=== PATIENT | male | born 1965 | race Caucasian/White ===

== ENCOUNTER 2019-06-08 00:20 | Day surgery (SDC) | payer OTHER, SELFPAY ==
[2019-06-02 14:16] VITALS: BMI 31.6
[2019-06-08 12:23] VITALS: BP 149/96; PULSE 72; RESP 14; TEMP 36.3; O2SAT 98; BMI 32.1
[2019-06-08] MEDS: LACTATED RINGERS 1,000 ML 150 ML IV CONT (12:26)
--- NOTE | 2019-06-08 13:09 | WPDANESEPPF ---
Anes - Initial Pre Proc Eval Procedure: Operation Date: 06/08/19 13:30 Proposed Procedures p Screening Colonoscopy - John Ruiz MD Date/Time: 06/08/19 13:09 Surgeon: John Ruiz MD Pre Op Diagnosis: Neoplasm Screening Patient Data Age: 53 Gender: M Height: 5 ft 10 in Weight: 101.4 kg Last Vital Signs Temp 97.4 F L 06/08/19 12:23 Pulse 72 06/08/19 12:23 Resp 14 06/08/19 12:23 BP 149/96 H 06/08/19 12:23 Pulse Ox 98 06/08/19 12:23 Allergies Allergy/AdvReac Type Severity Reaction Status Date / Time ticagrelor Allergy Unknown Blister Verified 06/08/19 12:27 hydrocodone AdvReac Unknown Nausea Verified 06/08/19 12:27 oxycodone AdvReac Unknown Nausea Verified 06/08/19 12:27 Home Medications Medication Instructions Recorded Confirmed Type aspirin [Aspir-81] 81 mg PO DAILY 06/02/19 06/02/19 History carvedilol 25 mg PO BID 06/02/19 06/08/19 History citalopram 20 mg PO PRN PRN 06/02/19 06/02/19 History lisinopril-hydrochlorothiazide 1 tablet PO BID 06/02/19 06/02/19 History multivitamin 1 cap PO DAILY 06/02/19 06/02/19 History omeprazole 20 mg PO DAILY 06/02/19 06/02/19 History Patient hx anesthesia problems: post op nausea/vomiting Family hx anesthesia problems: none PMFSH Past Medical History Medical History (Updated 06/08/19 @ 13:12 by Fitz Cannon MD) Anxiety CAD (coronary artery disease) Hyperlipidemia Hypertension Pacemaker Surgical History Surgical History (Updated 06/08/19 @ 13:12 by Fitz Cannon MD) Stented coronary artery Family History Family History (Updated 07/15/17 @ 12:21 by DOCTOR UNKNOWN) Mother Diabetes mellitus Father Hypertension Sibling Hypertension Social History Social History Alcohol intake: current Anes - Eval Final PreProcedure Day of Procedure 06/08/19 13:09 Patient weight: obese Heart: regular rate and rhythm Lungs: clear to auscultation Airway: Mallampati scale class II Neurological: alert and oriented Last oral intake: >/= 8 hours ASA classification: III Emergent: no Anesthetic plan: proceed Anesthesia type and monitoring: general GIVS and standard monitoring Informed Consent: The patient's anesthetic plan and its attendant risks and benefits were discussed with the patient/family/POA. Questions were solicited and answers provided to the satisfaction of the patient/family/POA.
--- NOTE | 2019-06-08 13:13 | PM.HPGS ---
History of Present Illness History of Present Illness Consent: Risks, benefits, and alternatives have been discussed and questions answered. Patient agrees to proceed with procedure. Chief complaint: Neoplasm Screening Narrative: Asad Jc is a 53 year old male here for screening colonoscopy, never had one Review of Systems Constitutional: Constitutional: Denies headache(s) and Denies weakness Eyes: Eyes: Denies blurry vision ENT: Reports Normal hearing present, Denies headache(s) and Denies neck pain Cardiovascular: Cardiovascular: Denies chest pain and Denies dyspnea Respiratory: Respiratory: Denies dyspnea Gastrointestinal: Gastrointestinal: Reports no additional gastrointestinal complaints Genitourinary: Genitourinary: Denies dysuria Musculoskeletal: Musculoskeletal: Denies neck pain Integumentary/Breasts: Skin/Breast: Denies dry skin Neurologic: Reports Normal hearing present, Denies headache(s) and Denies weakness Psychiatric: Psychiatric: Denies anxiety Endocrine: Endocrine: Denies change in body appearance Hematologic/Lymphatic: Hematologic/Lymphatic: Denies easy bleeding Allergic/Immunologic: Allergic/Immunologic: Denies urticaria PMFSH Past Medical History Medical History (Updated 06/08/19 @ 13:14 by John Ruiz MD) Anxiety CAD (coronary artery disease) Colon cancer screening Hyperlipidemia Hypertension Pacemaker Surgical History Surgical History (Updated 06/08/19 @ 13:12 by Fitz Cannon MD) Stented coronary artery Family History Family History (Updated 07/15/17 @ 12:21 by DOCTOR UNKNOWN) Mother Diabetes mellitus Father Hypertension Sibling Hypertension Social History Social History Alcohol intake: current Meds Home Medications and Allergies Home Medications Medication Instructions Recorded Confirmed Type aspirin [Aspir-81] 81 mg PO DAILY 06/02/19 06/02/19 History carvedilol 25 mg PO BID 06/02/19 06/08/19 History citalopram 20 mg PO PRN PRN 06/02/19 06/02/19 History lisinopril-hydrochlorothiazide 1 tablet PO BID 06/02/19 06/02/19 History multivitamin 1 cap PO DAILY 06/02/19 06/02/19 History omeprazole 20 mg PO DAILY 06/02/19 06/02/19 History Allergies Allergy/AdvReac Type Severity Reaction Status Date / Time ticagrelor Allergy Unknown Blister Verified 06/08/19 12:27 hydrocodone AdvReac Unknown Nausea Verified 06/08/19 12:27 oxycodone AdvReac Unknown Nausea Verified 06/08/19 12:27 Vital Signs Vital Signs - 24 hr 06/08/19 12:23 Temperature 97.4 F L Pulse Rate 72 Respiratory Rate 14 Blood Pressure 149/96 H Pulse Oximetry 98 Exam Const: General: comfortable and no acute distress HENMT: General nose exam: Normal nares present Eyes: General: appearance normal, both eyes and all related structures Neck: Neck: no JVD Resp: Auscultation: clear to auscultation bilaterally Cardio: Rate: regular rate Rhythm: regular rhythm GI: Inspection: non-distended GI Palp: Yes Soft to palpation Skin: General skin exam: normal color Neuro: General: gait normal Speech: normal speech Extrem: General: normal to inspection Psych: Mental Status: mental status grossly normal Assessment and Plan Assessment and plan (1) Colon cancer screening: Code(s): Z12.11 - Encounter for screening for malignant neoplasm of colon Status: Acute Assessment and Plan: will proceed with colonoscopy (2) Hypertension: Qualifiers: Hypertension type: essential hypertension Qualified Code(s): I10 - Essential (primary) hypertension Code(s): I10 - Essential (primary) hypertension Status: Acute
[2019-06-08 13:41] VITALS: BP 108/61; PULSE 71; RESP 19; O2SAT 99
[2019-06-08 13:51] VITALS: BP 126/84; PULSE 70; RESP 20; O2SAT 98
[2019-06-08 14:01] VITALS: BP 156/99; PULSE 66; RESP 22; O2SAT 99
== END 2019-06-08 14:09 | disposition home or self-care (01) ==
PROVIDERS: PCP Internal Medicine; Visit Provider Internal Medicine Gastroenterology
PROC: 0DJD8ZZ Inspection of Lower Intestinal Tract, Via Natural or Artificial Opening Endoscopic (ICD-10-PCS; CPT 45378; principal; 2019-06-08 13:30)
DX: Z12.11 Encounter for screening for malignant neoplasm of colon (principal); D12.5 Benign neoplasm of sigmoid colon; K64.8 Other hemorrhoids; I10 Essential (primary) hypertension; I25.10 Atherosclerotic heart disease of native coronary artery without angina pectoris; E78.5 Hyperlipidemia, unspecified; F41.9 Anxiety disorder, unspecified; Z95.0 Presence of cardiac pacemaker; Z79.82 Long term (current) use of aspirin; E66.9 Obesity, unspecified; Z68.32 Body mass index [BMI] 32.0-32.9, adult
CPT/HCPCS: 45385; 88305; J2704; J7120

== ENCOUNTER 2019-07-13 07:21 | Observation (INO) | payer OTHER, SELFPAY ==
[2019-07-13] VITALS (19 sets, daily range): BP systolic 98–145; BP diastolic 56–87; PULSE 64–75; RESP 12–22; TEMP 36.1–36.7; O2SAT 96–100; BMI 31.6
--- NOTE | ~2019-07-13 | XR_ITS ---
EXAMINATION: XR chest 2V DATE: 07/13/2019 08:03 INDICATION: Chest pain. TECHNIQUE: Frontal and lateral views of the chest were obtained. COMPARISON: Chest single view 03/02/2017, CT abdomen and pelvis 03/11/2010 FINDINGS: The chest demonstrates clear lungs without pneumonia, pleural effusion, or pneumothorax. Th e heart size is normal. There is a left chest pacer with leads in right atrium, right ventricle, and coronary sinus. IMPRESSION: 1. No acute cardiopulmonary disease. Reviewed, dictated and finalized at location A. FITS ADMINISTRATOR
--- NOTE | ~2019-07-13 | CT_ITS ---
EXAMINATION: CT brain wo con EXAM DATE: 07/13/2019 17:31 INDICATION: Dizziness and Confusion. TECHNIQUE: Spiral CT of the head was performed without contrast. Axial, coronal and sagittal images were reviewed. The dose-length product (DLP) for this examination was 605.33 mGy-cm. The exposure w as tailored according to patient size, and iterative reconstruction (ASIR) was used as additional dos e reduction technique. Comparison is made to prior examination from 07/12/17. FINDINGS: There is no acute intraparenchymal hemorrhage. No evidence of intraparenchymal brain mass lesion. No evidence of acute infarction. Please note that initial head CT has limited sensitivity f or small or acute infarctions. There is mild periventricular and subcortical hypodensity, nonspecific but probably related to small vessel ischemic disease. There is mild prominence of the sulci and v entricles related to cerebral atrophy. There is intracranial carotid arteriosclerosis. There are n o extra-axial collections. There is no mass effect or midline shift. The orbits are unremarkable. Soft tissue is unremarkable. The visualized sinuses and mastoid air cells are well aerated. IMPRESSION: 1. No acute intracranial findings. 2. Chronic age related findings. Reviewed, dictated and finalized at location A. ERVATION EDUCATOR
--- NOTE | 2019-07-13 07:41 | ECG_ITS ---
Measurements Intervals [place] Rate: 69 P: 43 DC: 157 QRS: 183 QRSD: 166 T: 69 QT: 428 QTc: 460 Interpretive Statements ATRIAL SENSE- ELECTRONIC VENTRICULAR PACEMAKER NO FURTHER INTERPRETATION IS POSSIBLE ATYPICAL ECG Electronically Signed On 07-13-2019 8:19:08 [employer]PECTOR [employer] by Ky Szymanski D.O.
[2019-07-13 07:59] LABS: Basophils Absolute Auto 0.1 K/mm3 (0.0-0.1); Basophils Percent Auto 0.9 % (0.2-1.2); Eosinophils Absolute Auto 0.3 K/mm3 (0-0.3); Eosinophils Percent Auto 3.9 % (0-4.4); Hematocrit 40.4 % (42.0-52.0); Hemoglobin 12.3 g/dL (14.0-18.0); Immature Granulocyte Absolute 0.03 K/mm3 (0.00-0.031); Immature Granulocyte Percent A 0.4 % (0-0.5); Lymphocytes Absolute Auto 1.65 K/mm3 (0.9-3.2); Lymphocytes Percent Auto 22.2 % (18.3-44.2); Mean Corpuscular HGB Conc 30.4 g/dl (32-36); Mean Corpuscular Hemoglobin 24.4 pg (26-34); Mean Corpuscular Volume 80.2 fl (80-100); Mean Platelet Volume 9.8 fl (7.4-10.4); Monocytes Absolute Auto 0.5 K/mm3 (0.1-0.6); Monocytes Percent Auto 6.9 % (2.6-8.5); Neutrophils Absolute Auto 4.9 K/mm3 (1.3-6.7); Neutrophils Percent Auto 65.7 % (45.5-73.1); Platelet Count Result 338 k/mm3 (150-375); Red Blood Count 5.04 M/mm3 (4.6-6.20); Red Cell Distribution Width 17.7 % (11.5-14.5); White Blood Count 7.4 K/mm3 (4.5-10.0)
[2019-07-13 08:09] LABS: Partial Thromboplastin Time 25.6 SECONDS (22.3-36.8); Prothrombin Time 12.8 Seconds (11.1-14.7)
[2019-07-13 08:19] LABS: Blood Urea Nitrogen 9 mg/dL (9-20); Calcium 9.7 mg/dL (8.4-10.2); Carbon Dioxide 30 mmol/L (22-30); Chloride 101 mmol/L (98-107); Estimated CRCL calculation 109 ml/min; Estimated Glomerular Filt Rate > 60; Glucose 180 mg/dL (75-110); Potassium 3.6 mmol/L (3.4-5.0); Sodium 137 mmol/L (137-145)
[2019-07-13 08:31] LABS: Troponin I < 0.012 ng/mL (0.000-0.034)
--- NOTE | 2019-07-13 08:51 | ED.CHESTPAIN ---
HPI - Chest Pain General Chief Complaint: Chest Pain Stated Complaint: chest pain and weakness Time Seen by Provider: 07/13/19 07:33 Source: patient Mode of arrival: ambulatory Limitations: no limitations History of Present Illness HPI narrative: Pt is a 53 y/o male who presents to the ED with c/o constant, 5/10, aching pain to his lt chest that he woke up with at 4AM this morning. Pt has a H/O a NV and states that his pain feels similar to his previous NV. He reports associated sweats, nausea, dizziness, fatigue, cough, and SCHULTZ. Pt notes that he has been fatigued for a couple of weeks and he started coughing yesterday. He denies SOB, fever, or vomiting. He notes that he has not had anything to eat today and he did not take anything for his CP. Pt has a pacemaker and stents, but he has not seen a marine specialist in 2 years d/t insurance issues. His PCP is Dr. Rose. He notes that he has a H/O HTN, but he denies a H/O HLD or DM. Pt has a H/O plaque psoriasis and is supposed to be starting methotrexate. He denies a FHx of heart disease. Pt states that he got his flu shot this year. MD complaint: chest pain Pertinent past history: coronary artery disease and prior NV Onset (ago): hour(s) (3.5) Timing of current episode: constant Prior episodes: Yes Onset: awoke with symptoms Pain location: left chest Severity: similar to previous episodes Pain scale (0-10): 5 Quality: aching Associated symptoms: nausea, diaphoresis, cough and other (dizziness, fatigue, SCHULTZ) Treatment prior to arrival: none Related Data Home Medications Medication Instructions Recorded Confirmed aspirin [Aspir-81] 81 mg PO DAILY 06/02/19 07/13/19 carvedilol 25 mg PO DAILY 06/02/19 07/13/19 lisinopril-hydrochlorothiazide 2 tablet PO DAILY 06/02/19 07/13/19 omeprazole 20 mg PO DAILY 06/02/19 07/13/19 betamethasone dipropionate 1 applic TOPICAL HS 07/13/19 07/13/19 triamcinolone acetonide 1 applic TOPICAL DAILY 07/13/19 07/13/19 Allergies Allergy/AdvReac Type Severity Reaction Status Date / Time ticagrelor Allergy Unknown Blister Verified 07/13/19 08:04 hydrocodone AdvReac Unknown Nausea Verified 07/13/19 08:04 oxycodone AdvReac Unknown Nausea Verified 07/13/19 08:04 Review of Systems Review of Systems: All systems reviewed & are unremarkable except as noted in HPI and below Constitutional: Constitutional: Reports fatigue, Denies fever(s) and Reports other (sweats) Cardiovascular: Cardiovascular: Reports chest pain Respiratory: Respiratory: Reports cough and Denies dyspnea Gastrointestinal: Gastrointestinal: Reports nausea and Denies vomiting Neurologic: Reports dizziness and Reports headache(s) [facility] Past Medical History Medical History (Updated 07/13/19 @ 15:27 by Traci Zhao MD) Anxiety CAD (coronary artery disease) Colon cancer screening Hyperlipidemia Hypertension Myocardial infarction Pacemaker Plaque psoriasis Surgical History Surgical History (Updated 07/13/19 @ 09:23 by Dylan Gardner) History of back surgery Hx of appendectomy Stented coronary artery Social History Social History (Updated 07/13/19 @ 09:22 by Dylan Gardner) Smoking packs per day: 0.5 Smoking cigarettes per day: 10.0 Years smoked: 40 Smoking pack-years: 20.00 Smoking status: Current every day smoker Tobacco type: cigarettes Alcohol intake: current Drinks per week: 24 Substance use: current Substance use type: does not use Gender identity (if verbalized by the patient): Male Spiritual care concerns: No Agree to blood products: Yes Exam Const: General: cooperative, no acute distress and alert Nutritional Appearance: well nourished Orientation/consciousness: patient oriented x3 Limitations: no limitations HENMT: Mouth: Yes lip normal and Yes moist mucous membranes Resp: Effort & Inspection: normal respiratory effort Auscultation: clear to auscultation bilaterally Cardio: Rate: regular rate Rhythm: regular rhythm GI:
[2019-07-13] MEDS: ASPIRIN 81 MG CHEWABLE TABLET 324 MG PO (09:30)
[2019-07-13] MEDS: NITROGLYCERIN SL 0.4 MG TABLET SUBLINGUAL (09:30)
[2019-07-13 09:32] LABS: Alanine Aminotransferase 92 U/L (4-50); Albumin Level 4.3 g/dL (3.5-5.1); Alkaline Phosphatase 103 U/L (38-126); Aspartate Amino Transferase 109 U/L (17-59); Bilirubin,Total 0.5 mg/dL (0.2-1.3)
[2019-07-13] MEDS: ALBUTEROL SULFATE NEB 2.5 MG/0.5 ML INH 5 MG INHALATION ×3 (09:37→19:55)
[2019-07-13] MEDS: IPRATROPIUM BR 0.02% INH SOLN 0.5 MG/2.5 ML VIAL INHALATION ×3 (09:38→19:55)
[2019-07-13 09:41] LABS: NT Pro B Type Natriuretic Pept 77 PG/ML (5-100)
[2019-07-13 10:46] LABS: Add Urine Microscopic? NO; Appearance Urine Clear (Clear); Bilirubin Urine Negative (Negative); Blood Urine Negative (Negative); Color Urine Yellow (Yellow); Glucose Urine UA Negative (Negative); Ketones Urine Negative (Negative); Leukocyte Esterase Ur Negative LEU/UL (Negative); Nitrate Urine Negative (Negative); Protein Urine Negative (Negative); Specific Grav Ur 1.015 (1.001-1.035); Urobilinogen Urine Negative mg/dL (<2.0)
[2019-07-13] MEDS: NITROGLYCERIN OINTMENT 1 INCH DOSE TRANSDERM (12:10)
[2019-07-13 12:38] LABS: Troponin I < 0.012 ng/mL (0.000-0.034)
--- NOTE | 2019-07-13 13:13 | PC.NURSE ---
This patient, Asad Jc, was admitted to IMU Room 206-. Patient/family oriented to hospital policies and general routines including ID bracelet, bed and alarms, visiting hours, pain management, procedures, bathroom and other care routines, personal items, smoking policy, room service/diet, and visiting hours. Valuables list has been completed. Information on how to activate the Rapid Response Team has been discussed. Patient/Family are encouraged to report perceived risks to care and to ask questions if they do not understand what they are told or what they should do.
[2019-07-13 14:33] LABS: Troponin I < 0.012 ng/mL (0.000-0.034)
[2019-07-13 17:46] LABS: Alveolar/Arterial O2 Gradient 25.6 mmHg; Base Excess ABG 2.7 mEq/l (+/-2.0); Carboxyhemoglobin 0.7 % THb (0-2.0); Fractional Inspired Oxygen 21 %; HCO3 ABG 26.5 mEq/l (22.0-26.0); Methemoglobin ABG 0.5 %THb (0-1.5); Oxygen Content ABG 17.2 %vol (16.0-22.0); Oxygen Saturation ABG 96.3 % (95.0-100.0); Oxyhemoglobin 94.3 % THb (90.0-100.0); PCO2 ABG 37.8 mmHg (35.0-45.0); PO2 ABG 78.9 mmHg (80.0-100.0); PO2 FiO2 Ratio Arterial Blood 3.76 %; Reduced Hemoglobin 4.5 %THb (0-5.0); Total Hemoglobin 12.9 g/dL (12.0-18.0); pH ABG 7.463 (7.350-7.450)
[2019-07-13 17:47] LABS: Device ROOM AIR; Modified Allen's Test Pass; Site Drawn RIGHT RADIAL
[2019-07-13 18:11] LABS: Ammonia < 9 umol/L (9-30)
[2019-07-13 19:26] LABS: Folic Acid > 20.0 ng/mL (2.76->20)
--- NOTE | 2019-07-13 21:48 | HP_ITS ---
Report was originally iSigned by Ana Maria Osorio on July 14, 2019 at [id number]. Cosigners were updated and the original iSigned signature was removed. DATE OF SERVICE: 07/13/2019 TIME OF EVALUATION: 1540. SUPERVISING PHYSICIAN: Dr. Jed Garcia. CHIEF COMPLAINT: Chest pain. HISTORY OF PRESENT ILLNESS: This is a 53-year-old male with coronary artery disease, history of symptomatic bradycardia, status post permanent pacemaker insertion, hypertension, hyperlipidemia, and ongoing tobacco use, who presented to the emergency department earlier today for evaluation of chest pain. He was in his usual state of health when he awoke this morning and while driving to the work, he developed sudden onset of left anterior chest pressure associated with dizziness. It lasted for about 30 minutes before resolving on its own. He has had a couple of similar episodes since admission, lasting only minutes at a time. He did not have any associated shortness of breath, nausea, sweats, or shortness of breath. He also mentions for the last 3 weeks that he has been exhausted, which is unusual for him and he has also had been feeling absent -minded. He has no history of sleep apnea, but does state that he snores. He denies orthopnea and PND. He has not fallen asleep at inopportune times. He has not had paresthesias or focal weakness. No pleuritic pain or shortness of breath. No history of cardiac dysrhythmia, but he will occasionally have palpitations. MEDICAL HISTORY: 1. Coronary artery disease. 2. STEMI on May 29, 2015, with PCI to OM 3. 3. Chronic left bundle branch block. 4. Symptomatic bradycardia, status post permanent pacemaker insertion in January 2016 at [facility]. 5. Hypertension. 6. Hyperlipidemia. 7. GERD. 8. Depression with anxiety. 9. Tobacco dependence. 10. Surgical history of appendectomy. 11. Current pacemaker insertion in January 2016 at [facility]. 12. Cardiac catheterization with stent to OM 3, May 29, 2015. HOME MEDICATION: EMR is down at the time of this dictation, please see medical records. ALLERGIES: AGAIN EMR IS DOWN AT THE TIME OF THIS DICTATION. PREVIOUS ALLERGIES LISTED BRILINTA, HYDROCODONE, AND OXYCODONE. SOCIAL HISTORY: The patient is and lives with his in [place]. He designates his as his surrogate decision maker and he wishes to be a full code. He smokes about a half pack of cigarettes per day. He reports consuming alcohol on social occasions and in moderation. No drug use. FAMILY HISTORY: Mother with diabetes and hypertension. Grandmother reportedly had an TN at young age. Daughter with peripartum cardiomyopathy. REVIEW OF SYSTEMS: Twelve systems are reviewed with pertinent positives and negatives as per HPI. No fever, chills, or sweats. No recent cold or flu symptoms. He denies nausea, vomiting, or diarrhea. No dysuria. No blurry vision, polyuria, polydipsia. He has no known history of diabetes, but did have a previous hemoglobin A1c several years ago of 6.6%. Except as documented, all other systems are reviewed and are negative. PHYSICAL EXAMINATION: VITAL SIGNS: Current vital signs, EMR is down at the time of this dictation. See medical records. GENERAL: A well-developed, well-nourished male, supine in bed, in no acute distress. HEENT: Normocephalic, atraumatic. PERRLA. EOMI. Sclerae anicteric. Oral mucosa moist. Oropharynx is poorly visualized. NECK: Supple. CHEST: No chest wall tenderness to palpation. CARDIOVASCULAR: Regular rate and rhythm with S1, S2. RESPIRATORY: Lungs are clear to auscultation. GASTROINTESTINAL: Abdomen is soft, nontender, nondistended with positive bowel sounds. SKIN: Warm and dry. Scattered psoriatic
[2019-07-14] VITALS (15 sets, daily range): BP systolic 113–147; BP diastolic 67–88; PULSE 60–114; RESP 16–18; TEMP 36–36.6; O2SAT 96–99
--- NOTE | 2019-07-14 02:46 | PCRCNOTE ---
pt receiving Apnealink
[2019-07-14 08:23] LABS: Alanine Aminotransferase 104 U/L (4-50); Albumin Level 4.1 g/dL (3.5-5.1); Alkaline Phosphatase 94 U/L (38-126); Aspartate Amino Transferase 112 U/L (17-59); Bilirubin,Total 0.5 mg/dL (0.2-1.3); Blood Urea Nitrogen 11 mg/dL (9-20); Calcium 9.3 mg/dL (8.4-10.2); Carbon Dioxide 32 mmol/L (22-30); Chloride 102 mmol/L (98-107); Estimated CRCL calculation 109 ml/min; Estimated Glomerular Filt Rate > 60; Glucose 151 mg/dL (75-110); Potassium 3.5 mmol/L (3.4-5.0); Sodium 139 mmol/L (137-145)
[2019-07-14 08:42] LABS: Hemoglobin A1C 7.3 % (<5.7)
[2019-07-14] MEDS: PANTOPRAZOLE SOD SESQUIHYDRATE 20 MG TAB PO (09:22)
[2019-07-14] MEDS: ASPIRIN 81 MG ENTERIC TABLET PO (09:22)
[2019-07-14] MEDS: TRIAMCINOLONE ACET 0.1% CREAM 15 GM TUBE 1 APPLIC TOPICAL (09:22)
[2019-07-14] MEDS: lisinopriL 20 MG TABLET 40 MG PO (09:22)
[2019-07-14] MEDS: hydroCHLOROthiazide 25 MG TABLET PO (09:22)
[2019-07-14] MEDS: carvediloL 25 MG TABLET PO (09:23)
--- NOTE | 2019-07-14 10:18 | P.PNIM_ITS ---
Progress Note: A&P Assessment and Plan (1) Chest pain: Qualifiers: Chest pain type: unspecified Qualified Code(s): R07.9 - Chest pain, unspecified Code(s): R07.9 - Chest pain, unspecified Status: Acute Assessment and Plan: * Negative troponins and EKG * Associated diaphoresis, mild hypoxia worrisome for PE (Well's Score = 3 or moderate risk) * D-dimer (2) Hypertension: Qualifiers: Hypertension type: essential hypertension Qualified Code(s): I10 - Essential (primary) hypertension Code(s): I10 - Essential (primary) hypertension Status: Acute (3) Fatigue: Qualifiers: Fatigue type: unspecified Qualified Code(s): R53.83 - Other fatigue Code(s): R53.83 - Other fatigue Status: Acute Assessment and Plan: * Anemia vs sleep disordered breathing vs liver disease vs diabetes * TSH and B12 WNL * Trial autotitrating CPAP for ABNL Apnea Link (4) CAD (coronary artery disease): Qualifiers: Coronary Disease-Associated Artery/Lesion type: [place] artery [place] vs. transplanted heart: [place] heart Associated angina: without angina Qualified Code(s): I25.10 - Atherosclerotic heart disease of [place] coronary artery without angina pectoris Code(s): I25.10 - Atherosclerotic heart disease of [place] coronary artery without angina pectoris Status: Acute Assessment and Plan: * Clinically stable (5) Abnormal liver enzymes: Code(s): R74.8 - Abnormal levels of other serum enzymes Status: Acute Assessment and Plan: * Alcohol vs hemochromatosis * Hepatitis ABC serologies negative in the past * Hep D or E unlikely * Iron panel * U/s RUQ (6) Anemia: Qualifiers: Anemia type: unspecified type Qualified Code(s): D64.9 - Anemia, unspecified Code(s): D64.9 - Anemia, unspecified Status: Acute Assessment and Plan: * May be ACD due to psoriasis (7) Type 2 diabetes mellitus with hyperglycemia: 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 Chest pain while driving to work yesterday. Associated with mild shortness of breath and severe sweats. Aching. Lasted about 30 minutes. No noted aggravating or alleviating factors. Sleeps about 8.5 hours per night. Snores. Awakens tired. Dozes easily during the day but fights at off. No change in GI or function. No fevers or chills. Mild upper respiratory congestion last couple of days. 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 Review of Systems Review of Systems: All systems reviewed & are unremarkable except as noted in HPI and below Exam Narrative: Exam Narrative: HEENT: EOMI, PERRL, pharyngeal mucosa pink and intact NECK: No JVD, adenopathy, or thyromegaly CHEST: Clear to auscultation. Normal effort. HEART: NL S1/S2, regular, no murmur ABDOMEN: BS+, soft, nontender, no mass, no bruits EXTREMITIES: No cyanosis, edema, or clubbing NEUROLOGIC: CN intact and symmetric to inspection. MUSCULOSKELETAL: Tone and strength symmetric. PSYCH: Alert. Oriented to person, place, and time. SKIN: Scattered psoriasis plaques Objective Data Vit
--- NOTE | 2019-07-14 10:18 | PM.IMPN ---
Progress Note: A&P Assessment and Plan (1) Chest pain: Qualifiers: Chest pain type: unspecified Qualified Code(s): R07.9 - Chest pain, unspecified Code(s): R07.9 - Chest pain, unspecified Status: Acute Assessment and Plan: Negative troponins and EKG Associated diaphoresis, mild hypoxia worrisome for PE (Well's Score = 3 or moderate risk) D-dimer (2) Hypertension: Qualifiers: Hypertension type: essential hypertension Qualified Code(s): I10 - Essential (primary) hypertension Code(s): I10 - Essential (primary) hypertension Status: Acute (3) Fatigue: Qualifiers: Fatigue type: unspecified Qualified Code(s): R53.83 - Other fatigue Code(s): R53.83 - Other fatigue Status: Acute Assessment and Plan: Anemia vs sleep disordered breathing vs liver disease vs diabetes TSH and B12 WNL Trial autotitrating CPAP for ABNL Apnea Link (4) CAD (coronary artery disease): Qualifiers: Coronary Disease-Associated Artery/Lesion type: [place] artery [place] vs. transplanted heart: [place] heart Associated angina: without angina Qualified Code(s): I25.10 - Atherosclerotic heart disease of [place] coronary artery without angina pectoris Code(s): I25.10 - Atherosclerotic heart disease of [place] coronary artery without angina pectoris Status: Acute Assessment and Plan: Clinically stable (5) Abnormal liver enzymes: Code(s): R74.8 - Abnormal levels of other serum enzymes Status: Acute Assessment and Plan: Alcohol vs hemochromatosis Hepatitis ABC serologies negative in the past Hep D or E unlikely Iron panel U/s RUQ (6) Anemia: Qualifiers: Anemia type: unspecified type Qualified Code(s): D64.9 - Anemia, unspecified Code(s): D64.9 - Anemia, unspecified Status: Acute Assessment and Plan: May be ACD due to psoriasis (7) Type 2 diabetes mellitus with hyperglycemia: 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 Chest pain while driving to work yesterday. Associated with mild shortness of breath and severe sweats. Aching. Lasted about 30 minutes. No noted aggravating or alleviating factors. Sleeps about 8.5 hours per night. Snores. Awakens tired. Dozes easily during the day but fights at off. No change in GI or function. No fevers or chills. Mild upper respiratory congestion last couple of days. 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 Review of Systems Review of Systems: All systems reviewed & are unremarkable except as noted in HPI and below Exam Narrative: Exam Narrative: HEENT: EOMI, PERRL, pharyngeal mucosa pink and intact NECK: No JVD, adenopathy, or thyromegaly CHEST: Clear to auscultation. Normal effort. HEART: NL S1/S2, regular, no murmur ABDOMEN: BS+, soft, nontender, no mass, no bruits EXTREMITIES: No cyanosis, edema, or clubbing NEUROLOGIC: CN intact and symmetric to inspection. MUSCULOSKELETAL: Tone and strength symmetric. PSYCH: Alert. Oriented to person, place, and time. SKIN: Scattered psoriasis plaques Objective Data Vital Signs Vital Signs: Vital Signs - 24 hr 07/13/19 12:13 07/13/19 12:40 07/13/19 13:05 Temperature Pulse Rate 68 66 69 Respiratory Rate 16 16 Blood Pressure 118/64 106/70 Pulse Oximetry 99 99 07/13/19 13:17 07/13/19 14:00 07/13/19 16:00 Temperature 97.5 F L Pulse Rate 69 70 72 Respiratory Rate 22 H Blood Pressure 131/79 Pulse Oximetry 97 07/13/19 16:22 07/13/19 16:30 07/13/19 18:00 Temperature Pulse Rate 71 75 72 R
[2019-07-14] MEDS: IPRATROPIUM BR 0.02% INH SOLN 0.5 MG/2.5 ML VIAL INHALATION ×2 (10:33→14:42)
[2019-07-14] MEDS: ALBUTEROL SULFATE NEB 2.5 MG/0.5 ML INH 5 MG INHALATION ×2 (10:33→14:41)
[2019-07-14 10:48] LABS: Immature Reticulocyte Fraction 23.2 % (3.0-15.9); Reticulocyte Hemoglobin Conten 25.9 pg (28.2-35.7); Reticulocyte Percent 1.37 % (0.7-4.3); Reticulocytes Absolute 0.06 B/L (32.2-175.7)
[2019-07-14 11:12] LABS: D Dimer 0.27 ug/mL (<0.48)
[2019-07-14 12:09] LABS: Iron 51 ug/dL (49-181)
[2019-07-14 12:19] LABS: Percent Iron Saturation 10 % (20-50)
--- NOTE | 2019-07-14 16:17 | P.DS_ITS ---
DS: Diagnosis Admitting Diagnosis Admitting Diagnosis: Chest pain, unspecified Discharge Diagnosis (1) Chest pain: Qualifiers: Chest pain type: unspecified Qualified Code(s): R07.9 - Chest pain, unspecified Code(s): R07.9 - Chest pain, unspecified Status: Acute Assessment and Plan: * Negative troponins and EKG * D-dimer negative (2) Hypertension: Qualifiers: Hypertension type: essential hypertension Qualified Code(s): I10 - Essential (primary) hypertension Code(s): I10 - Essential (primary) hypertension Status: Acute Assessment and Plan: * Continue home regimen (3) Fatigue: Qualifiers: Fatigue type: unspecified Qualified Code(s): R53.83 - Other fatigue Code(s): R53.83 - Other fatigue Status: Acute Assessment and Plan: * Anemia vs sleep disordered breathing vs liver disease vs diabetes * TSH and B12 WNL * Needs f/u evaluation for ABNL Apnea Link (4) CAD (coronary artery disease): Qualifiers: Associated angina: without angina Coronary Disease-Associated Artery/Lesion type: [place] artery [place] vs. transplanted heart: [place] heart Qualified Code(s): I25.10 - Atherosclerotic heart disease of [place] coronary artery without angina pectoris Code(s): I25.10 - Atherosclerotic heart disease of [place] coronary artery without angina pectoris Status: Acute Assessment and Plan: * Clinically stable (5) Abnormal liver enzymes: Code(s): R74.8 - Abnormal levels of other serum enzymes Status: Acute Assessment and Plan: * Alcohol vs autoimmune * Hepatitis ABC serologies negative in the past * Hep D or E unlikely * Iron panel c/w anemia of chronic disease * U/s RUQ as outpatient * Smooth muscle and LKM1 Ab as outpatient * F/u with Dr. 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 It lasted almost 30 minutes he thinks. No other associated symptoms. He came the emergency department where electrocardiogram was normal. Telemetry has been normal. He had 4 normal troponin I levels. D-dimer was undetectable. He also has chronic fatigue. He has chronically elevated liver enzymes. He was recently diagnosed with psoriasis. He had negative serologies for hepatitis AB and C in the past. During hospitalization he had an unremarkable echocardiogram and chest x-ray. His apnea link was extremely abnormal with apnea-hypopnea index of 57.6. He does admit to severe fatigue and finding of drowsiness all day. This problem has worsened recently. 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 It was noted that he had a normal coronary angiogram 2 years ago. Patient's stay was otherwise wished and complete the remainder evaluation as an outpatient. Status at Discharg
--- NOTE | 2019-07-14 16:17 | PM.DS ---
DS: Diagnosis Admitting Diagnosis Admitting Diagnosis: Chest pain, unspecified Discharge Diagnosis (1) Chest pain: Qualifiers: Chest pain type: unspecified Qualified Code(s): R07.9 - Chest pain, unspecified Code(s): R07.9 - Chest pain, unspecified Status: Acute Assessment and Plan: Negative troponins and EKG D-dimer negative (2) Hypertension: Qualifiers: Hypertension type: essential hypertension Qualified Code(s): I10 - Essential (primary) hypertension Code(s): I10 - Essential (primary) hypertension Status: Acute Assessment and Plan: Continue home regimen (3) Fatigue: Qualifiers: Fatigue type: unspecified Qualified Code(s): R53.83 - Other fatigue Code(s): R53.83 - Other fatigue Status: Acute Assessment and Plan: Anemia vs sleep disordered breathing vs liver disease vs diabetes TSH and B12 WNL Needs f/u evaluation for ABNL Apnea Link (4) CAD (coronary artery disease): Qualifiers: Associated angina: without angina Coronary Disease-Associated Artery/Lesion type: [place] artery [place] vs. transplanted heart: [place] heart Qualified Code(s): I25.10 - Atherosclerotic heart disease of [place] coronary artery without angina pectoris Code(s): I25.10 - Atherosclerotic heart disease of [place] coronary artery without angina pectoris Status: Acute Assessment and Plan: Clinically stable (5) Abnormal liver enzymes: Code(s): R74.8 - Abnormal levels of other serum enzymes Status: Acute Assessment and Plan: Alcohol vs autoimmune Hepatitis ABC serologies negative in the past Hep D or E unlikely Iron panel c/w anemia of chronic disease U/s RUQ as outpatient Smooth muscle and LKM1 Ab as outpatient F/u with Dr. 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 It lasted almost 30 minutes he thinks. No other associated symptoms. He came the emergency department where electrocardiogram was normal. Telemetry has been normal. He had 4 normal troponin I levels. D-dimer was undetectable. He also has chronic fatigue. He has chronically elevated liver enzymes. He was recently diagnosed with psoriasis. He had negative serologies for hepatitis AB and C in the past. During hospitalization he had an unremarkable echocardiogram and chest x-ray. His apnea link was extremely abnormal with apnea-hypopnea index of 57.6. He does admit to severe fatigue and finding of drowsiness all day. This problem has worsened recently. 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 It was noted that he had a normal coronary angiogram 2 years ago. Patient's stay was otherwise wished and complete the remainder evaluation as an outpatient. Status at Discharge Functional status at discharge: independent ambulation Overall status at discharge: patient is back to baseline Time Spent with Patient Time attestation: Total time spent providing and/or coordinating discharge services: 45 min Exam Narrative: Exam Narrative: HEENT: EOMI, PERRL, pharyngeal mucosa pink and intact NECK: No JVD, adenopathy, or thyromegaly CHEST: Clear to auscultation. Normal effort. HEART: NL
--- NOTE | 2019-07-14 16:49 | ECHO_ITS ---
Patient Info Name: Asad cJ Age: 53 years : 1965 Gender: Male Ht: 70 in Wt: 220 lbs BSA: 2.25 m2 HR: 61 bpm BP: 137 / 67 mmHg Technical Quality: Good Exam Date: 07/14/2019 8:34 AM Exam Location: [facility] Pulmonary Patient Status: Inpatient Admit Date: 07/13/2019 Staff Ordering Physician: Ana Maria Osorio PA-C Torpedo Specialist: Pablo Plummer, SKYE, RT Attending Provider: Jc Theodore MD Exam Type: CA echo dop color flow w con Study Info Complete two-dimensional, color flow and Doppler transthoracic echocardiogram is performed. Summary 1. Left ventricular chamber dimension is normal. 2. Definity contrast administered improved wall motion interpretation. 3. Left ventricular systolic function is normal, estimated at 55-60%. 4. The left ventricular diastolic function is grade I diastolic dysfunction. 5. E/e' 7 is not elevated. 6. Global longitudinal strain is abnormal at -12.5%. 7. There is moderate aortic valve sclerosis. Left Ventricle Definity contrast administered improved wall motion interpretation. E/e' 7 is not elevated. Global longitudinal strain is abnormal at -12.5%. Left ventricular chamber dimension is normal. Left ventricular systolic function is normal, estimated at 55-60%. The left ventricular diastolic function is grade I diastolic dysfunction. Right Ventricle Right ventricular chamber dimension is normal. Right ventricular systolic function is normal. Left Atria Left atrial chamber dimension is normal. Right Atria Right atrial chamber dimension is normal. Aortic Valve The aortic valve is trileaflet. There is moderate aortic valve sclerosis. There is no aortic valve stenosis. There is no aortic valve regurgitation. Pulmonic Valve There is no pulmonic regurgitation. Mitral Valve There is no mitral valve stenosis. There is no mitral valve regurgitation. Tricuspid Valve There is no tricuspid valve regurgitation. Pericardium/Pleural There is no pericardial effusion. Inferior Vena Cava Normal inferior vena cava with >50% collapse upon inspiration consistent with normal right atrial pressure, 5 mmHg. Aorta The aortic root size at the sinus of Valsalva is normal. Tricuspid Valve Name Value Normal Estimated PAP/RSVP RA Pressure 5 mmHg <=5 Report Signatures
== END 2019-07-14 17:33 | disposition home or self-care (01) ==
LOC: ANHED 11:42 → ANHIMU 12:21
PROVIDERS: Internal Medicine; Physician Assistant; Admitting Provider Internal Medicine; Emergency Provider Emergency Medicine; PCP Internal Medicine; Visit Provider Internal Medicine
DX: R07.9 Chest pain, unspecified (principal); I10 Essential (primary) hypertension; R53.83 Other fatigue; I25.10 Atherosclerotic heart disease of native coronary artery without angina pectoris; I25.2 Old myocardial infarction; R74.8 Abnormal levels of other serum enzymes; D64.9 Anemia, unspecified; E11.65 Type 2 diabetes mellitus with hyperglycemia; F17.210 Nicotine dependence, cigarettes, uncomplicated; L40.0 Psoriasis vulgaris; E78.5 Hyperlipidemia, unspecified; I44.7 Left bundle-branch block, unspecified; Z79.82 Long term (current) use of aspirin; Z79.899 Other long term (current) drug therapy; Z95.0 Presence of cardiac pacemaker; Z95.5 Presence of coronary angioplasty implant and graft
CPT/HCPCS: 36415; 36600; 70450; 71046; 80048; 80076; 81003; 82140; 82375; 82607; 82728; 82746; 82805; 83036; 83050; 83540; 83550; 83880; 84443; 84484; 85025; 85046; 85380; 85610; 85730; 87804; 93005; 94640; 94762; 99285; A9270; C8929; G0378; Q9957

== ENCOUNTER 2019-07-20 07:44 | Outpatient (CLI) | payer OTHER, SELFPAY ==
--- NOTE | ~2019-07-20 | US_ITS ---
EXAMINATION: US right upper quadrant EXAM DATE: 07/20/2019 08:15 INDICATION: Elevated liver function tests. TECHNIQUE: Multiple grayscale and Doppler images of the abdomen right upper quadrant were obtained (b y a technologist who performed the scan) and subsequently reviewed. There is no prior study for marge harley. FINDINGS: The pancreatic head and body are normal in appearance. The pancreatic tail is not visualized. The l iver has normal echogenicity and contour. There are no focal liver lesions identified. There is no evidence of intrahepatic biliary duct dilation. Portal venous flow was seen in the hepatopedal, nor mal direction and has normal Doppler waveform. No right-sided hydronephrosis. Common bile duct measures 4 mm, which is normal. The gallbladder wall is normal in thickness, with ex pected amount of distention. No sonographic evidence of pericholecystic fluid. There is no cholelit hiases. Technologist performing exam reports patient did not demonstrate sonographic Plummer's sign. Please note that this sign is less reliable in patients who have received pain medication. IMPRESSION: 1. Unremarkable abdominal ultrasound exam. Reviewed, dictated and finalized at location B.
== END 2019-07-20 07:45 | disposition home or self-care (01) ==
LOC: CHSIMG 07:46
PROVIDERS: PCP Internal Medicine; Visit Provider Internal Medicine
DX: R53.83 Other fatigue (principal); R79.89 Other specified abnormal findings of blood chemistry; D64.9 Anemia, unspecified
CPT/HCPCS: 76705

== ENCOUNTER 2020-01-19 08:20 | Outpatient (CLI) | payer OTHER, SELFPAY ==
[2020-01-19 08:50] LABS: Basophils Absolute Auto 0.06 K/mm3 (0.00-0.10); Basophils Percent Auto 0.8 % (0.0-1.0); Eosinophils Absolute Auto 0.51 K/mm3 (0.02-0.50); Eosinophils Percent Auto 6.6 % (1.0-6.0); Hematocrit 37.6 % (40.0-54.0); Hemoglobin 11.2 g/dL (14.0-18.0); Immature Granulocyte Absolute 0.02 K/mm3 (0.00-0.00); Immature Granulocyte Percent A 0.3 % (0.0-0.0); Lymphocytes Percent Auto 22.1 % (18.0-42.0); Mean Corpuscular HGB Conc 29.8 g/dL (32.0-36.0); Mean Corpuscular Hemoglobin 22.8 pg (27.0-31.0); Mean Corpuscular Volume 76.4 fL (78.0-102.0); Mean Platelet Volume 9.9 fl (8.7-11.0); Monocytes Absolute Auto 0.61 K/mm3 (0.10-0.90); Monocytes Percent Auto 7.9 % (2.0-11.0); Neutrophils Absolute Auto 4.8 K/mm3 (1.7-7.2); Neutrophils Percent Auto 62.3 % (50.0-70.0); Platelet Count Result 346 K/mm3 (150-420); Red Blood Count 4.92 M/mm3 (4.70-6.10); Red Cell Distribution Width 16.2 % (11.6-14.4); White Blood Count 7.7 K/mm3 (4.8-10.8)
[2020-01-19 09:42] LABS: Alanine Aminotransferase 137 U/L (16-63); Albumin Level 3.8 g/dL (3.4-5.0); Alkaline Phosphatase 112 U/L (46-116); Anion Gap 6 mmol/L (8-16); Aspartate Amino Transferase 134 U/L (15-37); Bilirubin,Total 0.4 mg/dL (0.00-1.00); Blood Urea Nitrogen 13 mg/dL (7-18); Calcium 9.4 mg/dL (8.5-10.1); Carbon Dioxide 30 mmol/L (21-32); Chloride 95 mmol/L (98-108); Estimated Glomerular Filt Rate > 60; Glucose 198 mg/dL (70-99); Osmolality Calculated 278 mOsm/kg (285-295); Potassium 5.1 mmol/L (3.5-5.1); Sodium 131 mmol/L (136-145); Total Protein 8.1 g/dL (6.4-8.2)
[2020-01-20 18:03] LABS: SARS-CoV-2 RNA PCR Negative
== END 2020-01-19 08:21 | disposition home or self-care (01) ==
LOC: CHSLAB 08:22
PROVIDERS: PCP Internal Medicine; Visit Provider Internal Medicine
DX: Z20.828 Contact with and (suspected) exposure to other viral communicable diseases (principal)
CPT/HCPCS: 36415; 80053; 85025; 87635; C9803; U0003

== ENCOUNTER 2021-03-17 11:49 | Outpatient (CLI) | payer OTHER, SELFPAY ==
--- NOTE | ~2021-03-17 | XR_ITS ---
EXAMINATION: XR lumbar spine 2-3V DATE: 03/17/2021 12:27 INDICATION: Low back pain TECHNIQUE: Anteroposterior and lateral views of the lumbar spine, and cone-down lateral view of the l umbosacral junction were obtained. COMPARISON: 01/01/2014 FINDINGS: There are changes of interval anterior and posterior fusion at L5-S1. Bone alignment is nor mal. There is no fracture. The vertebral body heights are maintained. Small degenerative osteophytes project from the anterior endplates of multiple vertebral bodies. Calcified atherosclerosis is noted. IMPRESSION: 1. Changes of interval anterior and posterior fusion at L5-S1 without acute findings. Reviewed, dictated and finalized at location B. AR DRIVER IMPRESSION: 1. Changes of interval anterior and posterior fusion at L5-S1 without acute fin dings.
[2021-03-17 12:03] LABS: Basophils Absolute Auto 0.07 K/mm3 (0.00-0.10); Basophils Percent Auto 0.7 % (0.0-1.0); Eosinophils Absolute Auto 0.34 K/mm3 (0.02-0.50); Eosinophils Percent Auto 3.6 % (1.0-6.0); Hematocrit 46.3 % (40.0-54.0); Hemoglobin 15.9 g/dL (14.0-18.0); Immature Granulocyte Absolute 0.05 K/mm3 (0.00-0.00); Immature Granulocyte Percent A 0.5 % (0.0-0.0); Lymphocytes Absolute Auto 1.64 K/mm3 (1.10-4.50); Lymphocytes Percent Auto 17.5 % (18.0-42.0); Mean Corpuscular HGB Conc 34.3 g/dL (32.0-36.0); Mean Corpuscular Hemoglobin 31.7 pg (27.0-31.0); Mean Corpuscular Volume 92.2 fL (78.0-102.0); Monocytes Absolute Auto 0.72 K/mm3 (0.10-0.90); Monocytes Percent Auto 7.7 % (2.0-11.0); Neutrophils Absolute Auto 6.6 K/mm3 (1.7-7.2); Platelet Count Result 281 K/mm3 (150-420); Red Blood Count 5.02 M/mm3 (4.70-6.10); Red Cell Distribution Width 13.2 % (11.6-14.4); White Blood Count 9.4 K/mm3 (4.8-10.8)
[2021-03-17 12:08] LABS: Add Urine Microscopic? NO; Appearance Urine Clear (Clear); Bilirubin Urine Negative (Negative); Blood Urine Negative (Negative); Color Urine Yellow (Yellow); Glucose Urine UA Negative (Negative); Ketones Urine Negative (Negative); Leukocyte Esterase Ur Negative (Negative); Nitrate Urine Negative (Negative); Protein Urine Negative (Negative); Specific Grav Ur 1.015 (1.010-1.020); Urobilinogen Urine 0.2 mg/dL (0.2-1.0)
[2021-03-17 13:08] LABS: Alanine Aminotransferase 133 U/L (16-63); Albumin Level 3.8 g/dL (3.4-5.0); Alkaline Phosphatase 123 U/L (46-116); Anion Gap 8 mmol/L (8-16); Aspartate Amino Transferase 96 U/L (15-37); Bilirubin,Total 0.6 mg/dL (0.00-1.00); Blood Urea Nitrogen 12 mg/dL (7-18); CRP 0.8 mg/dL (0.0-0.9); Carbon Dioxide 31 mmol/L (21-32); Chloride 91 mmol/L (98-108); Estimated Glomerular Filt Rate > 60; Glucose 191 mg/dL (70-99); Osmolality Calculated 274 mOsm/kg (285-295); Potassium 4.4 mmol/L (3.5-5.1); Prostate Specific Antigen 0.8 ng/mL (< OR = 4.0); Sodium 130 mmol/L (136-145)
== END 2021-03-17 11:50 | disposition home or self-care (01) ==
LOC: CHSLAB 11:53
PROVIDERS: PCP Internal Medicine; Visit Provider Internal Medicine
DX: M54.9 Dorsalgia, unspecified (principal); I10 Essential (primary) hypertension; Z12.5 Encounter for screening for malignant neoplasm of prostate; Z00.00 Encounter for general adult medical examination without abnormal findings
CPT/HCPCS: 36415; 72100; 80053; 81003; 84153; 85025; 86140; G0103

== ENCOUNTER 2021-03-21 13:30 | Outpatient (RCR) | payer OTHER, SELFPAY ==
--- NOTE | 2021-03-21 13:55 | PTOPEVAL ---
Thank you for referring Asad Jc to [facility].? The patient is scheduled to be seen for therapy? ____x/week for ___ weeks. Please review, sign, date and return this plan of care MECHELLE. I agree with and certify that the following plan of care is medically necessary. Referring Physician Date Admitting Provider: Attending Provider: Pierce Torres MD Referring Provider: *PT Outpatient Evaluation Start: 03/21/21 13:04 Freq: Status: Active Protocol: Document 03/21/21 13:03 [facility] (Rec: 03/21/21 13:54 [facility] [id number]) Therapy Assessment Status Assessment Status Assessment Status Evaluation Outpatient Past Medical History Neurological History Hx Neurological Disorders No Significant History Cardiovascular History Hx Cardiac Catheterization Yes: 05/2015 x1 heart stent Hx Coronary Stent Yes Hx Hypertension Yes Hx Myocardial Infarction Yes: 05/2015 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 Respiratory History Hx Respiratory Disorders No Significant History Gastrointestinal History Hx Appendectomy Yes Hx Gastroesophageal Reflux Disease Yes Genitourinary History Hx Genitourinary Disorders No Significant History Musculoskeletal History Hx Spinal Surgery Yes: L2 with hardware-rods & screws for discloation of vertebrae Hematological History Hx Hematological Disorders No Significant History Endocrine History Hx Systemic Lupus Erythematosus Yes: tested positive HEENT History Hx HEENT Disorders No Significant History Integumentary History Hx Psoriasis Yes Reproductive History Hx Reproductive Disorders No Significant History Psychosocial History Hx Anxiety Yes Hx Depression Yes Pain History History of Any Previous or Ongoing No Significant History Instance of Pain Anesthesia History Hx Post-Op Nausea/Vomiting Yes Evaluation Information Problem Diagnosis acute lumbago Onset 03/08/21 Subjective Information patient reports he was lifting Query Text:As Reported By Patient/ a guitar amp up to about Family shest height. he reports he carried it about 10-15 yeards and immediate felt pain in his lower back. he reports he still has pain in the lower back, but it is better. he reports he was unable to stand for several days due to pain. he ports the pain was long the entire low back to begin
== END 2021-03-31 23:59 | disposition home or self-care (01) ==
LOC: CHSPT 13:30
PROVIDERS: PCP Internal Medicine; Visit Provider Internal Medicine
DX: M54.9 Dorsalgia, unspecified (principal)
CPT/HCPCS: 97110; 97161

== ENCOUNTER 2022-02-23 14:33 | Outpatient (CLI) | payer OTHER, SELFPAY ==
--- NOTE | ~2022-02-23 | XR_ITS ---
EXAMINATION: XR chest 2V DATE: 02/23/2022 14:46 INDICATION: Cough and shortness of breath TECHNIQUE: PA and lateral views of the chest are obtained. COMPARISON: 07/13/2019 FINDINGS: There are minimal airspace opacities of the right lung base. No pleural effusion or pneumot horax. The cardiomediastinal silhouette is normal. There is moderate thoracic spondylosis. A triple l ead cardiac pacemaker of the left chest wall ends with leads in expected locations. IMPRESSION: 1. Minimal right basilar airspace opacity which could be infectious or inflammatory. Recommend follow up radiographs in 10-14 days after appropriate therapy to evaluate for improvement/resolution. Reviewed, dictated and finalized at location A. IMPRESSION: 1. Minimal right basilar airspace opacity which could be infectious or inflamma tory. Recommend followup radiographs in 10-14 days after appropriate therapy to evaluate for improvement/resolution.
== END 2022-02-23 14:34 | disposition home or self-care (01) ==
LOC: CHSIMG 14:36
PROVIDERS: PCP Internal Medicine; Visit Provider Internal Medicine
DX: R05.9 Cough, unspecified (principal)
CPT/HCPCS: 71046

== ENCOUNTER 2022-06-02 16:17 | Outpatient (CLI) | payer OTHER, SELFPAY ==
[2022-06-02 16:36] LABS: Basophils Percent Auto 1.1 % (0.0-1.0); Eosinophils Absolute Auto 0.42 K/mm3 (0.02-0.50); Eosinophils Percent Auto 4.6 % (1.0-6.0); Hematocrit 35.2 % (40.0-54.0); Hemoglobin 11.2 g/dL (14.0-18.0); Immature Granulocyte Absolute 0.04 K/mm3 (0.00-0.00); Immature Granulocyte Percent A 0.4 % (0.0-0.0); Lymphocytes Absolute Auto 2.65 K/mm3 (1.10-4.50); Lymphocytes Percent Auto 28.8 % (18.0-42.0); Mean Corpuscular HGB Conc 31.8 g/dL (32.0-36.0); Mean Corpuscular Hemoglobin 26.9 pg (27.0-31.0); Mean Corpuscular Volume 84.6 fL (78.0-102.0); Mean Platelet Volume 10.1 fl (8.7-11.0); Monocytes Absolute Auto 0.57 K/mm3 (0.10-0.90); Monocytes Percent Auto 6.2 % (2.0-11.0); Neutrophils Absolute Auto 5.4 K/mm3 (1.7-7.2); Neutrophils Percent Auto 58.9 % (50.0-70.0); Platelet Count Result 304 K/mm3 (150-420); Red Blood Count 4.16 M/mm3 (4.70-6.10); Red Cell Distribution Width 14.8 % (11.6-14.4); White Blood Count 9.2 K/mm3 (4.8-10.8)
[2022-06-02 16:37] LABS: Add Urine Microscopic? YES; Appearance Urine Clear (Clear); Bilirubin Urine Negative (Negative); Blood Urine Negative (Negative); Color Urine Yellow (Yellow); Glucose Urine UA Negative (Negative); Ketones Urine Trace (Negative); Leukocyte Esterase Ur Negative LEU/UL (Negative); Nitrate Urine Negative (Negative); Protein Urine Negative (Negative); Urobilinogen Urine 0.2 mg/dL (0.2-1.0)
[2022-06-02 16:52] LABS: Hemoglobin A1C 8.6 % (<5.7)
[2022-06-02 16:55] LABS: Bacteria Urine Trace /hpf; RBC Urine None seen /hpf (0-2); Squamous Epithelial Cell Urine Rare /hpf (Few); WBC Urine None seen /hpf (0-3)
[2022-06-02 17:39] LABS: Alanine Aminotransferase 90 U/L (16-63); Albumin Level 3.7 g/dL (3.4-5.0); Alkaline Phosphatase 104 U/L (46-116); Anion Gap 11 mmol/L (8-16); Aspartate Amino Transferase 81 U/L (15-37); Bilirubin,Total 0.6 mg/dL (0.00-1.00); Blood Urea Nitrogen 10 mg/dL (7-18); Calcium 8.6 mg/dL (8.5-10.1); Carbon Dioxide 33 mmol/L (21-32); Chloride 96 mmol/L (98-108); Cholesterol 291 mg/dL (0-200); Estimated Glomerular Filt Rate > 60; Free T4 Free Thyroxine 1.12 ng/dL (0.76-1.46); Glucose 143 mg/dL (70-99); HDL Direct 37 mg/dL (40-60); LDL Cholesterol Calculated 214 mg/dL (<130); Osmolality Calculated 291 mOsm/kg (285-295); Potassium 3.2 mmol/L (3.5-5.1); Prostate Specific Antigen 0.9 ng/mL (< OR = 4.0); Sodium 140 mmol/L (136-145); Thyroid Stimulating Hormone 1.66 uIU/mL (0.36-3.74); Total Protein 8.2 g/dL (6.4-8.2); Triglycerides 199 mg/dL (0-150)
== END 2022-06-02 16:18 | disposition home or self-care (01) ==
LOC: CHSLAB 16:19
PROVIDERS: PCP Internal Medicine; Visit Provider Internal Medicine
DX: E11.65 Type 2 diabetes mellitus with hyperglycemia (principal); I10 Essential (primary) hypertension; R53.83 Other fatigue; N39.0 Urinary tract infection, site not specified; Z12.5 Encounter for screening for malignant neoplasm of prostate
CPT/HCPCS: 36415; 80053; 80061; 81001; 83036; 84153; 84439; 84443; 85025; G0103

== ENCOUNTER 2022-09-11 01:55 | Day surgery (SDC) | payer OTHER, SELFPAY ==
[2022-07-30 16:45] VITALS: BMI 33.0
--- NOTE | 2022-07-31 09:09 | PC.NURSE ---
Interview done with patient 07/30/2022 ~1700. Pt. has a pacemaker and does not know when he last had it checked, does not think he has been using it and didn't think he needed to see cardiology to check it. In searching his EMR record all EKG's show paced rhythm. I explained to pt we do need his pacemaker checked prior to doing his procedure. He was instructed to contact Dr. Torres's office and see if they can refer him to have it checked. This morning I received a call from Dr. Corley office and apparently had called and was upset that he needs his pacemaker checked prior to EGD. I explained to office why he needs it done and she will see if she can refer him.
--- NOTE | 2022-08-04 09:55 | PC.NURSE ---
SPOKE WITH PT. 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 HE DID SAY HE USED TO SEND IN REMOTES FROM A BEDSIDE MONITOR, I did speak with the device clinic at [facility] and they expressed they did not have any remotes since 2018. Pt was told that we would need his device checked prior to procedure. I did speak with Dr. Torres's office concerning this and they will work on getting a referral for cardiology and a pacemaker check. I did talk to Josette Hayden Rn on Wednesday08/03/2022 regarding this patient and a remote was done on 07/23/2022, I spoke with RN in Dr. Torres's office and reiterated that patient really needs to be followed up with cardiology regarding pacemaker and that we may have to resched. EGD, I will review with anesthesia regarding this. I spoke with Dr. Cárdenas and he is okay with remote from 07/23/2022. I spoke with and pt had canceled his day off at work so we resched. his EGD to 09/11/2022, she will work with Dr. Varela office to get him him for cardiac device follow up. Dr. varela nurse Roxane crisostomo.
[2022-09-07 13:24] VITALS: BMI 33.0
[2022-09-11 06:30] VITALS: BP 146/84; PULSE 91; RESP 18; TEMP 36.1; O2SAT 100; BMI 32.5
[2022-09-11 06:36] LABS: Glucose Point of Care 197 mg/dl (65-105)
[2022-09-11] MEDS: LACTATED RINGERS 1,000 ML 150 ML IV CONT (06:47)
--- NOTE | 2022-09-11 07:17 | WPDANESEPPF ---
Anes - Initial Pre Proc Eval Procedure: Operation Date: 09/11/22 07:30 Proposed Procedures p Esophagogastroduodenoscopy - John Ruiz MD Date/Time: 09/11/22 07:17 Surgeon: John Ruiz MD Pre Op Diagnosis: LORNA Patient Data Age: 56 Gender: M Height: 1.78 m Weight: 102.9 kg Last Vital Signs Temp 97.0 F L 09/11/22 06:30 Pulse 91 09/11/22 06:30 Resp 18 09/11/22 06:30 BP 146/84 H 09/11/22 06:30 Pulse Ox 100 09/11/22 06:30 O2 Del Method Room Air 09/11/22 06:30 Allergies Allergy/AdvReac Type Severity Reaction Status Date / Time ticagrelor Allergy Intermediate Blister Verified 09/11/22 06:29 hydrocodone AdvReac Intermediate Nausea Verified 09/11/22 06:29 oxycodone AdvReac Intermediate Nausea Verified 09/11/22 06:29 Home Medications Medication Instructions Recorded Confirmed Type aspirin 81 mg tablet,delayed 81 mg PO DAILY 06/02/19 09/11/22 History release (Aspir-) lisinopril 20 2 tablet PO DAILY 06/02/19 09/11/22 History mg-hydrochlorothiazide 12.5 mg tablet omeprazole 20 mg tablet,delayed 20 mg PO DAILY 06/02/19 09/11/22 History release betamethasone dipropionate 0.05 % 1 applic topical HS PRN FLAREUP 07/13/19 09/11/22 History topical cream triamcinolone acetonide 0.1 % 1 applic topical DAILY PRN FLAREUP 07/13/19 09/11/22 History topical cream cyanocobalamin (vitamin B-12) 500 500 mcg PO DAILY 07/30/22 09/11/22 History mcg tablet (Vitamin B-12) docosahexaenoic acid (dha)-epa 1,400 cap PO DAILY 07/30/22 09/11/22 History capsule empagliflozin 10 mg tablet 10 mg PO DAILY 07/30/22 09/11/22 History (Jardiance) ferrous gluconate 324 mg (37.5 mg 324 mg PO DAILY 07/30/22 09/11/22 History iron) tablet oifxriqc-pxx-zyteb acid 500 1 tablet PO DAILY 07/30/22 09/11/22 History mcg-lycopene 300 mcg-lutein 250 mcg tablet potassium chloride 10 mEq 10 meq PO DAILY 07/30/22 09/11/22 History tablet,extended release risankizumab-rzaa 150 mg/mL 150 mg subcut [id number] 07/30/22 09/11/22 History subcutaneous pen injector (Skyrizi) Laboratory Tests 09/11/22 06:34 POC Capillary Glucose 197 H mg/dl (65-105) Patient hx anesthesia problems: none Family hx anesthesia problems: none Results Review: All pre-operative results and documents have been reviewed as part of the pre-operative evaluation. [facility] Past Medical History Medical History (Updated 01/25/20 @ 13:38 by John Ruiz MD) Anxiety CAD (coronary artery disease) Colon cancer screening Hyperlipidemia Hypertension Iron deficiency anemia Myocardial infarction Pacemaker Plaque psoriasis Tobacco abuse Type 2 diabetes mellitus with hyperglycemia Surgical History Surgical History History of back surgery Hx of appendectomy Stented coronary artery Family History Family History Mother Diabetes mellitus Father Hypertension Sibling Hypertension Social History Social History Smoking packs per day: 0.5 Smoking cigarettes per day: 10.0 Years smoked: 40 Smoking pack-years: 20.00 Smoking status: Current every day smoker Tobacco type: cigarettes Alcohol intake: current Drinks per week: 15 Alcohol use details: JANET Substance use: never Substance use type: does not use Living arrangements: with family Gender identity (if verbalized by the patient): Male Spiritual care concerns: No Agree to blood products: Yes Anes - Eval Final PreProcedure Day of Procedure 09/11/22 07:17 Patient weight: obese Heart: regular rate and rhythm Lungs: rhonchi Airway: Mallampati scale class III Neurological: alert and oriented Last oral intake: >/= 8 hours ASA classification: III Emergent: no Anesthetic plan: proceed Anesthesia type and
--- NOTE | 2022-09-11 07:25 | PM.HPGS ---
History of Present Illness History of Present Illness Consent: Risks, benefits, and alternatives have been discussed and questions answered. Patient agrees to proceed with procedure. Chief complaint: LONRA Narrative: Asad Jc is a 56 year old male with anemia, had colonoscopy about 3 years ago. Denies overt gib. He has psoriasis and using skyrizi Review of Systems Constitutional: Constitutional: Denies headache(s) and Denies weakness Eyes: Eyes: Denies blurry vision ENT: Reports Normal hearing present, Denies headache(s) and Denies neck pain Cardiovascular: Cardiovascular: Denies chest pain and Denies dyspnea Respiratory: Respiratory: Denies dyspnea Gastrointestinal: Gastrointestinal: Reports no additional gastrointestinal complaints Genitourinary: Genitourinary: Denies dysuria Musculoskeletal: Musculoskeletal: Denies neck pain Integumentary/Breasts: Comments: psoriasis Neurologic: Reports Normal hearing present, Denies headache(s) and Denies weakness Psychiatric: Psychiatric: Denies anxiety Endocrine: Endocrine: Denies change in body appearance Hematologic/Lymphatic: Hematologic/Lymphatic: Denies easy bleeding Allergic/Immunologic: Allergic/Immunologic: Denies urticaria PMFSH Past Medical History Medical History (Updated 01/25/20 @ 13:38 by John Ruiz MD) Anxiety CAD (coronary artery disease) Colon cancer screening Hyperlipidemia Hypertension Iron deficiency anemia Myocardial infarction Pacemaker Plaque psoriasis Tobacco abuse Type 2 diabetes mellitus with hyperglycemia Surgical History Surgical History History of back surgery Hx of appendectomy Stented coronary artery Family History Family History Mother Diabetes mellitus Father Hypertension Sibling Hypertension Social History Social History Smoking packs per day: 0.5 Smoking cigarettes per day: 10.0 Years smoked: 40 Smoking pack-years: 20.00 Smoking status: Current every day smoker Tobacco type: cigarettes Alcohol intake: current Drinks per week: 15 Alcohol use details: BEERS Substance use: never Substance use type: does not use Living arrangements: with family Gender identity (if verbalized by the patient): Male Spiritual care concerns: No Agree to blood products: Yes Meds Home Medications and Allergies Home Medications Medication Instructions Recorded Confirmed Type aspirin 81 mg tablet,delayed 81 mg PO DAILY 06/02/19 09/11/22 History release (Aspir-) lisinopril 20 2 tablet PO DAILY 06/02/19 09/11/22 History mg-hydrochlorothiazide 12.5 mg tablet omeprazole 20 mg tablet,delayed 20 mg PO DAILY 06/02/19 09/11/22 History release betamethasone dipropionate 0.05 % 1 applic topical HS PRN FLAREUP 07/13/19 09/11/22 History topical cream triamcinolone acetonide 0.1 % 1 applic topical DAILY PRN FLAREUP 07/13/19 09/11/22 History topical cream cyanocobalamin (vitamin B-12) 500 500 mcg PO DAILY 07/30/22 09/11/22 History mcg tablet (Vitamin B-12) docosahexaenoic acid (dha)-epa 1,400 cap PO DAILY 07/30/22 09/11/22 History capsule empagliflozin 10 mg tablet 10 mg PO DAILY 07/30/22 09/11/22 History (Jardiance) ferrous gluconate 324 mg (37.5 mg 324 mg PO DAILY 07/30/22 09/11/22 History iron) tablet jksfpjjv-ngg-ndlkm acid 500 1 tablet PO DAILY 07/30/22 09/11/22 History mcg-lycopene 300 mcg-lutein 250 mcg tablet potassium chloride 10 mEq 10 meq PO DAILY 07/30/22 09/11/22 History tablet,extended release risankizumab-rzaa 150 mg/mL 150 mg subcut [id number] 07/30/22 09/11/22 History subcutaneous pen injector (Skyrizi) Allergies Allergy/AdvReac Type Severity Reaction Status Date / Time ticagrelor Allergy Intermediate Blister Verified 09/11/22 06:29 hydr
[2022-09-11 07:36] VITALS: BP 119/76; PULSE 84; RESP 22; O2SAT 98
[2022-09-11 07:46] VITALS: BP 126/87; PULSE 79; RESP 20; O2SAT 99
[2022-09-11 07:56] VITALS: BP 127/90; PULSE 87; RESP 20; O2SAT 100
== END 2022-09-11 08:07 | disposition home or self-care (01) ==
PROVIDERS: PCP Internal Medicine; Visit Provider Internal Medicine Gastroenterology
PROC: 0DJ08ZZ Inspection of Upper Intestinal Tract, Via Natural or Artificial Opening Endoscopic (ICD-10-PCS; CPT 43235; principal; 2022-09-11 07:30)
DX: D50.9 Iron deficiency anemia, unspecified (principal); K29.50 Unspecified chronic gastritis without bleeding; I25.10 Atherosclerotic heart disease of native coronary artery without angina pectoris; E78.5 Hyperlipidemia, unspecified; E11.9 Type 2 diabetes mellitus without complications; I10 Essential (primary) hypertension; I25.2 Old myocardial infarction; Z95.0 Presence of cardiac pacemaker; L40.0 Psoriasis vulgaris; Z79.620 Long term (current) use of immunosuppressive biologic; Z95.5 Presence of coronary angioplasty implant and graft; F17.210 Nicotine dependence, cigarettes, uncomplicated; Z79.82 Long term (current) use of aspirin; Z79.84 Long term (current) use of oral hypoglycemic drugs
CPT/HCPCS: 43239; 82948; 88305; 88342; J2704; J7120

== ENCOUNTER 2024-01-25 08:35 | Outpatient (CLI) | payer OTHER, SELFPAY ==
--- NOTE | ~2024-01-25 | US_ITS ---
EXAMINATION: US right upper quadrant DATE: 01/25/2024 08:57 INDICATION: Alcoholic liver disease. TECHNIQUE: Multiple grayscale and Doppler ultrasound images of the abdomen were obtained. COMPARISON: None FINDINGS: The visualized portions of the head and body of the pancreas are normal. There is diffuse h epatic steatosis. No liver surface nodularity. The gallbladder is normal in size. No gallstones or ga llbladder wall thickening. There is no sonographic Plummer's sign. The common duct is normal and measu res 2 mm. IMPRESSION: 1. Diffuse hepatic steatosis. Reviewed, dictated and finalized at location A.
== END 2024-01-25 08:36 | disposition home or self-care (01) ==
LOC: CHSIMG 08:36
PROVIDERS: PCP Internal Medicine; Visit Provider Internal Medicine
DX: D64.9 Anemia, unspecified (principal); K70.9 Alcoholic liver disease, unspecified; K76.0 Fatty (change of) liver, not elsewhere classified
CPT/HCPCS: 76705

== ENCOUNTER 2024-02-09 19:13 | Inpatient (IN) | payer OTHER, SELFPAY ==
[2024-02-09] VITALS (13 sets, daily range): BP systolic 127–154; BP diastolic 83–103; PULSE 86–118; RESP 16–23; TEMP 36.8; O2SAT 97–100
--- NOTE | ~2024-02-09 | CT_ITS ---
EXAMINATION: CT abdomen pelvis w con DATE: 02/09/2024 21:46 INDICATION: Abdominal pain. Nausea. Vomiting. Leukocytosis. TECHNIQUE: Computed tomography (CT) of the abdomen and pelvis was performed with 100 mL Omnipaque 350 intravenous contrast. Automated exposure control and iterative reconstruction technique were employe d. The dose-length product was 870.23 mGy-cm. COMPARISON: CT abdomen pelvis 03/11/2010 FINDINGS: The visualized portions of the lung bases demonstrate mild atelectasis in the right. No ple ural effusion. The heart size is normal. No pericardial effusion. There are pacer wires in right vent ricle and coronary sinus. The liver demonstrates surface nodularity, consistent with cirrhosis. There is a periumbilical portacaval shunt. The gallbladder, spleen, pancreas, and adrenal glands are hao l. There are cysts in the kidneys measuring up to 11 mm on the left. There is an 11 mm stone in left kidney. There are scattered diverticula in the colon. There is wall thickening of the sigmoid colon. There is fat stranding around a sigmoid diverticulum. The appendix is not visualized. There are no pa thologically enlarged lymph nodes. There is no free intraperitoneal fluid. There is calcified atheros clerosis of the aorta and many of the other arteries. There are changes of an anterior and posterior fusion procedures at L5-S1. There is a hemangioma in T12 vertebral body. There is mild chronic anteri or wedging of multiple thoracic vertebral bodies. IMPRESSION: 1. Sigmoid diverticulitis. No perforation or abscess. 2. Cirrhosis of the liver with portal venous hypertension. Reviewed, dictated and finalized at location A.
--- NOTE | ~2024-02-09 | XR_ITS ---
EXAMINATION: XR chest 1V portable DATE: 02/09/2024 20:57 INDICATION: Leukocytosis. TECHNIQUE: A single frontal view of the chest was obtained. COMPARISON: Chest 2 views 02/23/2022 FINDINGS: There is no pneumonia, pleural effusion, or pneumothorax. The heart size is normal. There i s a left chest pacer with leads in right atrium, right ventricle, and coronary sinus. IMPRESSION: 1. No acute cardiopulmonary disease. Reviewed, dictated and finalized at location A.
[2024-02-09 19:41] LABS: Hematocrit 30.9 % (42.0-52.0); Hemoglobin 9.6 g/dL (14.0-18.0); Mean Corpuscular HGB Conc 31.1 g/dl (32-36); Mean Corpuscular Hemoglobin 23.9 pg (26-34); Mean Corpuscular Volume 77.1 fl (80-100); Mean Platelet Volume 10.2 fl (7.4-10.4); Platelet Count Result 586 k/mm3 (150-375); Red Blood Count 4.01 M/mm3 (4.6-6.20); Red Cell Distribution Width 20.8 % (11.5-14.5); White Blood Count 20.8 K/mm3 (4.5-10.0)
[2024-02-09 19:50] LABS: Ethanol < 10 mg/dL (<10)
[2024-02-09 19:56] LABS: Lymphocytes Absolute Manual 4.57 K/mm3 (1.1-4.5); Monocytes Absolute Manual 0.83 K/mm3 (0.1-0.90); Monocytes Percent Manual 4 % (3-9); Neutrophils Percent Manual 74 % (46-73); Platelet Estimate Increased (Adequate); Schistocytes None Seen; Total Cells Counted 100
[2024-02-09 19:57] LABS: Albumin Level 3.9 g/dL (3.5-5.1); Alkaline Phosphatase 92 U/L (38-126); Anion Gap 19 mmol/L (4-12); Anisocytosis 2+; Aspartate Amino Transferase 89 U/L (17-59); Blood Urea Nitrogen 17 mg/dL (9-20); Carbon Dioxide 15 mmol/L (22-30); Chloride 100 mmol/L (98-107); Estimated CRCL calculation 63 ml/min; Estimated Glomerular Filt Rate > 60; Glucose 257 mg/dL (65-110); Hypochromasia 1+; Lipase 239 U/L (23-300); Potassium 2.8 mmol/L (3.4-5.0); Sodium 134 mmol/L (137-145)
[2024-02-09 20:02] LABS: Alanine Aminotransferase 38 U/L (6-50)
--- NOTE | 2024-02-09 20:39 | ECG_ITS ---
Test Date: 2024-02-09 21:11:46 Measurements Intervals [place] Rate: 97 P: 61 SC: 124 QRS: 123 QRSD: 161 T: 117 QT: 407 QTc: 519 Interpretive Statements ELECTRONIC VENTRICULAR PACEMAKER No previous ECG available for comparison Electronically Signed On 02-10-2024 11:59:26 CDT by Bill Quinteros M.D.
[2024-02-09] MEDS: SODIUM CHLORIDE 0.9% IV 1,000 ML 999 ML IV CONT ×2 (20:45→22:13)
[2024-02-09] MEDS: KCL 20 MEQ/SW 100 ML 100 ML 50 MEQ IVPB (20:47)
[2024-02-09] MEDS: ONDANSETRON INJ 4 MG/2 ML VIAL IV PUSH ×2 (21:07→23:26)
[2024-02-09] MEDS: LORazepam INJ (*CRX) 2 MG/ML VIAL 1 MG IV PUSH (21:11)
[2024-02-09] MEDS: THIAMINE 500 MG/NS 100 ML 500 MG/100 ML BAG 200 MG IVPB (21:14)
[2024-02-09 21:15] LABS: Lactic Acid Reflex 7.6 mmol/L (0.7-2.0)
[2024-02-09 21:20] LABS: Phosphorus 3.3 mg/dL (2.5-4.5)
[2024-02-09 21:22] LABS: Magnesium < 0.2 mg/dL (1.6-2.3)
--- NOTE | 2024-02-09 22:09 | ED.GENADULT ---
HPI - General Adult General Chief complaint: Alcohol Stated complaint: alcohol withdrawls, N/V for 10 days Time Seen by Provider: 02/09/24 20:37 History of Present Illness HPI narrative: Patient 58-year-old gentleman who presents emergency department with chief complaint of dizziness diarrhea and vomiting for the last 4 weeks the patient reports that drinks quite a bit and reports that he stop drinking in the last 24 hours the patient states he feels tremulous feels overall achy and reports that feels extremely anxious. Related Data Home Medications Medication Instructions Recorded Confirmed aspirin 81 mg tablet,delayed 81 mg PO DAILY 06/02/19 09/11/22 release (Aspir-) lisinopril 20 2 tablet PO DAILY 06/02/19 09/11/22 mg-hydrochlorothiazide 12.5 mg tablet betamethasone dipropionate 0.05 % 1 applic topical HS PRN FLAREUP 07/13/19 09/11/22 topical cream triamcinolone acetonide 0.1 % 1 applic topical DAILY PRN FLAREUP 07/13/19 09/11/22 topical cream cyanocobalamin (vitamin B-12) 500 500 mcg PO DAILY 07/30/22 09/11/22 mcg tablet (Vitamin B-12) docosahexaenoic acid (dha)-epa 1,400 cap PO DAILY 07/30/22 09/11/22 capsule empagliflozin 10 mg tablet 10 mg PO DAILY 07/30/22 09/11/22 (Jardiance) ferrous gluconate 324 mg (37.5 mg 324 mg PO DAILY 07/30/22 09/11/22 iron) tablet lisvexry-scq-pstzu acid 500 1 tablet PO DAILY 07/30/22 09/11/22 mcg-lycopene 300 mcg-lutein 250 mcg tablet potassium chloride 10 mEq 10 meq PO DAILY 07/30/22 09/11/22 tablet,extended release risankizumab-rzaa 150 mg/mL 150 mg subcut [id number] 07/30/22 09/11/22 subcutaneous pen injector (Hajaizi) Allergies Allergy/AdvReac Type Severity Reaction Status Date / Time ticagrelor Allergy Intermediate Blister Verified 02/09/24 19:14 hydrocodone AdvReac Intermediate Nausea Verified 02/09/24 19:14 oxycodone AdvReac Intermediate Nausea Verified 02/09/24 19:14 Review of Systems Review of Systems: A 10 system review of systems was completed on the patient and is negative except for what is stated in the HPI. Nursing and ancillary documentation was reviewed. [facility] Past Medical History Medical History Anxiety CAD (coronary artery disease) Colon cancer screening Hyperlipidemia Hypertension Iron deficiency anemia Myocardial infarction Pacemaker Plaque psoriasis Tobacco abuse Type 2 diabetes mellitus with hyperglycemia Surgical History Surgical History History of back surgery Hx of appendectomy Stented coronary artery Family History Family History Mother Diabetes mellitus Father Hypertension Sibling Hypertension Social History Social History Smoking packs per day: 0.5 Smoking cigarettes per day: 10.0 Years smoked: 40 Smoking pack-years: 20.00 Smoking status: Current every day smoker Tobacco type: cigarettes Alcohol intake: current Drinks per week: 15 Alcohol use details: BEERS Substance use: never Substance use type: does not use Living arrangements: with family Gender identity (if verbalized by the patient): Male Spiritual care concerns: No Agree to blood products: Yes Exam Narrative: GENERAL: Ill-appearing, well-nourished, and in no acute distress. HEAD: Normocephalic, atraumatic. EYES: PERRLA and EOMI. ENT: Nares clear, no rhinorrhea or epistaxis. Mucous membranes moist. NECK: Supple. CHEST: Clear to auscultation. No respiratory distress. HEART: Regular rate and rhythm. No murmur heard. Normal peripheral pulses. ABDOMEN: Soft, diffusely tender to palpation, nondistended, normal active bowel sounds. EXTREMITIES: Normal range of motion. No edema. SKIN: Warm, dry, no rash. NEURO: No focal deficits. Alert and oriented x3. Tremulous PSYCH: Normal mood and affect. Course Vital Signs Vital signs: Vital Signs Temperature 36.8 C 02/09/24 19:23 Pulse Rate 118 H 02/09/24 19:23 Respiratory Rate 16 02/09/24 19:23 Blood Pressure 148/98 H 02/09/24 19:23 Pulse Oximetry 100 02/09/24 19:23 Oxygen Delivery Room Air 02/09/24 19:23 Temperature 36.8 C 02/09/24 19:23 Pulse Rate 116 H 02/09/24 22:15 Respiratory Rate 17 02/09/24 22:15 Blood Pressure 154/103 H 02/09/24 20:50 Pulse Oximetry 99 02/09/24 22:15 Oxygen Delivery Room Air 02/09/24 19:23 Medical Decision Making MDM Narrative Medical decision making narrative: Differential diagnosis includes alcohol withdrawal, dehydration, gastroenteritis, diverticulitis, pneumonia Laboratory studies were obtained on the patient showed a white count 20.8 electrolytes showed a potassium of 2.8 CO2 of 15 anion gap of 19 glucose was 257 Laboratory studies were obtained on the patient which showed a magnesium of less than 0.2 lactate was elevated at 7.6 ETOH was less than 10 Chest x-ray showed no focal infiltrate CT scan of the abdomen pelvis showed 1. Sigmoid diverticulitis. No perforation or abscess. 2. Cirrhosis of the liver with portal venous hypertension. The patient started on fluid resuscitation was given thiamine the patient also was given Ativan for signs withdrawal 3 g of magnesium sulfate were ordered as the patient's magnesium was undetectable Vital Signs Vital Signs: Vital Signs Temperature 36.8 C 02/09/24 19:23 Pulse Rate 118 H 02/09/24 19:23 Respiratory Rate 16 02/09/24 19:23 Blood Pressure 148/98 H 02/09/24 19:23 Pulse Oximetry 100 02/09/24 19:23 Oxygen Delivery Room Air 02/09/24 19:23 Temperature 36.8 C 02/09/24 19:23 Pulse Rate 116 H 02/09/24 22:15 Respiratory Rate 17 02/09/24 22:15 Blood Pressure 154/103 H 02/09/24 20:50 Pulse Oximetry 99 02/09/24 22:15 Oxygen Delivery Room Air 02/09/24 19:23 Lab Data 02/09/24 19:34 02/09/24 19:34 Labs: Lab Results 02/09/24 02/09/24 02/09/24 Range/Units 19:33 19:34 20:53 WBC 20.8 H (4.5-10.0) K/mm3 RBC 4.01 L (4.6-6.20) M/mm3 Hgb 9.6 L (14.0-18.0) g/dL Hct 30.9 L (42.0-52.0) % MCV 77.1 L (80-100) fl MCH 23.9 L (26-34) pg MCHC 31.1 L (32-36) g/dl RDW 20.8 H (11.5-14.5) % Plt Count 586 H D (150-375) k/mm3 MPV 10.2 (7.4-10.4) fl Immature Gran % (Auto) Not Reportable Neut % (Auto) Not Reportable Lymph % (Auto) Not Reportable [place] % (Auto) Not Reportable Eos % (Auto) Not Reportable Baso % (Auto) Not Reportable Lymph # (Auto) Not Reportable [place] # (Auto) Not Reportable Eos # (Auto) Not Reportable Baso # (Auto) Not Reportable Abs Immat Gran (auto) Not Reportable Absolute Neuts (auto) Not Reportable Absolute Nucleated RBC Not Reportable Total Counted 100 Neutrophils % (Manual) 74 H (46-73) % Lymphocytes % (Manual) 22.0 (18-44) % Monocytes % (Manual) 4 (3-9) % Nucleated RBC % Not Reportable Abs Lymphs (Manual) 4.57 H (1.1-4.5) K/mm3 Abs Monocytes (Manual) 0.83 (0.1-0.90) K/mm3 Platelet Estimate Increased (Adequate) Hypochromasia 1+ Anisocytosis 2+ Schistocytes None seen Sodium 134 L (137-145) mmol/L Potassium 2.8 L* (3.4-5.0) mmol/L Chloride 100 (98-107) mmol/L Carbon Dioxide 15 L (22-30) mmol/L Anion Gap 19 H (4-12) mmol/L BUN 17 (9-20) mg/dL Creatinine 1.20 (0.7-1.3) mg/dL Estim Creat Clear Calc 63 ml/min Estimated GFR > 60 (59 - ) Glucose 257 H (65-110) mg/dL POC Capillary Glucose (65-105) mg/dl Lactic Acid 7.6 H* (0.7-2.0) mmol/L Calcium 8.0 L (8.4-10.2) mg/dL Phosphorus 3.3 (2.5-4.5) mg/dL Magnesium < 0.2 L (1.6-2.3) mg/dL Total Bilirubin 1.0 (0.2-1.3) mg/dL AST 89 H (17-59) U/L ALT 38 (6-50) U/L Alkaline Phosphatase 92 (38-126) U/L Total Protein 8.0 (6.3-8.2) g/dL Albumin 3.9 (3.5-5.1) g/dL Lipase 239 (23-300) U/L Beta-Hydroxybutyrate/Acetoacetate 1.04 H (0.02-0.27) mmol/L Urine Color (Yellow) Urine Appearance (Clear) Urine pH (5.0-9.0) Ur Specific [place] (1.001-1.035) Urine Protein (Negative) mg/dL Urine Glucose (UA) (Negative) mg/dL Urine Ketones (Negative) mg/dL Ur Blood (Man) (Negative) Urine Nitrate (Negative) Urine Bilirubin (Negative) Urine Urobilinogen (<2.0) mg/dL Add Ur Microanalysis Leukocyte Esterase Rfl (Negative) LAURENCE/UL Urine RBC (0-2) /hpf Urine WBC (0-3) /hpf Ur Squamous Epith Cells (Few) /hpf Urine Bacteria /hpf Urine Casts Ethyl Alcohol < 10 (<10) mg/dL 02/09/24 02/09/24 02/09/24 Range/Units 22:10 22:11 23:42 WBC (4.5-10.0) K/mm3 RBC (4.6-6.20) M/mm3 Hgb (14.0-18.0) g/dL Hct (42.0-52.0) % MCV (80-100) fl MCH (26-34) pg MCHC (32-36) g/dl RDW (11.5-14.5) % Plt Count (150-375) k/mm3 MPV (7.4-10.4) fl Immature Gran % (Auto) Neut % (Auto) Lymph % (Auto) [place] % (Auto) Eos % (Auto) Baso % (Auto) Lymph # (Auto) [place] # (Auto) Eos # (Auto) Baso # (Auto) Abs Immat Gran (auto) Absolute Neuts (auto) Absolute Nucleated RBC Total Counted Neutrophils % (Manual) (46-73) % Lymphocytes % (Manual) (18-44) % Monocytes % (Manual) (3-9) % Nucleated RBC % Abs Lymphs (Manual) (1.1-4.5) K/mm3 Abs Monocytes (Manual) (0.1-0.90) K/mm3 Platelet Estimate (Adequate) Hypochromasia Anisocytosis Schistocytes Sodium (137-145) mmol/L Potassium (3.4-5.0) mmol/L Chloride (98-107) mmol/L Carbon Dioxide (22-30) mmol/L Anion Gap (4-12) mmol/L BUN (9-20) mg/dL Creatinine (0.7-1.3) mg/dL Estim Creat Clear Calc ml/min Estimated GFR (59 - ) Glucose (65-110) mg/dL POC Capillary Glucose 202 H (65-105) mg/dl Lactic Acid 2.2 H (0.7-2.0) mmol/L Calcium (8.4-10.2) mg/dL Phosphorus (2.5-4.5) mg/dL Magnesium (1.6-2.3) mg/dL Total Bilirubin (0.2-1.3) mg/dL AST (17-59) U/L ALT (6-50) U/L Alkaline Phosphatase (38-126) U/L Total Protein (6.3-8.2) g/dL Albumin (3.5-5.1) g/dL Lipase (23-300) U/L Beta-Hydroxybutyrate/Acetoacetate (0.02-0.27) mmol/L Urine Color Yellow (Yellow) Urine Appearance Clear (Clear) Urine pH 5.5 (5.0-9.0) Ur Specific [place] 1.020 (1.001-1.035) Urine Protein 1+ H (Negative) mg/dL Urine Glucose (UA) Negative (Negative) mg/dL Urine Ketones Trace H (Negative) mg/dL Ur Blood (Man) Negative (Negative) Urine Nitrate Negative (Negative) Urine Bilirubin Negative (Negative) Urine Urobilinogen 1.0 (<2.0) mg/dL Add Ur Microanalysis Reviewed Leukocyte Esterase Rfl Trace H (Negative) LAURENCE/UL Urine RBC 0-2 (0-2) /hpf Urine WBC 0-5 (0-3) /hpf Ur Squamous Epith Cells None seen (Few) /hpf Urine Bacteria None seen /hpf Urine Casts >20 Ethyl Alcohol (<10) mg/dL ABG Data ABG results: 02/09/24 22:37 Puncture Site Left radial ABG pH 7.473 H ABG pCO2 33.2 L ABG pO2 87.7 ABG PO2/FiO2 Ratio 4.18 ABG HCO3 23.8 ABG O2 Saturation 97.3 ABG O2 Content 12.0 L ABG Base Excess 0.4 A-a Gradient 22.3 Oxyhemoglobin 95.5 Total Hemoglobin 8.8 L O2 Delivery Device Not Reportable O2 Liters/Min Not Reportable FiO2 21 Critical Care Time Critical Care Time Critical Care Time: Yes Total Critical Care Time: 75 Discharge Plan Discharge Clinical Impression: Alcohol withdrawal, Hypomagnesemia, Diverticulitis Patient Disposition: Still a Patient Condition: Improved Prescriptions: No Action lisinopril-hydrochlorothiazide 20-12.5 mg Tablet 2 tablet PO DAILY aspirin [Aspir-81] 81 mg Tablet,Delayed Release (Dr/Ec) 81 mg PO DAILY potassium chloride 10 mEq tablet extended release 10 meq PO DAILY cyanocobalamin (vitamin B-12) [Vitamin B-12] 500 mcg Tablet 500 mcg PO DAILY Fish Oil (with DHA-EPA) Capsule 1,400 cap PO DAILY Complete Multi 50+ 500-300-250 mcg Tablet 1 tablet PO DAILY ferrous gluconate 324 mg (37.5 mg iron) tablet 324 mg PO DAILY Jardiance 10 mg tablet 10 mg PO DAILY Skyrizi 150 mg/mL pen injector 150 mg SUBCUT [id number] Patient Comments: NEXT INJECTION 08/11/2022 triamcinolone acetonide 0.1 % cream 1 applic TOPICAL DAILY PRN (Reason: FLAREUP) Rx Instructions: place on dry patches of skin betamethasone dipropionate 0.05 % cream 1 applic TOPICAL HS PRN (Reason: FLAREUP) omeprazole 40 mg capsule,delayed release(DR/EC) 40 mg PO .daily 30 Days Qty: 30 12RF Follow-up/Referrals: Pierce Torres MD [Primary Care Provider] - Time of Disposition: 00:31
[2024-02-09] MEDS: MAGNESIUM SULFATE 3GM/D5W100ML 3 GM/100 ML BAG IVPB (22:23)
[2024-02-09 22:27] LABS: Glucose Point of Care 202 mg/dl (65-105)
[2024-02-09] MEDS: DEXTROSE 5%/0.9% SOD CHL 1,000 ML 125 ML IV CONT (22:32)
[2024-02-09 22:35] LABS: Beta-Hydroxybutyrate/Acetoacetate 1.04 mmol/L (0.02-0.27)
[2024-02-09] MEDS: PIPERACILLN/TAZ 3.375GM/NS50ML 3.375 GM/50 ML BAG IVPB (22:35)
[2024-02-09 22:37] LABS: Add Urine Microscopic? YES; Appearance Urine Clear (Clear); Bacteria Urine None Seen /hpf; Bilirubin Urine Negative (Negative); Blood Urine Negative (Negative); Color Urine Yellow (Yellow); Glucose Urine UA Negative (Negative); Ketones Urine Trace mg/dL (Negative); Leukocyte Esterase Ur Trace LEU/UL (Negative); Need Manual Microscopic Reviewed; Nitrate Urine Negative (Negative); Non Pathogenic Casts >20; Protein Urine 1+ mg/dL (Negative); RBC Urine 0-2 /hpf (0-2); Squamous Epithelial Cell Urine None Seen /hpf (Few); WBC Urine 0-5 /hpf (0-3); pH Urine 5.5 (5.0-9.0)
[2024-02-09 23:06] LABS: Alveolar/Arterial O2 Gradient 22.3 mmHg; Base Excess ABG 0.4 mEq/l (+/-2.0); Fractional Inspired Oxygen 21 %; HCO3 ABG 23.8 mEq/l (22.0-26.0); Oxygen Saturation ABG 97.3 % (95.0-100.0); Oxyhemoglobin 95.5 % THb (90.0-100.0); PCO2 ABG 33.2 mmHg (35.0-45.0); PO2 ABG 87.7 mmHg (80.0-100.0); PO2 FiO2 Ratio Arterial Blood 4.18 %; Total Hemoglobin 8.8 g/dL (12.0-18.0); pH ABG 7.473 (7.350-7.450)
[2024-02-09 23:07] LABS: Modified Allen's Test Pass; Site Drawn LEFT RADIAL
[2024-02-09] MEDS: LORazepam INJ (*CRX) 2 MG/ML VIAL IV PUSH (23:46)
[2024-02-09 23:54] LABS: Lactic Acid Reflex 2.2 mmol/L (0.7-2.0)
[2024-02-09 23:55] LABS: Reflex Lactic Acid Yes or No Add Lactic
[2024-02-10] VITALS (48 sets, daily range): BP systolic 85–142; BP diastolic 63–99; PULSE 55–112; RESP 16–27; TEMP 36.4–37.2; O2SAT 96–100; BMI 26.1
--- NOTE | 2024-02-10 00:42 | PM.IMHP ---
H&P: HPI History of Present Illness Date/Time: 02/10/24 00:42 Chief Complaint: Abdomen pain, nausea vomiting, anxiety Narrative: Patient is a poor historian, history is taken from patient ER physician. Patient 58-year-old gentleman with history of alcohol abuse, brought to ED because of abdomen pain, nausea, general weakness, anxiety. Patient has history of abuse, usually drinking 10 shots of whiskey a day, last drink was 24 hour ago. Patient has been having poor appetite, intermittent nausea vomiting in past week. Patient lost about 40 lb in past 1 week because of poor appetite. Patient has worsening abdomen pain, locating in left lower abdomen. Patient also has anxiety, bilateral hand tremor, diaphoresis, headache. Patient was brought to ED for evaluation treatment. Upon arrival to ED, patient was found have tachycardia, tachypnea but no O2 desaturation on room air, labs showed leukocytosis of 20,800 with left shift, anemia, hemoglobin 9.6 lower than baseline, chemistry showed hypokalemia 2.8, high anion gap metabolic acidosis, bicarbonate 15, lactic acidosis 7.6, magnesium 0.2, uncontrolled diabetes glucose 257. CT scan showed sigmoid diverticulitis, liver cirrhosis and portal vein hypertension. Patient received antibiotics, fluid resuscitation. We admit patient will for evaluation treatment Review of Systems Review of Systems: ROS negative except above PMFSH Past Medical History Medical History Anxiety CAD (coronary artery disease) Colon cancer screening Hyperlipidemia Hypertension Iron deficiency anemia Myocardial infarction Pacemaker Plaque psoriasis Tobacco abuse Type 2 diabetes mellitus with hyperglycemia Surgical History Surgical History History of back surgery Hx of appendectomy Stented coronary artery Family History Family History Mother Diabetes mellitus Father Hypertension Sibling Hypertension Social History Social History Smoking packs per day: 0.5 Smoking cigarettes per day: 10.0 Years smoked: 40 Smoking pack-years: 20.00 Smoking status: Current every day smoker Tobacco type: cigarettes Alcohol intake: current Drinks per week: 15 Alcohol use details: BEERS Substance use: never Substance use type: does not use Living arrangements: with family Gender identity (if verbalized by the patient): Male Spiritual care concerns: No Agree to blood products: Yes Meds Home Medications and Allergies Home Medications Medication Instructions Recorded Confirmed Type aspirin 81 mg tablet,delayed 81 mg PO DAILY 06/02/19 09/11/22 History release (Aspir-) lisinopril 20 2 tablet PO DAILY 06/02/19 09/11/22 History mg-hydrochlorothiazide 12.5 mg tablet betamethasone dipropionate 0.05 % 1 applic topical HS PRN FLAREUP 07/13/19 09/11/22 History topical cream triamcinolone acetonide 0.1 % 1 applic topical DAILY PRN FLAREUP 07/13/19 09/11/22 History topical cream cyanocobalamin (vitamin B-12) 500 500 mcg PO DAILY 07/30/22 09/11/22 History mcg tablet (Vitamin B-12) docosahexaenoic acid (dha)-epa 1,400 cap PO DAILY 07/30/22 09/11/22 History capsule empagliflozin 10 mg tablet 10 mg PO DAILY 07/30/22 09/11/22 History (Jardiance) ferrous gluconate 324 mg (37.5 mg 324 mg PO DAILY 07/30/22 09/11/22 History iron) tablet ebchizfu-wcl-pudll acid 500 1 tablet PO DAILY 07/30/22 09/11/22 History mcg-lycopene 300 mcg-lutein 250 mcg tablet potassium chloride 10 mEq 10 meq PO DAILY 07/30/22 09/11/22 History tablet,extended release risankizumab-rzaa 150 mg/mL 150 mg subcut [id number] 07/30/22 09/11/22 History subcutaneous pen injector (Skyrizi) omeprazole 40 mg capsule,delayed 40 mg PO .daily 1 month #30 caps 09/17/23 Rx release Allergies Allergy/AdvReac Type Severity Reaction Status Date / Time ticagrelor Allergy Intermediate Blister Verified 02/09/24 19:14 hydrocodone AdvReac Intermediate Nausea Verified 02/09/24 19:14 oxycodone AdvReac Intermediate Nausea Verified 02/09/24 19:14 Vital Signs Vital Signs - 24 hr 02/09/24 19:23 02/09/24 20:42 02/09/24 20:45 Temperature 98.3 F Pulse Rate 118 H 115 H 113 H Respiratory Rate 16 19 20 Blood Pressure 148/98 H Pulse Oximetry 100 100 100 Oxygen Delivery Room Air 02/09/24 20:50 02/09/24 21:00 02/09/24 21:53 Temperature Pulse Rate 115 H 105 H 108 H Respiratory Rate 18 18 19 Blood Pressure 154/103 H Pulse Oximetry 100 99 99 Oxygen Delivery 02/09/24 22:15 Temperature Pulse Rate 116 H Respiratory Rate 17 Blood Pressure Pulse Oximetry 99 Oxygen Delivery Exam Narrative: GENERAL: Ill-appearing in no acute distress. Well-nourished. - EYES: EOMI. Anicteric. - HENT: Moist mucous membranes. - LUNGS: Clear to auscultation bilaterally, no wheezing, rhonchi, or rales. Tachypnea, - CARDIOVASCULAR: Regular rate and rhythm. No murmur. No JVD. Tachycardia, - ABDOMEN: Soft, left lower quadrant tender and non-distended. No palpable masses. - EXTREMITIES: No edema. Peripheral pulses 2+. Non-tender. Tremor bilateral hands - NEUROLOGIC: No focal neurological deficits. CN II-XII grossly intact. General weakness, - PSYCHIATRIC: Awake, Alert and oriented x 3. Anxious - SKIN: No rashes or lesions. Warm. - LYMPH: No cervical lymphadenopathy. H&P: Results Labs Labs: Short CBC 02/09/24 Range/Units 19:34 WBC 20.8 H (4.5-10.0) K/mm3 Hgb 9.6 L (14.0-18.0) g/dL Hct 30.9 L (42.0-52.0) % Plt Count 586 H D (150-375) k/mm3 BMP 02/09/24 19:34 Sodium 134 L Potassium 2.8 L* Chloride 100 Carbon Dioxide 15 L BUN 17 Creatinine 1.20 Glucose 257 H Calcium 8.0 L Liver Function 02/09/24 Range/Units 19:34 Total Bilirubin 1.0 (0.2-1.3) mg/dL AST 89 H (17-59) U/L ALT 38 (6-50) U/L Alkaline Phosphatase 92 (38-126) U/L Albumin 3.9 (3.5-5.1) g/dL Urine 02/09/24 Range/Units 22:10 Urine Color Yellow (Yellow) Urine Appearance Clear (Clear) Urine pH 5.5 (5.0-9.0) Ur Specific [place] 1.020 (1.001-1.035) Urine Protein 1+ H (Negative) mg/dL Urine Glucose (UA) Negative (Negative) mg/dL Assessment and Plan Assessment and plan (1) Alcohol withdrawal: Code(s): F10.939 - Alcohol use, unspecified with withdrawal, unspecified Status: Acute (2) Hypomagnesemia: Code(s): E83.42 - Hypomagnesemia Status: Acute (3) Diverticulitis: Code(s): K57.92 - Diverticulitis of intestine, part unspecified, without perforation or abscess without bleeding Status: Acute (4) Tobacco abuse: Code(s): Z72.0 - Tobacco use Status: Acute (5) Iron deficiency anemia: Code(s): D50.9 - Iron deficiency anemia, unspecified Status: Acute (6) Type 2 diabetes mellitus with hyperglycemia: Qualifiers: Diabetes mellitus terminal system operator insulin use: without group home use Qualified Code(s): E11.65 - Type 2 diabetes mellitus with hyperglycemia Code(s): E11.65 - Type 2 diabetes mellitus with hyperglycemia Status: Acute (7) Hypertension: Qualifiers: Hypertension type: essential hypertension Qualified Code(s): I10 - Essential (primary) hypertension Code(s): I10 - Essential (primary) hypertension Status: Acute (8) Hyperlipidemia: Code(s): E78.5 - Hyperlipidemia, unspecified Status: Acute Plan Alcohol withdrawal, Patient has history of alcohol abuse, last drink was 24 hours scope Upon arrival to ED, patient was found have anxiety, tachycardia tachypnea, diaphoresis, tremor bilateral hands Patient received Ativan 1 mg push once, patient is on Ativan 2 mg IV push p.r.n. per CIWA protocol Start thiamine 100 mg IV daily, folic acid 1 mg IV daily Patient received D5 normal saline IV 125 mL/hour Neuro check Sepsis, sigmoid diverticulitis Patient has leukocytosis of 20,000, tachycardia tachypnea, lactic acid 7.4 CT shows sigmoid diverticulitis Received Zosyn ED, continue Zosyn IV Keep patient p.o. Follow-up blood culture Monitor vital sign per sepsis protocol High anion gap metabolic acidosis, resulting from neck acidosis due to sepsis, alcohol intoxication and starvation PH 7.473 Urine ketone trace high unlikely due to diabetes Received fluid resuscitation Likely acidosis improving Hypokalemia, hypomagnesium Likely secondary to alcohol abuse Patient received magnesium sulfate and potassium chloride IV Follow-up BMP magnesium level a.m. Replete electrolytes accordingly Liver cirrhosis Likely secondary to alcohol abuse Follow-up CMP Anemia No obvious bleeding Follow-up CBC Uncontrolled type 2 diabetes Start insulin sliding scale q.6 hours during p.o.
[2024-02-10] MEDS: LORazepam INJ (*CRX) 2 MG/ML VIAL IV PUSH ×2 (02:16→03:47)
--- NOTE | 2024-02-10 03:35 | ADMGEN ---
This patient, Asad Jc, was admitted to Intensive Care Unit-3. Patient/family oriented to hospital policies and general routines including ID bracelet, bed and alarms, visiting hours, pain management, procedures, bathroom and other care routines, personal items, smoking policy, room service/diet, and visiting hours. Information on how to activate the Rapid Response Team has been discussed. Patient/Family are encouraged to report perceived risks to care and to ask questions if they do not understand what they are told or what they should do.
[2024-02-10] MEDS: FOLIC ACID 1 MG/0.2 ML INJ IV PUSH ×2 (03:47→08:13)
[2024-02-10] MEDS: PIPERACILLN/TAZ 3.375GM/NS50ML 3.375 GM/50 ML BAG IVPB ×4 (03:47→21:17)
[2024-02-10] MEDS: DEXMEDETOMIDINE IVPB (04:48)
[2024-02-10] MEDS: SODIUM CHLORIDE 0.9% IVPB (04:48)
[2024-02-10] MEDS: dexmedeTOMIDine 400 MCG/100 ML 400 MCG/100 ML BAG 31.84 MCG IV CONT (05:00)
[2024-02-10 05:27] LABS: INR 1.3; Prothrombin Time 16.7 Seconds (11.1-14.7)
[2024-02-10 05:28] LABS: Partial Thromboplastin Time 28.7 Seconds (22.3-36.8)
[2024-02-10 05:29] LABS: Alanine Aminotransferase 30 U/L (6-50); Albumin Level 3.4 g/dL (3.5-5.1); Alkaline Phosphatase 103 U/L (38-126); Anion Gap 12 mmol/L (4-12); Aspartate Amino Transferase 78 U/L (17-59); Bilirubin,Total 0.6 mg/dL (0.2-1.3); Blood Urea Nitrogen 17 mg/dL (9-20); Carbon Dioxide 22 mmol/L (22-30); Chloride 103 mmol/L (98-107); Estimated CRCL calculation 54 ml/min; Estimated Glomerular Filt Rate 52; Glucose 124 mg/dL (65-110); Magnesium 0.9 mg/dL (1.6-2.3); Potassium 2.8 mmol/L (3.4-5.0); Sodium 137 mmol/L (137-145)
[2024-02-10 05:29] LABS: Phosphorus 3.7 mg/dL (2.5-4.5)
[2024-02-10] MEDS: POTASSIUM CHLORIDE INJ 40 MEQ in SODIUM CHLORIDE 0.9% IV 500 ML 130 MEQ IVPB (06:18)
[2024-02-10] MEDS: dexmedeTOMIDine 400 MCG/100 ML 400 MCG/100 ML BAG 27.59 MCG IV CONT (06:41)
[2024-02-10] MEDS: DEXTROSE 5%/0.9% SOD CHL 1,000 ML 125 ML IV CONT (07:31)
[2024-02-10] MEDS: HEPARIN SODIUM 5,000 UNITS/ML VIAL 5000 UNITS SUB-Q (07:32)
[2024-02-10] MEDS: THIAMINE HCL 200 MG/2 ML VIAL IV PUSH (08:03)
[2024-02-10] MEDS: PANTOPRAZOLE SODIUM IV 40 MG VIAL IV PUSH ×2 (08:03→20:03)
[2024-02-10] MEDS: MAGNESIUM SULF 4 GM/WATER100ML 4 GM/100 ML BAG IVPB (08:03)
[2024-02-10] MEDS: LACTATED RINGERS 500 ML IV CONT (08:05)
--- NOTE | 2024-02-10 08:49 | P.CONIN_ITS ---
Assessment and Plan Assessment and plan (1) Alcohol withdrawal: Code(s): F10.939 - Alcohol use, unspecified with withdrawal, unspecified Status: Acute Assessment and Plan: Patient presented to the ED with nausea, vomiting, diarrhea, tremors, tachycardia, tachypnea. Has top drinking for the last 24 hours prior to admission. Drinks 10 shots of whiskey per day -patient did have tremors, tachycardia, diaphoretic, tachypneic, had an elevated CIWA score -patient was given Ativan, thiamine, folic acid -started on Precedex infusion, patient very somnolent at this time, have asked the bedside RN to start weaning the Precedex fusion -will order Librium -start patient on folic acid thiamine (2) Diverticulitis: Code(s): K57.92 - Diverticulitis of intestine, part unspecified, without perforation or abscess without bleeding Status: Acute Assessment and Plan: Patient presented with nausea, vomiting, diarrhea. Also left lower quadrant abdominal pain. 02/08: CT scan of the abdomen and pelvis showed sigmoid diverticulitis, no perforation no abscess. 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: without computer terminal operator use Qualifie d Code(s): E11.65 - Type 2 diabetes mellitus with hyperglycemia Code(s): E11.65 - Type 2 diabetes mellitus with hyperglycemia Status: Acute Assessment and Plan: Patient has a history of diabetes -continue Accu-Cheks and sliding scale insulin (4) Tobacco abuse: Code(s): Z72.0 - Tobacco use Status: Acute Assessment and Plan: Will consult patient once he is more awake on cessation of smoking (5) Iron deficiency anemia: Code(s): D50.9 - Iron deficiency anemia, unspecified Status: Acute Assessment and Plan: Patient with anemia, hemoglobin 9.6 which is lower than is usual hemoglobin which is 11-12 g/dL -will obtain iron panel, folate levels, vitamin B12 level -hold home aspirin -will stop DVT prophylaxis with heparin and place SCDs -will monitor H&H and if it continues to drop will have GI evaluate the patient -will increase Protonix IV q.12 hours (6) Electrolyte abnormality: Code(s): E87.8 - Other disorders of electrolyte and fluid balance, not elsewhere classified Status: Acute Assessment and Plan: Significantly low magnesium on admission <0.2 -patient was given 3 g of magnesium in the ER -repeat magnesium level 0.9 this morning -will start passively replacing magnesium and recheck BMP -potassium being replaced (7) Abnormal liver enzymes: Code(s): R74.8 - Abnormal levels of other serum enzymes Status: Acute Assessment and Plan: Elevated liver enzymes, likely related to alcoholic abuse -CT scan of the abdomen pelvis showed cirrhosis with portal venous hypertension -continue to trend liver enzyme (8) Hyperlipidemia: Code(s): E78.5 - Hyperlipidemia, unspecified Status: Acute Assessment and Plan: Will hold statin for now (9) Hypertension: Qualifiers: Hypertension type: essential hypertension Qualified Code(s): I10 - Essential (primary) hypertension Code(s): I10 - Essential (primary) hypertension Status: Acute Assessment and Plan: Patient takes lisinopril-hydrochlorothiazide 20-12.5 mg -2 tablets daily -currently blood pressure stable will hold home medications Plan DVT prophylaxis: SCDs, no chemoprophylaxis due to anemia Stress ulcer prophylaxis: Protonix IV q.12 hours Nutrition: NPO for now, will start diet once he is more awake Code Status: Full code Critical Care Time Spent: 51 minutes Due to a high probability of clinically significant, life threatening deterioration, the patient required my highest level of preparedness to intervene emergently and I personally spent this critical care time directly and personally managing the patient. This critical care time included obtaining a history; examining the patient; pulse oximetry; ordering and review of studies; arranging urgent treatment with development of a management plan; evaluation of patient's response to treatment; frequent reassessment; and discussions with other providers. It was exclusive of separately billable procedures and treating other patients and teaching time. Please see Assessment and Plan section and the rest of the note for further information on patient assessment and treatment This dictation may have been done utilizing a voice recognition system. Attempts have been made to correct errors. However, there may be uncorrected grammatical, spelling, and recognitions errors present. 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 Patient is a heavy drinker and drinks 10 shots of whiskey per day, last drink was 24 hours prior to admission patient also complained of poor appetite and has lost some weight. Complaining of worsening left lower abdominal pain. In the ER patient had bilateral tremors, diaphoretic, complaining of headaches. He was also found to be tachycardic, tachypneic. WBC count of 20.8, hemoglobin of 9.6, potassium 2.8, bicarb 15, lactic acid of 7.6, magnesium 0.[address] scan of the abdomen and pelvis showed sigmoid diverticulitis, liver cirrhosis and portal vein hypertension. Patient received 2 L IV fluids and started on Zosyn and transferred to the ICU for further management. Patient seen and examined the ICU, is on Precedex infusion and 1.3mcg/kg/hr. Patient is very somnolent but easily arouses to name, when asked denies any shortness of breath, chest pain, abdominal pain, nausea vomiting, follows simple commands. Hemodynamically stable, adequate urine output, good O2 sats on room air Review of Systems Review of Systems: All systems reviewed & are unremarkable except as noted in HPI and below PMFSH Past Medical History Medical History Anxiety CAD (coronary artery disease) Colon cancer screening Hyperlipidemia Hypertension Iron deficiency anemia Myocardial infarction Pacemaker Plaque psoriasis Tobacco abuse Type 2 diabetes mellitus with hyperglycemia Surgical History Surgical History History of back surgery Hx of appendectomy Stented coronary artery Family History Family History Mother Diabetes mellitus Father Hypertension Sibling Hypertension Social History Social History Smoking packs per day: 1 Smoking cigarettes per day: 20.0 Years smoked: 40 Smoking pack-years: 40.00 Smoking status: Current every day smoker Tobacco type: cigarettes Alcohol intake: current Drinks per week: 12 Alcohol use details: BEERS Substance use: current Substance use type: marijuana Do You Feel Safe in your Home?: Yes Lack of Transportation: No Lack of Food: Never True Current Housing: I Have Housing Concerned About Future Housing: No Difficulty Paying Gas/Electric Bills: No Difficulty Paying for Meds: No Currently Unemployed: No Education: Trade/Vocational Certificate Difficulty w/ Childcare or Family Care: No Living arrangements: with family Gender identity (if verbalized by the patient): Male Spiritual care concerns: No Agree to blood products: Yes Meds Home Medications and Allergies Home Medications Medication Instructions Recorded Confirmed Type aspirin 81 mg tablet,delayed 81 mg PO DAILY 06/02/19 02/10/24 History release (Aspir-) lisinopril 20 2 tablet PO DAILY 06/02/19 02/10/24 History mg-hydrochlorothiazide 12.5 mg tablet betamethasone dipropionate 0.05 % 1 applic topical HS PRN FLAREUP 07/13/19 02/10/24 History topical cream triamcinolone acetonide 0.1 % 1 applic topical DAILY PRN FLAREUP 07/13/19 History topical cream cyanocobalamin (vitamin B-12) 500 500 mcg PO DAILY 07/30/22 02/10/24 History mcg tablet (Vitamin B-12) ferrous gluconate 324 mg (37.5 mg 324 mg PO DAILY 07/30/22 02/10/24 History iron) tablet nayprcid-tuh-lvrqt acid 500 1 tablet PO DAILY 07/30/22 02/10/24 History mcg-lycopene 300 mcg-lutein 250 mcg tablet risankizumab-rzaa 150 mg/mL 150 mg subcut [id number] 07/30/22 02/10/24 History subcutaneous pen injector (Skyrizi) omeprazole 40 mg capsule,delayed 40 mg PO DAILY 02/10/24 02/10/24 History release Allergies Allergy/AdvReac Type Severity Reaction Status Date / Time ticagrelor Allergy Intermediate Blister Verified 02/09/24 19:14 hydrocodone AdvReac Intermediate Nausea Verified 02/09/24 19:14 oxycodone AdvReac Intermediate Nausea Verified 02/09/24 19:14 Vital Signs Vital Signs - 24 hr 02/09/24 19:23 02/09/24 20:42 02/09/24 20:45 Temperature 98.3 F Pulse Rate 118 H 115 H 113 H Pulse Rate [Monitor] Respiratory Rate 16 19 20 Blood Pressure 148/98 H Pulse Oximetry 100 100 100 Oxygen Delivery Room Air 02/09/24 20:50 02/09/24 21:00 02/09/24 21:53 Temperature Pulse Rate 115 H 105 H 108 H Pulse Rate [Monitor] Respiratory Rate 18 18 19 Blood Pressure 154/103 H Pulse Oximetry 100 99 99 Oxygen Delivery 02/09/24 22:15 02/09/24 22:32 02/09/24 22:45 Temperature Pulse Rate 116 H 102 H 97 Pulse Rate [Monitor] Respiratory Rate 17 23 H 17 Blood Pressure Pulse Oximetry 99 98 99 Oxygen Delivery 02/09/24 23:02 02/09/24 23:15 02/09/24 23:32 Temperature Pulse Rate 92 90 93 Pulse Rate [Monitor] Respiratory Rate 19 22 H 20 Blood Pressure 127/83 Pulse Oximetry 98 98 99 Oxygen Delivery 02/09/24 23:45 02/10/24 00:00 02/10/24 00:01 Temperature Pulse Rate 86 84 82 Pulse Rate [Monitor] Respiratory Rate 17 24 H 24 H Blood Pressure 123/89 Pulse Oximetry 97 98 98 Oxygen Delivery 02/10/24 00:15 02/10/24 00:30 02/10/24 00:31 Temperature Pulse Rate 84 103 H 91 Pulse Rate [Monitor] Respiratory Rate 22 H 18 20 Blood Pressure 113/95 H Pulse Oximetry 98 98 Oxygen Delivery 02/10/24 00:45 02/10/24 01:02 02/10/24 01:03 Temperature Pulse Rate 99 81 83 Pulse Rate [Monitor] Respiratory Rate 19 23 H 24 H Blood Pressure 109/66 Pulse Oximetry 98 96 97 Oxygen Delivery 02/10/24 01:15 02/10/24 01:33 02/10/24 01:45 Temperature Pulse Rate 87 87 97 Pulse Rate [Monitor] Respiratory Rate 20 22 H 23 H Blood Pressure 121/81 Pulse Oximetry 97 98 99 Oxygen Delivery 02/10/24 02:00 02/10/24 02:01 02/10/24 02:15 Temperature Pulse Rate 77 87 84 Pulse Rate [Monitor] Respiratory Rate 24 H 24 H 21 H Blood Pressure 120/82 Pulse Oximetry 96 Oxygen Delivery 02/10/24 02:32 02/10/24 03:19 02/10/24 03:34 Temperature Pulse Rate 86 86 Pulse Rate [Monitor] 83 Respiratory Rate 16 Blood Pressure 105/63 Pulse Oximetry 96 Oxygen Delivery 02/10/24 03:34 02/10/24 03:39 02/10/24 04:00 Temperature 98.1 F Pulse Rate 85 Pulse Rate [Monitor] 83 Respiratory Rate 20 Blood Pressure 126/96 H 142/99 H Pulse Oximetry 97 Oxygen Delivery Room Air 02/10/24 04:48 02/10/24 05:00 02/10/24 05:37 Temperature Pulse Rate 109 H 112 H 63 Pulse Rate [Monitor] Respiratory Rate 24 H 22 H Blood Pressure Pulse Oximetry Oxygen Delivery 02/10/24 06:00 02/10/24 06:19 02/10/24 06:41 Temperature 98.9 F Pulse Rate 62 62 61 Pulse Rate [Monitor] Respiratory Rate 24 H 22 H 24 H Blood Pressure 138/87 Pulse Oximetry 99 Oxygen Delivery 02/10/24 06:41 02/10/24 08:00 02/10/24 08:00 Temperature 98.3 F Pulse Rate 61 60 60 Pulse Rate [Monitor] Respiratory Rate 24 H 27 H 27 H Blood Pressure 138/92 H Pulse Oximetry 100 Oxygen Delivery Exam Narrative: General: Patient is somnolent, easily arouses to calling his name, in no acute distress HEENT:? Pupils are equal and reactive, sclera is clear, dry oral mucosa Neck:? Supple Respiratory:? Clear to auscultation bilaterally, no wheezing Cardiac:? S1-S2 is normal, regular rate Abdomen:? Soft, nondistended, tender to palpation in the right lower quadrant, normoactive bowel sounds Extremities:? No edema, palpable pedal pulses Neuro:? Patient is somnolent on Precedex infusion, arouses to name, does follow commands goes back to sleep, gives one-word answers questions Skin:? Warm and dry Psych:? Unable to assess at this time Results Labs 02/09/24 19:34 02/10/24 04:41 Labs: Short CBC 02/09/24 Range/Units 19:34 WBC 20.8 H (4.5-10.0) K/mm3 Hgb 9.6 L (14.0-18.0) g/dL Hct 30.9 L (42.0-52.0) % Plt Count 586 H D (150-375) k/mm3 BMP 02/09/24 02/10/24 19:34 04:41 Sodium 134 L 137 Potassium 2.8 L* 2.8 L* Chloride 100 103 Carbon Dioxide 15 L 22 BUN 17 17 Creatinine 1.20 1.40 H Glucose 257 H 124 H Calcium 8.0 L 7.0 L Liver Function 02/09/24 02/10/24 Range/Units 19:34 04:41 Total Bilirubin 1.0 0.6 (0.2-1.3) mg/dL AST 89 H 78 H (17-59) U/L ALT 38 30 (6-50) U/L Alkaline Phosphatase 92 103 (38-126) U/L Albumin 3.9 3.4 L (3.5-5.1) g/dL Urine 02/09/24 Range/Units 22:10 Urine Color Yellow (Yellow) Urine Appearance Clear (Clear) Urine pH 5.5 (5.0-9.0) Ur Specific [place] 1.020 (1.001-1.035) Urine Protein 1+ H (Negative) mg/dL Urine Glucose (UA) Negative (Negative) mg/dL Hospitalist MIPS Advance Care Plan I have confirmed that the patient's Advanced Care Plan is present, code status is documented, or surrogate decision maker is listed in patient medical record.: Yes Medication Reconciliation I have utilized all available resources to obtain, update and review the patients current medications (includes all prescriptions, OTC, herbals, jaya abis, and nutritional supplements).: Yes
[2024-02-10] MEDS: POTASSIUM CHLORIDE 20 MEQ PACKET (FOR LIQUID) 40 MEQ PO (09:34)
[2024-02-10] MEDS: chlordiazePOXIDE (*CRX) 25 MG CAPSULE 50 MG PO ×3 (09:35→23:28)
[2024-02-10] MEDS: dexmedeTOMIDine 400 MCG/100 ML 400 MCG/100 ML BAG 23.35 MCG IV CONT (09:44)
[2024-02-10 10:39] LABS: Iron 31 ug/dL (49-181)
[2024-02-10 10:48] LABS: Percent Iron Saturation 8 % (20-50)
[2024-02-10 11:42] LABS: Glucose Point of Care 176 mg/dl (65-105)
--- NOTE | 2024-02-10 12:11 | PC.NURSE ---
Updated spouse,Claribel, on patient condition, plan of care and current medications.
[2024-02-10 12:16] LABS: Folic Acid 11.1 ng/mL (2.76->20); Vitamin B12 > 1000.0 pg/mL (239-931)
[2024-02-10 14:36] LABS: Anion Gap 11 mmol/L (4-12); Blood Urea Nitrogen 16 mg/dL (9-20); Calcium 6.8 mg/dL (8.4-10.2); Carbon Dioxide 18 mmol/L (22-30); Chloride 107 mmol/L (98-107); Estimated CRCL calculation 51 ml/min; Estimated Glomerular Filt Rate 48; Glucose 176 mg/dL (65-110); Magnesium 2.1 mg/dL (1.6-2.3); Potassium 3.3 mmol/L (3.4-5.0); Sodium 136 mmol/L (137-145)
[2024-02-10] MEDS: dexmedeTOMIDine 400 MCG/100 ML 400 MCG/100 ML BAG 14.86 MCG IV CONT (15:12)
[2024-02-10 17:29] LABS: Glucose Point of Care 141 mg/dl (65-105)
[2024-02-10] MEDS: DEXTROSE 5%/0.9% SOD CHL 1,000 ML 75 ML IV CONT (20:03)
[2024-02-10] MEDS: dexmedeTOMIDine 400 MCG/100 ML 400 MCG/100 ML BAG 10.61 MCG IV CONT (23:16)
[2024-02-10 23:33] LABS: Glucose Point of Care 125 mg/dl (65-105)
[2024-02-11] VITALS (28 sets, daily range): BP systolic 87–158; BP diastolic 58–121; PULSE 60–80; RESP 16–34; TEMP 36.1–37.2; O2SAT 94–100
--- NOTE | 2024-02-11 | ECHO_ITS ---
Patient Info Name: Asad Jc Age: 58 years : 1965 Gender: Male Ht: 71 in Wt: 190 lbs BSA: 2.09 m2 HR: 60 bpm BP: 122 / 78 mmHg Heart Rhythm: Sinus Rhythm Technical Quality: Good Exam Date: 02/11/2024 11:19 AM Exam Location: Echo Lab Patient Status: Inpatient Admit Date: 02/10/2024 Staff Ordering Physician: Neelam Castañeda MD Medicare Biller: Buzz Russ RDCS Attending Provider: Janny Harris MD Referring Physician: Maddy BELL; Exam Type: CA echo doppler color flow Study Info Indications - CAD Complete two-dimensional, color flow and Doppler transthoracic echocardiogram is performed. Summary 1. Complete two-dimensional, color flow and Doppler transthoracic echocardiogram is performed. 2. The left ventricular size and systolic function is normal. LVEF is estimated to be 60-65%. 3. The right ventricle size and systolic function is normal. 4. Linear artifact in right ventricle suggestive of catheter(s), pacemaker lead(s), or ICD lead(s). Left Ventricle The left ventricular size and systolic function is normal. LVEF is estimated to be 60-65%. Right Ventricle The right ventricle size and systolic function is normal. Linear artifact in right ventricle suggestive of catheter(s), pacemaker lead(s), or ICD lead(s). Left Atria The left atrial size is normal. Right Atria The right atrial size is normal. Aortic Valve The aortic valve is trileaflet and sclerotic. There is no aortic regurgitation. Pulmonic Valve The pulmonic valve is poorly visualized. There is no evidence of pulmonic valve regurgitation. Mitral Valve The mitral valve leaflets are normal. There is no mitral regurgitation. Tricuspid Valve The tricuspid valve is normal. There is trace tricuspid valve regurgitation. Pericardium/Pleural Pericardium is normal in appearance with no evidence for significant pericardial effusion. Inferior Vena Cava Normal inferior vena cava with >50% collapse upon inspiration consistent with normal right atrial pressure, 3mmHg. Aorta The aortic root at the level of the sinus of Valsalva measures 3.2 cm in diameter. Left Ventricular Outflow Tract Name Value Normal LVOT 2D LVOT Diameter 1.9 cm LVOT Doppler LVOT Peak Gradient 5 mmHg LVOT Mean Gradient 3 mmHg LVOT VTI 23 cm LVOT VTI/AV VTI Ratio 0.5 LVOT Stroke Volume 67 ml LVOT CO 4.3 l/min LVOT CI 2.0 l/min/m2 Pulmonic Valve Name Value Normal PV Doppler PV Peak Gradient 3 mmHg Mitral Valve Name Value Normal MV Doppler MV Decel Cole 392 cm/s2 MV PHT 62 ms MV Area (PHT) 3.5 cm2 4.0-5.0 MV Diastolic Function MV E Peak Velocity 84 cm/s MV A Peak Velocity 56 cm/s MV E/A 1.5 MV Decel Time 215 ms MV Annular TDI MV E/e' (Septal) 10.8 <=8.0 MV E/e' (Lateral) 8.6 <=8.0 MV E/e' (Average) 9.7 Tricuspid Valve Name Value Normal TV Regurgitation Doppler TR Peak Velocity 196 cm/s TR Peak Gradient 15 mmHg Estimated PAP/RSVP RA Pressure 10 mmHg <=5 PA Systolic Pressure 25 mmHg <36 RV Systolic Pressure 25 mmHg <36 Aortic Valve Name Value Normal AV Doppler AV Peak Velocity 198 cm/s AV Peak Gradient 16 mmHg AV Mean Gradient 10 mmHg AV VTI 45 cm AV Area (Cont Eq VTI) 1.5 cm2 >=3.0 AV Area (Cont Eq Jakob) 1.6 cm2 AV Regurgitation 2D LVOT Area 2.9 cm2 Ventricles Name Value Normal LV Dimensions 2D/MM IVS Diastolic Thickness (2D) 0.9 cm 0.6-1.0 LVID Diastole (2D) 4.2 cm 4.2-5.8 LVIW Diastolic Thickness (2D) 1.0 cm 0.6-1.0 LVID Systole (2D) 2.9 cm 2.5-4.0 LVOT Diameter 1.9 cm LV Mass (2D Cubed) 128.42 g 88.00-224.00 LV Mass Index (2D Cubed) 61 g/m2 49-115 Relative Wall Thickness (2D) 0.47 LV Fractional Shortening/Ejection Fraction 2D/MM LV Fractional Shortening (2D) 31 % 25-43 LV EF (2D Teicholz) 59 % 52-72 LV Diastolic Volume (4C MOD) 127 ml LV EF (4C MOD) 68 % LV Diastolic Volume (2C MOD) 158 ml LV EF (2C MOD) 67 % LV Diastolic Volume (BP MOD) 142 ml 62-150 LV Diastolic Volume Index (BP MOD) 68 ml/m2 34-74 LV Systolic Volume (BP MOD) 48 ml 21-61 LV Systolic Volume Index (BP MOD) 23 ml/m2 11-31 LV EF (BP MOD) 66 % 52-72 LV Diastolic Length (4C) 9.0 cm LV Systolic Length (4C) 6.6 cm LV Stroke Volume (4C MOD) 86 ml Atria Name Value Normal LA Dimensions LA Volume (4C A-L) 28 ml LA Volume (BP A-L) 31 ml RA Dimensions RA Area (4C) 9.1 cm2 <=18.0 Report Signatures
[2024-02-11 04:44] LABS: Basophils Absolute Auto 0.1 K/mm3 (0.0-0.1); Eosinophils Absolute Auto 0.2 K/mm3 (0-0.3); Eosinophils Percent Auto 2.1 % (0-4.4); Hematocrit 24.7 % (42.0-52.0); Hemoglobin 7.4 g/dL (14.0-18.0); Immature Granulocyte Absolute 0.03 K/mm3 (0.00-0.031); Immature Granulocyte Percent A 0.4 % (0-0.5); Lymphocytes Absolute Auto 1.61 K/mm3 (0.9-3.2); Mean Corpuscular Hemoglobin 24.1 pg (26-34); Mean Corpuscular Volume 80.5 fl (80-100); Mean Platelet Volume 9.5 fl (7.4-10.4); Monocytes Absolute Auto 0.3 K/mm3 (0.1-0.6); Monocytes Percent Auto 3.7 % (2.6-8.5); Neutrophils Absolute Auto 4.9 K/mm3 (1.3-6.7); Neutrophils Percent Auto 69.8 % (45.5-73.1); Platelet Count Result 270 k/mm3 (150-375); Red Blood Count 3.07 M/mm3 (4.6-6.20); Red Cell Distribution Width 21.1 % (11.5-14.5)
[2024-02-11 04:57] LABS: Alanine Aminotransferase 39 U/L (6-50); Albumin Level 2.8 g/dL (3.5-5.1); Alkaline Phosphatase 98 U/L (38-126); Anion Gap 8 mmol/L (4-12); Aspartate Amino Transferase 113 U/L (17-59); Bilirubin,Total 0.5 mg/dL (0.2-1.3); Blood Urea Nitrogen 13 mg/dL (9-20); Calcium 6.7 mg/dL (8.4-10.2); Carbon Dioxide 21 mmol/L (22-30); Chloride 108 mmol/L (98-107); Estimated CRCL calculation 58 ml/min; Estimated Glomerular Filt Rate 57; Glucose 162 mg/dL (65-110); Magnesium 1.5 mg/dL (1.6-2.3); Phosphorus 3.2 mg/dL (2.5-4.5); Potassium 3.4 mmol/L (3.4-5.0); Sodium 137 mmol/L (137-145)
[2024-02-11] MEDS: chlordiazePOXIDE (*CRX) 25 MG CAPSULE 50 MG PO ×3 (05:34→17:57)
[2024-02-11] MEDS: PIPERACILLN/TAZ 3.375GM/NS50ML 3.375 GM/50 ML BAG IVPB ×4 (05:34→21:41)
[2024-02-11] MEDS: THIAMINE HCL 200 MG/2 ML VIAL IV PUSH (08:35)
[2024-02-11] MEDS: PANTOPRAZOLE SODIUM IV 40 MG VIAL IV PUSH ×2 (08:35→21:41)
[2024-02-11] MEDS: POTASSIUM CHLORIDE 20 MEQ ER TABLET 40 MEQ PO (08:36)
[2024-02-11] MEDS: CALCIUM GLUC 2,000 MG/NS 100ML 2,000 MG/100 ML BAG 100 MG IVPB (08:36)
[2024-02-11] MEDS: MAGNESIUM SULF 2 GM/WATER 50ML 2 GM/50 ML BAG IVPB (08:36)
[2024-02-11] MEDS: FOLIC ACID 1 MG/0.2 ML INJ IV PUSH (08:37)
--- NOTE | 2024-02-11 08:56 | WPDCNINT ---
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 Consult date: 02/11/24 Reason for consult: Reason for consult: Alcohol withdrawal, sepsis, sigmoid diverticulitis, electrolyte abnormalities HPI: Asad Jc is a 58 year old male COUNTS INCLUDE 234 BEDS AT THE [facility] Past Medical History Medical History Anxiety CAD (coronary artery disease) Colon cancer screening Hyperlipidemia Hypertension Iron deficiency anemia Myocardial infarction Pacemaker Plaque psoriasis Tobacco abuse Type 2 diabetes mellitus with hyperglycemia Surgical History Surgical History History of back surgery Hx of appendectomy Stented coronary artery Family History Family History Mother Diabetes mellitus Father Hypertension Sibling Hypertension Social History Social History Smoking packs per day: 1 Smoking cigarettes per day: 20.0 Years smoked: 40 Smoking pack-years: 40.00 Smoking status: Current every day smoker Tobacco type: cigarettes Alcohol intake: current Drinks per week: 12 Alcohol use details: BEERS Substance use: current Substance use type: marijuana Do You Feel Safe in your Home?: Yes Lack of Transportation: No Lack of Food: Never True Current Housing: I Have Housing Concerned About Future Housing: No Difficulty Paying Gas/Electric Bills: No Difficulty Paying for Meds: No Currently Unemployed: No Education: Trade/Vocational Certificate Difficulty w/ Childcare or Family Care: No Living arrangements: with family Gender identity (if verbalized by the patient): Male Spiritual care concerns: No Agree to blood products: Yes Meds Home Medications and Allergies Home Medications Medication Instructions Recorded Confirmed Type aspirin 81 mg tablet,delayed 81 mg PO DAILY 06/02/19 02/10/24 History release (Aspir-) lisinopril 20 2 tablet PO DAILY 06/02/19 02/10/24 History mg-hydrochlorothiazide 12.5 mg tablet betamethasone dipropionate 0.05 % 1 applic topical HS PRN FLAREUP 07/13/19 02/10/24 History topical cream triamcinolone acetonide 0.1 % 1 applic topical DAILY PRN FLAREUP 07/13/19 02/10/24 History topical cream cyanocobalamin (vitamin B-12) 500 500 mcg PO DAILY 07/30/22 02/10/24 History mcg tablet (Vitamin B-12) ferrous gluconate 324 mg (37.5 mg 324 mg PO DAILY 07/30/22 02/10/24 History iron) tablet wdfgvfkx-jth-fbfnu acid 500 1 tablet PO DAILY 07/30/22 02/10/24 History mcg-lycopene 300 mcg-lutein 250 mcg tablet risankizumab-rzaa 150 mg/mL 150 mg subcut [id number] 07/30/22 02/10/24 History subcutaneous pen injector (Skyrizi) omeprazole 40 mg capsule,delayed 40 mg PO DAILY 02/10/24 02/10/24 History release Allergies Allergy/AdvReac Type Severity Reaction Status Date / Time ticagrelor Allergy Intermediate Blister Verified 02/09/24 19:14 hydrocodone AdvReac Intermediate Nausea Verified 02/09/24 19:14 oxycodone AdvReac Intermediate Nausea Verified 02/09/24 19:14 Vital Signs Vital Signs - 24 hr 02/10/24 09:00 02/10/24 09:44 02/10/24 09:44 Temperature Pulse Rate 61 60 60 Pulse Rate [Monitor] Respiratory Rate 24 H 25 H 25 H Blood Pressure Pulse Oximetry Oxygen Delivery 02/10/24 10:00 02/10/24 10:00 02/10/24 10:00 Temperature Pulse Rate 60 60 60 Pulse Rate [Monitor] Respiratory Rate 22 H 22 H Blood Pressure 133/86 Pulse Oximetry 100 Oxygen Delivery 02/10/24 10:30 02/10/24 12:00 02/10/24 12:00 Temperature 97.6 F Pulse Rate 60 60 60 Pulse Rate [Monitor] Respiratory Rate 20 20 20 Blood Pressure 137/85 Pulse Oximetry 100 Oxygen Delivery 02/10/24 12:00 02/10/24 12:00 02/10/24 12:30 Temperature Pulse Rate 60 60 60 Pulse Rate [Monitor] Respiratory Rate 18 Blood Pressure Pulse Oximetry 100 Oxygen Delivery 02/10/24 13:00 02/10/24 14:00 02/10/24 14:00 Temperature Pulse Rate 60 60 60 Pulse Rate [Monitor] Respiratory Rate 23 H 19 Blood Pressure 135/88 Pulse Oximetry 100 Oxygen Delivery 02/10/24 13:30 02/10/24 14:00 02/10/24 15:02 Temperature Pulse Rate 60 60 60 Pulse Rate [Monitor] Respiratory Rate 22 H 19 20 Blood Pressure Pulse Oximetry Oxygen Delivery 02/10/24 15:12 02/10/24 16:00 02/10/24 18:00 Temperature Pulse Rate 60 60 60 Pulse Rate [Monitor] Respiratory Rate 20 Blood Pressure Pulse Oximetry Oxygen Delivery 02/10/24 16:00 02/10/24 17:22 02/10/24 18:36 Temperature Pulse Rate 60 60 60 Pulse Rate [Monitor] Respiratory Rate 20 20 20 Blood Pressure Pulse Oximetry Oxygen Delivery 02/10/24 16:00 02/10/24 18:00 02/10/24 16:00 Temperature 98.2 F Pulse Rate 60 60 Pulse Rate [Monitor] Respiratory Rate 20 18 Blood Pressure 137/94 H 139/89 Pulse Oximetry 100 100 Oxygen Delivery Room Air 02/10/24 19:34 02/10/24 19:36 02/10/24 20:00 Temperature Pulse Rate 60 60 Pulse Rate [Monitor] 55 L Respiratory Rate 20 Blood Pressure 126/93 H Pulse Oximetry 98 Oxygen Delivery Room Air 02/10/24 20:00 02/10/24 20:00 02/10/24 22:00 Temperature 98.1 F Pulse Rate 60 60 60 Pulse Rate [Monitor] Respiratory Rate 21 H 20 Blood Pressure 85/65 L Pulse Oximetry 100 Oxygen Delivery 02/10/24 22:00 02/10/24 22:00 02/10/24 23:16 Temperature 98.1 F Pulse Rate 60 60 60 Pulse Rate [Monitor] Respiratory Rate 18 18 22 H Blood Pressure 126/91 H Pulse Oximetry 99 Oxygen Delivery 02/10/24 23:16 02/10/24 23:23 02/10/24 23:23 Temperature Pulse Rate 61 63 Pulse Rate [Monitor] 63 Respiratory Rate 22 H Blood Pressure Pulse Oximetry Oxygen Delivery 02/10/24 23:26 02/11/24 00:00 02/11/24 00:00 Temperature Pulse Rate 63 60 60 Pulse Rate [Monitor] Respiratory Rate 22 H 18 22 H Blood Pressure 132/91 H Pulse Oximetry 98 98 Oxygen Delivery Room Air 02/11/24 02:00 02/11/24 02:00 02/11/24 04:00 Temperature 98.9 F Pulse Rate 60 60 60 Pulse Rate [Monitor] Respiratory Rate 21 H Blood Pressure 139/89 Pulse Oximetry 97 Oxygen Delivery 02/11/24 04:00 02/11/24 04:00 02/11/24 04:00 Temperature 98.2 F Pulse Rate 60 60 Pulse Rate [Monitor] 63 Respiratory Rate 21 H 22 H Blood Pressure 129/88 129/88 Pulse Oximetry 97 98 Oxygen Delivery Room Air 02/11/24 02:00 02/11/24 04:00 02/11/24 06:00 Temperature Pulse Rate 60 60 60 Pulse Rate [Monitor] Respiratory Rate 17 23 H Blood Pressure Pulse Oximetry Oxygen Delivery 02/11/24 06:00 02/11/24 07:00 02/11/24 08:00 Temperature 98.1 F 97.7 F Pulse Rate 60 60 60 Pulse Rate [Monitor] Respiratory Rate 26 H 30 H 25 H Blood Pressure 122/78 127/77 Pulse Oximetry 98 97 Oxygen Delivery Results Labs 02/11/24 04:30 02/11/24 04:30 Labs: Short CBC 02/11/24 Range/Units 04:30 WBC 7.0 (4.5-10.0) K/mm3 Hgb 7.4 L (14.0-18.0) g/dL Hct 24.7 L (42.0-52.0) % Plt Count 270 D (150-375) k/mm3 BMP 02/10/24 02/11/24 14:15 04:30 Sodium 136 L 137 Potassium 3.3 L 3.4 Chloride 107 108 H Carbon Dioxide 18 L 21 L BUN 16 13 Creatinine 1.50 H 1.30 Glucose 176 H 162 H Calcium 6.8 L 6.7 L Liver Function 02/11/24 Range/Units 04:30 Total Bilirubin 0.5 (0.2-1.3) mg/dL AST 113 H (17-59) U/L ALT 39 (6-50) U/L Alkaline Phosphatase 98 (38-126) U/L Albumin 2.8 L (3.5-5.1) g/dL
--- NOTE | 2024-02-11 09:09 | WPDINTPN ---
Progress Note: A&P Assessment and Plan (1) Alcohol withdrawal: Code(s): F10.939 - Alcohol use, unspecified with withdrawal, unspecified Status: Acute Assessment and Plan: Patient presented to the ED with nausea, vomiting, diarrhea, tremors, tachycardia, tachypnea. Has top drinking for the last 24 hours prior to admission. Drinks 10 shots of whiskey per day -on admission, patient did have tremors, tachycardia, diaphoretic, tachypneic, had an elevated CIWA score -patient was given Ativan, thiamine, folic acid -started on Precedex infusion, patient very somnolent at this time, have asked the bedside RN to start weaning the Precedex fusion -continue Librium, folic acid and thiamine -Precedex infusion discontinue this morning (2) Diverticulitis: Code(s): K57.92 - Diverticulitis of intestine, part unspecified, without perforation or abscess without bleeding Status: Acute Assessment and Plan: Patient presented with nausea, vomiting, diarrhea. Also left lower quadrant abdominal pain. 02/08: CT scan of the abdomen and pelvis showed sigmoid diverticulitis, no perforation no abscess. 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: without intermediate use Qualified Code(s): E11.65 - Type 2 diabetes mellitus with hyperglycemia Code(s): E11.65 - Type 2 diabetes mellitus with hyperglycemia Status: Acute Assessment and Plan: Patient has a history of diabetes -continue Accu-Cheks and sliding scale insulin (4) Tobacco abuse: Code(s): Z72.0 - Tobacco use Status: Acute Assessment and Plan: Will consult patient once he is more awake on cessation of smoking (5) Iron deficiency anemia: Code(s): D50.9 - Iron deficiency anemia, unspecified Status: Acute Assessment and Plan: Patient with anemia, hemoglobin 9.6 which is lower than is usual hemoglobin which is 11-12 g/dL -iron panel consistent with iron deficiency anemia, folic acid and vitamin B12 levels within normal limits -hold home aspirin -patient on SCDs no chemoprophylaxis due to anemia -will monitor H&H and if it continues to drop will have GI evaluate the patient -continue Protonix IV q.12 hours -will place patient on IV Venofer for 3 days (6) Electrolyte abnormality: Code(s): E87.8 - Other disorders of electrolyte and fluid balance, not elsewhere classified Status: Acute Assessment and Plan: Significantly low magnesium on admission <0.2 -patient was given 3 g of magnesium in the ER -02/09: repeat magnesium level 0.9 this morning 02/10: Will replace potassium and magnesium (7) Abnormal liver enzymes: Code(s): R74.8 - Abnormal levels of other serum enzymes Status: Acute Assessment and Plan: Elevated liver enzymes, likely related to alcoholic abuse -CT scan of the abdomen pelvis showed cirrhosis with portal venous hypertension -continue to trend liver enzyme (8) Hyperlipidemia: Code(s): E78.5 - Hyperlipidemia, unspecified Status: Acute Assessment and Plan: Will hold statin for now due to elevated liver enzymes (9) Hypertension: Qualifiers: Hypertension type: essential hypertension Qualified Code(s): I10 - Essential (primary) hypertension Code(s): I10 - Essential (primary) hypertension Status: Acute Assessment and Plan: Patient takes lisinopril-hydrochlorothiazide 20-12.5 mg -2 tablets daily -currently blood pressure stable will hold home medications Plan DVT prophylaxis: SCDs, no chemoprophylaxis due to anemia Stress ulcer prophylaxis: Protonix IV q.12 hours Nutrition: Will start heart healthy diet Code Status: Full code Critical Care Time Spent: 32 minutes Due to a high probability of clinically significant, life threatening deterioration, the patient required my highest level of preparedness to intervene emergently and I personally spent this critical care time directly and personally managing the patient. This critical care time included obtaining a history; examining the patient; pulse oximetry; ordering and review of studies; arranging urgent treatment with development of a management plan; evaluation of patient's response to treatment; frequent reassessment; and discussions with other providers. It was exclusive of separately billable procedures and treating other patients and teaching time. Please see Assessment and Plan section and the rest of the note for further information on patient assessment and treatment This dictation may have been done utilizing a voice recognition system. Attempts have been made to correct errors. However, there may be uncorrected grammatical, spelling, and recognitions errors present. Subjective Date/time seen: 02/11/24 09:09 Interval history: Reason for consult: Alcohol withdrawal, sepsis, sigmoid diverticulitis, electrolyte abnormalities 02/11/2024: Patient seen and examined the ICU, is on Precedex, at the nurse started off this morning, patient is awake, alert, no tremors or anxiety this time. Hemodynamically stable, urine has been adequate, afebrile. Leukocytosis has improved, anemic with hemoglobin of 7.4 this morning, creatinine has normalized. Denies any chest pain, shortness a breath abdominal pain, nausea, vomiting. No tremors noted Review of Systems Review of Systems: All systems reviewed & are unremarkable except as noted in HPI and below Exam Narrative: General: Patient is more awake, alert this morning, in no acute distress HEENT:? Pupils are equal and reactive, sclera is clear, moist oral mucosa Neck:? Supple Respiratory:? Clear to auscultation bilaterally, no wheezing Cardiac:? S1-S2 is normal, regular rate Abdomen:? Soft, nondistended, normoactive bowel sounds, nontender Extremities:? No edema, palpable pedal pulses Neuro:? Patient is awake, alert, able to answer questions appropriately, follows simple commands in all extremities Skin:? Warm and dry Psych:? Normal mentation and affect Objective Data Vital Signs Vital Signs: Vital Signs - 24 hr 02/10/24 09:44 02/10/24 09:44 02/10/24 10:00 Temperature Pulse Rate 60 60 60 Pulse Rate [Monitor] Respiratory Rate 25 H 25 H 22 H Blood Pressure Pulse Oximetry Oxygen Delivery 02/10/24 10:00 02/10/24 10:00 02/10/24 10:30 Temperature Pulse Rate 60 60 60 Pulse Rate [Monitor] Respiratory Rate 22 H 20 Blood Pressure 133/86 Pulse Oximetry 100 Oxygen Delivery 02/10/24 12:00 02/10/24 12:00 02/10/24 12:00 Temperature 97.6 F Pulse Rate 60 60 60 Pulse Rate [Monitor] Respiratory Rate 20 20 Blood Pressure 137/85 Pulse Oximetry 100 100 Oxygen Delivery 02/10/24 12:00 02/10/24 12:30 02/10/24 13:00 Temperature Pulse Rate 60 60 60 Pulse Rate [Monitor] Respiratory Rate 18 23 H Blood Pressure Pulse Oximetry Oxygen Delivery 02/10/24 14:00 02/10/24 14:00 02/10/24 13:30 Temperature Pulse Rate 60 60 60 Pulse Rate [Monitor] Respiratory Rate 19 22 H Blood Pressure 135/88 Pulse Oximetry 100 Oxygen Delivery 02/10/24 14:00 02/10/24 15:02 02/10/24 15:12 Temperature Pulse Rate 60 60 60 Pulse Rate [Monitor] Respiratory Rate 19 20 20 Blood Pressure Pulse Oximetry Oxygen Delivery 02/10/24 16:00 02/10/24 18:00 02/10/24 16:00 Temperature Pulse Rate 60 60 60 Pulse Rate [Monitor] Respiratory Rate 20 Blood Pressure Pulse Oximetry Oxygen Delivery 02/10/24 17:22 02/10/24 18:36 02/10/24 16:00 Temperature 98.2 F Pulse Rate 60 60 60 Pulse Rate [Monitor] Respiratory Rate 20 20 20 Blood Pressure 137/94 H Pulse Oximetry 100 Oxygen Delivery 02/10/24 18:00 02/10/24 16:00 02/10/24 19:34 Temperature Pulse Rate 60 60 Pulse Rate [Monitor] Respiratory Rate 18 Blood Pressure 139/89 Pulse Oximetry 100 Oxygen Delivery Room Air 02/10/24 19:36 02/10/24 20:00 02/10/24 20:00 Temperature 98.1 F Pulse Rate 60 60 Pulse Rate [Monitor] 55 L Respiratory Rate 20 21 H Blood Pressure 126/93 H 85/65 L Pulse Oximetry 98 100 Oxygen Delivery Room Air 02/10/24 20:00 02/10/24 22:00 02/10/24 22:00 Temperature 98.1 F Pulse Rate 60 60 60 Pulse Rate [Monitor] Respiratory Rate 20 18 Blood Pressure 126/91 H Pulse Oximetry 99 Oxygen Delivery 02/10/24 22:00 02/10/24 23:16 02/10/24 23:16 Temperature Pulse Rate 60 60 61 Pulse Rate [Monitor] Respiratory Rate 18 22 H 22 H Blood Pressure Pulse Oximetry Oxygen Delivery 02/10/24 23:23 02/10/24 23:23 02/10/24 23:26 Temperature Pulse Rate 63 63 Pulse Rate [Monitor] 63 Respiratory Rate 22 H Blood Pressure Pulse Oximetry 98 Oxygen Delivery Room Air 02/11/24 00:00 02/11/24 00:00 02/11/24 02:00 Temperature Pulse Rate 60 60 60 Pulse Rate [Monitor] Respiratory Rate 18 22 H Blood Pressure 132/91 H Pulse Oximetry 98 Oxygen Delivery 02/11/24 02:00 02/11/24 04:00 02/11/24 04:00 Temperature 98.9 F Pulse Rate 60 60 Pulse Rate [Monitor] 63 Respiratory Rate 21 H Blood Pressure 139/89 129/88 Pulse Oximetry 97 Oxygen Delivery 02/11/24 04:00 02/11/24 04:00 02/11/24 02:00 Temperature 98.2 F Pulse Rate 60 60 60 Pulse Rate [Monitor] Respiratory Rate 21 H 22 H 17 Blood Pressure 129/88 Pulse Oximetry 97 98 Oxygen Delivery Room Air 02/11/24 04:00 02/11/24 06:00 02/11/24 06:00 Temperature 98.1 F Pulse Rate 60 60 60 Pulse Rate [Monitor] Respiratory Rate 23 H 26 H Blood Pressure 122/78 Pulse Oximetry 98 Oxygen Delivery 02/11/24 07:00 02/11/24 08:00 Temperature 97.7 F Pulse Rate 60 60 Pulse Rate [Monitor] Respiratory Rate 30 H 25 H Blood Pressure 127/77 Pulse Oximetry 97 Oxygen Delivery Intake/Output Intake/Output: Intake & Output 02/08/24 02/09/24 02/10/24 02/11/24 23:59 23:59 23:59 23:59 Intake Total 2250 4313.2 482.0 Output Total 100 200 750 Balance 2150 4113.2 -268.0 Meds/Results Medications: Active Medications Generic Name Dose Route Start Last Admin Trade Name Freq PRN Reason Stop Dose Admin Chlordiazepoxide HCl 50 mg 02/11/24 00:00 02/11/24 05:34 Chlordiazepoxide (*Crx) 25 Mg Capsule PO 50 mg Q6H KEEGAN Administration Dextrose 12.5 gm 02/10/24 02:41 Dextrose 50% 25 Gm/50 Ml Syringe IV PUSH PRN PRN Hypoglycemia Protocol Folic Acid 1 mg 02/10/24 09:00 02/11/24 08:37 Folic Acid 1 Mg/0.2 Ml Inj IV PUSH 1 mg QAM KEEGAN Administration Glucagon 1 mg 02/10/24 02:41 Glucagon For Inj 1 Mg Vial IM PRN PRN Hypoglycemia Protocol Glucose 15 gm 02/10/24 02:41 Glucose Oral Gel 15 Gm Of Glucse In 37.5 Gm Tube PO PRN PRN Hypoglycemia Protocol Dextrose/Sodium Chloride 1,000 mls @ 75 mls/hr 02/09/24 20:55 02/10/24 20:03 Dextrose 5% Sodium Chloride 0.9% IV CONT 75 mls/hr .[id number] KEEGAN Administration Piperacillin/Tazobactam/Dextrose 3.375 gm in 50 mls @ 100 mls/hr 02/10/24 04:00 02/11/24 05:34 Zosyn 3.375 Gm/Ns 50 Ml IVPB 100 mls/hr Q6H KEEGAN Administration Dextrose 1,000 mls @ 100 mls/hr 02/10/24 02:41 Dextrose 5% 1,000 Ml IVPB PRN PRN Hypoglycemia Protocol Dexmedetomidine HCl 400 mcg in 100 mls @ 0 mls/hr 02/10/24 05:00 02/11/24 07:00 Precedex 400 Mcg/100 Ml IV CONT 0 mcg/kg/hr .Q0M KEEGAN 0 mls/hr Titration Protocol Insulin Aspart 4 - 8 units 02/10/24 06:00 02/11/24 05:38 Insulin Aspart (*Bkc) 100 Units/Ml SUB-Q Not Given Q6HR KEEGAN Protocol Lorazepam 2 mg 02/09/24 20:51 02/10/24 03:47 Lorazepam Inj (*Crx) 2 Mg/Ml Vial IV PUSH 2 mg Q2H PRN Administration CIWA > 15 Pantoprazole Sodium 40 mg 02/10/24 21:00 02/11/24 08:35 Pantoprazole Sodium Iv 40 Mg Vial IV PUSH 40 mg Q12HR KEEGAN Administration Perflutren Lipid Microsphere 0 ml 02/11/24 07:32 Perflutren Lipid Microspheres 1.5 Ml Vial Diluted To 10 Ml Total Volume IV PUSH 02/14/24 07:33 ONCE PRN adequate visualization Protocol Thiamine HCl 200 mg 02/10/24 09:00 02/11/24 08:35 Thiamine Hcl 200 Mg/2 Ml Vial IV PUSH 200 mg QAM KEEGAN Administration Radiology Results: ITS Impressions Chest X-Ray 02/09/24 20:58 IMPRESSION: 1. No acute cardiopulmonary disease. Abdomen/Pelvis CT 02/09/24 21:46 IMPRESSION: 1. Sigmoid diverticulitis. No perforation or abscess. 2. Cirrhosis of the liver with portal venous hypertension. Labs Labs: Laboratory Results - last 24 hr 02/10/24 02/10/24 02/10/24 04:41 06:56 11:39 WBC RBC Hgb Hct MCV MCH MCHC RDW Plt Count MPV Immature Gran % (Auto) Neut % (Auto) Lymph % (Auto) [place] % (Auto) Eos % (Auto) Baso % (Auto) Lymph # (Auto) [place] # (Auto) Eos # (Auto) Baso # (Auto) Abs Immat Gran (auto) Absolute Neuts (auto) Absolute Nucleated RBC Nucleated RBC % Sodium Potassium Chloride Carbon Dioxide Anion Gap BUN Creatinine Estim Creat Clear Calc Estimated GFR Glucose POC Capillary Glucose 176 H Calcium Phosphorus Magnesium Iron 31 L TIBC 405 % Saturation 8 L Total Bilirubin AST ALT Alkaline Phosphatase Total Protein Albumin Vitamin B12 > 1000.0 H Folate 11.1 02/10/24 02/10/24 02/10/24 14:15 17:26 23:31 WBC RBC Hgb Hct MCV MCH MCHC RDW Plt Count MPV Immature Gran % (Auto) Neut % (Auto) Lymph % (Auto) [place] % (Auto) Eos % (Auto) Baso % (Auto) Lymph # (Auto) [place] # (Auto) Eos # (Auto) Baso # (Auto) Abs Immat Gran (auto) Absolute Neuts (auto) Absolute Nucleated RBC Nucleated RBC % Sodium 136 L Potassium 3.3 L Chloride 107 Carbon Dioxide 18 L Anion Gap 11 BUN 16 Creatinine 1.50 H Estim Creat Clear Calc 51 Estimated GFR 48 L Glucose 176 H POC Capillary Glucose 141 H 125 H Calcium 6.8 L Phosphorus Magnesium 2.1 Iron TIBC % Saturation Total Bilirubin AST ALT Alkaline Phosphatase Total Protein Albumin Vitamin B12 Folate 02/11/24 04:30 WBC 7.0 RBC 3.07 L Hgb 7.4 L Hct 24.7 L MCV 80.5 MCH 24.1 L MCHC 30.0 L RDW 21.1 H Plt Count 270 D MPV 9.5 Immature Gran % (Auto) 0.4 Neut % (Auto) 69.8 Lymph % (Auto) 23.0 [place] % (Auto) 3.7 Eos % (Auto) 2.1 Baso % (Auto) 1.0 Lymph # (Auto) 1.61 [place] # (Auto) 0.3 Eos # (Auto) 0.2 Baso # (Auto) 0.1 Abs Immat Gran (auto) 0.03 Absolute Neuts (auto) 4.9 Absolute Nucleated RBC 0.000 Nucleated RBC % 0.0 Sodium 137 Potassium 3.4 Chloride 108 H Carbon Dioxide 21 L Anion Gap 8 BUN 13 Creatinine 1.30 Estim Creat Clear Calc 58 Estimated GFR 57 L Glucose 162 H POC Capillary Glucose Calcium 6.7 L Phosphorus 3.2 Magnesium 1.5 L Iron TIBC % Saturation Total Bilirubin 0.5 AST 113 H ALT 39 Alkaline Phosphatase 98 Total Protein 6.0 L Albumin 2.8 L Vitamin B12 Folate
[2024-02-11] MEDS: IRON SUCROSE COMPLEX 200 MG in SODIUM CHLORIDE 0.9% IV 100 ML 220 MG IVPB (10:36)
[2024-02-11] MEDS: LORazepam INJ (*CRX) 2 MG/ML VIAL IV PUSH ×4 (10:38→17:57)
[2024-02-11 11:30] LABS: Glucose Point of Care 124 mg/dl (65-105)
--- NOTE | 2024-02-11 12:36 | P.CONGI_ITS ---
Assessment and Plan Assessment and plan (1) Cirrhosis: Qualifiers: Ascites presence: without ascites Hepatic cirrhosis type: alcoholic c irrhosis Qualified Code(s): K70.30 - Alcoholic cirrhosis of liver without ascites Code(s): K74.60 - Unspecified cirrhosis of liver Status: Acute (2) Diverticulitis: Code(s): K57.92 - Diverticulitis of intestine, part unspecified, without perforation or abscess without bleeding Status: Acute (3) Personal history of colon polyps, unspecified: Code(s): Z86.0100 - Personal history of colon polyps, unspecified Status: Acute (4) Portal hypertension: Code(s): K76.6 - Portal hypertension Status: Acute (5) Elevated liver transaminase level: Code(s): R74.01 - Elevation of levels of liver transaminase levels Status: Acute (6) Iron deficiency anemia: Qualifiers: Iron deficiency anemia type: unspecified iron deficiency Qualified Code(s): D50.9 - Iron deficiency anemia, unspecified Code(s): D50.9 - Iron deficiency anemia, unspecified Status: Acute (7) Hypocalcemia: Code(s): E83.51 - Hypocalcemia Status: Acute (8) Hypoalbuminemia: Code(s): E88.09 - Other disorders of plasma-protein metabolism, not elsewhere classified Status: Acute Plan 1) Iron deficiency/ acute blood loss anemia /melena/cirrhosis/portal hypertension/ hypocalcemia/hypoalbuminemia/ETOH abuse-withdraw: Last EGD 09/11/2022 showed erosive gastritis negative for H pylori but no varices. Ultrasound showed hepatic steatosis but CT showed cirrhosis with portal hypertension. Patient with a longstanding history of ETOH abuse. Patient has been experiencing daily episodes of nausea and vomiting for 4-6 weeks. He admits to a 1 time episode of black colored emesis and black tarry stools (melena) approximately 3-4 weeks ago but denies any further episodes. Workup showed HGB 7, HCT 25, MCV 81, platelets 270, INR 1.3. LFTs were normal except AST at 113. Albumin 2.8, magnesium 1.5, and calcium 6.7. Total iron 31, TIBC 405, iron saturation 8%. B12 > 10,000 folate 11. Patient drinks 6-10 shots of whiskey daily. He is a daily smoker. He is on aspirin 81 mg prior to admission but denies any other NSAID or anticoagulant use. No prior history of decompensation including HE or ascites. DDX: Concern for Valerie-Cm tear versus esophageal varices versus AVM versus peptic ulcer disease. * NPO now * EGD today * Care with NSAIDs, aspirin, anticoagulation * primary care team to continue monitoring H&H transfuse as needed to keep HGB > 7 * low calcium likely secondary to low albumin secondary to cirrhosis, continue to monitor and correct * CIWA precautions * continue thiamin, folic acid, IV iron and magnesium * continue b.i.d. PPI * alcohol cessation strongly advised * diarrhea may be secondary to GI irritation from upper GI bleed, but if EGD reveals no upper GI source of blood loss and diarrhea persist we will obtain stool studies * patient advised to follow up as outpatient for further evaluation /management of liver disease 2) Nausea/vomiting/ diarrhea/ diverticulitis/weight loss /Personal history colon polyps /Fecal incontinence/GERD: Last colonoscopy 06/08/2019 revealed tubular adenomatous colon polyp which was removed. EGD 09/11/2022 showed erosive gastritis negative for H pylori but no varices. Family history of colon cancer in his maternal grandfather. Patient has been experiencing nausea, vomiting, diarrhea, appetite loss, and weight loss over the past 4-6 weeks. unclear if this is related to an acute infectious/ inflammatory condition. CT showed uncomplicated sigmoid diverticulitis. prior to acute onset of symptoms he was having formed bowel movements daily. Reflux has been well controlled on omeprazole 40 mg daily * continue antibiotics * continue supportive care with antiemetics and IV hydration * continue PPI Thank you very much for allowing me to share in the care this very nice patient, further recommendations to follow endoscopy This report may have been done utilizing a voice recognition system. Attempts have been made to correct errors. However, there may be uncorrected grammatical, spelling, and recognition errors present. GI Consult Note Consult date/time: 02/11/24 12:36 Reason for consult: severe anemia HPI: This is a 58-year-old male with history of anxiety, CAD, HLD, mi, pacemaker, plaque psoriasis, diabetes, appendectomy, personal history of colon polyps, gastritis, alcohol and tobacco abuse. He presented to the emergency room [id number] with complaints of abdominal pain, nausea, weakness, anxiety. Patient was admitted for alcohol withdrawal, anemia and diverticulitis. GI is being consulted for anemia. The patient states that for the past 4-6 weeks he has been experiencing daily episodes of nausea, vomiting, diarrhea, and appetite loss. He states that approximately 3-4 weeks ago he had a very dark emesis along with a tarry black stool (melena) but this has not occurred again since then. Patient states that he is having tender more small incomplete liquid urgent bowel movements daily and had an episode of fecal incontinence recently. He is on omeprazole 40 mg daily and reflux has been relatively well controlled. He denies any abdominal pain, bloating, odynophagia, dysphagia, regurgitation , early satiety, con stipation, or hematochezia. Patient states that he has lost approximately 30 lb since his illness started. Prior to the acute onset of the symptoms he was having regular formed and not urgent bowel movements daily. Patient states that yesterday he had an episode of what he described as almost a stiffening of his muscles or seizure-like activity but he denies any loss of consciousness. He denies recent confusion or increase in abdominal girth. he does admit to some tremors in his hands and leg weakness. Denies fever, jaundice, dark urine, light stools, itching, easy bruising, or tingling of the skin. He is on aspirin 81 mg daily at home but denies any other NSAID or anticoagulant use. ENDOSCOPY HISTORY: EGD: 09/11/[address] Osorio for anemia Findings: The esophagus was examined the mucosa was normal with a normal Z-line. No ulcers or masses. No esophagitis or varices The Z-line located 43 cm from the incisor Moderate gastritis seen in the antrum. The gastritis had moderate erythematous, edematous, erosive and linear ulcerative changes. There was no mucosal bleeding. The multiple biopsies were taken The bulb and 2nd portion of the duodenum was normal with no ulcers or masses. Multiple biopsies were taken to rule out celiac sprue Bx results: Stomach, biopsy (A): - Mild chronic gastritis - Negative for H. pylori Small intestine, small bowel, biopsy (B): - Mild foveolar metaplasia - Intact villous and crypt architecture without intraepithelial lymphocytosis COLONOSCOPY: 06/08/[address] Osorio for CRC screening Findings: In the sigmoid colon, a pedunculated polyp 10 mm in diameter was seen. The polyp was adenomatous in appearance The polyp was completely excised by hot snare. The polyp was retrieved. One Endo clip was deployed to prevent delayed bleeding In the rectum a small sized hemorrhoid was seen without active bleeding Five year repeat colonoscopy recommended Bx results: Colon, sigmoid, polyp, biopsy: - Tubular adenoma LABS AND STOOL STUDIES: labs 02/11/2024 showed sodium 137, potassium 3.4, BUN 13, creatinine 1.30, GFR 57. WBC 7, HGB 7, HCT 25, MCV 81, platelets 270, INR 1.3. Total bilirubin 0.5, AST 113, ALT 39, alkaline phosphatase 98, albumin 2.8. Sodium 6.7, magnesium 1.5. Total iron 31, TIBC 405, iron saturation 8%, B12 > 10,000 and folate 11. IMAGING: CT abd/pelvis w/contrast 02/09/2024 FINDINGS: The visualized portions of the lung bases demonstrate mild atelectasis in the right. No pleural effusion. The heart size is normal. No pericardial effusion. There are pacer wires in right ventricle and coronary sinus. The liver demonstrates surface nodularity, consistent with cirrhosis. There is a periumbilical portacaval shunt. The gallbladder, spleen, pancreas, and adrenal glands are normal. There are cysts in the kidneys measuring up to 11 mm on the left. There is an 11 mm stone in left kidney. There are scattered diverticula in the colon. There is wall thickening of the sigmoid colon. There is fat stranding around a sigmoid diverticulum. The appendix is not visualized. There are no pathologically enlarged lymph nodes. There is no free intraperitoneal fluid. There is calcified atherosclerosis of the aorta and many of the other arteries. There are changes of an anterior and posterior fusion procedures at L5-S1. There is a hemangioma in T12 vertebral body. There is mild chronic anterior wedging of multiple thoracic vertebral bodies. IMPRESSION: 1. Sigmoid diverticulitis. No perforation or abscess. 2. Cirrhosis of the liver with portal venous hypertension. Abdominal Ultrasound 01/25/2024 IMPRESSION: 1. Diffuse hepatic steatosis. Review of Systems Constitutional: Constitutional: Reports as per HPI, Reports fatigue and Re ports weakness ENT: Reports as per HPI Cardiovascular: Cardiovascular: Reports as per HPI, Denies chest pain, Denies leg edema and Denies dyspnea Respiratory: Respiratory: Denies cough, Denies hemoptysis and Denies dyspnea Gastrointestinal: Gastrointestinal: Reports as per HPI Musculoskeletal: Musculoskeletal: Reports as per HPI Comments: leg weakness Integumentary/Breasts: Skin/Breast: Reports as per HPI Psychiatric: Psychiatric: Reports as per HPI Endocrine: Endocrine: Reports no additional endocrine complaints Hematologic/Lymphatic: Hematologic/Lymphatic: Reports no additional hematologic/lymphatic complaints [facility] Past Medical History Medical History Anxiety CAD (coronary artery disease) Colon cancer screening Hyperlipidemia Hypertension Iron deficiency anemia Myocardial infarction Pacemaker Plaque psoriasis Tobacco abuse Type 2 diabetes mellitus with hyperglycemia Surgical History Surgical History History of back surgery Hx of appendectomy Stented coronary artery Family History Family History Mother Diabetes mellitus Father Hypertension Sibling Hypertension Social History Social History Smoking packs per day: 1 Smoking cigarettes per day: 20.0 Years smoked: 40 Smoking pack-years: 40.00 Smoking status: Current every day smoker Tobacco type: cigarettes Alcohol intake: current Drinks per week: 12 Alcohol use details: BEERS Substance use: current Substance use type: marijuana Do You Feel Safe in your Home?: Yes Lack of Transportation: No Lack of Food: Never True Current Housing: I Have Housing Concerned About Future Housing: No Difficulty Paying Gas/Electric Bills: No Difficulty Paying for Meds: No Currently Unemployed: No Education: Trade/Vocational Certificate Difficulty w/ Childcare or Family Care: No Living arrangements: with family Gender identity (if verbalized by the patient): Male Spiritual care concerns: No Agree to blood products: Yes Meds Home Medications and Allergies Home Medications Medication Instructions Recorded Confirmed Type aspirin 81 mg tablet,delayed 81 mg PO DAILY 06/02/19 02/10/24 History release (Aspir-) lisinopril 20 2 tablet PO DAILY 06/02/19 02/10/24 History mg-hydrochlorothiazide 12.5 mg tablet betamethasone dipropionate 0.05 % 1 applic topical HS PRN FLAREUP 07/13/19 02/10/24 History topical cream triamcinolone acetonide 0.1 % 1 applic topical DAILY PRN FLAREUP 07/13/19 02/10/24 History topical cream cyanocobalamin (vitamin B-12) 500 500 mcg PO DAILY 07/30/22 02/10/24 History mcg tablet (Vitamin B-12) ferrous gluconate 324 mg (37.5 mg 324 mg PO DAILY 07/30/22 02/10/24 History iron) tablet tsamxdtm-hbx-pkrjk acid 500 1 tablet PO DAILY 07/30/22 02/10/24 History mcg-lycopene 300 mcg-lutein 250 mcg tablet risankizumab-rzaa 150 mg/mL 150 mg subcut [id number] 07/30/22 02/10/24 History subcutaneous pen injector (Skyrizi) omeprazole 40 mg capsule,delayed 40 mg PO DAILY 02/10/24 02/10/24 History release Allergies Allergy/AdvReac Type Severity Reaction Status Date / Time ticagrelor Allergy Intermediate Blister Verified 02/11/24 13:29 hydrocodone AdvReac Intermediate Nausea Verified 02/11/24 13:29 oxycodone AdvReac Intermediate Nausea Verified 02/11/24 13:29 Vital Signs Vital Signs - 24 hr 02/10/24 13:00 02/10/24 14:00 02/10/24 14:00 Temperature Pulse Rate 60 60 60 Pulse Rate [Monitor] Respiratory Rate 23 H 19 Blood Pressure 135/88 Pulse Oximetry 100 Oxygen Delivery 02/10/24 13:30 02/10/24 14:00 02/10/24 15:02 Temperature Pulse Rate 60 60 60 Pulse Rate [Monitor] Respiratory Rate 22 H 19 20 Blood Pressure Pulse Oximetry Oxygen Delivery 02/10/24 15:12 02/10/24 16:00 02/10/24 18:00 Temperature Pulse Rate 60 60 60 Pulse Rate [Monitor] Respiratory Rate 20 Blood Pressure Pulse Oximetry Oxygen Delivery 02/10/24 16:00 02/10/24 17:22 02/10/24 18:36 Temperature Pulse Rate 60 60 60 Pulse Rate [Monitor] Respiratory Rate 20 20 20 Blood Pressure Pulse Oximetry Oxygen Delivery 02/10/24 16:00 02/10/24 18:00 02/10/24 16:00 Temperature 98.2 F Pulse Rate 60 60 Pulse Rate [Monitor] Respiratory Rate 20 18 Blood Pressure 137/94 H 139/89 Pulse Oximetry 100 100 Oxygen Delivery Room Air 02/10/24 19:34 02/10/24 19:36 02/10/24 20:00 Temperature Pulse Rate 60 60 Pulse Rate [Monitor] 55 L Respiratory Rate 20 Blood Pressure 126/93 H Pulse Oximetry 98 Oxygen Delivery Room Air 02/10/24 20:00 02/10/24 20:00 02/10/24 22:00 Temperature 98.1 F Pulse Rate 60 60 60 Pulse Rate [Monitor] Respiratory Rate 21 H 20 Blood Pressure 85/65 L Pulse Oximetry 100 Oxygen Delivery 02/10/24 22:00 02/10/24 22:00 02/10/24 23:16 Temperature 98.1 F Pulse Rate 60 60 60 Pulse Rate [Monitor] Respiratory Rate 18 18 22 H Blood Pressure 126/91 H Pulse Oximetry 99 Oxygen Delivery 02/10/24 23:16 02/10/24 23:23 02/10/24 23:23 Temperature Pulse Rate 61 63 Pulse Rate [Monitor] 63 Respiratory Rate 22 H Blood Pressure Pulse Oximetry Oxygen Delivery 02/10/24 23:26 02/11/24 00:00 02/11/24 00:00 Temperature Pulse Rate 63 60 60 Pulse Rate [Monitor] Respiratory Rate 22 H 18 22 H Blood Pressure 132/91 H Pulse Oximetry 98 98 Oxygen Delivery Room Air 02/11/24 02:00 02/11/24 02:00 02/11/24 04:00 Temperature 98.9 F Pulse Rate 60 60 60 Pulse Rate [Monitor] Respiratory Rate 21 H Blood Pressure 139/89 Pulse Oximetry 97 Oxygen Delivery 02/11/24 04:00 02/11/24 04:00 02/11/24 04:00 Temperature 98.2 F Pulse Rate 60 60 Pulse Rate [Monitor] 63 Respiratory Rate 21 H 22 H Blood Pressure 129/88 129/88 Pulse Oximetry 97 98 Oxygen Delivery Room Air 02/11/24 02:00 02/11/24 04:00 02/11/24 06:00 Temperature Pulse Rate 60 60 60 Pulse Rate [Monitor] Respiratory Rate 17 23 H Blood Pressure Pulse Oximetry Oxygen Delivery 02/11/24 06:00 02/11/24 07:00 02/11/24 08:00 Temperature 98.1 F 97.7 F Pulse Rate 60 60 60 Pulse Rate [Monitor] Respiratory Rate 26 H 30 H 25 H Blood Pressure 122/78 127/77 Pulse Oximetry 98 97 Oxygen Delivery 02/11/24 08:00 02/11/24 08:00 02/11/24 10:00 Temperature Pulse Rate 60 Pulse Rate [Monitor] 60 61 Respiratory Rate Blood Pressure 117/76 Pulse Oximetry Oxygen Delivery 02/11/24 10:00 02/11/24 08:00 02/11/24 10:00 Temperature Pulse Rate 61 60 62 Pulse Rate [Monitor] Respiratory Rate 26 H 27 H Blood Pressure 117/76 Pulse Oximetry 95 100 Oxygen Delivery Room Air 02/11/24 12:00 02/11/24 12:00 02/11/24 11:00 Temperature Pulse Rate 61 Pulse Rate [Monitor] 60 Respiratory Rate 22 H Blood Pressure 127/78 Pulse Oximetry Oxygen Delivery Room Air 02/11/24 09:00 Temperature Pulse Rate 62 Pulse Rate [Monitor] Respiratory Rate 24 H Blood Pressure Pulse Oximetry Oxygen Delivery Exam Const: General: cooperative, healthy appearing, comfortable, no acute distress and well developed Orientation/consciousness: oriented to person, oriented to place, oriented to time and patient oriented x3 HENMT: Head: normal to inspection, normocephalic and atraumatic Mouth: Yes Normal oral and palatal mucosa present and Yes moist mucous membranes Eyes: General: appearance normal, both eyes and all related structures Conjunctivae: conjunctivae normal Sclera: sclerae normal Pupils: Equal, round and reactive pupils present Neck: Neck: normal visual inspection Chest: Chest palpation & inspection: normal inspection of the chest Resp: Effort & Inspection: normal respiratory effort and able to speak in complete sentences Auscultation: clear to auscultation bilaterally Cardio: Jugular venous distension: no JVD Rate: regular rate Rhythm: regular rhythm Heart sounds: S1 normal heart sound present and S2 normal heart sound present GI: Inspection: normal to inspection and distended GI Palp: Yes Soft to palpation, No Firmness to palpation present (GI), No Tenderness to palpation present (GI), No Guarding due to palpation present (GI) and Yes No hepatosplenomegaly present Auscultation: normal bowel sounds Rectal Exam: deferred Other: large distended but soft abdomen Skin: General skin exam: normal color and no rashes or lesions noted Neuro: General: oriented to person, oriented to place, oriented to time and patient oriented x3 Cranial nerves: Yes Equal, round and reactive pupils present Speech: normal speech Extrem: General: normal to inspection and no clubbing, cyanosis or edema Psych: Appearance: grossly normal and well kempt Affect: normal affect Results Labs 02/11/24 04:30 02/11/24 04:30 Labs: Short CBC 02/11/24 Range/Units 04:30 WBC 7.0 (4.5-10.0) K/mm3 Hgb 7.4 L (14.0-18.0) g/dL Hct 24.7 L (42.0-52.0) % Plt Count 270 D (150-375) k/mm3 BMP 02/10/24 02/11/24 14:15 04:30 Sodium 136 L 137 Potassium 3.3 L 3.4 Chloride 107 108 H Carbon Dioxide 18 L 21 L BUN 16 13 Creatinine 1.50 H 1.30 Glucose 176 H 162 H Calcium 6.8 L 6.7 L Liver Function 02/11/24 Range/Units 04:30 Total Bilirubin 0.5 (0.2-1.3) mg/dL AST 113 H (17-59) U/L ALT 39 (6-50) U/L Alkaline Phosphatase 98 (38-126) U/L Albumin 2.8 L (3.5-5.1) g/dL
--- NOTE | 2024-02-11 13:09 | PM.IMHP ---
H&P: HPI History of Present Illness Date/Time: 02/11/24 13:09 Chief Complaint: The patient reports recent hematemesis and possible melena several years ago. He is found to have a low hemoglobin, 7 grams/deciliter. Review of Systems Review of Systems: All systems reviewed & are unremarkable except as noted in HPI and below PMFSH Past Medical History Medical History Anxiety CAD (coronary artery disease) Colon cancer screening Hyperlipidemia Hypertension Iron deficiency anemia Myocardial infarction Pacemaker Plaque psoriasis Tobacco abuse Type 2 diabetes mellitus with hyperglycemia Surgical History Surgical History History of back surgery Hx of appendectomy Stented coronary artery Family History Family History Mother Diabetes mellitus Father Hypertension Sibling Hypertension Social History Social History Smoking packs per day: 1 Smoking cigarettes per day: 20.0 Years smoked: 40 Smoking pack-years: 40.00 Smoking status: Current every day smoker Tobacco type: cigarettes Alcohol intake: current Drinks per week: 12 Alcohol use details: BEERS Substance use: current Substance use type: marijuana Do You Feel Safe in your Home?: Yes Lack of Transportation: No Lack of Food: Never True Current Housing: I Have Housing Concerned About Future Housing: No Difficulty Paying Gas/Electric Bills: No Difficulty Paying for Meds: No Currently Unemployed: No Education: Trade/Vocational Certificate Difficulty w/ Childcare or Family Care: No Living arrangements: with family Gender identity (if verbalized by the patient): Male Spiritual care concerns: No Agree to blood products: Yes Meds Home Medications and Allergies Home Medications Medication Instructions Recorded Confirmed Type aspirin 81 mg tablet,delayed 81 mg PO DAILY 06/02/19 02/10/24 History release (Aspir-) lisinopril 20 2 tablet PO DAILY 06/02/19 02/10/24 History mg-hydrochlorothiazide 12.5 mg tablet betamethasone dipropionate 0.05 % 1 applic topical HS PRN FLAREUP 07/13/19 02/10/24 History topical cream triamcinolone acetonide 0.1 % 1 applic topical DAILY PRN FLAREUP 07/13/19 02/10/24 History topical cream cyanocobalamin (vitamin B-12) 500 500 mcg PO DAILY 07/30/22 02/10/24 History mcg tablet (Vitamin B-12) ferrous gluconate 324 mg (37.5 mg 324 mg PO DAILY 07/30/22 02/10/24 History iron) tablet mdywgpeh-vfs-jixhg acid 500 1 tablet PO DAILY 07/30/22 02/10/24 History mcg-lycopene 300 mcg-lutein 250 mcg tablet risankizumab-rzaa 150 mg/mL 150 mg subcut [id number] 07/30/22 02/10/24 History subcutaneous pen injector (Skyrizi) omeprazole 40 mg capsule,delayed 40 mg PO DAILY 02/10/24 02/10/24 History release Allergies Allergy/AdvReac Type Severity Reaction Status Date / Time ticagrelor Allergy Intermediate Blister Verified 02/11/24 13:29 hydrocodone AdvReac Intermediate Nausea Verified 02/11/24 13:29 oxycodone AdvReac Intermediate Nausea Verified 02/11/24 13:29 Vital Signs Vital Signs - 24 hr 02/10/24 14:00 02/10/24 14:00 02/10/24 13:30 Temperature Pulse Rate 60 60 60 Pulse Rate [Monitor] Respiratory Rate 19 22 H Blood Pressure 135/88 Pulse Oximetry 100 Oxygen Delivery 02/10/24 14:00 02/10/24 15:02 02/10/24 15:12 Temperature Pulse Rate 60 60 60 Pulse Rate [Monitor] Respiratory Rate 19 20 20 Blood Pressure Pulse Oximetry Oxygen Delivery 02/10/24 16:00 02/10/24 18:00 02/10/24 16:00 Temperature Pulse Rate 60 60 60 Pulse Rate [Monitor] Respiratory Rate 20 Blood Pressure Pulse Oximetry Oxygen Delivery 02/10/24 17:22 02/10/24 18:36 02/10/24 16:00 Temperature 98.2 F Pulse Rate 60 60 60 Pulse Rate [Monitor] Respiratory Rate 20 20 20 Blood Pressure 137/94 H Pulse Oximetry 100 Oxygen Delivery 02/10/24 18:00 02/10/24 16:00 02/10/24 19:34 Temperature Pulse Rate 60 60 Pulse Rate [Monitor] Respiratory Rate 18 Blood Pressure 139/89 Pulse Oximetry 100 Oxygen Delivery Room Air 02/10/24 19:36 10/03/24 20:00 02/10/24 20:00 Temperature 98.1 F Pulse Rate 60 60 Pulse Rate [Monitor] 55 L Respiratory Rate 20 21 H Blood Pressure 126/93 H 85/65 L Pulse Oximetry 98 100 Oxygen Delivery Room Air 02/10/24 20:00 02/10/24 22:00 02/10/24 22:00 Temperature 98.1 F Pulse Rate 60 60 60 Pulse Rate [Monitor] Respiratory Rate 20 18 Blood Pressure 126/91 H Pulse Oximetry 99 Oxygen Delivery 02/10/24 22:00 02/10/24 23:16 02/10/24 23:16 Temperature Pulse Rate 60 60 61 Pulse Rate [Monitor] Respiratory Rate 18 22 H 22 H Blood Pressure Pulse Oximetry Oxygen Delivery 02/10/24 23:23 02/10/24 23:23 02/10/24 23:26 Temperature Pulse Rate 63 63 Pulse Rate [Monitor] 63 Respiratory Rate 22 H Blood Pressure Pulse Oximetry 98 Oxygen Delivery Room Air 02/11/24 00:00 02/11/24 00:00 02/11/24 02:00 Temperature Pulse Rate 60 60 60 Pulse Rate [Monitor] Respiratory Rate 18 22 H Blood Pressure 132/91 H Pulse Oximetry 98 Oxygen Delivery 02/11/24 02:00 02/11/24 04:00 02/11/24 04:00 Temperature 98.9 F Pulse Rate 60 60 Pulse Rate [Monitor] 63 Respiratory Rate 21 H Blood Pressure 139/89 129/88 Pulse Oximetry 97 Oxygen Delivery 02/11/24 04:00 02/11/24 04:00 02/11/24 02:00 Temperature 98.2 F Pulse Rate 60 60 60 Pulse Rate [Monitor] Respiratory Rate 21 H 22 H 17 Blood Pressure 129/88 Pulse Oximetry 97 98 Oxygen Delivery Room Air 02/11/24 04:00 02/11/24 06:00 02/11/24 06:00 Temperature 98.1 F Pulse Rate 60 60 60 Pulse Rate [Monitor] Respiratory Rate 23 H 26 H Blood Pressure 122/78 Pulse Oximetry 98 Oxygen Delivery 02/11/24 07:00 02/11/24 08:00 02/11/24 08:00 Temperature 97.7 F Pulse Rate 60 60 Pulse Rate [Monitor] 60 Respiratory Rate 30 H 25 H Blood Pressure 127/77 Pulse Oximetry 97 Oxygen Delivery 02/11/24 08:00 02/11/24 10:00 02/11/24 10:00 Temperature Pulse Rate 60 61 Pulse Rate [Monitor] 61 Respiratory Rate Blood Pressure 117/76 Pulse Oximetry Oxygen Delivery 02/11/24 08:00 02/11/24 10:00 02/11/24 12:00 Temperature Pulse Rate 60 62 Pulse Rate [Monitor] 60 Respiratory Rate 26 H 27 H Blood Pressure 117/76 127/78 Pulse Oximetry 95 100 Oxygen Delivery Room Air 02/11/24 12:00 02/11/24 11:00 02/11/24 09:00 Temperature Pulse Rate 61 62 Pulse Rate [Monitor] Respiratory Rate 22 H 24 H Blood Pressure Pulse Oximetry Oxygen Delivery Room Air 02/11/24 12:00 02/11/24 12:00 Temperature 98.9 F Pulse Rate 60 60 Pulse Rate [Monitor] Respiratory Rate 20 Blood Pressure 127/78 Pulse Oximetry 99 Oxygen Delivery H&P: Results Labs Labs: Short CBC 02/11/24 Range/Units 04:30 WBC 7.0 (4.5-10.0) K/mm3 Hgb 7.4 L (14.0-18.0) g/dL Hct 24.7 L (42.0-52.0) % Plt Count 270 D (150-375) k/mm3 BMP 02/10/24 02/11/24 14:15 04:30 Sodium 136 L 137 Potassium 3.3 L 3.4 Chloride 107 108 H Carbon Dioxide 18 L 21 L BUN 16 13 Creatinine 1.50 H 1.30 Glucose 176 H 162 H Calcium 6.8 L 6.7 L Liver Function 02/11/24 Range/Units 04:30 Total Bilirubin 0.5 (0.2-1.3) mg/dL AST 113 H (17-59) U/L ALT 39 (6-50) U/L Alkaline Phosphatase 98 (38-126) U/L Albumin 2.8 L (3.5-5.1) g/dL Assessment and Plan Assessment and plan (1) Iron deficiency anemia: Qualifiers: Iron deficiency anemia type: unspecified iron deficiency Qualified Code(s): D50.9 - Iron deficiency anemia, unspecified Code(s): D50.9 - Iron deficiency anemia, unspecified Status: Acute (2) Hypoalbuminemia: Code(s): E88.09 - Other disorders of plasma-protein metabolism, not elsewhere classified Status: Acute Plan See EGD report. No abnormalities to explain hematocrit drop of recent onset. No upper GI sources of bleeding. Will proceed with colonoscopy Wednesday morning. Prep orders to follow
--- NOTE | 2024-02-11 13:37 | WPDANESEPPF ---
Anes - Initial Pre Proc Eval Procedure: Operation Date: 02/11/24 15:00 Proposed Procedures p Esophagogastroduodenoscopy - John Ruiz MD Date/Time: 02/11/24 13:37 Surgeon: Janny Harris MD Pre Op Diagnosis: Hypokalemia,hypomagnesemia, alchohol w/d, divertic Patient Data Age: 58 Gender: M Height: 1.8 m Weight: 84.9 kg Last Vital Signs Temp 37.2 C 02/11/24 12:00 Pulse 60 02/11/24 12:00 Resp 20 02/11/24 12:00 BP 127/78 02/11/24 12:00 Pulse Ox 99 02/11/24 12:00 O2 Del Method Room Air 02/11/24 12:00 Allergies Allergy/AdvReac Type Severity Reaction Status Date / Time ticagrelor Allergy Intermediate Blister Verified 02/11/24 13:29 hydrocodone AdvReac Intermediate Nausea Verified 02/11/24 13:29 oxycodone AdvReac Intermediate Nausea Verified 02/11/24 13:29 Home Medications Medication Instructions Recorded Confirmed Type aspirin 81 mg tablet,delayed 81 mg PO DAILY 06/02/19 02/10/24 History release (Aspir-) lisinopril 20 2 tablet PO DAILY 06/02/19 02/10/24 History mg-hydrochlorothiazide 12.5 mg tablet betamethasone dipropionate 0.05 % 1 applic topical HS PRN FLAREUP 07/13/19 02/10/24 History topical cream triamcinolone acetonide 0.1 % 1 applic topical DAILY PRN FLAREUP 07/13/19 02/10/24 History topical cream cyanocobalamin (vitamin B-12) 500 500 mcg PO DAILY 07/30/22 02/10/24 History mcg tablet (Vitamin B-12) ferrous gluconate 324 mg (37.5 mg 324 mg PO DAILY 07/30/22 02/10/24 History iron) tablet bqulajym-vnr-mnjpk acid 500 1 tablet PO DAILY 07/30/22 02/10/24 History mcg-lycopene 300 mcg-lutein 250 mcg tablet risankizumab-rzaa 150 mg/mL 150 mg subcut [id number] 07/30/22 02/10/24 History subcutaneous pen injector (Skyrizi) omeprazole 40 mg capsule,delayed 40 mg PO DAILY 02/10/24 02/10/24 History release Laboratory Tests 02/10/24 02/10/24 02/10/24 14:15 17:26 23:31 WBC RBC Hgb Hct MCV MCH MCHC RDW Plt Count MPV Immature Gran % (Auto) Neut % (Auto) Lymph % (Auto) [place] % (Auto) Eos % (Auto) Baso % (Auto) Lymph # (Auto) [place] # (Auto) Eos # (Auto) Baso # (Auto) Abs Immat Gran (auto) Absolute Neuts (auto) Absolute Nucleated RBC Nucleated RBC % Sodium 136 L mmol/L (137-145) Potassium 3.3 L mmol/L (3.4-5.0) Chloride 107 mmol/L (98-107) Carbon Dioxide 18 L mmol/L (22-30) Anion Gap 11 mmol/L (4-12) BUN 16 mg/dL (9-20) Creatinine 1.50 H mg/dL (0.7-1.3) Estim Creat Clear Calc 51 ml/min Estimated GFR 48 L (59 - ) Glucose 176 H mg/dL (65-110) POC Capillary Glucose 141 H mg/dl 125 H mg/dl (65-105) (65-105) Calcium 6.8 L mg/dL (8.4-10.2) Phosphorus Magnesium 2.1 mg/dL (1.6-2.3) Total Bilirubin AST ALT Alkaline Phosphatase Total Protein Albumin 02/11/24 02/11/24 04:30 11:26 WBC 7.0 K/mm3 (4.5-10.0) RBC 3.07 L M/mm3 (4.6-6.20) Hgb 7.4 L g/dL (14.0-18.0) Hct 24.7 L % (42.0-52.0) MCV 80.5 fl (80-100) MCH 24.1 L pg (26-34) MCHC 30.0 L g/dl (32-36) RDW 21.1 H % (11.5-14.5) Plt Count 270 D k/mm3 (150-375) MPV 9.5 fl (7.4-10.4) Immature Gran % (Auto) 0.4 % (0-0.5) Neut % (Auto) 69.8 % (45.5-73.1) Lymph % (Auto) 23.0 % (18.3-44.2) [place] % (Auto) 3.7 % (2.6-8.5) Eos % (Auto) 2.1 % (0-4.4) Baso % (Auto) 1.0 % (0.2-1.2) Lymph # (Auto) 1.61 K/mm3 (0.9-3.2) [place] # (Auto) 0.3 K/mm3 (0.1-0.6) Eos # (Auto) 0.2 K/mm3 (0-0.3) Baso # (Auto) 0.1 K/mm3 (0.0-0.1) Abs Immat Gran (auto) 0.03 K/mm3 (0.00-0.031) Absolute Neuts (auto) 4.9 K/mm3 (1.3-6.7) Absolute Nucleated RBC 0.000 K/mm3 (0.0-0.012) Nucleated RBC % 0.0 % (0.0-0.2) Sodium 137 mmol/L (137-145) Potassium 3.4 mmol/L (3.4-5.0) Chloride 108 H mmol/L (98-107) Carbon Dioxide 21 L mmol/L (22-30) Anion Gap 8 mmol/L (4-12) BUN 13 mg/dL (9-20) Creatinine 1.30 mg/dL (0.7-1.3) Estim Creat Clear Calc 58 ml/min Estimated GFR 57 L (59 - ) Glucose 162 H mg/dL (65-110) POC Capillary Glucose 124 H mg/dl (65-105) Calcium 6.7 L mg/dL (8.4-10.2) Phosphorus 3.2 mg/dL (2.5-4.5) Magnesium 1.5 L mg/dL (1.6-2.3) Total Bilirubin 0.5 mg/dL (0.2-1.3) AST 113 H U/L (17-59) ALT 39 U/L (6-50) Alkaline Phosphatase 98 U/L (38-126) Total Protein 6.0 L g/dL (6.3-8.2) Albumin 2.8 L g/dL (3.5-5.1) Patient hx anesthesia problems: none Family hx anesthesia problems: none Results Review: All pre-operative results and documents have been reviewed as part of the pre-operative evaluation. [facility] Past Medical History Medical History Anxiety CAD (coronary artery disease) Colon cancer screening Hyperlipidemia Hypertension Iron deficiency anemia Myocardial infarction Pacemaker Plaque psoriasis Tobacco abuse Type 2 diabetes mellitus with hyperglycemia Surgical History Surgical History History of back surgery Hx of appendectomy Stented coronary artery Family History Family History Mother Diabetes mellitus Father Hypertension Sibling Hypertension Social History Social History Smoking packs per day: 1 Smoking cigarettes per day: 20.0 Years smoked: 40 Smoking pack-years: 40.00 Smoking status: Current every day smoker Tobacco type: cigarettes Alcohol intake: current Drinks per week: 12 Alcohol use details: BEERS Substance use: current Substance use type: marijuana Do You Feel Safe in your Home?: Yes Lack of Transportation: No Lack of Food: Never True Current Housing: I Have Housing Concerned About Future Housing: No Difficulty Paying Gas/Electric Bills: No Difficulty Paying for Meds: No Currently Unemployed: No Education: Trade/Vocational Certificate Difficulty w/ Childcare or Family Care: No Living arrangements: with family Gender identity (if verbalized by the patient): Male Spiritual care concerns: No Agree to blood products: Yes Anes - Eval Final PreProcedure Day of Procedure 02/11/24 13:37 Patient weight: overweight Heart: regular rate and rhythm Lungs: clear to auscultation Airway: Mallampati scale class II Neurological: alert and oriented Last oral intake: >/= 8 hours ASA classification: IV Emergent: yes Anesthetic plan: proceed Anesthesia type and monitoring: general GIVS and standard monitoring Results Review: All pre-operative results and documents have been reviewed as part of the pre-operative evaluation. Informed Consent: The patient's anesthetic plan and its attendant risks and benefits were discussed with the patient/family/POA. Questions were solicited and answers provided to the satisfaction of the patient/family/POA.
[2024-02-11] MEDS: LACTATED RINGERS 1,000 ML 150 ML IV CONT (13:39)
--- NOTE | 2024-02-11 14:25 | P.PNGI_ITS ---
Progress Note: A&P Assessment and Plan (1) Anemia: Qualifiers: Anemia type: unspecified type Qualified Code(s): D64.9 - Anemia, unspecified Code(s): D64.9 - Anemia, unspecified Status: Acute Plan The patient reports recent history of hematemesis and possible melena. See EGD report. No evidence of acute or recent bleeding coming from an upper GI source. Rectal exam right after EGD shows light brown stools. To assess recent drop in hematocrit, will schedule colonoscopy for Wednesday. Prep instructions to follow. Subjective Date/time seen: 02/11/24 14:25 Interval history: The patient states he had a recent history of hematemesis and melena. He is currently in the ICU, hemodynamically stable. Review of Systems Review of Systems: All systems reviewed & are unremarkable except as noted in HPI and below Objective Data Vital Signs Vital Signs: Vital Signs - 24 hr 02/10/24 15:02 02/10/24 15:12 02/10/24 16:00 Temperature Pulse Rate 60 60 60 Pulse Rate [Monitor] Respiratory Rate 20 20 Blood Pressure Pulse Oximetry Oxygen Delivery 02/10/24 18:00 02/10/24 16:00 02/10/24 17:22 Temperature Pulse Rate 60 60 60 Pulse Rate [Monitor] Respiratory Rate 20 20 Blood Pressure Pulse Oximetry Oxygen Delivery 02/10/24 18:36 02/10/24 16:00 02/10/24 18:00 Temperature 98.2 F Pulse Rate 60 60 60 Pulse Rate [Monitor] Respiratory Rate 20 20 18 Blood Pressure 137/94 H 139/89 Pulse Oximetry 100 100 Oxygen Delivery 02/10/24 16:00 02/10/24 19:34 02/10/24 19:36 Temperature Pulse Rate 60 60 Pulse Rate [Monitor] Respiratory Rate 20 Blood Pressure Pulse Oximetry 98 Oxygen Delivery Room Air Room Air 02/10/24 20:00 02/10/24 20:00 02/10/24 20:00 Temperature 98.1 F Pulse Rate 60 60 Pulse Rate [Monitor] 55 L Respiratory Rate 21 H 20 Blood Pressure 126/93 H 85/65 L Pulse Oximetry 100 Oxygen Delivery 02/10/24 22:00 02/10/24 22:00 02/10/24 22:00 Temperature 98.1 F Pulse Rate 60 60 60 Pulse Rate [Monitor] Respiratory Rate 18 18 Blood Pressure 126/91 H Pulse Oximetry 99 Oxygen Delivery 02/10/24 23:16 02/10/24 23:16 02/10/24 23:23 Temperature Pulse Rate 60 61 63 Pulse Rate [Monitor] Respiratory Rate 22 H 22 H Blood Pressure Pulse Oximetry Oxygen Delivery 02/10/24 23:23 02/10/24 23:26 02/11/24 00:00 Temperature Pulse Rate 63 60 Pulse Rate [Monitor] 63 Respiratory Rate 22 H 18 Blood Pressure 132/91 H Pulse Oximetry 98 98 Oxygen Delivery Room Air 02/11/24 00:00 02/11/24 02:00 02/11/24 02:00 Temperature 98.9 F Pulse Rate 60 60 60 Pulse Rate [Monitor] Respiratory Rate 22 H 21 H Blood Pressure 139/89 Pulse Oximetry 97 Oxygen Delivery 02/11/24 04:00 02/11/24 04:00 02/11/24 04:00 Temperature Pulse Rate 60 60 Pulse Rate [Monitor] 63 Respiratory Rate 21 H Blood Pressure 129/88 Pulse Oximetry 97 Oxygen Delivery Room Air 02/11/24 04:00 02/11/24 02:00 02/11/24 04:00 Temperature 98.2 F Pulse Rate 60 60 60 Pulse Rate [Monitor] Respiratory Rate 22 H 17 23 H Blood Pressure 129/88 Pulse Oximetry 98 Oxygen Delivery 02/11/24 06:00 02/11/24 06:00 02/11/24 07:00 Temperature 98.1 F Pulse Rate 60 60 60 Pulse Rate [Monitor] Respiratory Rate 26 H 30 H Blood Pressure 122/78 Pulse Oximetry 98 Oxygen Delivery 02/11/24 08:00 02/11/24 08:00 02/11/24 08:00 Temperature 97.7 F Pulse Rate 60 60 Pulse Rate [Monitor] 60 Respiratory Rate 25 H Blood Pressure 127/77 Pulse Oximetry 97 Oxygen Delivery 02/11/24 10:00 02/11/24 10:00 02/11/24 08:00 Temperature Pulse Rate 61 60 Pulse Rate [Monitor] 61 Respiratory Rate 26 H Blood Pressure 117/76 Pulse Oximetry 95 Oxygen Delivery Room Air 02/11/24 10:00 02/11/24 12:00 02/11/24 12:00 Temperature Pulse Rate 62 Pulse Rate [Monitor] 60 Respiratory Rate 27 H Blood Pressure 117/76 127/78 Pulse Oximetry 100 Oxygen Delivery Room Air 02/11/24 11:00 02/11/24 09:00 02/11/24 12:00 Temperature Pulse Rate 61 62 60 Pulse Rate [Monitor] Respiratory Rate 22 H 24 H Blood Pressure Pulse Oximetry Oxygen Delivery 02/11/24 12:00 02/11/24 13:32 Temperature 98.9 F 97.2 F L Pulse Rate 60 60 Pulse Rate [Monitor] Respiratory Rate 20 18 Blood Pressure 127/78 121/79 Pulse Oximetry 99 100 Oxygen Delivery Room Air Intake/Output Intake/Output: Intake & Output 02/08/24 02/09/24 02/10/24 02/11/24 23:59 23:59 23:59 23:59 Intake Total 2250 4313.2 614.5 Output Total 100 200 750 Balance 2150 4113.2 -135.5 Meds/Results Medications: Active Medications Generic Name Dose Route Start Last Admin Trade Name Freq PRN Reason Stop Dose Admin Chlordiazepoxide HCl 50 mg 02/11/24 00:00 02/11/24 11:26 Chlordiazepoxide (*Crx) 25 Mg Capsule PO 50 mg Q6H KEEGAN Administration Dextrose 12.5 gm 02/10/24 02:41 Dextrose 50% 25 Gm/50 Ml Syringe IV PUSH PRN PRN Hypoglycemia Protocol Folic Acid 1 mg 02/10/24 09:00 02/11/24 08:37 Folic Acid 1 Mg/0.2 Ml Inj IV PUSH 1 mg QAM KEEGAN Administration Glucagon 1 mg 02/10/24 02:41 Glucagon For Inj 1 Mg Vial IM PRN PRN Hypoglycemia Protocol Glucose 15 gm 02/10/24 02:41 Glucose Oral Gel 15 Gm Of Glucse In 37.5 Gm Tube PO PRN PRN Hypoglycemia Protocol Dextrose/Sodium Chloride 1,000 mls @ 75 mls/hr 02/09/24 20:55 02/10/24 20:03 Dextrose 5% Sodium Chloride 0.9% IV CONT 75 mls/hr .[id number] KEEGAN Administration Piperacillin/Tazobactam/Dextrose 3.375 gm in 50 mls @ 100 mls/hr 02/10/24 04:00 02/11/24 10:29 Zosyn 3.375 Gm/Ns 50 Ml IVPB 100 mls/hr Q6H KEEGAN Administration Dextrose 1,000 mls @ 100 mls/hr 02/10/24 02:41 Dextrose 5% 1,000 Ml IVPB PRN PRN Hypoglycemia Protocol Dexmedetomidine HCl 400 mcg in 100 mls @ 0 mls/hr 02/10/24 05:00 02/11/24 11:00 Precedex 400 Mcg/100 Ml IV CONT 0 mcg/kg/hr .Q0M KEEGAN 0 mls/hr Titration Protocol Iron Sucrose 200 mg/ Sodium 110 mls @ 220 mls/hr 02/11/24 10:00 02/11/24 10:36 Chloride IVPB 02/13/24 08:29 220 mls/hr DAILY@0800 KEEGAN Administration Lactated Ringer's 1,000 mls @ 150 mls/hr 02/11/24 13:10 02/11/24 14:12 Lr - Lactated Ringers Iv IV CONT 150 mls/hr .Q6H40M KEEGAN Infusion Lactated Ringer's 1,000 mls @ 150 mls/hr 02/11/24 13:20 Lr - Lactated Ringers Iv IV CONT .Q6H40M KEEGAN Insulin Aspart 4 - 8 units 02/10/24 06:00 02/11/24 11:27 Insulin Aspart (*Bkc) 100 Units/Ml SUB-Q Not Given Q6HR KEEGAN Protocol Lorazepam 2 mg 02/09/24 20:51 02/11/24 13:17 Lorazepam Inj (*Crx) 2 Mg/Ml Vial IV PUSH 2 mg Q2H PRN Administration CIWA > 15 Pantoprazole Sodium 40 mg 02/10/24 21:00 02/11/24 08:35 Pantoprazole Sodium Iv 40 Mg Vial IV PUSH 40 mg Q12HR KEEGAN Administration Perflutren Lipid Microsphere 0 ml 02/11/24 07:32 Perflutren Lipid Microspheres 1.5 Ml Vial Diluted To 10 Ml Total Volume IV PUSH 02/14/24 07:33 ONCE PRN adequate visualization Protocol Thiamine HCl 200 mg 02/10/24 09:00 02/11/24 08:35 Thiamine Hcl 200 Mg/2 Ml Vial IV PUSH 200 mg QAM KEEGAN Administration Radiology Results: ITS Impressions Chest X-Ray 02/09/24 20:58 IMPRESSION: 1. No acute cardiopulmonary disease. Abdomen/Pelvis CT 02/09/24 21:46 IMPRESSION: 1. Sigmoid diverticulitis. No perforation or abscess. 2. Cirrhosis of the liver with portal venous hypertension. Labs Labs: Laboratory Results - last 24 hr 02/10/24 02/10/24 02/10/24 14:15 17:26 23:31 WBC RBC Hgb Hct MCV MCH MCHC RDW Plt Count MPV Immature Gran % (Auto) Neut % (Auto) Lymph % (Auto) [place] % (Auto) Eos % (Auto) Baso % (Auto) Lymph # (Auto) [place] # (Auto) Eos # (Auto) Baso # (Auto) Abs Immat Gran (auto) Absolute Neuts (auto) Absolute Nucleated RBC Nucleated RBC % Sodium 136 L Potassium 3.3 L Chloride 107 Carbon Dioxide 18 L Anion Gap 11 BUN 16 Creatinine 1.50 H Estim Creat Clear Calc 51 Estimated GFR 48 L Glucose 176 H POC Capillary Glucose 141 H 125 H Calcium 6.8 L Phosphorus Magnesium 2.1 Total Bilirubin AST ALT Alkaline Phosphatase Total Protein Albumin 02/11/24 02/11/24 04:30 11:26 WBC 7.0 RBC 3.07 L Hgb 7.4 L Hct 24.7 L MCV 80.5 MCH 24.1 L MCHC 30.0 L RDW 21.1 H Plt Count 270 D MPV 9.5 Immature Gran % (Auto) 0.4 Neut % (Auto) 69.8 Lymph % (Auto) 23.0 [place] % (Auto) 3.7 Eos % (Auto) 2.1 Baso % (Auto) 1.0 Lymph # (Auto) 1.61 [place] # (Auto) 0.3 Eos # (Auto) 0.2 Baso # (Auto) 0.1 Abs Immat Gran (auto) 0.03 Absolute Neuts (auto) 4.9 Absolute Nucleated RBC 0.000 Nucleated RBC % 0.0 Sodium 137 Potassium 3.4 Chloride 108 H Carbon Dioxide 21 L Anion Gap 8 BUN 13 Creatinine 1.30 Estim Creat Clear Calc 58 Estimated GFR 57 L Glucose 162 H POC Capillary Glucose 124 H Calcium 6.7 L Phosphorus 3.2 Magnesium 1.5 L Total Bilirubin 0.5 AST 113 H ALT 39 Alkaline Phosphatase 98 Total Protein 6.0 L Albumin 2.8 L
--- NOTE | 2024-02-11 14:32 | WPDHPUPDATE1 ---
History and Physical Update Update Date/Time: 02/11/24 14:32 History and Physical has been reviewed, including an updated exam of the patient. There are NO changes in the patient's condition. Risks, benefits, and alternatives have been discussed and questions answered. Patient agrees to proceed with procedure. since there are no changes explaining bleeding sources in the esophagus, stomach or duodenum, we will proceed with colonoscopy on Wednesday.
--- NOTE | 2024-02-11 14:37 | P.PNIM_ITS ---
Progress Note: A&P Assessment and Plan (1) Alcohol withdrawal: Code(s): F10.939 - Alcohol use, unspecified with withdrawal, unspecified Status: Acute Assessment and Plan: Patient presented to the ED with nausea, vomiting, diarrhea, tremors, tachycardia, tachypnea. Has top drinking for the last 24 hours prior to admission. Drinks 10 shots of whiskey per day -on admission, patient did have tremors, tachycardia, diaphoretic, tachypneic, had an elevated CIWA score -patient was given Ativan, thiamine, folic acid Was started on Precedex infusion has been weaned off this a.m. -continue Librium, folic acid and thiamine (2) Diverticulitis: Code(s): K57.92 - Diverticulitis of intestine, part unspecified, without perforation or abscess without bleeding Status: Acute Assessment and Plan: Patient presented with nausea, vomiting, diarrhea. Also left lower quadrant abdominal pain. 02/08: CT scan of the abdomen and pelvis showed sigmoid diverticulitis, no perforation no abscess. 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: Diabetes mellitus intermediate manager insulin use: without retirement use Qualified Code(s): E11.65 - Type 2 diabetes mellitus with hyperglycemia Code(s): E11.65 - Type 2 diabetes mellitus with hyperglycemia Status: Acute Assessment and Plan: Patient has a history of diabetes -continue Accu-Cheks and sliding scale insulin (4) Tobacco abuse: Code(s): Z72.0 - Tobacco use Status: Acute Assessment and Plan: Will consult patient once he is more awake on cessation of smoking (5) Iron deficiency anemia: Qualifiers: Iron deficiency anemia type: unspecified iron deficiency Qualified Code(s): D50.9 - Iron deficiency anemia, unspecified Code(s): D50.9 - Iron deficiency anemia, unspecified Status: Acute Assessment and Plan: Patient with anemia, hemoglobin 9.6 which is lower than is usual hemoglobin which is 11-12 g/dL -iron panel consistent with iron deficiency anemia, folic acid and vitamin B12 levels within normal limits -hold home aspirin -patient on SCDs no chemoprophylaxis due to anemia -will monitor H&H and if it continues to drop w GI consulted. Underwent EGD 02/11/2024: Gastritis -continue Protonix IV q.12 hours -will place patient on IV Venofer for 3 days (6) Electrolyte abnormality: Code(s): E87.8 - Other disorders of electrolyte and fluid balance, not elsewhere classified Status: Acute Assessment and Plan: Significantly low magnesium on admission <0.2 -patient was given 3 g of magnesium in the ER Repeat and monitor and replace as needed (7) Abnormal liver enzymes: Code(s): R74.8 - Abnormal levels of other serum enzymes Status: Acute Assessment and Plan: Elevated liver enzymes, likely related to alcoholic abuse -CT scan of the abdomen pelvis showed cirrhosis with portal venous hypertension -continue to trend liver enzyme (8) Hyperlipidemia: Code(s): E78.5 - Hyperlipidemia, unspecified Status: Acute Assessment and Plan: Will hold statin for now due to elevated liver enzymes (9) Hypertension: Qualifiers: Hypertension type: essential hypertension Qualified Code(s): I10 - Essential (primary) hypertension Code(s): I10 - Essential (primary) hypertension Status: Acute Assessment and Plan: Patient takes lisinopril-hydrochlorothiazide 20-12.5 mg -2 tablets daily -currently blood pressure stable will hold home medications Plan DVT prophylaxis: SCDs, no chemoprophylaxis due to anemia Stress ulcer prophylaxis: Protonix IV q.12 hours Nutrition: Heart healthy diet Code Status: Full code Subjective Date/time seen: 02/11/24 14:37 Interval history: No overnight events. Denies any abdominal pain. Reports some nausea no vomiting. Review of Systems Review of Systems: All systems reviewed & are unremarkable except as noted in HPI and below Exam Narrative: General: Patient is more awake, alert this morning, in no acute distress HEENT:? Pupils are equal and reactive, sclera is clear, moist oral mucosa Neck:? Supple Respiratory:? Clear to auscultation bilaterally, no wheezing Cardiac:? S1-S2 is normal, regular rate Abdomen:? Soft, nondistended, normoactive bowel sounds, nontender Extremities:? No edema, palpable pedal pulses Neuro:? Patient is awake, alert, able to answer questions appropriately, follows simple commands in all extremities Skin:? Warm and dry Psych:? Normal mentation and affect Objective Data Vital Signs Vital Signs: Vital Signs - 24 hr 10/03/24 15:02 02/10/24 15:12 02/10/24 16:00 Temperature Pulse Rate 60 60 60 Pulse Rate [Monitor] Respiratory Rate 20 20 Blood Pressure Pulse Oximetry Oxygen Delivery Oxygen Flow Rate 02/10/24 18:00 02/10/24 16:00 02/10/24 17:22 Temperature Pulse Rate 60 60 60 Pulse Rate [Monitor] Respiratory Rate 20 20 Blood Pressure Pulse Oximetry Oxygen Delivery Oxygen Flow Rate 02/10/24 18:36 02/10/24 16:00 02/10/24 18:00 Temperature 98.2 F Pulse Rate 60 60 60 Pulse Rate [Monitor] Respiratory Rate 20 20 18 Blood Pressure 137/94 H 139/89 Pulse Oximetry 100 100 Oxygen Delivery Oxygen Flow Rate 02/10/24 16:00 02/10/24 19:34 02/10/24 19:36 Temperature Pulse Rate 60 60 Pulse Rate [Monitor] Respiratory Rate 20 Blood Pressure Pulse Oximetry 98 Oxygen Delivery Room Air Room Air Oxygen Flow Rate 02/10/24 20:00 02/10/24 20:00 02/10/24 20:00 Temperature 98.1 F Pulse Rate 60 60 Pulse Rate [Monitor] 55 L Respiratory Rate 21 H 20 Blood Pressure 126/93 H 85/65 L Pulse Oximetry 100 Oxygen Delivery Oxygen Flow Rate 02/10/24 22:00 02/10/24 22:00 02/10/24 22:00 Temperature 98.1 F Pulse Rate 60 60 60 Pulse Rate [Monitor] Respiratory Rate 18 18 Blood Pressure 126/91 H Pulse Oximetry 99 Oxygen Delivery Oxygen Flow Rate 02/10/24 23:16 02/10/24 23:16 02/10/24 23:23 Temperature Pulse Rate 60 61 63 Pulse Rate [Monitor] Respiratory Rate 22 H 22 H Blood Pressure Pulse Oximetry Oxygen Delivery Oxygen Flow Rate 02/10/24 23:23 02/10/24 23:26 02/11/24 00:00 Temperature Pulse Rate 63 60 Pulse Rate [Monitor] 63 Respiratory Rate 22 H 18 Blood Pressure 132/91 H Pulse Oximetry 98 98 Oxygen Delivery Room Air Oxygen Flow Rate 02/11/24 00:00 02/11/24 02:00 02/11/24 02:00 Temperature 98.9 F Pulse Rate 60 60 60 Pulse Rate [Monitor] Respiratory Rate 22 H 21 H Blood Pressure 139/89 Pulse Oximetry 97 Oxygen Delivery Oxygen Flow Rate 02/11/24 04:00 02/11/24 04:00 02/11/24 04:00 Temperature Pulse Rate 60 60 Pulse Rate [Monitor] 63 Respiratory Rate 21 H Blood Pressure 129/88 Pulse Oximetry 97 Oxygen Delivery Room Air Oxygen Flow Rate 02/11/24 04:00 02/11/24 02:00 02/11/24 04:00 Temperature 98.2 F Pulse Rate 60 60 60 Pulse Rate [Monitor] Respiratory Rate 22 H 17 23 H Blood Pressure 129/88 Pulse Oximetry 98 Oxygen Delivery Oxygen Flow Rate 02/11/24 06:00 02/11/24 06:00 02/11/24 07:00 Temperature 98.1 F Pulse Rate 60 60 60 Pulse Rate [Monitor] Respiratory Rate 26 H 30 H Blood Pressure 122/78 Pulse Oximetry 98 Oxygen Delivery Oxygen Flow Rate 02/11/24 08:00 02/11/24 08:00 02/11/24 08:00 Temperature 97.7 F Pulse Rate 60 60 Pulse Rate [Monitor] 60 Respiratory Rate 25 H Blood Pressure 127/77 Pulse Oximetry 97 Oxygen Delivery Oxygen Flow Rate 02/11/24 10:00 02/11/24 10:00 02/11/24 08:00 Temperature Pulse Rate 61 60 Pulse Rate [Monitor] 61 Respiratory Rate 26 H Blood Pressure 117/76 Pulse Oximetry 95 Oxygen Delivery Room Air Oxygen Flow Rate 02/11/24 10:00 02/11/24 12:00 02/11/24 12:00 Temperature Pulse Rate 62 Pulse Rate [Monitor] 60 Respiratory Rate 27 H Blood Pressure 117/76 127/78 Pulse Oximetry 100 Oxygen Delivery Room Air Oxygen Flow Rate 02/11/24 11:00 02/11/24 09:00 02/11/24 12:00 Temperature Pulse Rate 61 62 60 Pulse Rate [Monitor] Respiratory Rate 22 H 24 H Blood Pressure Pulse Oximetry Oxygen Delivery Oxygen Flow Rate 02/11/24 12:00 02/11/24 13:32 02/11/24 14:14 Temperature 98.9 F 97.2 F L 97 F L Pulse Rate 60 60 63 Pulse Rate [Monitor] Respiratory Rate 20 18 34 H Blood Pressure 127/78 121/79 87/58 L Pulse Oximetry 99 100 100 Oxygen Delivery Room Air Simple Face Mask Oxygen Flow Rate 02/11/24 14:24 02/11/24 14:34 Temperature Pulse Rate 73 64 Pulse Rate [Monitor] Respiratory Rate 23 H 23 H Blood Pressure 113/68 103/69 Pulse Oximetry 100 100 Oxygen Delivery Simple Face Mask Room Air Oxygen Flow Rate 10 Intake/Output Intake/Output: Intake & Output 02/08/24 02/09/24 02/10/24 02/11/24 23:59 23:59 23:59 23:59 Intake Total 2250 4313.2 614.5 Output Total 100 200 750 Balance 2150 4113.2 -135.5 Meds/Results Medications: Active Medications Generic Name Dose Route Start Last Admin Trade Name Freq PRN Reason Stop Dose Admin Chlordiazepoxide HCl 50 mg 02/11/24 00:00 02/11/24 11:26 Chlordiazepoxide (*Crx) 25 Mg Capsule PO 50 mg Q6H KEEGAN Administration Dextrose 12.5 gm 02/10/24 02:41 Dextrose 50% 25 Gm/50 Ml Syringe IV PUSH PRN PRN Hypoglycemia Protocol Folic Acid 1 mg 02/10/24 09:00 02/11/24 08:37 Folic Acid 1 Mg/0.2 Ml Inj IV PUSH 1 mg QAM KEEGAN Administration Glucagon 1 mg 02/10/24 02:41 Glucagon For Inj 1 Mg Vial IM PRN PRN Hypoglycemia Protocol Glucose 15 gm 02/10/24 02:41 Glucose Oral Gel 15 Gm Of Glucse In 37.5 Gm Tube PO PRN PRN Hypoglycemia Protocol Dextrose/Sodium Chloride 1,000 mls @ 75 mls/hr 02/09/24 20:55 02/10/24 20:03 Dextrose 5% Sodium Chloride 0.9% IV CONT 75 mls/hr .[id number] KEEGAN Administration Piperacillin/Tazobactam/Dextrose 3.375 gm in 50 mls @ 100 mls/hr 02/10/24 04:00 02/11/24 10:29 Zosyn 3.375 Gm/Ns 50 Ml IVPB 100 mls/hr Q6H KEEGAN Administration Dextrose 1,000 mls @ 100 mls/hr 02/10/24 02:41 Dextrose 5% 1,000 Ml IVPB PRN PRN Hypoglycemia Protocol Dexmedetomidine HCl 400 mcg in 100 mls @ 0 mls/hr 02/10/24 05:00 02/11/24 11:00 Precedex 400 Mcg/100 Ml IV CONT 0 mcg/kg/hr .Q0M KEEGAN 0 mls/hr Titration Protocol Iron Sucrose 200 mg/ Sodium 110 mls @ 220 mls/hr 02/11/24 10:00 02/11/24 10:36 Chloride IVPB 02/13/24 08:29 220 mls/hr DAILY@0800 KEEGAN Administration Lactated Ringer's 1,000 mls @ 150 mls/hr 02/11/24 13:10 02/11/24 14:12 Lr - Lactated Ringers Iv IV CONT 150 mls/hr .Q6H40M KEEGAN Infusion Lactated Ringer's 1,000 mls @ 150 mls/hr 02/11/24 13:20 Lr - Lactated Ringers Iv IV CONT .Q6H40M KEEGAN Insulin Aspart 4 - 8 units 02/10/24 06:00 02/11/24 11:27 Insulin Aspart (*Bkc) 100 Units/Ml SUB-Q Not Given Q6HR KEEGAN Protocol Lorazepam 2 mg 02/09/24 20:51 02/11/24 13:17 Lorazepam Inj (*Crx) 2 Mg/Ml Vial IV PUSH 2 mg Q2H PRN Administration CIWA > 15 Pantoprazole Sodium 40 mg 02/10/24 21:00 02/11/24 08:35 Pantoprazole Sodium Iv 40 Mg Vial IV PUSH 40 mg Q12HR KEEGAN Administration Perflutren Lipid Microsphere 0 ml 02/11/24 07:32 Perflutren Lipid Microspheres 1.5 Ml Vial Diluted To 10 Ml Total Volume IV PUSH 02/14/24 07:33 ONCE PRN adequate visualization Protocol Thiamine HCl 200 mg 02/10/24 09:00 02/11/24 08:35 Thiamine Hcl 200 Mg/2 Ml Vial IV PUSH 200 mg QAM KEEGAN Administration Radiology Results: ITS Impressions Chest X-Ray 02/09/24 20:58 IMPRESSION: 1. No acute cardiopulmonary disease. Abdomen/Pelvis CT 02/09/24 21:46 IMPRESSION: 1. Sigmoid diverticulitis. No perforation or abscess. 2. Cirrhosis of the liver with portal venous hypertension. Labs Labs: Laboratory Results - last 24 hr 02/10/24 02/10/24 02/11/24 17:26 23:31 04:30 WBC 7.0 RBC 3.07 L Hgb 7.4 L Hct 24.7 L MCV 80.5 MCH 24.1 L MCHC 30.0 L RDW 21.1 H Plt Count 270 D MPV 9.5 Immature Gran % (Auto) 0.4 Neut % (Auto) 69.8 Lymph % (Auto) 23.0 Hendricks % (Auto) 3.7 Eos % (Auto) 2.1 Baso % (Auto) 1.0 Lymph # (Auto) 1.61 Hendricks # (Auto) 0.3 Eos # (Auto) 0.2 Baso # (Auto) 0.1 Abs Immat Gran (auto) 0.03 Absolute Neuts (auto) 4.9 Absolute Nucleated RBC 0.000 Nucleated RBC % 0.0 Sodium 137 Potassium 3.4 Chloride 108 H Carbon Dioxide 21 L Anion Gap 8 BUN 13 Creatinine 1.30 Estim Creat Clear Calc 58 Estimated GFR 57 L Glucose 162 H POC Capillary Glucose 141 H 125 H Calcium 6.7 L Phosphorus 3.2 Magnesium 1.5 L Total Bilirubin 0.5 AST 113 H ALT 39 Alkaline Phosphatase 98 Total Protein 6.0 L Albumin 2.8 L 02/11/24 11:26 WBC RBC Hgb Hct MCV MCH MCHC RDW Plt Count MPV Immature Gran % (Auto) Neut % (Auto) Lymph % (Auto) Hendricks % (Auto) Eos % (Auto) Baso % (Auto) Lymph # (Auto) Hendricks # (Auto) Eos # (Auto) Baso # (Auto) Abs Immat Gran (auto) Absolute Neuts (auto) Absolute Nucleated RBC Nucleated RBC % Sodium Potassium Chloride Carbon Dioxide Anion Gap BUN Creatinine Estim Creat Clear Calc Estimated GFR Glucose POC Capillary Glucose 124 H Calcium Phosphorus Magnesium Total Bilirubin AST ALT Alkaline Phosphatase Total Protein Albumin
[2024-02-11 15:04] LABS: HPYLORIRESULT Negative (Negative)
[2024-02-11 17:10] LABS: Hematocrit 27.1 % (42.0-52.0); Hemoglobin 8.2 g/dL (14.0-18.0)
[2024-02-11 18:33] LABS: Glucose Point of Care 159 mg/dl (65-105)
[2024-02-11] MEDS: dexmedeTOMIDine 400 MCG/100 ML 400 MCG/100 ML BAG IV CONT (19:33)
[2024-02-11] MEDS: DEXTROSE 5%/0.9% SOD CHL 1,000 ML 75 ML IV CONT (21:40)
[2024-02-12] VITALS (23 sets, daily range): BP systolic 109–168; BP diastolic 67–107; PULSE 60–78; RESP 16–29; TEMP 36.4–36.8; O2SAT 96–100
[2024-02-12] MEDS: chlordiazePOXIDE (*CRX) 25 MG CAPSULE 50 MG PO ×4 (00:22→17:59)
[2024-02-12 00:23] LABS: Glucose Point of Care 149 mg/dl (65-105)
[2024-02-12] MEDS: LORazepam INJ (*CRX) 2 MG/ML VIAL IV PUSH ×2 (02:12→07:28)
--- NOTE | 2024-02-12 02:21 | PC.NURSE ---
pt agitated wanting to get up. RN attempt to redirect pt but was not successful. pt made threats of physical harm against RN, but no physical attempts were made by pt. Pt alert to self but disorientated to day, time and location
[2024-02-12] MEDS: dexmedeTOMIDine 400 MCG/100 ML 400 MCG/100 ML BAG 10.61 MCG IV CONT ×3 (02:32→22:01)
[2024-02-12 03:44] LABS: Basophils Percent Auto 0.4 % (0.2-1.2); Eosinophils Percent Auto 0.3 % (0-4.4); Hematocrit 25.6 % (42.0-52.0); Hemoglobin 7.8 g/dL (14.0-18.0); Immature Granulocyte Absolute 0.04 K/mm3 (0.00-0.031); Immature Granulocyte Percent A 0.5 % (0-0.5); Lymphocytes Absolute Auto 1.18 K/mm3 (0.9-3.2); Mean Corpuscular HGB Conc 30.5 g/dl (32-36); Mean Corpuscular Hemoglobin 24.7 pg (26-34); Mean Platelet Volume 9.1 fl (7.4-10.4); Monocytes Absolute Auto 0.4 K/mm3 (0.1-0.6); Monocytes Percent Auto 4.9 % (2.6-8.5); Neutrophils Absolute Auto 5.7 K/mm3 (1.3-6.7); Neutrophils Percent Auto 77.9 % (45.5-73.1); Nucleated Red Blood Cells Perc 0.3 % (0.0-0.2); Platelet Count Result 237 k/mm3 (150-375); Red Blood Count 3.16 M/mm3 (4.6-6.20); Red Cell Distribution Width 21.5 % (11.5-14.5); White Blood Count 7.4 K/mm3 (4.5-10.0)
[2024-02-12 03:55] LABS: Alanine Aminotransferase 37 U/L (6-50); Alkaline Phosphatase 104 U/L (38-126); Anion Gap 11 mmol/L (4-12); Aspartate Amino Transferase 62 U/L (17-59); Bilirubin,Total 0.5 mg/dL (0.2-1.3); Blood Urea Nitrogen 7 mg/dL (9-20); Calcium 7.4 mg/dL (8.4-10.2); Carbon Dioxide 17 mmol/L (22-30); Chloride 110 mmol/L (98-107); Estimated CRCL calculation 75 ml/min; Estimated Glomerular Filt Rate > 60; Glucose 165 mg/dL (65-110); Magnesium 1.5 mg/dL (1.6-2.3); Phosphorus 2.9 mg/dL (2.5-4.5); Potassium 3.4 mmol/L (3.4-5.0); Sodium 138 mmol/L (137-145)
[2024-02-12] MEDS: PIPERACILLN/TAZ 3.375GM/NS50ML 3.375 GM/50 ML BAG IVPB ×4 (04:40→22:04)
[2024-02-12] MEDS: MAGNESIUM SULFATE 3GM/D5W100ML 3 GM/100 ML BAG IVPB (08:33)
[2024-02-12] MEDS: IRON SUCROSE COMPLEX 200 MG in SODIUM CHLORIDE 0.9% IV 100 ML IVPB (08:44)
[2024-02-12] MEDS: FOLIC ACID 1 MG/0.2 ML INJ IV PUSH (08:44)
[2024-02-12] MEDS: PANTOPRAZOLE SODIUM IV 40 MG VIAL IV PUSH ×2 (08:45→22:01)
[2024-02-12] MEDS: THIAMINE HCL 200 MG/2 ML VIAL IV PUSH (08:45)
[2024-02-12] MEDS: POTASSIUM CHLORIDE 20 MEQ ER TABLET 40 MEQ PO (08:54)
[2024-02-12] MEDS: lisinopriL 20 MG TABLET 40 MG PO (08:55)
[2024-02-12] MEDS: hydroCHLOROthiazide 25 MG TABLET PO (08:55)
--- NOTE | 2024-02-12 08:57 | WPDINTPN ---
Progress Note: A&P Assessment and Plan (1) Alcohol withdrawal: Code(s): F10.939 - Alcohol use, unspecified with withdrawal, unspecified Status: Acute Assessment and Plan: Patient presented to the ED with nausea, vomiting, diarrhea, tremors, tachycardia, tachypnea. Has top drinking for the last 24 hours prior to admission. Drinks 10 shots of whiskey per day -on admission, patient did have tremors, tachycardia, diaphoretic, tachypneic, had an elevated CIWA score -patient was given Ativan, thiamine, folic acid -restarted on Precedex infusion overnight for agitation, anxiety, tremors, alcohol withdrawal, wean Precedex to maintain RASS of 0 -continue Librium, folic acid and thiamine (2) Diverticulitis: Code(s): K57.92 - Diverticulitis of intestine, part unspecified, without perforation or abscess without bleeding Status: Acute Assessment and Plan: Patient presented with nausea, vomiting, diarrhea. Also left lower quadrant abdominal pain. 02/08: CT scan of the abdomen and pelvis showed sigmoid diverticulitis, no perforation no abscess. 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 mellitus exterminator helper insulin use: without exterminator helper use Qualified Code(s): E11.65 - Type 2 diabetes mellitus with hyperglycemia Code(s): E11.65 - Type 2 diabetes mellitus with hyperglycemia Status: Acute Assessment and Plan: Patient has a history of diabetes -continue Accu-Cheks and sliding scale insulin (4) Tobacco abuse: Code(s): Z72.0 - Tobacco use Status: Acute Assessment and Plan: Will certified alcohol and drug counselor patient once he is more awake on cessation of smoking (5) Iron deficiency anemia: Qualifiers: Iron deficiency anemia type: unspecified iron deficiency Qualified Code(s): D50.9 - Iron deficiency anemia, unspecified Code(s): D50.9 - Iron deficiency anemia, unspecified Status: Acute Assessment and Plan: Patient with anemia, hemoglobin 9.6 which is lower than is usual hemoglobin which is 11-12 g/dL -iron panel consistent with iron deficiency anemia, folic acid and vitamin B12 levels within normal limits -hold home aspirin -patient on SCDs no chemoprophylaxis due to anemia -will monitor H&H and if it continues to drop will have GI evaluate the patient -continue Protonix IV q.12 hours -02/10: Started on IV Venofer for 3 days -appreciate GI evaluation and recommendation 02/11/2024: EGD showed gastritis -GI recommended colonoscopy on 02/14/2024 (6) Electrolyte abnormality: Code(s): E87.8 - Other disorders of electrolyte and fluid balance, not elsewhere classified Status: Acute Assessment and Plan: Significantly low magnesium on admission <0.2 -patient was given 3 g of magnesium in the ER -02/09: repeat magnesium level 0.9 this morning 02/10: Will replace potassium and magnesium 02/11: Will replace potassium and magnesium (7) Abnormal liver enzymes: Code(s): R74.8 - Abnormal levels of other serum enzymes Status: Acute Assessment and Plan: Elevated liver enzymes, likely related to alcoholic abuse -CT scan of the abdomen pelvis showed cirrhosis with portal venous hypertension -liver enzymes almost normalized (8) Hyperlipidemia: Code(s): E78.5 - Hyperlipidemia, unspecified Status: Acute Assessment and Plan: Will hold statin for now due to elevated liver enzymes (9) Hypertension: Qualifiers: Hypertension type: essential hypertension Qualified Code(s): I10 - Essential (primary) hypertension Code(s): I10 - Essential (primary) hypertension Status: Acute Assessment and Plan: Patient takes lisinopril-hydrochlorothiazide 20-12.5 mg -2 tablets daily -will restart home lisinopril/HCTZ Plan DVT prophylaxis: SCDs, no chemoprophylaxis due to anemia Stress ulcer prophylaxis: Protonix IV q.12 hours Nutrition: Heart healthy diet Code Status: Full code Critical Care Time Spent: 33 minutes Will update family 02/10: Discussed with spouse and updated her with patient's condition and plan of care. She is aware that patient is on Precedex for alcohol withdrawal. He is also aware that he is going to receive an EGD today. Due to a high probability of clinically significant, life threatening deterioration, the patient required my highest level of preparedness to intervene emergently and I personally spent this critical care time directly and personally managing the patient. This critical care time included obtaining a history; examining the patient; pulse oximetry; ordering and review of studies; arranging urgent treatment with development of a management plan; evaluation of patient's response to treatment; frequent reassessment; and discussions with other providers. It was exclusive of separately billable procedures and treating other patients and teaching time. Please see Assessment and Plan section and the rest of the note for further information on patient assessment and treatment This dictation may have been done utilizing a voice recognition system. Attempts have been made to correct errors. However, there may be uncorrected grammatical, spelling, and recognitions errors present. Subjective Date/time seen: 02/12/24 08:57 Interval history: Reason for consult: Alcohol withdrawal, sepsis, sigmoid diverticulitis, electrolyte abnormalities 02/11/2024: EGD showed gastritis 02/12/2024: Patient seen and examined the ICU, Precedex infusion was restarted overnight, has received Ativan overnight and early this morning for agitation and alcohol withdrawal. Hemodynamically stable, blood pressure is slightly elevated. Urine output has been adequate, afebrile. Hemoglobin stable at this time. Patient denies any chest pain, shortness of breath, abdominal pain, nausea, vomiting. Tremors are noted, patient is able to answer questions but is pleasantly confused. No agitation at this time. Patient pulled out his purewik urinary catheter Review of Systems Review of Systems: All systems reviewed & are unremarkable except as noted in HPI and below Exam Narrative: General: Patient is calm, pleasantly confused, in no acute distress HEENT:? Pupils are equal and reactive, sclera is clear, moist oral mucosa Neck:? Supple Respiratory:? Clear to auscultation bilaterally, no wheezing Cardiac:? Paced rhythm Abdomen:? Soft, nondistended, normoactive bowel sounds, nontender Extremities:? No edema, palpable pedal pulses Neuro:? Patient is awake, alert but not oriented, confused, able to altered few questions, does move all extremities spontaneously Skin:? Warm and dry Psych:? Confused, anxious, at times he has been agitated overnight Objective Data Vital Signs Vital Signs: Vital Signs - 24 hr 02/11/24 10:00 02/11/24 10:00 02/11/24 10:00 Temperature Pulse Rate 61 62 Pulse Rate [Monitor] 61 Respiratory Rate 27 H Blood Pressure 117/76 117/76 Pulse Oximetry 100 Oxygen Delivery Oxygen Flow Rate 02/11/24 12:00 02/11/24 12:00 02/11/24 11:00 Temperature Pulse Rate 61 Pulse Rate [Monitor] 60 Respiratory Rate 22 H Blood Pressure 127/78 Pulse Oximetry Oxygen Delivery Room Air Oxygen Flow Rate 02/11/24 09:00 02/11/24 12:00 02/11/24 12:00 Temperature 98.9 F Pulse Rate 62 60 60 Pulse Rate [Monitor] Respiratory Rate 24 H 20 Blood Pressure 127/78 Pulse Oximetry 99 Oxygen Delivery Oxygen Flow Rate 02/11/24 13:32 02/11/24 14:14 02/11/24 14:24 Temperature 97.2 F L 97 F L Pulse Rate 60 63 73 Pulse Rate [Monitor] Respiratory Rate 18 34 H 23 H Blood Pressure 121/79 87/58 L 113/68 Pulse Oximetry 100 100 100 Oxygen Delivery Room Air Simple Face Mask Simple Face Mask Oxygen Flow Rate 10 10 02/11/24 14:34 02/11/24 14:44 02/11/24 14:54 Temperature Pulse Rate 64 69 69 Pulse Rate [Monitor] Respiratory Rate 23 H 31 H 31 H Blood Pressure 103/69 113/77 140/94 H Pulse Oximetry 100 100 100 Oxygen Delivery Room Air Room Air Room Air Oxygen Flow Rate 02/11/24 15:04 02/11/24 15:42 02/11/24 16:00 Temperature 97.7 F Pulse Rate 64 67 Pulse Rate [Monitor] 72 Respiratory Rate 24 H 16 Blood Pressure 139/89 140/85 143/121 H Pulse Oximetry 100 97 Oxygen Delivery Room Air Oxygen Flow Rate 02/11/24 16:00 02/11/24 16:00 02/11/24 16:00 Temperature 97.9 F Pulse Rate 73 73 Pulse Rate [Monitor] Respiratory Rate 28 H Blood Pressure 132/95 H Pulse Oximetry 96 Oxygen Delivery Room Air Oxygen Flow Rate 02/11/24 18:00 02/11/24 18:00 02/11/24 17:45 Temperature Pulse Rate 74 74 Pulse Rate [Monitor] 80 Respiratory Rate 29 H Blood Pressure 129/75 Pulse Oximetry 100 Oxygen Delivery Oxygen Flow Rate 02/11/24 12:00 02/11/24 14:00 02/11/24 16:00 Temperature Pulse Rate 60 63 73 Pulse Rate [Monitor] Respiratory Rate 20 18 28 H Blood Pressure Pulse Oximetry Oxygen Delivery Oxygen Flow Rate 02/11/24 18:00 02/11/24 19:33 02/11/24 19:33 Temperature Pulse Rate 74 60 60 Pulse Rate [Monitor] Respiratory Rate 24 H 20 20 Blood Pressure Pulse Oximetry Oxygen Delivery Oxygen Flow Rate 02/11/24 19:00 02/11/24 19:53 02/11/24 19:53 Temperature Pulse Rate 60 Pulse Rate [Monitor] 80 60 Respiratory Rate Blood Pressure 147/94 H 147/94 H Pulse Oximetry Oxygen Delivery Oxygen Flow Rate 02/11/24 19:55 02/11/24 20:00 02/11/24 22:00 Temperature 98.7 F 98.1 F Pulse Rate 60 60 61 Pulse Rate [Monitor] Respiratory Rate 28 H 27 H 21 H Blood Pressure 158/96 H 148/93 H Pulse Oximetry 100 94 98 Oxygen Delivery Room Air Oxygen Flow Rate 02/11/24 20:00 02/11/24 22:00 02/11/24 22:00 Temperature Pulse Rate 61 62 62 Pulse Rate [Monitor] Respiratory Rate 24 H 27 H Blood Pressure Pulse Oximetry Oxygen Delivery Oxygen Flow Rate 02/12/24 00:00 02/12/24 00:00 02/12/24 00:00 Temperature Pulse Rate 60 60 Pulse Rate [Monitor] 60 Respiratory Rate 27 H Blood Pressure 153/93 H Pulse Oximetry 96 Oxygen Delivery Room Air Oxygen Flow Rate 02/12/24 00:00 02/12/24 00:00 02/12/24 02:00 Temperature 98.2 F Pulse Rate 60 60 78 Pulse Rate [Monitor] Respiratory Rate 27 H 27 H Blood Pressure 153/93 H Pulse Oximetry 96 Oxygen Delivery Oxygen Flow Rate 02/12/24 02:00 02/12/24 02:00 02/12/24 02:00 Temperature Pulse Rate 78 78 Pulse Rate [Monitor] 78 Respiratory Rate 28 H 28 H Blood Pressure 168/107 H 164/107 H Pulse Oximetry 98 Oxygen Delivery Oxygen Flow Rate 02/12/24 02:32 02/12/24 02:32 02/12/24 04:00 Temperature Pulse Rate 60 60 60 Pulse Rate [Monitor] Respiratory Rate 26 H 28 H Blood Pressure Pulse Oximetry Oxygen Delivery Oxygen Flow Rate 02/12/24 04:00 02/12/24 04:00 02/12/24 04:00 Temperature 98.3 F Pulse Rate 60 60 Pulse Rate [Monitor] 60 Respiratory Rate 26 H 26 H Blood Pressure 159/100 H 159/100 H Pulse Oximetry 96 96 Oxygen Delivery Room Air Oxygen Flow Rate 02/12/24 06:00 02/12/24 06:00 02/12/24 06:00 Temperature 97.9 F Pulse Rate 60 60 60 Pulse Rate [Monitor] Respiratory Rate 25 H 25 H Blood Pressure 153/95 H Pulse Oximetry 98 Oxygen Delivery Oxygen Flow Rate 02/12/24 07:00 02/12/24 07:30 02/12/24 08:00 Temperature 97.6 F Pulse Rate 61 60 Pulse Rate [Monitor] 64 Respiratory Rate 26 H 27 H Blood Pressure 154/89 H Pulse Oximetry 97 Oxygen Delivery Oxygen Flow Rate Intake/Output Intake/Output: Intake & Output 02/09/24 02/10/24 02/11/24 02/12/24 23:59 23:59 23:59 23:59 Intake Total 2250 4313.2 2546.6 376.1 Output Total 100 200 750 400 Balance 2150 4113.2 1796.6 -23.9 Meds/Results Medications: Active Medications Generic Name Dose Route Start Last Admin Trade Name Freq PRN Reason Stop Dose Admin Bisacodyl 20 mg 02/13/24 18:00 Bisacodyl 5 Mg Tablet Ec PO 02/13/24 18:01 ONCE ONE Chlordiazepoxide HCl 50 mg 02/11/24 00:00 02/12/24 06:03 Chlordiazepoxide (*Crx) 25 Mg Capsule PO 50 mg Q6H KEEGAN Administration Dextrose 12.5 gm 02/10/24 02:41 Dextrose 50% 25 Gm/50 Ml Syringe IV PUSH PRN PRN Hypoglycemia Protocol Folic Acid 1 mg 02/10/24 09:00 02/12/24 08:44 Folic Acid 1 Mg/0.2 Ml Inj IV PUSH 1 mg QAM KEEGAN Administration Glucagon 1 mg 02/10/24 02:41 Glucagon For Inj 1 Mg Vial IM PRN PRN Hypoglycemia Protocol Glucose 15 gm 02/10/24 02:41 Glucose Oral Gel 15 Gm Of Glucse In 37.5 Gm Tube PO PRN PRN Hypoglycemia Protocol Hydrochlorothiazide 25 mg 02/12/24 09:00 02/12/24 08:55 Hydrochlorothiazide 25 Mg Tablet PO 25 mg QAM KEEGAN Administration Piperacillin/Tazobactam/Dextrose 3.375 gm in 50 mls @ 100 mls/hr 02/10/24 04:00 02/12/24 05:10 Zosyn 3.375 Gm/Ns 50 Ml IVPB Infused Q6H KEEGAN Infusion Dextrose 1,000 mls @ 100 mls/hr 02/10/24 02:41 Dextrose 5% 1,000 Ml IVPB PRN PRN Hypoglycemia Protocol Dexmedetomidine HCl 400 mcg in 100 mls @ 8.49 mls/hr 02/10/24 05:00 02/12/24 07:30 Precedex 400 Mcg/100 Ml IV CONT 0.4 mcg/kg/hr .[id number] KEEGAN 8.49 mls/hr Titration Protocol 0.4 MCG/KG/HR Iron Sucrose 200 mg/ Sodium 110 mls @ 220 mls/hr 02/11/24 10:00 02/12/24 08:44 Chloride IVPB 02/13/24 08:29 200 mls/hr DAILY@0800 KEEGAN Administration Magnesium Sulfate/Dextrose 3 gm in 100 mls @ 33.333 mls/hr 02/12/24 07:45 02/12/24 08:33 Magnesium Sulfate 3gm/[id number] IVPB 02/12/24 10:44 33.33 mls/hr ONCE ONE Administration Insulin Aspart 4 - 8 units 02/10/24 06:00 02/12/24 06:03 Insulin Aspart (*Bkc) 100 Units/Ml SUB-Q Not Given Q6HR KEEGAN Protocol Lisinopril 40 mg 02/12/24 09:00 02/12/24 08:55 Lisinopril 20 Mg Tablet PO 40 mg QAM KEEGAN Administration Lorazepam 2 mg 02/09/24 20:51 02/12/24 07:28 Lorazepam Inj (*Crx) 2 Mg/Ml Vial IV PUSH 2 mg Q2H PRN Administration CIWA > 15 Magnesium Citrate 300 ml 02/14/24 02:00 Magnesium Citrate 300 Ml Btl PO 02/14/24 02:01 ONCE ONE Miscellaneous Information 0 each 02/12/24 05:15 Precedex Order Set To On 02/12. Please Renew When Possible. XX 03/13/24 05:14 CLARIFY KEEGAN Pantoprazole Sodium 40 mg 02/10/24 21:00 02/12/24 08:45 Pantoprazole Sodium Iv 40 Mg Vial IV PUSH 40 mg Q12HR KEEGAN Administration Perflutren Lipid Microsphere 0 ml 02/11/24 07:32 Perflutren Lipid Microspheres 1.5 Ml Vial Diluted To 10 Ml Total Volume IV PUSH 02/14/24 07:33 ONCE PRN adequate visualization Protocol Polyethylene Glycol 238 gm 02/13/24 16:00 Polyethylene Glycol 3350 238 Gm Bottle PO 02/13/24 16:01 ONCE ONE Thiamine HCl 200 mg 02/10/24 09:00 02/12/24 08:45 Thiamine Hcl 200 Mg/2 Ml Vial IV PUSH 200 mg QAM KEEGAN Administration Radiology Results: ITS Impressions Chest X-Ray 02/09/24 20:58 IMPRESSION: 1. No acute cardiopulmonary disease. Abdomen/Pelvis CT 02/09/24 21:46 IMPRESSION: 1. Sigmoid diverticulitis. No perforation or abscess. 2. Cirrhosis of the liver with portal venous hypertension. Labs Labs: Laboratory Results - last 24 hr 02/11/24 02/11/24 02/11/24 11:26 15:00 17:05 WBC RBC Hgb 8.2 L Hct 27.1 L MCV MCH MCHC RDW Plt Count MPV Immature Gran % (Auto) Neut % (Auto) Lymph % (Auto) [place] % (Auto) Eos % (Auto) Baso % (Auto) Lymph # (Auto) [place] # (Auto) Eos # (Auto) Baso # (Auto) Abs Immat Gran (auto) Absolute Neuts (auto) Absolute Nucleated RBC Nucleated RBC % Sodium Potassium Chloride Carbon Dioxide Anion Gap BUN Creatinine Estim Creat Clear Calc Estimated GFR Glucose POC Capillary Glucose 124 H Calcium Phosphorus Magnesium Total Bilirubin AST ALT Alkaline Phosphatase Total Protein Albumin POC H. pylori Urease Negative 02/11/24 02/12/24 02/12/24 17:56 00:21 03:36 WBC 7.4 RBC 3.16 L Hgb 7.8 L Hct 25.6 L MCV 81.0 MCH 24.7 L MCHC 30.5 L RDW 21.5 H Plt Count 237 MPV 9.1 Immature Gran % (Auto) 0.5 Neut % (Auto) 77.9 H Lymph % (Auto) 16.0 L [place] % (Auto) 4.9 Eos % (Auto) 0.3 Baso % (Auto) 0.4 Lymph # (Auto) 1.18 [place] # (Auto) 0.4 Eos # (Auto) 0.0 Baso # (Auto) 0.0 Abs Immat Gran (auto) 0.04 H Absolute Neuts (auto) 5.7 Absolute Nucleated RBC 0.020 H Nucleated RBC % 0.3 H Sodium 138 Potassium 3.4 Chloride 110 H Carbon Dioxide 17 L Anion Gap 11 BUN 7 L D Creatinine 1.00 Estim Creat Clear Calc 75 Estimated GFR > 60 Glucose 165 H POC Capillary Glucose 159 H 149 H Calcium 7.4 L Phosphorus 2.9 Magnesium 1.5 L Total Bilirubin 0.5 AST 62 H ALT 37 Alkaline Phosphatase 104 Total Protein 7.0 Albumin 3.0 L POC H. pylori Urease
--- NOTE | 2024-02-12 11:26 | P.PNIM_ITS ---
Progress Note: A&P Assessment and Plan (1) Alcohol withdrawal: Code(s): F10.939 - Alcohol use, unspecified with withdrawal, unspecified Status: Acute Assessment and Plan: Patient presented to the ED with nausea, vomiting, diarrhea, tremors, tachycardia, tachypnea. Has top drinking for the last 24 hours prior to admission. Drinks 10 shots of whiskey per day -on admission, patient did have tremors, tachycardia, diaphoretic, tachypneic, had an elevated CIWA score -patient was given Ativan, thiamine, folic acid Was started on Precedex infusion has been weaned off but had to be restarted again. -continue Librium, folic acid and thiamine (2) Diverticulitis: Code(s): K57.92 - Diverticulitis of intestine, part unspecified, without perforation or abscess without bleeding Status: Acute Assessment and Plan: Patient presented with nausea, vomiting, diarrhea. Also left lower quadrant abdominal pain. 02/08: CT scan of the abdomen and pelvis showed sigmoid diverticulitis, no perforation no abscess. 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: without half-way use Qualified Code(s): E11.65 - Type 2 diabetes mellitus with hyperglycemia Code(s): E11.65 - Type 2 diabetes mellitus with hyperglycemia Status: Acute Assessment and Plan: Patient has a history of diabetes -continue Accu-Cheks and sliding scale insulin (4) Tobacco abuse: Code(s): Z72.0 - Tobacco use Status: Acute (5) Iron deficiency anemia: Qualifiers: Iron deficiency anemia type: unspecified iron deficiency Qualified Code(s): D50.9 - Iron deficiency anemia, unspecified Code(s): D50.9 - Iron deficiency anemia, unspecified Status: Acute Assessment and Plan: Patient with anemia, hemoglobin 9.6 which is lower than is usual hemoglobin which is 11-12 g/dL -iron panel consistent with iron deficiency anemia, folic acid and vitamin B12 levels within normal limits -hold home aspirin -patient on SCDs no chemoprophylaxis due to anemia -will monitor H&H and if it continues to drop w GI consulted. Underwent EGD 02/11/2024: Gastritis -continue Protonix IV q.12 hours -will place patient on IV Venofer for 3 days Colonoscopy planned on Wednesday (6) Electrolyte abnormality: Code(s): E87.8 - Other disorders of electrolyte and fluid balance, not elsewhere classified Status: Acute Assessment and Plan: Significantly low magnesium on admission <0.2 -patient was given 3 g of magnesium in the ER Repeat and monitor and replace as needed (7) Abnormal liver enzymes: Code(s): R74.8 - Abnormal levels of other serum enzymes Status: Acute Assessment and Plan: Elevated liver enzymes, likely related to alcoholic abuse -CT scan of the abdomen pelvis showed cirrhosis with portal venous hypertension -continue to trend liver enzyme (8) Hyperlipidemia: Code(s): E78.5 - Hyperlipidemia, unspecified Status: Acute Assessment and Plan: Will hold statin for now due to elevated liver enzymes (9) Hypertension: Qualifiers: Hypertension type: essential hypertension Qualified Code(s): I10 - Essential (primary) hypertension Code(s): I10 - Essential (primary) hypertension Status: Acute Assessment and Plan: Patient takes lisinopril-hydrochlorothiazide 20-12.5 mg -2 tablets daily -currently blood pressure stable will hold home medications Plan DVT prophylaxis: SCDs, no chemoprophylaxis due to anemia Stress ulcer prophylaxis: Protonix IV q.12 hours Nutrition: Heart healthy diet Code Status: Full code Subjective Date/time seen: 02/12/24 11:26 Interval history: Patient overnight agitated tremulous and hence Precedex was restarted. [place] noscopy planned on Wednesday. Labs reviewed Review of Systems Review of Systems: All systems reviewed & are unremarkable except as noted in HPI and below Exam Narrative: General: Patient is calm, pleasantly confused, in no acute distress HEENT:? Pupils are equal and reactive, sclera is clear, moist oral mucosa Neck:? Supple Respiratory:? Clear to auscultation bilaterally, no wheezing Cardiac:? Paced rhythm Abdomen:? Soft, nondistended, normoactive bowel sounds, nontender Extremities:? No edema, palpable pedal pulses Neuro:? Patient is awake, alert but not oriented, confused, able to altered few questions, does move all extremities spontaneously Skin:? Warm and dry Psych:? Confused, anxious, at times he has been agitated overnight Objective Data Vital Signs Vital Signs: Vital Signs - 24 hr 02/11/24 12:00 02/11/24 12:00 02/11/24 12:00 Temperature Pulse Rate 60 Pulse Rate [Monitor] 60 Respiratory Rate Blood Pressure 127/78 Pulse Oximetry Oxygen Delivery Room Air Oxygen Flow Rate 02/11/24 12:00 02/11/24 13:32 02/11/24 14:14 Temperature 98.9 F 97.2 F L 97 F L Pulse Rate 60 60 63 Pulse Rate [Monitor] Respiratory Rate 20 18 34 H Blood Pressure 127/78 121/79 87/58 L Pulse Oximetry 99 100 100 Oxygen Delivery Room Air Simple Face Mask Oxygen Flow Rate 10 02/11/24 14:24 02/11/24 14:34 02/11/24 14:44 Temperature Pulse Rate 73 64 69 Pulse Rate [Monitor] Respiratory Rate 23 H 23 H 31 H Blood Pressure 113/68 103/69 113/77 Pulse Oximetry 100 100 100 Oxygen Delivery Simple Face Mask Room Air Room Air Oxygen Flow Rate 10 02/11/24 14:54 02/11/24 15:04 02/11/24 15:42 Temperature 97.7 F Pulse Rate 69 64 67 Pulse Rate [Monitor] Respiratory Rate 31 H 24 H 16 Blood Pressure 140/94 H 139/89 140/85 Pulse Oximetry 100 100 97 Oxygen Delivery Room Air Room Air Oxygen Flow Rate 02/11/24 16:00 02/11/24 16:00 02/11/24 16:00 Temperature 97.9 F Pulse Rate 73 73 Pulse Rate [Monitor] 72 Respiratory Rate 28 H Blood Pressure 143/121 H 132/95 H Pulse Oximetry 96 Oxygen Delivery Oxygen Flow Rate 02/11/24 16:00 02/11/24 18:00 02/11/24 18:00 Temperature Pulse Rate 74 74 Pulse Rate [Monitor] Respiratory Rate 29 H Blood Pressure 129/75 Pulse Oximetry 100 Oxygen Delivery Room Air Oxygen Flow Rate 02/11/24 17:45 02/11/24 12:00 02/11/24 14:00 Temperature Pulse Rate 60 63 Pulse Rate [Monitor] 80 Respiratory Rate 20 18 Blood Pressure Pulse Oximetry Oxygen Delivery Oxygen Flow Rate 02/11/24 16:00 02/11/24 18:00 02/11/24 19:33 Temperature Pulse Rate 73 74 60 Pulse Rate [Monitor] Respiratory Rate 28 H 24 H 20 Blood Pressure Pulse Oximetry Oxygen Delivery Oxygen Flow Rate 02/11/24 19:33 02/11/24 19:00 02/11/24 19:53 Temperature Pulse Rate 60 60 Pulse Rate [Monitor] 80 Respiratory Rate 20 Blood Pressure 147/94 H Pulse Oximetry Oxygen Delivery Oxygen Flow Rate 02/11/24 19:53 02/11/24 19:55 02/11/24 20:00 Temperature 98.7 F Pulse Rate 60 60 Pulse Rate [Monitor] 60 Respiratory Rate 28 H 27 H Blood Pressure 147/94 H 158/96 H Pulse Oximetry 100 94 Oxygen Delivery Room Air Oxygen Flow Rate 02/11/24 22:00 02/11/24 20:00 02/11/24 22:00 Temperature 98.1 F Pulse Rate 61 61 62 Pulse Rate [Monitor] Respiratory Rate 21 H 24 H 27 H Blood Pressure 148/93 H Pulse Oximetry 98 Oxygen Delivery Oxygen Flow Rate 02/11/24 22:00 02/12/24 00:00 02/12/24 00:00 Temperature Pulse Rate 62 60 Pulse Rate [Monitor] 60 Respiratory Rate Blood Pressure 153/93 H Pulse Oximetry Oxygen Delivery Oxygen Flow Rate 02/12/24 00:00 02/12/24 00:00 02/12/24 00:00 Temperature 98.2 F Pulse Rate 60 60 60 Pulse Rate [Monitor] Respiratory Rate 27 H 27 H 27 H Blood Pressure 153/93 H Pulse Oximetry 96 96 Oxygen Delivery Room Air Oxygen Flow Rate 02/12/24 02:00 02/12/24 02:00 02/12/24 02:00 Temperature Pulse Rate 78 78 Pulse Rate [Monitor] 78 Respiratory Rate 28 H Blood Pressure 168/107 H 164/107 H Pulse Oximetry 98 Oxygen Delivery Oxygen Flow Rate 02/12/24 02:00 02/12/24 02:32 02/12/24 02:32 Temperature Pulse Rate 78 60 60 Pulse Rate [Monitor] Respiratory Rate 28 H 26 H 28 H Blood Pressure Pulse Oximetry Oxygen Delivery Oxygen Flow Rate 02/12/24 04:00 02/12/24 04:00 02/12/24 04:00 Temperature Pulse Rate 60 60 Pulse Rate [Monitor] 60 Respiratory Rate 26 H Blood Pressure 159/100 H Pulse Oximetry 96 Oxygen Delivery Room Air Oxygen Flow Rate 02/12/24 04:00 02/12/24 06:00 02/12/24 06:00 Temperature 98.3 F 97.9 F Pulse Rate 60 60 60 Pulse Rate [Monitor] Respiratory Rate 26 H 25 H Blood Pressure 159/100 H 153/95 H Pulse Oximetry 96 98 Oxygen Delivery Oxygen Flow Rate 02/12/24 06:00 02/12/24 07:00 02/12/24 07:30 Temperature Pulse Rate 60 61 Pulse Rate [Monitor] 64 Respiratory Rate 25 H 26 H Blood Pressure Pulse Oximetry Oxygen Delivery Oxygen Flow Rate 02/12/24 08:00 02/12/24 09:07 02/12/24 09:09 Temperature 97.6 F Pulse Rate 60 60 Pulse Rate [Monitor] 60 Respiratory Rate 27 H 17 Blood Pressure 154/89 H Pulse Oximetry 97 Oxygen Delivery Oxygen Flow Rate 02/12/24 10:00 02/12/24 10:00 02/12/24 10:09 Temperature Pulse Rate 60 60 60 Pulse Rate [Monitor] Respiratory Rate 26 H 26 H Blood Pressure 139/91 H Pulse Oximetry 100 Oxygen Delivery Oxygen Flow Rate 02/12/24 09:58 02/12/24 09:58 Temperature Pulse Rate Pulse Rate [Monitor] Respiratory Rate Blood Pressure Pulse Oximetry Oxygen Delivery Room Air Room Air Oxygen Flow Rate Intake/Output Intake/Output: Intake & Output 02/09/24 02/10/24 02/11/24 02/12/24 23:59 23:59 23:59 23:59 Intake Total 2250 4313.2 2546.6 450.7 Output Total 100 200 750 400 Balance 2150 4113.2 1796.6 50.7 Meds/Results Medications: Active Medications Generic Name Dose Route Start Last Admin Trade Name Freq PRN Reason Stop Dose Admin Bisacodyl 20 mg 02/13/24 18:00 Bisacodyl 5 Mg Tablet Ec PO 02/13/24 18:01 ONCE ONE Chlordiazepoxide HCl 50 mg 02/11/24 00:00 02/12/24 06:03 Chlordiazepoxide (*Crx) 25 Mg Capsule PO 50 mg Q6H KEEGAN Administration Dextrose 12.5 gm 02/10/24 02:41 Dextrose 50% 25 Gm/50 Ml Syringe IV PUSH PRN PRN Hypoglycemia Protocol Folic Acid 1 mg 02/10/24 09:00 02/12/24 08:44 Folic Acid 1 Mg/0.2 Ml Inj IV PUSH 1 mg QAM KEEGAN Administration Glucagon 1 mg 02/10/24 02:41 Glucagon For Inj 1 Mg Vial IM PRN PRN Hypoglycemia Protocol Glucose 15 gm 02/10/24 02:41 Glucose Oral Gel 15 Gm Of Glucse In 37.5 Gm Tube PO PRN PRN Hypoglycemia Protocol Hydrochlorothiazide 25 mg 02/12/24 09:00 02/12/24 08:55 Hydrochlorothiazide 25 Mg Tablet PO 25 mg QAM KEEGAN Administration Piperacillin/Tazobactam/Dextrose 3.375 gm in 50 mls @ 100 mls/hr 02/10/24 04:00 02/12/24 10:29 Zosyn 3.375 Gm/Ns 50 Ml IVPB 100 mls/hr Q6H KEEGAN Administration Dextrose 1,000 mls @ 100 mls/hr 02/10/24 02:41 Dextrose 5% 1,000 Ml IVPB PRN PRN Hypoglycemia Protocol Dexmedetomidine HCl 400 mcg in 100 mls @ 10.613 mls/hr 02/10/24 05:00 02/12/24 10:09 Precedex 400 Mcg/100 Ml IV CONT 0.5 mcg/kg/hr .Q9H26M KEEGAN 10.61 mls/hr Titration Protocol 0.5 MCG/KG/HR Iron Sucrose 200 mg/ Sodium 110 mls @ 220 mls/hr 02/11/24 10:00 02/12/24 08:44 Chloride IVPB 02/13/24 08:29 200 mls/hr DAILY@0800 KEEGAN Administration Insulin Aspart 4 - 8 units 02/10/24 06:00 02/12/24 06:03 Insulin Aspart (*Bkc) 100 Units/Ml SUB-Q Not Given Q6HR KEEGAN Protocol Lisinopril 40 mg 02/12/24 09:00 02/12/24 08:55 Lisinopril 20 Mg Tablet PO 40 mg QAM KEEGAN Administration Lorazepam 2 mg 02/09/24 20:51 02/12/24 07:28 Lorazepam Inj (*Crx) 2 Mg/Ml Vial IV PUSH 2 mg Q2H PRN Administration CIWA > 15 Magnesium Citrate 300 ml 02/14/24 02:00 Magnesium Citrate 300 Ml Btl PO 02/14/24 02:01 ONCE ONE Miscellaneous Information 0 each 02/12/24 05:15 Precedex Order Set To On 02/12. Please Renew When Possible. XX 03/13/24 05:14 CLARIFY KEEGAN Pantoprazole Sodium 40 mg 02/10/24 21:00 02/12/24 08:45 Pantoprazole Sodium Iv 40 Mg Vial IV PUSH 40 mg Q12HR KEEGAN Administration Perflutren Lipid Microsphere 0 ml 02/11/24 07:32 Perflutren Lipid Microspheres 1.5 Ml Vial Diluted To 10 Ml Total Volume IV PUSH 02/14/24 07:33 ONCE PRN adequate visualization Protocol Polyethylene Glycol 238 gm 02/13/24 16:00 Polyethylene Glycol 3350 238 Gm Bottle PO 02/13/24 16:01 ONCE ONE Thiamine HCl 200 mg 02/10/24 09:00 02/12/24 08:45 Thiamine Hcl 200 Mg/2 Ml Vial IV PUSH 200 mg QAM KEEGAN Administration Radiology Results: ITS Impressions Chest X-Ray 02/09/24 20:58 IMPRESSION: 1. No acute cardiopulmonary disease. Abdomen/Pelvis CT 02/09/24 21:46 IMPRESSION: 1. Sigmoid diverticulitis. No perforation or abscess. 2. Cirrhosis of the liver with portal venous hypertension. Labs Labs: Laboratory Results - last 24 hr 02/11/24 02/11/24 02/11/24 11:26 15:00 17:05 WBC RBC Hgb 8.2 L Hct 27.1 L MCV MCH MCHC RDW Plt Count MPV Immature Gran % (Auto) Neut % (Auto) Lymph % (Auto) [place] % (Auto) Eos % (Auto) Baso % (Auto) Lymph # (Auto) [place] # (Auto) Eos # (Auto) Baso # (Auto) Abs Immat Gran (auto) Absolute Neuts (auto) Absolute Nucleated RBC Nucleated RBC % Sodium Potassium Chloride Carbon Dioxide Anion Gap BUN Creatinine Estim Creat Clear Calc Estimated GFR Glucose POC Capillary Glucose 124 H Calcium Phosphorus Magnesium Total Bilirubin AST ALT Alkaline Phosphatase Total Protein Albumin POC H. pylori Urease Negative 02/11/24 02/12/24 02/12/24 17:56 00:21 03:36 WBC 7.4 RBC 3.16 L Hgb 7.8 L Hct 25.6 L MCV 81.0 MCH 24.7 L MCHC 30.5 L RDW 21.5 H Plt Count 237 MPV 9.1 Immature Gran % (Auto) 0.5 Neut % (Auto) 77.9 H Lymph % (Auto) 16.0 L [place] % (Auto) 4.9 Eos % (Auto) 0.3 Baso % (Auto) 0.4 Lymph # (Auto) 1.18 [place] # (Auto) 0.4 Eos # (Auto) 0.0 Baso # (Auto) 0.0 Abs Immat Gran (auto) 0.04 H Absolute Neuts (auto) 5.7 Absolute Nucleated RBC 0.020 H Nucleated RBC % 0.3 H Sodium 138 Potassium 3.4 Chloride 110 H Carbon Dioxide 17 L Anion Gap 11 BUN 7 L D Creatinine 1.00 Estim Creat Clear Calc 75 Estimated GFR > 60 Glucose 165 H POC Capillary Glucose 159 H 149 H Calcium 7.4 L Phosphorus 2.9 Magnesium 1.5 L Total Bilirubin 0.5 AST 62 H ALT 37 Alkaline Phosphatase 104 Total Protein 7.0 Albumin 3.0 L POC H. pylori Urease
[2024-02-12 11:51] LABS: Glucose Point of Care 120 mg/dl (65-105)
--- NOTE | 2024-02-12 12:51 | WPDANESPN ---
Anes - Prog Note Post-Op Date/Time: 02/12/24 12:51 Cardiovascular status: other (anemia) Respiratory status: normal Airway patency: baseline Mental status: baseline Post-Op hydration status: normal Vital Signs: Last Vital Signs Temp 36.4 C 02/12/24 12:00 Pulse 60 02/12/24 12:20 Resp 18 02/12/24 12:20 BP 120/80 02/12/24 12:00 Pulse Ox 98 02/12/24 12:00 O2 Del Method Room Air 02/12/24 09:58 O2 Flow Rate 10 02/11/24 14:24 Pain Score (VAS): 06/19 I/O: Intake & Output 02/11/24 02/12/24 02/12/24 23:59 07:59 15:59 Intake Total 354.6 376.1 357.7 Output Total 400 Balance 354.6 -23.9 357.7 Laboratory Tests 02/12/24 03:36 02/12/24 03:36 02/11/24 02/11/24 02/11/24 15:00 17:05 17:56 WBC RBC Hgb 8.2 L Hct 27.1 L MCV MCH MCHC RDW Plt Count MPV Immature Gran % (Auto) Neut % (Auto) Lymph % (Auto) [place] % (Auto) Eos % (Auto) Baso % (Auto) Lymph # (Auto) [place] # (Auto) Eos # (Auto) Baso # (Auto) Abs Immat Gran (auto) Absolute Neuts (auto) Absolute Nucleated RBC Nucleated RBC % Sodium Potassium Chloride Carbon Dioxide Anion Gap BUN Creatinine Estim Creat Clear Calc Estimated GFR Glucose POC Capillary Glucose 159 H Calcium Phosphorus Magnesium Total Bilirubin AST ALT Alkaline Phosphatase Total Protein Albumin POC H. pylori Urease Negative 02/12/24 02/12/24 02/12/24 00:21 03:36 11:49 WBC 7.4 RBC 3.16 L Hgb 7.8 L Hct 25.6 L MCV 81.0 MCH 24.7 L MCHC 30.5 L RDW 21.5 H Plt Count 237 MPV 9.1 Immature Gran % (Auto) 0.5 Neut % (Auto) 77.9 H Lymph % (Auto) 16.0 L [place] % (Auto) 4.9 Eos % (Auto) 0.3 Baso % (Auto) 0.4 Lymph # (Auto) 1.18 [place] # (Auto) 0.4 Eos # (Auto) 0.0 Baso # (Auto) 0.0 Abs Immat Gran (auto) 0.04 H Absolute Neuts (auto) 5.7 Absolute Nucleated RBC 0.020 H Nucleated RBC % 0.3 H Sodium 138 Potassium 3.4 Chloride 110 H Carbon Dioxide 17 L Anion Gap 11 BUN 7 L D Creatinine 1.00 Estim Creat Clear Calc 75 Estimated GFR > 60 Glucose 165 H POC Capillary Glucose 149 H 120 H Calcium 7.4 L Phosphorus 2.9 Magnesium 1.5 L Total Bilirubin 0.5 AST 62 H ALT 37 Alkaline Phosphatase 104 Total Protein 7.0 Albumin 3.0 L POC H. pylori Urease Post-procedural complaints: none Patient Feedback: Patient satisfied with anesthetic care.
--- NOTE | 2024-02-12 16:22 | WPDGIPROGNO ---
Progress Note: A&P Assessment and Plan (1) ABLA (acute blood loss anemia): Code(s): D62 - Acute posthemorrhagic anemia Status: Acute Assessment and Plan: no report of more active gib per staff egd no major findings trend h/h (2) Cirrhosis: Qualifiers: Hepatic cirrhosis type: alcoholic cirrhosis Ascites presence: without ascites Qualified Code(s): K70.30 - Alcoholic cirrhosis of liver without ascites Code(s): K74.60 - Unspecified cirrhosis of liver Status: Acute Assessment and Plan: alcohol abuse he will need to follow-up office (3) Alcohol withdrawal: Code(s): F10.939 - Alcohol use, unspecified with withdrawal, unspecified Status: Acute Assessment and Plan: still requiring precedex ciwa protocol thiamine, nutrition support (4) Diverticulitis: Code(s): K57.92 - Diverticulitis of intestine, part unspecified, without perforation or abscess without bleeding Status: Acute Assessment and Plan: no abdominal pain, on antibiotics (5) Elevated liver transaminase level: Code(s): R74.01 - Elevation of levels of liver transaminase levels Status: Acute Subjective Date/time seen: 02/12/24 16:22 Interval history: he is more alert but still some confusion, still on precedex no report of gib per nurse he seems to be comfortable otherwise, no pain Review of Systems Review of Systems: All systems reviewed & are unremarkable except as noted in HPI and below Exam Narrative: General: Patient is calm, pleasantly confused, in no acute distress HEENT:? Pupils are equal and reactive, sclera is clear, moist oral mucosa Neck:? Supple Respiratory:? Clear to auscultation bilaterally, no wheezing Cardiac:? Paced rhythm Abdomen:? Soft, nondistended, normoactive bowel sounds, nontender Extremities:? No edema, palpable pedal pulses Neuro:? Patient is awake, alert but not oriented, confused, able to altered few questions, does move all extremities spontaneously Skin:? Warm and dry Psych:? Confused, anxious, at times he has been agitated overnight Objective Data Vital Signs Vital Signs: Vital Signs - 24 hr 02/11/24 18:00 02/11/24 18:00 02/11/24 17:45 Temperature Pulse Rate 74 74 Pulse Rate [Monitor] 80 Respiratory Rate 29 H Blood Pressure 129/75 Pulse Oximetry 100 Oxygen Delivery 02/11/24 18:00 02/11/24 19:33 02/11/24 19:33 Temperature Pulse Rate 74 60 60 Pulse Rate [Monitor] Respiratory Rate 24 H 20 20 Blood Pressure Pulse Oximetry Oxygen Delivery 02/11/24 19:00 02/11/24 19:53 02/11/24 19:53 Temperature Pulse Rate 60 Pulse Rate [Monitor] 80 60 Respiratory Rate Blood Pressure 147/94 H 147/94 H Pulse Oximetry Oxygen Delivery 02/11/24 19:55 02/11/24 20:00 02/11/24 22:00 Temperature 98.7 F 98.1 F Pulse Rate 60 60 61 Pulse Rate [Monitor] Respiratory Rate 28 H 27 H 21 H Blood Pressure 158/96 H 148/93 H Pulse Oximetry 100 94 98 Oxygen Delivery Room Air 02/11/24 20:00 02/11/24 22:00 02/11/24 22:00 Temperature Pulse Rate 61 62 62 Pulse Rate [Monitor] Respiratory Rate 24 H 27 H Blood Pressure Pulse Oximetry Oxygen Delivery 02/12/24 00:00 02/12/24 00:00 02/12/24 00:00 Temperature Pulse Rate 60 60 Pulse Rate [Monitor] 60 Respiratory Rate 27 H Blood Pressure 153/93 H Pulse Oximetry 96 Oxygen Delivery Room Air 02/12/24 00:00 02/12/24 00:00 02/12/24 02:00 Temperature 98.2 F Pulse Rate 60 60 78 Pulse Rate [Monitor] Respiratory Rate 27 H 27 H Blood Pressure 153/93 H Pulse Oximetry 96 Oxygen Delivery 02/12/24 02:00 02/12/24 02:00 02/12/24 02:00 Temperature Pulse Rate 78 78 Pulse Rate [Monitor] 78 Respiratory Rate 28 H 28 H Blood Pressure 168/107 H 164/107 H Pulse Oximetry 98 Oxygen Delivery 02/12/24 02:32 02/12/24 02:32 02/12/24 04:00 Temperature Pulse Rate 60 60 60 Pulse Rate [Monitor] Respiratory Rate 26 H 28 H Blood Pressure Pulse Oximetry Oxygen Delivery 02/12/24 04:00 02/12/24 04:00 02/12/24 04:00 Temperature 98.3 F Pulse Rate 60 60 Pulse Rate [Monitor] 60 Respiratory Rate 26 H 26 H Blood Pressure 159/100 H 159/100 H Pulse Oximetry 96 96 Oxygen Delivery Room Air 02/12/24 06:00 02/12/24 06:00 02/12/24 06:00 Temperature 97.9 F Pulse Rate 60 60 60 Pulse Rate [Monitor] Respiratory Rate 25 H 25 H Blood Pressure 153/95 H Pulse Oximetry 98 Oxygen Delivery 02/12/24 07:00 02/12/24 07:30 02/12/24 08:00 Temperature 97.6 F Pulse Rate 61 60 Pulse Rate [Monitor] 64 Respiratory Rate 26 H 27 H Blood Pressure 154/89 H Pulse Oximetry 97 Oxygen Delivery 02/12/24 09:07 02/12/24 09:09 02/12/24 10:00 Temperature Pulse Rate 60 60 Pulse Rate [Monitor] 60 Respiratory Rate 17 Blood Pressure Pulse Oximetry Oxygen Delivery 02/12/24 10:00 02/12/24 10:09 02/12/24 09:58 Temperature Pulse Rate 60 60 Pulse Rate [Monitor] Respiratory Rate 26 H 26 H Blood Pressure 139/91 H Pulse Oximetry 100 Oxygen Delivery Room Air 02/12/24 09:58 02/12/24 12:00 02/12/24 12:00 Temperature 97.6 F Pulse Rate 60 60 Pulse Rate [Monitor] Respiratory Rate 29 H Blood Pressure 120/80 Pulse Oximetry 98 Oxygen Delivery Room Air 02/12/24 12:20 02/12/24 12:20 02/12/24 12:00 Temperature Pulse Rate 60 60 Pulse Rate [Monitor] 60 Respiratory Rate 18 18 Blood Pressure Pulse Oximetry Oxygen Delivery 02/12/24 12:00 02/12/24 14:00 02/12/24 14:00 Temperature Pulse Rate 60 60 60 Pulse Rate [Monitor] Respiratory Rate 28 H 25 H Blood Pressure 109/67 Pulse Oximetry 99 Oxygen Delivery 02/12/24 14:00 02/12/24 15:58 02/12/24 16:00 Temperature Pulse Rate 60 60 Pulse Rate [Monitor] 65 Respiratory Rate 16 Blood Pressure Pulse Oximetry Oxygen Delivery 02/12/24 16:00 Temperature 97.9 F Pulse Rate 66 Pulse Rate [Monitor] Respiratory Rate 18 Blood Pressure 147/79 H Pulse Oximetry 99 Oxygen Delivery Intake/Output Intake/Output: Intake & Output 02/09/24 02/10/24 02/11/24 02/12/24 23:59 23:59 23:59 23:59 Intake Total 2250 4313.2 2546.6 871.5 Output Total 100 200 750 400 Balance 2150 4113.2 1796.6 471.5 Meds/Results Medications: Active Medications Generic Name Dose Route Start Last Admin Trade Name Freq PRN Reason Stop Dose Admin Bisacodyl 20 mg 02/13/24 18:00 Bisacodyl 5 Mg Tablet Ec PO 02/13/24 18:01 ONCE ONE Chlordiazepoxide HCl 50 mg 02/11/24 00:00 02/12/24 11:55 Chlordiazepoxide (*Crx) 25 Mg Capsule PO 50 mg Q6H KEEGAN Administration Dextrose 12.5 gm 02/10/24 02:41 Dextrose 50% 25 Gm/50 Ml Syringe IV PUSH PRN PRN Hypoglycemia Protocol Folic Acid 1 mg 02/10/24 09:00 02/12/24 08:44 Folic Acid 1 Mg/0.2 Ml Inj IV PUSH 1 mg QAM KEEGAN Administration Glucagon 1 mg 02/10/24 02:41 Glucagon For Inj 1 Mg Vial IM PRN PRN Hypoglycemia Protocol Glucose 15 gm 02/10/24 02:41 Glucose Oral Gel 15 Gm Of Glucse In 37.5 Gm Tube PO PRN PRN Hypoglycemia Protocol Hydrochlorothiazide 25 mg 02/12/24 09:00 02/12/24 08:55 Hydrochlorothiazide 25 Mg Tablet PO 25 mg QAM KEEGAN Administration Piperacillin/Tazobactam/Dextrose 3.375 gm in 50 mls @ 100 mls/hr 02/10/24 04:00 02/12/24 15:46 Zosyn 3.375 Gm/Ns 50 Ml IVPB 50 mls/hr Q6H KEEGAN Administration Dextrose 1,000 mls @ 100 mls/hr 02/10/24 02:41 Dextrose 5% 1,000 Ml IVPB PRN PRN Hypoglycemia Protocol Dexmedetomidine HCl 400 mcg in 100 mls @ 10.613 mls/hr 02/10/24 05:00 02/12/24 14:00 Precedex 400 Mcg/100 Ml IV CONT 0.5 mcg/kg/hr .Q9H26M KEEGAN 10.61 mls/hr Titration Protocol 0.5 MCG/KG/HR Iron Sucrose 200 mg/ Sodium 110 mls @ 220 mls/hr 02/11/24 10:00 02/12/24 09:30 Chloride IVPB 02/13/24 08:29 Infused DAILY@0800 KEEGAN Infusion Insulin Aspart 4 - 8 units 02/10/24 06:00 02/12/24 11:55 Insulin Aspart (*Bkc) 100 Units/Ml SUB-Q Not Given Q6HR [facility] Protocol Lisinopril 40 mg 02/12/24 09:00 02/12/24 08:55 Lisinopril 20 Mg Tablet PO 40 mg QAM KEEGAN Administration Lorazepam 2 mg 02/09/24 20:51 02/12/24 07:28 Lorazepam Inj (*Crx) 2 Mg/Ml Vial IV PUSH 2 mg Q2H PRN Administration CIWA > 15 Magnesium Citrate 300 ml 02/14/24 02:00 Magnesium Citrate 300 Ml Btl PO 02/14/24 02:01 ONCE ONE Miscellaneous Information 0 each 02/12/24 05:15 Precedex Order Set To On 02/12. Please Renew When Possible. XX 03/13/24 05:14 CLARIFY KEEGAN Pantoprazole Sodium 40 mg 02/10/24 21:00 02/12/24 08:45 Pantoprazole Sodium Iv 40 Mg Vial IV PUSH 40 mg Q12HR KEEGAN Administration Perflutren Lipid Microsphere 0 ml 02/11/24 07:32 Perflutren Lipid Microspheres 1.5 Ml Vial Diluted To 10 Ml Total Volume IV PUSH 02/14/24 07:33 ONCE PRN adequate visualization Protocol Polyethylene Glycol 238 gm 02/13/24 16:00 Polyethylene Glycol 3350 238 Gm Bottle PO 02/13/24 16:01 ONCE ONE Thiamine HCl 200 mg 02/10/24 09:00 02/12/24 08:45 Thiamine Hcl 200 Mg/2 Ml Vial IV PUSH 200 mg QAM KEEGAN Administration Radiology Results: ITS Impressions Chest X-Ray 02/09/24 20:58 IMPRESSION: 1. No acute cardiopulmonary disease. Abdomen/Pelvis CT 02/09/24 21:46 IMPRESSION: 1. Sigmoid diverticulitis. No perforation or abscess. 2. Cirrhosis of the liver with portal venous hypertension. Labs Labs: Laboratory Results - last 24 hr 02/11/24 02/11/24 02/12/24 17:05 17:56 00:21 WBC RBC Hgb 8.2 L Hct 27.1 L MCV MCH MCHC RDW Plt Count MPV Immature Gran % (Auto) Neut % (Auto) Lymph % (Auto) [place] % (Auto) Eos % (Auto) Baso % (Auto) Lymph # (Auto) [place] # (Auto) Eos # (Auto) Baso # (Auto) Abs Immat Gran (auto) Absolute Neuts (auto) Absolute Nucleated RBC Nucleated RBC % Sodium Potassium Chloride Carbon Dioxide Anion Gap BUN Creatinine Estim Creat Clear Calc Estimated GFR Glucose POC Capillary Glucose 159 H 149 H Calcium Phosphorus Magnesium Total Bilirubin AST ALT Alkaline Phosphatase Total Protein Albumin 02/12/24 02/12/24 03:36 11:49 WBC 7.4 RBC 3.16 L Hgb 7.8 L Hct 25.6 L MCV 81.0 MCH 24.7 L MCHC 30.5 L RDW 21.5 H Plt Count 237 MPV 9.1 Immature Gran % (Auto) 0.5 Neut % (Auto) 77.9 H Lymph % (Auto) 16.0 L [place] % (Auto) 4.9 Eos % (Auto) 0.3 Baso % (Auto) 0.4 Lymph # (Auto) 1.18 [place] # (Auto) 0.4 Eos # (Auto) 0.0 Baso # (Auto) 0.0 Abs Immat Gran (auto) 0.04 H Absolute Neuts (auto) 5.7 Absolute Nucleated RBC 0.020 H Nucleated RBC % 0.3 H Sodium 138 Potassium 3.4 Chloride 110 H Carbon Dioxide 17 L Anion Gap 11 BUN 7 L D Creatinine 1.00 Estim Creat Clear Calc 75 Estimated GFR > 60 Glucose 165 H POC Capillary Glucose 120 H Calcium 7.4 L Phosphorus 2.9 Magnesium 1.5 L Total Bilirubin 0.5 AST 62 H ALT 37 Alkaline Phosphatase 104 Total Protein 7.0 Albumin 3.0 L
[2024-02-12 16:51] LABS: Glucose Point of Care 122 mg/dl (65-105)
[2024-02-12 22:18] LABS: Glucose Point of Care 132 mg/dl (65-105)
[2024-02-13] VITALS (16 sets, daily range): BP systolic 94–162; BP diastolic 55–94; PULSE 60–76; RESP 16–33; TEMP 36.5–36.8; O2SAT 97–100
[2024-02-13] MEDS: chlordiazePOXIDE (*CRX) 25 MG CAPSULE 50 MG PO ×5 (00:11→23:39)
[2024-02-13 03:49] LABS: Basophils Absolute Auto 0.1 K/mm3 (0.0-0.1); Basophils Percent Auto 0.6 % (0.2-1.2); Eosinophils Absolute Auto 0.2 K/mm3 (0-0.3); Hematocrit 27.1 % (42.0-52.0); Immature Granulocyte Absolute 0.05 K/mm3 (0.00-0.031); Immature Granulocyte Percent A 0.5 % (0-0.5); Lymphocytes Absolute Auto 1.74 K/mm3 (0.9-3.2); Lymphocytes Percent Auto 18.7 % (18.3-44.2); Mean Corpuscular HGB Conc 29.5 g/dl (32-36); Mean Corpuscular Hemoglobin 24.2 pg (26-34); Mean Corpuscular Volume 82.1 fl (80-100); Monocytes Absolute Auto 0.5 K/mm3 (0.1-0.6); Monocytes Percent Auto 5.2 % (2.6-8.5); Neutrophils Absolute Auto 6.8 K/mm3 (1.3-6.7); Nucleated Red Blood Cells Perc 0.2 % (0.0-0.2); Platelet Count Result 232 k/mm3 (150-375); Red Cell Distribution Width 22.4 % (11.5-14.5); White Blood Count 9.3 K/mm3 (4.5-10.0)
[2024-02-13 04:02] LABS: Alanine Aminotransferase 29 U/L (6-50); Albumin Level 2.9 g/dL (3.5-5.1); Alkaline Phosphatase 109 U/L (38-126); Anion Gap 9 mmol/L (4-12); Aspartate Amino Transferase 50 U/L (17-59); Bilirubin,Total 0.7 mg/dL (0.2-1.3); Blood Urea Nitrogen 3 mg/dL (9-20); Calcium 7.7 mg/dL (8.4-10.2); Carbon Dioxide 22 mmol/L (22-30); Chloride 106 mmol/L (98-107); Estimated CRCL calculation 75 ml/min; Estimated Glomerular Filt Rate > 60; Glucose 122 mg/dL (65-110); Magnesium 1.6 mg/dL (1.6-2.3); Phosphorus 2.8 mg/dL (2.5-4.5); Potassium 3.2 mmol/L (3.4-5.0); Sodium 137 mmol/L (137-145)
[2024-02-13] MEDS: PIPERACILLN/TAZ 3.375GM/NS50ML 3.375 GM/50 ML BAG IVPB ×4 (04:02→21:38)
[2024-02-13 04:10] LABS: Platelet Estimate Slightly Increased (Adequate)
[2024-02-13 04:11] LABS: Anisocytosis 1+; Hypochromasia 1+; Schistocytes None Seen
[2024-02-13] MEDS: dexmedeTOMIDine 400 MCG/100 ML 400 MCG/100 ML BAG 10.61 MCG IV CONT (06:17)
[2024-02-13] MEDS: FOLIC ACID 1 MG/0.2 ML INJ IV PUSH (08:18)
[2024-02-13] MEDS: MAGNESIUM SULFATE 3GM/D5W100ML 3 GM/100 ML BAG IVPB (08:18)
[2024-02-13] MEDS: IRON SUCROSE COMPLEX 200 MG in SODIUM CHLORIDE 0.9% IV 100 ML IVPB (08:18)
[2024-02-13] MEDS: POTASSIUM CHLORIDE 20 MEQ ER TABLET 80 MEQ PO (08:19)
[2024-02-13] MEDS: hydroCHLOROthiazide 25 MG TABLET PO (08:19)
[2024-02-13] MEDS: PANTOPRAZOLE SODIUM IV 40 MG VIAL IV PUSH ×2 (08:19→21:01)
[2024-02-13] MEDS: lisinopriL 20 MG TABLET 40 MG PO (08:19)
[2024-02-13] MEDS: THIAMINE HCL 200 MG/2 ML VIAL IV PUSH (08:19)
--- NOTE | 2024-02-13 08:24 | WPDINTPN ---
Progress Note: A&P Assessment and Plan (1) Alcohol withdrawal: Code(s): F10.939 - Alcohol use, unspecified with withdrawal, unspecified Status: Acute Assessment and Plan: Patient presented to the ED with nausea, vomiting, diarrhea, tremors, tachycardia, tachypnea. Has top drinking for the last 24 hours prior to admission. Drinks 10 shots of whiskey per day -on admission, patient did have tremors, tachycardia, diaphoretic, tachypneic, had an elevated CIWA score -patient was given Ativan, thiamine, folic acid -02/11: restarted on Precedex infusion overnight for agitation, anxiety, tremors, alcohol withdrawal, wean Precedex to maintain RASS of 0 -continue Librium, folic acid and thiamine -continue to wean Precedex to off (2) Diverticulitis: Code(s): K57.92 - Diverticulitis of intestine, part unspecified, without perforation or abscess without bleeding Status: Acute Assessment and Plan: Patient presented with nausea, vomiting, diarrhea. Also left lower quadrant abdominal pain. 02/08: CT scan of the abdomen and pelvis showed sigmoid diverticulitis, no perforation no abscess. 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 insulin use: without termite treater helper use Qualified Code(s): E11.65 - Type 2 diabetes mellitus with hyperglycemia Code(s): E11.65 - Type 2 diabetes mellitus with hyperglycemia Status: Acute Assessment and Plan: Patient has a history of diabetes -continue Accu-Cheks and sliding scale insulin (4) Tobacco abuse: Code(s): Z72.0 - Tobacco use Status: Acute Assessment and Plan: Will licensed professional counselor patient once he is more awake on cessation of smoking (5) Iron deficiency anemia: Qualifiers: Iron deficiency anemia type: unspecified iron deficiency Qualified Code(s): D50.9 - Iron deficiency anemia, unspecified Code(s): D50.9 - Iron deficiency anemia, unspecified Status: Acute Assessment and Plan: Patient with anemia, hemoglobin 9.6 which is lower than is usual hemoglobin which is 11-12 g/dL -iron panel consistent with iron deficiency anemia, folic acid and vitamin B12 levels within normal limits -hold home aspirin -patient on SCDs no chemoprophylaxis due to anemia -will monitor H&H and if it continues to drop will have GI evaluate the patient -continue Protonix IV q.12 hours -02/10: Started on IV Venofer for 3 days -appreciate GI evaluation and recommendation 02/11/2024: EGD showed gastritis -hemoglobin remains stable -GI recommended colonoscopy on 02/14/2024 (6) Electrolyte abnormality: Code(s): E87.8 - Other disorders of electrolyte and fluid balance, not elsewhere classified Status: Acute Assessment and Plan: Significantly low magnesium on admission <0.2 -patient was given 3 g of magnesium in the ER -02/09: repeat magnesium level 0.9 this morning 02/10: Will replace potassium and magnesium 02/11: Will replace potassium and magnesium 02/12: Will replace potassium and magnesium (7) Abnormal liver enzymes: Code(s): R74.8 - Abnormal levels of other serum enzymes Status: Acute Assessment and Plan: Elevated liver enzymes, likely related to alcoholic abuse -CT scan of the abdomen pelvis showed cirrhosis with portal venous hypertension -liver enzymes have normalized, continue to monitor (8) Hypertension: Qualifiers: Hypertension type: essential hypertension Qualified Code(s): I10 - Essential (primary) hypertension Code(s): I10 - Essential (primary) hypertension Status: Acute Assessment and Plan: Patient takes lisinopril-hydrochlorothiazide 20-12.5 mg -2 tablets daily -continue home lisinopril/HCTZ Plan DVT prophylaxis: SCDs, no chemoprophylaxis due to anemia Stress ulcer prophylaxis: Protonix IV q.12 hours Nutrition: Heart healthy diet Code Status: Full code Critical Care Time Spent: 32 minutes 02/10: Discussed with spouse and updated her with patient's condition and plan of care. She is aware that patient is on Precedex for alcohol withdrawal. He is also aware that he is going to receive an EGD today. Due to a high probability of clinically significant, life threatening deterioration, the patient required my highest level of preparedness to intervene emergently and I personally spent this critical care time directly and personally managing the patient. This critical care time included obtaining a history; examining the patient; pulse oximetry; ordering and review of studies; arranging urgent treatment with development of a management plan; evaluation of patient's response to treatment; frequent reassessment; and discussions with other providers. It was exclusive of separately billable procedures and treating other patients and teaching time. Please see Assessment and Plan section and the rest of the note for further information on patient assessment and treatment This dictation may have been done utilizing a voice recognition system. Attempts have been made to correct errors. However, there may be uncorrected grammatical, spelling, and recognitions errors present. Subjective Date/time seen: 02/13/24 08:24 Interval history: Reason for consult: Alcohol withdrawal, sepsis, sigmoid diverticulitis, electrolyte abnormalities 02/11/2024: EGD showed gastritis 02/13/2024: Patient seen and examined the ICU, remains on Precedex infusion, somnolent this morning. Night bedside RN stated that he has been awake all night and went to sleep from 3:00 a.m. onwards. Patient is awake easily to name, follows simple commands, answers to questions and goes back to sleep. Patient has been afebrile, hemodynamically stable, adequate urine output. Appetite has been okay. Patient denies any pain or difficulty breathing, nausea vomiting Review of Systems Review of Systems: All systems reviewed & are unremarkable except as noted in HPI and below Exam Narrative: General: Patient is calm, somnolent this morning, currently in no acute distress HEENT:? Pupils are equal and reactive, sclera is clear, Neck:? Supple Respiratory:? Clear to auscultation bilaterally, no wheezing Cardiac:? Paced rhythm Abdomen:? Soft, nondistended, normoactive bowel sounds, nontender Extremities:? No edema, palpable pedal pulses Neuro:? Patient on Precedex infusion, easily arousable, answers to questions and follows simple commands and falls back to sleep Skin:? Warm and dry Psych:? Unable to assess as he is pretty somnolent this morning Objective Data Vital Signs Vital Signs: Vital Signs - 24 hr 02/12/24 09:07 02/12/24 09:09 02/12/24 10:00 Temperature Pulse Rate 60 60 Pulse Rate [Monitor] 60 Respiratory Rate 17 Blood Pressure Pulse Oximetry Oxygen Delivery 02/12/24 10:00 02/12/24 10:09 02/12/24 09:58 Temperature Pulse Rate 60 60 Pulse Rate [Monitor] Respiratory Rate 26 H 26 H Blood Pressure 139/91 H Pulse Oximetry 100 Oxygen Delivery Room Air 02/12/24 09:58 02/12/24 12:00 02/12/24 12:00 Temperature 97.6 F Pulse Rate 60 60 Pulse Rate [Monitor] Respiratory Rate 29 H Blood Pressure 120/80 Pulse Oximetry 98 Oxygen Delivery Room Air 02/12/24 12:20 02/12/24 12:20 02/12/24 12:00 Temperature Pulse Rate 60 60 Pulse Rate [Monitor] 60 Respiratory Rate 18 18 Blood Pressure Pulse Oximetry Oxygen Delivery 02/12/24 12:00 02/12/24 14:00 02/12/24 14:00 Temperature Pulse Rate 60 60 60 Pulse Rate [Monitor] Respiratory Rate 28 H 25 H Blood Pressure 109/67 Pulse Oximetry 99 Oxygen Delivery 02/12/24 14:00 02/12/24 15:58 02/12/24 16:00 Temperature Pulse Rate 60 60 Pulse Rate [Monitor] 65 Respiratory Rate 16 Blood Pressure Pulse Oximetry Oxygen Delivery 02/12/24 16:00 02/12/24 16:00 02/12/24 18:00 Temperature 97.9 F Pulse Rate 66 60 60 Pulse Rate [Monitor] Respiratory Rate 18 16 26 H Blood Pressure 147/79 H Pulse Oximetry 99 Oxygen Delivery 02/12/24 18:00 02/12/24 18:00 02/12/24 20:00 Temperature Pulse Rate 60 60 60 Pulse Rate [Monitor] Respiratory Rate 26 H Blood Pressure 145/88 H Pulse Oximetry 98 Oxygen Delivery 02/12/24 20:00 02/12/24 20:00 02/12/24 21:46 Temperature 97.8 F Pulse Rate 60 60 60 Pulse Rate [Monitor] Respiratory Rate 25 H 25 H 28 H Blood Pressure 111/71 Pulse Oximetry 98 Oxygen Delivery 02/12/24 22:01 02/12/24 22:00 02/12/24 21:32 Temperature Pulse Rate 60 60 Pulse Rate [Monitor] Respiratory Rate 28 H 19 Blood Pressure 140/84 Pulse Oximetry 98 98 Oxygen Delivery Room Air 02/13/24 00:00 02/13/24 00:00 02/13/24 00:00 Temperature 97.9 F Pulse Rate 60 60 61 Pulse Rate [Monitor] Respiratory Rate 19 19 Blood Pressure 111/78 Pulse Oximetry 100 Oxygen Delivery 02/13/24 02:00 02/13/24 02:00 02/13/24 04:00 Temperature Pulse Rate 62 62 60 Pulse Rate [Monitor] Respiratory Rate 33 H Blood Pressure 129/82 Pulse Oximetry 100 Oxygen Delivery 02/13/24 04:00 02/13/24 04:00 02/13/24 02:00 Temperature 98.3 F Pulse Rate 60 60 Pulse Rate [Monitor] 60 Respiratory Rate 28 H 33 H Blood Pressure 149/93 H Pulse Oximetry 97 Oxygen Delivery 02/13/24 04:00 02/13/24 05:50 02/13/24 06:17 Temperature Pulse Rate 60 60 60 Pulse Rate [Monitor] Respiratory Rate 29 H 25 H 28 H Blood Pressure Pulse Oximetry Oxygen Delivery 02/13/24 06:17 02/13/24 06:00 02/13/24 06:42 Temperature Pulse Rate 60 60 60 Pulse Rate [Monitor] Respiratory Rate 28 H 27 H 31 H Blood Pressure 142/76 H Pulse Oximetry 100 Oxygen Delivery 02/13/24 06:00 Temperature Pulse Rate 60 Pulse Rate [Monitor] Respiratory Rate Blood Pressure Pulse Oximetry Oxygen Delivery Intake/Output Intake/Output: Intake & Output 02/10/24 02/11/24 02/12/24 02/13/24 23:59 23:59 23:59 23:59 Intake Total 4313.2 2546.6 1223.8 536.1 Output Total 200 900 889 2866 Balance 4113.2 1796.6 323.8 -563.9 Meds/Results Medications: Active Medications Generic Name Dose Route Start Last Admin Trade Name Freq PRN Reason Stop Dose Admin Bisacodyl 20 mg 02/13/24 18:00 Bisacodyl 5 Mg Tablet Ec PO 02/13/24 18:01 ONCE ONE Chlordiazepoxide HCl 50 mg 02/11/24 00:00 02/13/24 05:49 Chlordiazepoxide (*Crx) 25 Mg Capsule PO 50 mg Q6H KEEGAN Administration Dextrose 12.5 gm 02/10/24 02:41 Dextrose 50% 25 Gm/50 Ml Syringe IV PUSH PRN PRN Hypoglycemia Protocol Folic Acid 1 mg 02/10/24 09:00 02/13/24 08:18 Folic Acid 1 Mg/0.2 Ml Inj IV PUSH 1 mg QAM KEEGAN Administration Glucagon 1 mg 02/10/24 02:41 Glucagon For Inj 1 Mg Vial IM PRN PRN Hypoglycemia Protocol Glucose 15 gm 02/10/24 02:41 Glucose Oral Gel 15 Gm Of Glucse In 37.5 Gm Tube PO PRN PRN Hypoglycemia Protocol Hydrochlorothiazide 25 mg 02/12/24 09:00 02/13/24 08:19 Hydrochlorothiazide 25 Mg Tablet PO 25 mg QAM KEEGAN Administration Piperacillin/Tazobactam/Dextrose 3.375 gm in 50 mls @ 100 mls/hr 02/10/24 04:00 02/13/24 04:02 Zosyn 3.375 Gm/Ns 50 Ml IVPB 100 mls/hr Q6H KEEGAN Administration Dextrose 1,000 mls @ 100 mls/hr 02/10/24 02:41 Dextrose 5% 1,000 Ml IVPB PRN PRN Hypoglycemia Protocol Dexmedetomidine HCl 400 mcg in 100 mls @ 8.49 mls/hr 02/10/24 05:00 02/13/24 06:42 Precedex 400 Mcg/100 Ml IV CONT 0.4 mcg/kg/hr .[id number] KEEGAN 8.49 mls/hr Titration Protocol 0.4 MCG/KG/HR Iron Sucrose 200 mg/ Sodium 110 mls @ 220 mls/hr 02/11/24 10:00 02/13/24 08:18 Chloride IVPB 02/13/24 08:29 200 mls/hr DAILY@0800 KEEGAN Administration Magnesium Sulfate/Dextrose 3 gm in 100 mls @ 33.333 mls/hr 02/13/24 07:30 02/13/24 08:18 Magnesium Sulfate 3gm/[id number] IVPB 02/13/24 10:29 33.33 mls/hr ONCE ONE Administration Insulin Aspart 4 - 8 units 02/10/24 06:00 02/13/24 04:52 Insulin Aspart (*Bkc) 100 Units/Ml SUB-Q Not Given Q6HR KEEGAN Protocol Lisinopril 40 mg 02/12/24 09:00 02/13/24 08:19 Lisinopril 20 Mg Tablet PO 40 mg QAM KEEGAN Administration Lorazepam 2 mg 02/09/24 20:51 02/12/24 07:28 Lorazepam Inj (*Crx) 2 Mg/Ml Vial IV PUSH 2 mg Q2H PRN Administration CIWA > 15 Magnesium Citrate 300 ml 02/14/24 02:00 Magnesium Citrate 300 Ml Btl PO 02/14/24 02:01 ONCE ONE Pantoprazole Sodium 40 mg 10/03/24 21:00 02/13/24 08:19 Pantoprazole Sodium Iv 40 Mg Vial IV PUSH 40 mg Q12HR KEEGAN Administration Perflutren Lipid Microsphere 0 ml 02/11/24 07:32 Perflutren Lipid Microspheres 1.5 Ml Vial Diluted To 10 Ml Total Volume IV PUSH 02/14/24 07:33 ONCE PRN adequate visualization Protocol Polyethylene Glycol 238 gm 02/13/24 16:00 Polyethylene Glycol 3350 238 Gm Bottle PO 02/13/24 16:01 ONCE ONE Thiamine HCl 200 mg 02/10/24 09:00 02/13/24 08:19 Thiamine Hcl 200 Mg/2 Ml Vial IV PUSH 200 mg QAM KEEGAN Administration Radiology Results: ITS Impressions Chest X-Ray 02/09/24 20:58 IMPRESSION: 1. No acute cardiopulmonary disease. Abdomen/Pelvis CT 02/09/24 21:46 IMPRESSION: 1. Sigmoid diverticulitis. No perforation or abscess. 2. Cirrhosis of the liver with portal venous hypertension. Labs Labs: Laboratory Results - last 24 hr 02/12/24 02/12/24 02/12/24 11:49 16:49 21:59 WBC RBC Hgb Hct MCV MCH MCHC RDW Plt Count MPV Immature Gran % (Auto) Neut % (Auto) Lymph % (Auto) [place] % (Auto) Eos % (Auto) Baso % (Auto) Lymph # (Auto) [place] # (Auto) Eos # (Auto) Baso # (Auto) Abs Immat Gran (auto) Absolute Neuts (auto) Absolute Nucleated RBC Nucleated RBC % Platelet Estimate Hypochromasia Anisocytosis Schistocytes Sodium Potassium Chloride Carbon Dioxide Anion Gap BUN Creatinine Estim Creat Clear Calc Estimated GFR Glucose POC Capillary Glucose 120 H 122 H 132 H Calcium Phosphorus Magnesium Total Bilirubin AST ALT Alkaline Phosphatase Total Protein Albumin 02/13/24 03:25 WBC 9.3 RBC 3.30 L Hgb 8.0 L Hct 27.1 L MCV 82.1 MCH 24.2 L MCHC 29.5 L RDW 22.4 H Plt Count 232 MPV 10.0 Immature Gran % (Auto) 0.5 Neut % (Auto) 73.0 Lymph % (Auto) 18.7 [place] % (Auto) 5.2 Eos % (Auto) 2.0 Baso % (Auto) 0.6 Lymph # (Auto) 1.74 [place] # (Auto) 0.5 Eos # (Auto) 0.2 Baso # (Auto) 0.1 Abs Immat Gran (auto) 0.05 H Absolute Neuts (auto) 6.8 H Absolute Nucleated RBC 0.020 H Nucleated RBC % 0.2 Platelet Estimate Slightly increased Hypochromasia 1+ Anisocytosis 1+ Schistocytes None seen Sodium 137 Potassium 3.2 L Chloride 106 Carbon Dioxide 22 Anion Gap 9 BUN 3 L Creatinine 1.00 Estim Creat Clear Calc 75 Estimated GFR > 60 Glucose 122 H POC Capillary Glucose Calcium 7.7 L Phosphorus 2.8 Magnesium 1.6 Total Bilirubin 0.7 AST 50 ALT 29 Alkaline Phosphatase 109 Total Protein 7.0 Albumin 2.9 L
--- NOTE | 2024-02-13 10:13 | P.PNGI_ITS ---
Progress Note: A&P Assessment and Plan (1) ABLA (acute blood loss anemia): Code(s): D62 - Acute posthemorrhagic anemia Status: Acute Assessment and Plan: no report of more active gib per staff egd no major findings trend h/h (2) Cirrhosis: Qualifiers: Hepatic cirrhosis type: alcoholic cirrhosis Ascites presence: without ascites Qualified Code(s): K70.30 - Alcoholic cirrhosis of liver without ascites Code(s): K74.60 - Unspecified cirrhosis of liver Status: Acute Assessment and Plan: alcohol abuse he will need to follow-up office (3) Alcohol withdrawal: Code(s): F10.939 - Alcohol use, unspecified with withdrawal, unspecified Status: Acute Assessment and Plan: still requiring precedex, weaning off ciwa protocol thiamine, nutrition support (4) Diverticulitis: Code(s): K57.92 - Diverticulitis of intestine, part unspecified, without perforation or abscess without bleeding Status: Acute Assessment and Plan: no abdominal pain, on antibiotics (5) Elevated liver transaminase level: Code(s): R74.01 - Elevation of levels of liver transaminase levels Status: Acute Subjective Date/time seen: 02/13/24 10:13 Interval history: no changes, weaning precedex, no signs of gib Review of Systems Review of Systems: All systems reviewed & are unremarkable except as noted in HPI and below Exam Narrative: General: Patient is calm, awake, currently in no acute distress HEENT:? Pupils are equal and reactive, sclera is clear, Neck:? Supple Respiratory:? Clear to auscultation bilaterally, no wheezing Cardiac:? Paced rhythm Abdomen:? Soft, nondistended, normoactive bowel sounds, nontender Extremities:? No edema, palpable pedal pulses Neuro:? awake, alert, less anxious Skin:? Warm and dry Psych:? less anxious Objective Data Vital Signs Vital Signs: Vital Signs - 24 hr 02/12/24 12:00 02/12/24 12:00 02/12/24 12:20 Temperature 97.6 F Pulse Rate 60 60 60 Pulse Rate [Monitor] Respiratory Rate 29 H 18 Blood Pressure 120/80 Pulse Oximetry 98 Oxygen Delivery 02/12/24 12:20 02/12/24 12:00 02/12/24 12:00 Temperature Pulse Rate 60 60 Pulse Rate [Monitor] 60 Respiratory Rate 18 28 H Blood Pressure Pulse Oximetry Oxygen Delivery 02/12/24 14:00 02/12/24 14:00 02/12/24 14:00 Temperature Pulse Rate 60 60 60 Pulse Rate [Monitor] Respiratory Rate 25 H 16 Blood Pressure 109/67 Pulse Oximetry 99 Oxygen Delivery 02/12/24 15:58 02/12/24 16:00 02/12/24 16:00 Temperature 97.9 F Pulse Rate 60 66 Pulse Rate [Monitor] 65 Respiratory Rate 18 Blood Pressure 147/79 H Pulse Oximetry 99 Oxygen Delivery 02/12/24 16:00 02/12/24 18:00 02/12/24 18:00 Temperature Pulse Rate 60 60 60 Pulse Rate [Monitor] Respiratory Rate 16 26 H Blood Pressure Pulse Oximetry Oxygen Delivery 02/12/24 18:00 02/12/24 20:00 02/12/24 20:00 Temperature Pulse Rate 60 60 60 Pulse Rate [Monitor] Respiratory Rate 26 H 25 H Blood Pressure 145/88 H Pulse Oximetry 98 Oxygen Delivery 02/12/24 20:00 02/12/24 21:46 02/12/24 22:01 Temperature 97.8 F Pulse Rate 60 60 60 Pulse Rate [Monitor] Respiratory Rate 25 H 28 H 28 H Blood Pressure 111/71 Pulse Oximetry 98 Oxygen Delivery 02/12/24 22:00 02/12/24 21:32 02/13/24 00:00 Temperature Pulse Rate 60 60 Pulse Rate [Monitor] Respiratory Rate 19 Blood Pressure 140/84 Pulse Oximetry 98 98 Oxygen Delivery Room Air 02/13/24 00:00 02/13/24 00:00 02/13/24 02:00 Temperature 97.9 F Pulse Rate 60 61 62 Pulse Rate [Monitor] Respiratory Rate 19 19 Blood Pressure 111/78 Pulse Oximetry 100 Oxygen Delivery 02/13/24 02:00 02/13/24 04:00 02/13/24 04:00 Temperature Pulse Rate 62 60 Pulse Rate [Monitor] 60 Respiratory Rate 33 H Blood Pressure 129/82 Pulse Oximetry 100 Oxygen Delivery 02/13/24 04:00 02/13/24 02:00 02/13/24 04:00 Temperature 98.3 F Pulse Rate 60 60 60 Pulse Rate [Monitor] Respiratory Rate 28 H 33 H 29 H Blood Pressure 149/93 H Pulse Oximetry 97 Oxygen Delivery 02/13/24 05:50 02/13/24 06:17 02/13/24 06:17 Temperature Pulse Rate 60 60 60 Pulse Rate [Monitor] Respiratory Rate 25 H 28 H 28 H Blood Pressure Pulse Oximetry Oxygen Delivery 02/13/24 06:00 02/13/24 06:42 02/13/24 06:00 Temperature Pulse Rate 60 60 60 Pulse Rate [Monitor] Respiratory Rate 27 H 31 H Blood Pressure 142/76 H Pulse Oximetry 100 Oxygen Delivery Intake/Output Intake/Output: Intake & Output 02/10/24 02/11/24 02/12/24 02/13/24 23:59 23:59 23:59 23:59 Intake Total 4313.2 2546.6 1223.8 536.1 Output Total 200 208 996 7086 Balance 4113.2 1796.6 323.8 -563.9 Meds/Results Medications: Active Medications Generic Name Dose Route Start Last Admin Trade Name Freq PRN Reason Stop Dose Admin Bisacodyl 20 mg 02/13/24 18:00 Bisacodyl 5 Mg Tablet Ec PO 02/13/24 18:01 ONCE ONE Chlordiazepoxide HCl 50 mg 02/11/24 00:00 02/13/24 05:49 Chlordiazepoxide (*Crx) 25 Mg Capsule PO 50 mg Q6H KEEGAN Administration Dextrose 12.5 gm 02/10/24 02:41 Dextrose 50% 25 Gm/50 Ml Syringe IV PUSH PRN PRN Hypoglycemia Protocol Folic Acid 1 mg 02/10/24 09:00 02/13/24 08:18 Folic Acid 1 Mg/0.2 Ml Inj IV PUSH 1 mg QAM KEEGAN Administration Glucagon 1 mg 02/10/24 02:41 Glucagon For Inj 1 Mg Vial IM PRN PRN Hypoglycemia Protocol Glucose 15 gm 02/10/24 02:41 Glucose Oral Gel 15 Gm Of Glucse In 37.5 Gm Tube PO PRN PRN Hypoglycemia Protocol Hydrochlorothiazide 25 mg 02/12/24 09:00 02/13/24 08:19 Hydrochlorothiazide 25 Mg Tablet PO 25 mg QAM KEEGAN Administration Piperacillin/Tazobactam/Dextrose 3.375 gm in 50 mls @ 100 mls/hr 02/10/24 04:00 02/13/24 04:02 Zosyn 3.375 Gm/Ns 50 Ml IVPB 100 mls/hr Q6H KEEGAN Administration Dextrose 1,000 mls @ 100 mls/hr 02/10/24 02:41 Dextrose 5% 1,000 Ml IVPB PRN PRN Hypoglycemia Protocol Dexmedetomidine HCl 400 mcg in 100 mls @ 8.49 mls/hr 02/10/24 05:00 02/13/24 06:42 Precedex 400 Mcg/100 Ml IV CONT 0.4 mcg/kg/hr .[id number] KEEGAN 8.49 mls/hr Titration Protocol 0.4 MCG/KG/HR Magnesium Sulfate/Dextrose 3 gm in 100 mls @ 33.333 mls/hr 02/13/24 07:30 02/13/24 08:18 Magnesium Sulfate 3gm/[id number] IVPB 02/13/24 10:29 33.33 mls/hr ONCE ONE Administration Insulin Aspart 4 - 8 units 02/10/24 06:00 02/13/24 04:52 Insulin Aspart (*Bkc) 100 Units/Ml SUB-Q Not Given Q6HR KEEGAN Protocol Lisinopril 40 mg 02/12/24 09:00 02/13/24 08:19 Lisinopril 20 Mg Tablet PO 40 mg QAM KEEGAN Administration Lorazepam 2 mg 02/09/24 20:51 02/12/24 07:28 Lorazepam Inj (*Crx) 2 Mg/Ml Vial IV PUSH 2 mg Q2H PRN Administration CIWA > 15 Magnesium Citrate 300 ml 02/14/24 02:00 Magnesium Citrate 300 Ml Btl PO 02/14/24 02:01 ONCE ONE Pantoprazole Sodium 40 mg 02/10/24 21:00 02/13/24 08:19 Pantoprazole Sodium Iv 40 Mg Vial IV PUSH 40 mg Q12HR KEEGAN Administration Perflutren Lipid Microsphere 0 ml 02/11/24 07:32 Perflutren Lipid Microspheres 1.5 Ml Vial Diluted To 10 Ml Total Volume IV PUSH 02/14/24 07:33 ONCE PRN adequate visualization Protocol Polyethylene Glycol 238 gm 02/13/24 16:00 Polyethylene Glycol 3350 238 Gm Bottle PO 02/13/24 16:01 ONCE ONE Thiamine HCl 200 mg 02/10/24 09:00 02/13/24 08:19 Thiamine Hcl 200 Mg/2 Ml Vial IV PUSH 200 mg QAM KEEGAN Administration Radiology Results: ITS Impressions Chest X-Ray 02/09/24 20:58 IMPRESSION: 1. No acute cardiopulmonary disease. Abdomen/Pelvis CT 02/09/24 21:46 IMPRESSION: 1. Sigmoid diverticulitis. No perforation or abscess. 2. Cirrhosis of the liver with portal venous hypertension. Labs Labs: Laboratory Results - last 24 hr 02/12/24 02/12/24 02/12/24 11:49 16:49 21:59 WBC RBC Hgb Hct MCV MCH MCHC RDW Plt Count MPV Immature Gran % (Auto) Neut % (Auto) Lymph % (Auto) [place] % (Auto) Eos % (Auto) Baso % (Auto) Lymph # (Auto) [place] # (Auto) Eos # (Auto) Baso # (Auto) Abs Immat Gran (auto) Absolute Neuts (auto) Absolute Nucleated RBC Nucleated RBC % Platelet Estimate Hypochromasia Anisocytosis Schistocytes Sodium Potassium Chloride Carbon Dioxide Anion Gap BUN Creatinine Estim Creat Clear Calc Estimated GFR Glucose POC Capillary Glucose 120 H 122 H 132 H Calcium Phosphorus Magnesium Total Bilirubin AST ALT Alkaline Phosphatase Total Protein Albumin 02/13/24 03:25 WBC 9.3 RBC 3.30 L Hgb 8.0 L Hct 27.1 L MCV 82.1 MCH 24.2 L MCHC 29.5 L RDW 22.4 H Plt Count 232 MPV 10.0 Immature Gran % (Auto) 0.5 Neut % (Auto) 73.0 Lymph % (Auto) 18.7 [place] % (Auto) 5.2 Eos % (Auto) 2.0 Baso % (Auto) 0.6 Lymph # (Auto) 1.74 [place] # (Auto) 0.5 Eos # (Auto) 0.2 Baso # (Auto) 0.1 Abs Immat Gran (auto) 0.05 H Absolute Neuts (auto) 6.8 H Absolute Nucleated RBC 0.020 H Nucleated RBC % 0.2 Platelet Estimate Slightly increased Hypochromasia 1+ Anisocytosis 1+ Schistocytes None seen Sodium 137 Potassium 3.2 L Chloride 106 Carbon Dioxide 22 Anion Gap 9 BUN 3 L Creatinine 1.00 Estim Creat Clear Calc 75 Estimated GFR > 60 Glucose 122 H POC Capillary Glucose Calcium 7.7 L Phosphorus 2.8 Magnesium 1.6 Total Bilirubin 0.7 AST 50 ALT 29 Alkaline Phosphatase 109 Total Protein 7.0 Albumin 2.9 L
--- NOTE | 2024-02-13 11:15 | P.PNIM_ITS ---
Progress Note: A&P Assessment and Plan (1) Alcohol withdrawal: Code(s): F10.939 - Alcohol use, unspecified with withdrawal, unspecified Status: Acute Assessment and Plan: Patient presented to the ED with nausea, vomiting, diarrhea, tremors, tachycardia, tachypnea. Has top drinking for the last 24 hours prior to admission. Drinks 10 shots of whiskey per day -on admission, patient did have tremors, tachycardia, diaphoretic, tachypneic, had an elevated CIWA score -patient was given Ativan, thiamine, folic acid Was started on Precedex infusion has been weaned off but had to be restarted again. Continue to wean Precedex -continue Librium, folic acid and thiamine (2) Diverticulitis: Code(s): K57.92 - Diverticulitis of intestine, part unspecified, without perforation or abscess without bleeding Status: Acute Assessment and Plan: Patient presented with nausea, vomiting, diarrhea. Also left lower quadrant abdominal pain. 02/08: CT scan of the abdomen and pelvis showed sigmoid diverticulitis, no perforation no abscess. 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: without halfway use Qualified Code(s): E11.65 - Type 2 diabetes mellitus with hyperglycemia Code(s): E11.65 - Type 2 diabetes mellitus with hyperglycemia Status: Acute Assessment and Plan: Patient has a history of diabetes -continue Accu-Cheks and sliding scale insulin (4) Tobacco abuse: Code(s): Z72.0 - Tobacco use Status: Acute (5) Iron deficiency anemia: Qualifiers: Iron deficiency anemia type: unspecified iron deficiency Qualified Code(s): D50.9 - Iron deficiency anemia, unspecified Code(s): D50.9 - Iron deficiency anemia, unspecified Status: Acute Assessment and Plan: Patient with anemia, hemoglobin 9.6 which is lower than is usual hemoglobin which is 11-12 g/dL -iron panel consistent with iron deficiency anemia, folic acid and vitamin B12 levels within normal limits -hold home aspirin -patient on SCDs no chemoprophylaxis due to anemia -will monitor H&H and if it continues to drop w GI consulted. Underwent EGD 02/11/2024: Gastritis -continue Protonix IV q.12 hours -will place patient on IV Venofer for 3 days Colonoscopy planned on Wednesday (6) Electrolyte abnormality: Code(s): E87.8 - Other disorders of electrolyte and fluid balance, not elsewhere classified Status: Acute Assessment and Plan: Significantly low magnesium on admission <0.2 -patient was given 3 g of magnesium in the ER Repeat and monitor and replace as needed (7) Abnormal liver enzymes: Code(s): R74.8 - Abnormal levels of other serum enzymes Status: Acute Assessment and Plan: Elevated liver enzymes, likely related to alcoholic abuse -CT scan of the abdomen pelvis showed cirrhosis with portal venous hypertension -continue to trend liver enzyme (8) Hyperlipidemia: Code(s): E78.5 - Hyperlipidemia, unspecified Status: Acute Assessment and Plan: Will hold statin for now due to elevated liver enzymes (9) Hypertension: Qualifiers: Hypertension type: essential hypertension Qualified Code(s): I10 - Essential (primary) hypertension Code(s): I10 - Essential (primary) hypertension Status: Acute Assessment and Plan: Patient takes lisinopril-hydrochlorothiazide 20-12.5 mg -2 tablets daily -currently blood pressure stable will hold home medications Plan DVT prophylaxis: SCDs, no chemoprophylaxis due to anemia Stress ulcer prophylaxis: Protonix IV q.12 hours Nutrition: Heart healthy diet Code Status: Full code Subjective Date/time seen: 02/13/24 11:15 Interval history: No overnight events. Remains on Precedex drip. H&H remained stable. Review of Systems Review of Systems: All systems reviewed & are unremarkable except as noted in HPI and below Exam Narrative: General: Patient is calm, pleasantly confused, in no acute distress HEENT:? Pupils are equal and reactive, sclera is clear, moist oral mucosa Neck:? Supple Respiratory:? Clear to auscultation bilaterally, no wheezing Cardiac:? Paced rhythm Abdomen:? Soft, nondistended, normoactive bowel sounds, nontender Extremities:? No edema, palpable pedal pulses Neuro:? Patient is awake, alert confused conversant Skin:? Warm and dry Psych:, cooperative Objective Data Vital Signs Vital Signs: Vital Signs - 24 hr 02/12/24 12:00 02/12/24 12:00 02/12/24 12:20 Temperature 97.6 F Pulse Rate 60 60 60 Pulse Rate [Monitor] Respiratory Rate 29 H 18 Blood Pressure 120/80 Pulse Oximetry 98 Oxygen Delivery 02/12/24 12:20 02/12/24 12:00 02/12/24 12:00 Temperature Pulse Rate 60 60 Pulse Rate [Monitor] 60 Respiratory Rate 18 28 H Blood Pressure Pulse Oximetry Oxygen Delivery 02/12/24 14:00 02/12/24 14:00 02/12/24 14:00 Temperature Pulse Rate 60 60 60 Pulse Rate [Monitor] Respiratory Rate 25 H 16 Blood Pressure 109/67 Pulse Oximetry 99 Oxygen Delivery 02/12/24 15:58 02/12/24 16:00 02/12/24 16:00 Temperature 97.9 F Pulse Rate 60 66 Pulse Rate [Monitor] 65 Respiratory Rate 18 Blood Pressure 147/79 H Pulse Oximetry 99 Oxygen Delivery 02/12/24 16:00 02/12/24 18:00 02/12/24 18:00 Temperature Pulse Rate 60 60 60 Pulse Rate [Monitor] Respiratory Rate 16 26 H Blood Pressure Pulse Oximetry Oxygen Delivery 02/12/24 18:00 02/12/24 20:00 02/12/24 20:00 Temperature Pulse Rate 60 60 60 Pulse Rate [Monitor] Respiratory Rate 26 H 25 H Blood Pressure 145/88 H Pulse Oximetry 98 Oxygen Delivery 02/12/24 20:00 02/12/24 21:46 02/12/24 22:01 Temperature 97.8 F Pulse Rate 60 60 60 Pulse Rate [Monitor] Respiratory Rate 25 H 28 H 28 H Blood Pressure 111/71 Pulse Oximetry 98 Oxygen Delivery 02/12/24 22:00 02/12/24 21:32 02/13/24 00:00 Temperature Pulse Rate 60 60 Pulse Rate [Monitor] Respiratory Rate 19 Blood Pressure 140/84 Pulse Oximetry 98 98 Oxygen Delivery Room Air 02/13/24 00:00 02/13/24 00:00 02/13/24 02:00 Temperature 97.9 F Pulse Rate 60 61 62 Pulse Rate [Monitor] Respiratory Rate 19 19 Blood Pressure 111/78 Pulse Oximetry 100 Oxygen Delivery 02/13/24 02:00 02/13/24 04:00 02/13/24 04:00 Temperature Pulse Rate 62 60 Pulse Rate [Monitor] 60 Respiratory Rate 33 H Blood Pressure 129/82 Pulse Oximetry 100 Oxygen Delivery 02/13/24 04:00 02/13/24 02:00 02/13/24 04:00 Temperature 98.3 F Pulse Rate 60 60 60 Pulse Rate [Monitor] Respiratory Rate 28 H 33 H 29 H Blood Pressure 149/93 H Pulse Oximetry 97 Oxygen Delivery 02/13/24 05:50 02/13/24 06:17 02/13/24 06:17 Temperature Pulse Rate 60 60 60 Pulse Rate [Monitor] Respiratory Rate 25 H 28 H 28 H Blood Pressure Pulse Oximetry Oxygen Delivery 02/13/24 06:00 02/13/24 06:42 02/13/24 06:00 Temperature Pulse Rate 60 60 60 Pulse Rate [Monitor] Respiratory Rate 27 H 31 H Blood Pressure 142/76 H Pulse Oximetry 100 Oxygen Delivery 02/13/24 10:17 Temperature Pulse Rate Pulse Rate [Monitor] Respiratory Rate Blood Pressure Pulse Oximetry 98 Oxygen Delivery Room Air Intake/Output Intake/Output: Intake & Output 02/10/24 02/11/24 02/12/24 02/13/24 23:59 23:59 23:59 23:59 Intake Total 4313.2 2546.6 1223.8 536.1 Output Total 200 400 205 6239 Balance 4113.2 1796.6 323.8 -563.9 Meds/Results Medications: Active Medications Generic Name Dose Route Start Last Admin Trade Name Freq PRN Reason Stop Dose Admin Bisacodyl 20 mg 02/13/24 18:00 Bisacodyl 5 Mg Tablet Ec PO 02/13/24 18:01 ONCE ONE Chlordiazepoxide HCl 50 mg 02/11/24 00:00 02/13/24 05:49 Chlordiazepoxide (*Crx) 25 Mg Capsule PO 50 mg Q6H KEEGAN Administration Dextrose 12.5 gm 02/10/24 02:41 Dextrose 50% 25 Gm/50 Ml Syringe IV PUSH PRN PRN Hypoglycemia Protocol Folic Acid 1 mg 02/10/24 09:00 02/13/24 08:18 Folic Acid 1 Mg/0.2 Ml Inj IV PUSH 1 mg QAM KEEGAN Administration Glucagon 1 mg 02/10/24 02:41 Glucagon For Inj 1 Mg Vial IM PRN PRN Hypoglycemia Protocol Glucose 15 gm 02/10/24 02:41 Glucose Oral Gel 15 Gm Of Glucse In 37.5 Gm Tube PO PRN PRN Hypoglycemia Protocol Hydrochlorothiazide 25 mg 02/12/24 09:00 02/13/24 08:19 Hydrochlorothiazide 25 Mg Tablet PO 25 mg QAM KEEGAN Administration Piperacillin/Tazobactam/Dextrose 3.375 gm in 50 mls @ 100 mls/hr 02/10/24 04:00 02/13/24 04:02 Zosyn 3.375 Gm/Ns 50 Ml IVPB 100 mls/hr Q6H KEEGAN Administration Dextrose 1,000 mls @ 100 mls/hr 02/10/24 02:41 Dextrose 5% 1,000 Ml IVPB PRN PRN Hypoglycemia Protocol Dexmedetomidine HCl 400 mcg in 100 mls @ 8.49 mls/hr 02/10/24 05:00 02/13/24 06:42 Precedex 400 Mcg/100 Ml IV CONT 0.4 mcg/kg/hr .[id number] EKEGAN 8.49 mls/hr Titration Protocol 0.4 MCG/KG/HR Insulin Aspart 4 - 8 units 02/10/24 06:00 02/13/24 04:52 Insulin Aspart (*Bkc) 100 Units/Ml SUB-Q Not Given Q6HR KEEGAN Protocol Lisinopril 40 mg 02/12/24 09:00 02/13/24 08:19 Lisinopril 20 Mg Tablet PO 40 mg QAM KEEGAN Administration Lorazepam 2 mg 02/09/24 20:51 02/12/24 07:28 Lorazepam Inj (*Crx) 2 Mg/Ml Vial IV PUSH 2 mg Q2H PRN Administration CIWA > 15 Magnesium Citrate 300 ml 02/14/24 02:00 Magnesium Citrate 300 Ml Btl PO 02/14/24 02:01 ONCE ONE Pantoprazole Sodium 40 mg 02/10/24 21:00 02/13/24 08:19 Pantoprazole Sodium Iv 40 Mg Vial IV PUSH 40 mg Q12HR KEEGAN Administration Perflutren Lipid Microsphere 0 ml 02/11/24 07:32 Perflutren Lipid Microspheres 1.5 Ml Vial Diluted To 10 Ml Total Volume IV PUSH 02/14/24 07:33 ONCE PRN adequate visualization Protocol Polyethylene Glycol 238 gm 02/13/24 16:00 Polyethylene Glycol 3350 238 Gm Bottle PO 02/13/24 16:01 ONCE ONE Thiamine HCl 200 mg 02/10/24 09:00 02/13/24 08:19 Thiamine Hcl 200 Mg/2 Ml Vial IV PUSH 200 mg QAM KEEGAN Administration Radiology Results: ITS Impressions Chest X-Ray 02/09/24 20:58 IMPRESSION: 1. No acute cardiopulmonary disease. Abdomen/Pelvis CT 02/09/24 21:46 IMPRESSION: 1. Sigmoid diverticulitis. No perforation or abscess. 2. Cirrhosis of the liver with portal venous hypertension. Labs Labs: Laboratory Results - last 24 hr 02/12/24 02/12/24 02/12/24 11:49 16:49 21:59 WBC RBC Hgb Hct MCV MCH MCHC RDW Plt Count MPV Immature Gran % (Auto) Neut % (Auto) Lymph % (Auto) [place] % (Auto) Eos % (Auto) Baso % (Auto) Lymph # (Auto) [place] # (Auto) Eos # (Auto) Baso # (Auto) Abs Immat Gran (auto) Absolute Neuts (auto) Absolute Nucleated RBC Nucleated RBC % Platelet Estimate Hypochromasia Anisocytosis Schistocytes Sodium Potassium Chloride Carbon Dioxide Anion Gap BUN Creatinine Estim Creat Clear Calc Estimated GFR Glucose POC Capillary Glucose 120 H 122 H 132 H Calcium Phosphorus Magnesium Total Bilirubin AST ALT Alkaline Phosphatase Total Protein Albumin 02/13/24 03:25 WBC 9.3 RBC 3.30 L Hgb 8.0 L Hct 27.1 L MCV 82.1 MCH 24.2 L MCHC 29.5 L RDW 22.4 H Plt Count 232 MPV 10.0 Immature Gran % (Auto) 0.5 Neut % (Auto) 73.0 Lymph % (Auto) 18.7 [place] % (Auto) 5.2 Eos % (Auto) 2.0 Baso % (Auto) 0.6 Lymph # (Auto) 1.74 [place] # (Auto) 0.5 Eos # (Auto) 0.2 Baso # (Auto) 0.1 Abs Immat Gran (auto) 0.05 H Absolute Neuts (auto) 6.8 H Absolute Nucleated RBC 0.020 H Nucleated RBC % 0.2 Platelet Estimate Slightly increased Hypochromasia 1+ Anisocytosis 1+ Schistocytes None seen Sodium 137 Potassium 3.2 L Chloride 106 Carbon Dioxide 22 Anion Gap 9 BUN 3 L Creatinine 1.00 Estim Creat Clear Calc 75 Estimated GFR > 60 Glucose 122 H POC Capillary Glucose Calcium 7.7 L Phosphorus 2.8 Magnesium 1.6 Total Bilirubin 0.7 AST 50 ALT 29 Alkaline Phosphatase 109 Total Protein 7.0 Albumin 2.9 L
[2024-02-13] MEDS: polyethylene glycoL 3350 238 GM BOTTLE PO (15:52)
[2024-02-13 15:56] LABS: Toxigenic C. Diff NEGATIVE (NEGATIVE)
[2024-02-13] MEDS: BISACODYL 5 MG TABLET EC 20 MG PO (18:39)
[2024-02-14] VITALS (21 sets, daily range): BP systolic 90–139; BP diastolic 48–82; PULSE 58–128; RESP 19–33; TEMP 36.3–36.8; O2SAT 98–100
[2024-02-14] MEDS: MAGNESIUM CITRATE 300 ML BTL PO (01:11)
[2024-02-14] MEDS: PIPERACILLN/TAZ 3.375GM/NS50ML 3.375 GM/50 ML BAG IVPB ×4 (03:40→22:30)
[2024-02-14 04:55] LABS: Basophils Absolute Auto 0.1 K/mm3 (0.0-0.1); Basophils Percent Auto 0.4 % (0.2-1.2); Eosinophils Absolute Auto 0.3 K/mm3 (0-0.3); Eosinophils Percent Auto 2.5 % (0-4.4); Hematocrit 30.1 % (42.0-52.0); Hemoglobin 8.9 g/dL (14.0-18.0); Immature Granulocyte Absolute 0.09 K/mm3 (0.00-0.031); Immature Granulocyte Percent A 0.7 % (0-0.5); Lymphocytes Absolute Auto 1.71 K/mm3 (0.9-3.2); Lymphocytes Percent Auto 12.6 % (18.3-44.2); Mean Corpuscular HGB Conc 29.6 g/dl (32-36); Mean Corpuscular Hemoglobin 24.9 pg (26-34); Mean Corpuscular Volume 84.3 fl (80-100); Mean Platelet Volume 10.1 fl (7.4-10.4); Monocytes Absolute Auto 0.7 K/mm3 (0.1-0.6); Monocytes Percent Auto 5.2 % (2.6-8.5); Neutrophils Absolute Auto 10.6 K/mm3 (1.3-6.7); Neutrophils Percent Auto 78.6 % (45.5-73.1); Platelet Count Result 256 k/mm3 (150-375); Red Blood Count 3.57 M/mm3 (4.6-6.20); Red Cell Distribution Width 23.2 % (11.5-14.5); White Blood Count 13.5 K/mm3 (4.5-10.0)
[2024-02-14] MEDS: chlordiazePOXIDE (*CRX) 25 MG CAPSULE 50 MG PO ×4 (05:02→23:27)
[2024-02-14 05:10] LABS: Alanine Aminotransferase 26 U/L (6-50); Albumin Level 3.2 g/dL (3.5-5.1); Alkaline Phosphatase 113 U/L (38-126); Anion Gap 8 mmol/L (4-12); Aspartate Amino Transferase 35 U/L (17-59); Bilirubin,Total 0.7 mg/dL (0.2-1.3); Calcium 8.5 mg/dL (8.4-10.2); Carbon Dioxide 23 mmol/L (22-30); Chloride 107 mmol/L (98-107); Estimated CRCL calculation 75 ml/min; Estimated Glomerular Filt Rate > 60; Glucose 119 mg/dL (65-110); Magnesium 1.8 mg/dL (1.6-2.3); Phosphorus 2.8 mg/dL (2.5-4.5); Potassium 3.3 mmol/L (3.4-5.0); Sodium 138 mmol/L (137-145)
[2024-02-14 05:14] LABS: Blood Urea Nitrogen < 2 mg/dL (9-20)
[2024-02-14 06:01] LABS: Anisocytosis 1+; Platelet Estimate Adequate (Adequate); Schistocytes None Seen
[2024-02-14] MEDS: FOLIC ACID 1 MG/0.2 ML INJ IV PUSH (08:18)
[2024-02-14] MEDS: THIAMINE HCL 200 MG/2 ML VIAL IV PUSH (08:18)
[2024-02-14] MEDS: PANTOPRAZOLE SODIUM IV 40 MG VIAL IV PUSH ×2 (08:18→20:06)
[2024-02-14] MEDS: POTASSIUM CHLORIDE INJ 40 MEQ in SODIUM CHLORIDE 0.9% IV 500 ML 130 MEQ IVPB (08:18)
--- NOTE | 2024-02-14 08:27 | WPDINTPN ---
Progress Note: A&P Assessment and Plan (1) Alcohol withdrawal: Code(s): F10.939 - Alcohol use, unspecified with withdrawal, unspecified Status: Acute Assessment and Plan: Patient presented to the ED with nausea, vomiting, diarrhea, tremors, tachycardia, tachypnea. Has top drinking for the last 24 hours prior to admission. Drinks 10 shots of whiskey per day -on admission, patient did have tremors, tachycardia, diaphoretic, tachypneic, had an elevated CIWA score -patient was given Ativan, thiamine, folic acid -02/11: restarted on Precedex infusion overnight for agitation, anxiety, tremors, alcohol withdrawal, -02/13 Precedex weaned off clinically improved -continue Librium, folic acid and thiamine -continue p.r.n. Ativan (2) Diverticulitis: Code(s): K57.92 - Diverticulitis of intestine, part unspecified, without perforation or abscess without bleeding Status: Acute Assessment and Plan: Patient presented with nausea, vomiting, diarrhea. Also left lower quadrant abdominal pain. 02/08: CT scan of the abdomen and pelvis showed sigmoid diverticulitis, no perforation no abscess. 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 Qualified Code(s): E11.65 - Type 2 diabetes mellitus with hyperglycemia Code(s): E11.65 - Type 2 diabetes mellitus with hyperglycemia Status: Acute Assessment and Plan: Patient has a history of diabetes -continue Accu-Cheks and sliding scale insulin (4) Tobacco abuse: Code(s): Z72.0 - Tobacco use Status: Acute Assessment and Plan: Patient was counseled and encouraged to quit smoking and drinking alcohol (5) Iron deficiency anemia: Qualifiers: Iron deficiency anemia type: unspecified iron deficiency Qualified Code(s): D50.9 - Iron deficiency anemia, unspecified Code(s): D50.9 - Iron deficiency anemia, unspecified Status: Acute Assessment and Plan: Patient with anemia, hemoglobin 9.6 which is lower than is usual hemoglobin which is 11-12 g/dL -iron panel consistent with iron deficiency anemia, folic acid and vitamin B12 levels within normal limits -hold home aspirin -patient on SCDs no chemoprophylaxis due to anemia -will monitor H&H and if it continues to drop will have GI evaluate the patient -continue Protonix IV q.12 hours -02/10: Started on IV Venofer for 3 days -appreciate GI evaluation and recommendation 02/11/2024: EGD showed gastritis -hemoglobin remains stable - 02/13 patient is scheduled for colonoscopy today (6) Electrolyte abnormality: Code(s): E87.8 - Other disorders of electrolyte and fluid balance, not elsewhere classified Status: Acute Assessment and Plan: Potassium replacement ordered (7) Abnormal liver enzymes: Code(s): R74.8 - Abnormal levels of other serum enzymes Status: Acute Assessment and Plan: Elevated liver enzymes, likely related to alcoholic abuse -CT scan of the abdomen pelvis showed cirrhosis with portal venous hypertension -liver enzymes have normalized, continue to monitor (8) Hypertension: Qualifiers: Hypertension type: essential hypertension Qualified Code(s): I10 - Essential (primary) hypertension Code(s): I10 - Essential (primary) hypertension Status: Acute Assessment and Plan: Patient takes lisinopril-hydrochlorothiazide 20-12.5 mg -2 tablets daily -continue home lisinopril/HCTZ which are currently on hold for procedure Plan DVT prophylaxis: SCDs, no chemoprophylaxis due to anemia Stress ulcer prophylaxis: Protonix IV q.12 hours Nutrition: Heart healthy diet PT OT Code Status: Full code Transfer out ICU today Subjective Date/time seen: 02/14/24 Overnight events reviewed. Afebrile. On room air Complains of having loose bowel movements Denies any other complaints. All other systems were reviewed and were negative npo for colonoscopy Other Vitals acceptable Not on any Precedex infusion at this time Interval history: Reason for consult: Alcohol withdrawal, sepsis, sigmoid diverticulitis, electrolyte abnormalities 02/11/2024: EGD showed gastritis Review of Systems Review of Systems: All systems reviewed & are unremarkable except as noted in HPI and below Exam Narrative: General: Patient is calm, somnolent this morning, currently in no acute distress HEENT:? Pupils are equal and reactive, sclera is clear, Neck:? Supple Respiratory:? Clear to auscultation bilaterally, no wheezing Cardiac:? Paced rhythm Abdomen:? Soft, nondistended, normoactive bowel sounds, nontender Extremities:? No edema, palpable pedal pulses Neuro:? Alert awake come, answers to questions and follows simple commands, AO x3, no tremors Skin:? Warm and dry Psych:? Unable to assess as he is pretty somnolent this morning Objective Data Vital Signs Vital Signs: Vital Signs - 24 hr 02/13/24 10:17 02/13/24 10:00 02/13/24 12:00 Temperature Pulse Rate 60 60 Pulse Rate [Monitor] Respiratory Rate Blood Pressure Pulse Oximetry 98 Oxygen Delivery Room Air 02/13/24 10:00 02/13/24 12:00 02/13/24 14:00 Temperature 36.6 C Pulse Rate 60 60 60 Pulse Rate [Monitor] Respiratory Rate 29 H 23 H Blood Pressure 127/79 159/92 H Pulse Oximetry 100 100 Oxygen Delivery 02/13/24 14:00 02/13/24 10:00 02/13/24 12:00 Temperature Pulse Rate 60 60 60 Pulse Rate [Monitor] Respiratory Rate 18 29 H 23 H Blood Pressure 101/64 Pulse Oximetry 100 Oxygen Delivery 02/13/24 14:00 02/13/24 12:00 02/13/24 16:00 Temperature Pulse Rate 60 60 64 Pulse Rate [Monitor] Respiratory Rate 16 23 H 32 H Blood Pressure Pulse Oximetry 100 97 Oxygen Delivery Room Air Room Air 02/13/24 16:00 02/13/24 18:00 02/13/24 18:00 Temperature 36.6 C Pulse Rate 64 67 67 Pulse Rate [Monitor] Respiratory Rate 32 H 24 H Blood Pressure 94/55 L 112/61 Pulse Oximetry 97 100 Oxygen Delivery 02/13/24 16:00 02/13/24 18:00 02/13/24 20:00 Temperature Pulse Rate 64 67 73 Pulse Rate [Monitor] Respiratory Rate 32 H 24 H Blood Pressure Pulse Oximetry Oxygen Delivery 02/13/24 20:00 02/13/24 22:00 02/13/24 22:00 Temperature 36.5 C Pulse Rate 72 76 76 Pulse Rate [Monitor] Respiratory Rate 26 H 20 Blood Pressure 131/85 126/82 Pulse Oximetry 100 100 Oxygen Delivery 02/14/24 00:00 02/14/24 00:00 02/14/24 00:00 Temperature 36.8 C Pulse Rate 78 78 Pulse Rate [Monitor] 78 Respiratory Rate 22 H Blood Pressure 118/82 Pulse Oximetry 100 Oxygen Delivery 02/14/24 01:44 02/14/24 01:46 02/14/24 04:00 Temperature Pulse Rate 86 79 75 Pulse Rate [Monitor] Respiratory Rate 31 H Blood Pressure 129/80 Pulse Oximetry 100 Oxygen Delivery 02/14/24 04:00 02/14/24 04:00 02/13/24 20:00 Temperature 36.6 C Pulse Rate 75 72 Pulse Rate [Monitor] 75 Respiratory Rate 22 H 26 H Blood Pressure 116/76 Pulse Oximetry 100 Oxygen Delivery 02/13/24 22:00 02/14/24 00:00 02/14/24 05:26 Temperature Pulse Rate 76 78 60 Pulse Rate [Monitor] Respiratory Rate 20 22 H 27 H Blood Pressure Pulse Oximetry Oxygen Delivery 02/14/24 06:00 02/14/24 08:16 02/14/24 08:00 Temperature 36.8 C Pulse Rate 72 76 Pulse Rate [Monitor] Respiratory Rate 33 H 23 H Blood Pressure 107/68 125/80 Pulse Oximetry 100 100 100 Oxygen Delivery Room Air Intake/Output Intake/Output: Intake & Output 02/11/24 02/12/24 02/13/24 02/14/24 23:59 23:59 23:59 23:59 Intake Total 2546.6 1223.8 2917.5 602 Output Total 371 275 6853 2300 Balance 1796.6 323.8 767.5 -1698 Meds/Results Medications: Active Medications Generic Name Dose Route Start Last Admin Trade Name Freq PRN Reason Stop Dose Admin Chlordiazepoxide HCl 50 mg 02/11/24 00:00 02/14/24 05:02 Chlordiazepoxide (*Crx) 25 Mg Capsule PO 50 mg Q6H KEEGAN Administration Dextrose 12.5 gm 02/10/24 02:41 Dextrose 50% 25 Gm/50 Ml Syringe IV PUSH PRN PRN Hypoglycemia Protocol Folic Acid 1 mg 02/10/24 09:00 02/13/24 08:18 Folic Acid 1 Mg/0.2 Ml Inj IV PUSH 1 mg QAM KEEGAN Administration Glucagon 1 mg 02/10/24 02:41 Glucagon For Inj 1 Mg Vial IM PRN PRN Hypoglycemia Protocol Glucose 15 gm 02/10/24 02:41 Glucose Oral Gel 15 Gm Of Glucse In 37.5 Gm Tube PO PRN PRN Hypoglycemia Protocol Hydrochlorothiazide 25 mg 02/12/24 09:00 02/13/24 08:19 Hydrochlorothiazide 25 Mg Tablet PO 25 mg QAM KEEGAN Administration Piperacillin/Tazobactam/Dextrose 3.375 gm in 50 mls @ 100 mls/hr 02/10/24 04:00 02/14/24 04:29 Zosyn 3.375 Gm/Ns 50 Ml IVPB Infused Q6H KEEGAN Infusion Dextrose 1,000 mls @ 100 mls/hr 02/10/24 02:41 Dextrose 5% 1,000 Ml IVPB PRN PRN Hypoglycemia Protocol Potassium Chloride 40 meq/ 520 mls @ 130 mls/hr 02/14/24 07:48 Sodium Chloride IVPB 02/14/24 11:47 ONCE ONE Lisinopril 40 mg 02/12/24 09:00 02/13/24 08:19 Lisinopril 20 Mg Tablet PO 40 mg QAM KEEGAN Administration Lorazepam 2 mg 02/09/24 20:51 02/12/24 07:28 Lorazepam Inj (*Crx) 2 Mg/Ml Vial IV PUSH 2 mg Q2H PRN Administration CIWA > 15 Pantoprazole Sodium 40 mg 02/10/24 21:00 02/13/24 21:01 Pantoprazole Sodium Iv 40 Mg Vial IV PUSH 40 mg Q12HR KEEGAN Administration Thiamine HCl 200 mg 02/10/24 09:00 02/13/24 08:19 Thiamine Hcl 200 Mg/2 Ml Vial IV PUSH 200 mg QAM KEEGAN Administration Radiology Results: ITS Impressions Chest X-Ray 02/09/24 20:58 IMPRESSION: 1. No acute cardiopulmonary disease. Abdomen/Pelvis CT 02/09/24 21:46 IMPRESSION: 1. Sigmoid diverticulitis. No perforation or abscess. 2. Cirrhosis of the liver with portal venous hypertension. Labs Labs: Laboratory Results - last 24 hr 02/13/24 02/14/24 14:43 04:23 WBC 13.5 H RBC 3.57 L Hgb 8.9 L Hct 30.1 L MCV 84.3 MCH 24.9 L MCHC 29.6 L RDW 23.2 H Plt Count 256 MPV 10.1 Immature Gran % (Auto) 0.7 H Neut % (Auto) 78.6 H Lymph % (Auto) 12.6 L [place] % (Auto) 5.2 Eos % (Auto) 2.5 Baso % (Auto) 0.4 Lymph # (Auto) 1.71 [place] # (Auto) 0.7 H Eos # (Auto) 0.3 Baso # (Auto) 0.1 Abs Immat Gran (auto) 0.09 H Absolute Neuts (auto) 10.6 H Absolute Nucleated RBC 0.000 Nucleated RBC % 0.0 Platelet Estimate Adequate Anisocytosis 1+ Schistocytes None seen Sodium 138 Potassium 3.3 L Chloride 107 Carbon Dioxide 23 Anion Gap 8 BUN < 2 L Creatinine 1.00 Estim Creat Clear Calc 75 Estimated GFR > 60 Glucose 119 H Calcium 8.5 Phosphorus 2.8 Magnesium 1.8 Total Bilirubin 0.7 AST 35 ALT 26 Alkaline Phosphatase 113 Total Protein 7.0 Albumin 3.2 L C. difficile (PCR) Negative
--- NOTE | 2024-02-14 08:29 | PCOTNOTE ---
The patient treatment was not able to be completed. Patient out of the room for colonoscopy. Will plan to continue treatment per plan of care.
--- NOTE | 2024-02-14 08:31 | PC.NURSE ---
To GI Lab per wheelchair. IV x2. Report given to JAIRO Gill, Bedside handoff to Kiana.
--- NOTE | 2024-02-14 08:44 | PC.NURSE ---
Patient spouse/decision maker phoned nurse's station for updates on patient condition and plans for day. She also stressed her concerns with patient's father and mother (Reji and Janel Jc) visiting and has requested that they not be allowed to see Asad at this time while he is not completely oriented, as they are toxic and have caused issues during this admission. ICU bookkeeper receptionist desk notified of this request and to screen guests accordingly.
[2024-02-14] MEDS: LACTATED RINGERS 1,000 ML 150 ML IV CONT (08:55)
[2024-02-14 08:56] LABS: Glucose Point of Care 107 mg/dl (65-105)
--- NOTE | 2024-02-14 09:00 | WPDANESEPPF ---
Anes - Initial Pre Proc Eval Procedure: Operation Date: 02/11/24 15:00 Proposed Procedures p Esophagogastroduodenoscopy - John Ruiz MD Operation Date: 02/14/24 13:30 Proposed Procedures p Colonoscopy - Trent Sparks MD Date/Time: 02/14/24 09:00 Surgeon: Janny Harris MD Pre Op Diagnosis: Hypokalemia,hypomagnesemia, alchohol w/d, divertic Patient Data Age: 58 Gender: M Height: 1.8 m Weight: 88.9 kg Last Vital Signs Temp 36.5 C 02/14/24 08:30 Pulse 88 02/14/24 08:30 Resp 24 H 02/14/24 08:30 BP 117/74 02/14/24 08:30 Pulse Ox 100 02/14/24 08:30 O2 Del Method Room Air 02/14/24 08:30 O2 Flow Rate 10 02/11/24 14:24 Allergies Allergy/AdvReac Type Severity Reaction Status Date / Time ticagrelor Allergy Intermediate Blister Verified 02/11/24 13:29 hydrocodone AdvReac Intermediate Nausea Verified 02/11/24 13:29 oxycodone AdvReac Intermediate Nausea Verified 02/11/24 13:29 Home Medications Medication Instructions Recorded Confirmed Type aspirin 81 mg tablet,delayed 81 mg PO DAILY 06/02/19 02/10/24 History release (Aspir-) lisinopril 20 2 tablet PO DAILY 06/02/19 02/10/24 History mg-hydrochlorothiazide 12.5 mg tablet betamethasone dipropionate 0.05 % 1 applic topical HS PRN FLAREUP 07/13/19 02/10/24 History topical cream triamcinolone acetonide 0.1 % 1 applic topical DAILY PRN FLAREUP 07/13/19 02/10/24 History topical cream cyanocobalamin (vitamin B-12) 500 500 mcg PO DAILY 07/30/22 02/10/24 History mcg tablet (Vitamin B-12) ferrous gluconate 324 mg (37.5 mg 324 mg PO DAILY 07/30/22 02/10/24 History iron) tablet nifgozem-kop-kqznu acid 500 1 tablet PO DAILY 07/30/22 02/10/24 History mcg-lycopene 300 mcg-lutein 250 mcg tablet risankizumab-rzaa 150 mg/mL 150 mg subcut [id number] 07/30/22 02/10/24 History subcutaneous pen injector (Joannyruvaldoi) omeprazole 40 mg capsule,delayed 40 mg PO DAILY 02/10/24 02/10/24 History release Laboratory Tests 02/13/24 02/14/24 02/14/24 14:43 04:23 08:54 WBC 13.5 H K/mm3 (4.5-10.0) RBC 3.57 L M/mm3 (4.6-6.20) Hgb 8.9 L g/dL (14.0-18.0) Hct 30.1 L % (42.0-52.0) MCV 84.3 fl (80-100) MCH 24.9 L pg (26-34) MCHC 29.6 L g/dl (32-36) RDW 23.2 H % (11.5-14.5) Plt Count 256 k/mm3 (150-375) MPV 10.1 fl (7.4-10.4) Immature Gran % (Auto) 0.7 H % (0-0.5) Neut % (Auto) 78.6 H % (45.5-73.1) Lymph % (Auto) 12.6 L % (18.3-44.2) [place] % (Auto) 5.2 % (2.6-8.5) Eos % (Auto) 2.5 % (0-4.4) Baso % (Auto) 0.4 % (0.2-1.2) Lymph # (Auto) 1.71 K/mm3 (0.9-3.2) [place] # (Auto) 0.7 H K/mm3 (0.1-0.6) Eos # (Auto) 0.3 K/mm3 (0-0.3) Baso # (Auto) 0.1 K/mm3 (0.0-0.1) Abs Immat Gran (auto) 0.09 H K/mm3 (0.00-0.031) Absolute Neuts (auto) 10.6 H K/mm3 (1.3-6.7) Absolute Nucleated RBC 0.000 K/mm3 (0.0-0.012) Nucleated RBC % 0.0 % (0.0-0.2) Platelet Estimate Adequate (Adequate) Anisocytosis 1+ Schistocytes None seen Sodium 138 mmol/L (137-145) Potassium 3.3 L mmol/L (3.4-5.0) Chloride 107 mmol/L (98-107) Carbon Dioxide 23 mmol/L (22-30) Anion Gap 8 mmol/L (4-12) BUN < 2 L mg/dL (9-20) Creatinine 1.00 mg/dL (0.7-1.3) Estim Creat Clear Calc 75 ml/min Estimated GFR > 60 (59 - ) Glucose 119 H mg/dL (65-110) POC Capillary Glucose 107 H mg/dl (65-105) Calcium 8.5 mg/dL (8.4-10.2) Phosphorus 2.8 mg/dL (2.5-4.5) Magnesium 1.8 mg/dL (1.6-2.3) Total Bilirubin 0.7 mg/dL (0.2-1.3) AST 35 U/L (17-59) ALT 26 U/L (6-50) Alkaline Phosphatase 113 U/L (38-126) Total Protein 7.0 g/dL (6.3-8.2) Albumin 3.2 L g/dL (3.5-5.1) C. difficile (PCR) Negative (NEGATIVE) Patient hx anesthesia problems: none Family hx anesthesia problems: none Results Review: All pre-operative results and documents have been reviewed as part of the pre-operative evaluation. [facility] Past Medical History Medical History Anxiety CAD (coronary artery disease) Colon cancer screening Hyperlipidemia Hypertension Iron deficiency anemia Myocardial infarction Pacemaker Plaque psoriasis Tobacco abuse Type 2 diabetes mellitus with hyperglycemia Surgical History Surgical History History of back surgery Hx of appendectomy Stented coronary artery Family History Family History Mother Diabetes mellitus Father Hypertension Sibling Hypertension Social History Social History Smoking packs per day: 1 Smoking cigarettes per day: 20.0 Years smoked: 40 Smoking pack-years: 40.00 Smoking status: Current every day smoker Tobacco type: cigarettes Alcohol intake: current Drinks per week: 12 Alcohol use details: BEERS Substance use: current Substance use type: marijuana Do You Feel Safe in your Home?: Yes Lack of Transportation: No Lack of Food: Never True Current Housing: I Have Housing Concerned About Future Housing: No Difficulty Paying Gas/Electric Bills: No Difficulty Paying for Meds: No Currently Unemployed: No Education: Trade/Vocational Certificate Difficulty w/ Childcare or Family Care: No Living arrangements: with family Gender identity (if verbalized by the patient): Male Spiritual care concerns: No Agree to blood products: Yes Anes - Eval Final PreProcedure Day of Procedure 02/14/24 09:00 Patient weight: overweight Heart: regular rate and rhythm (paced) Lungs: clear to auscultation Airway: Mallampati scale class II Neurological: alert and oriented Last oral intake: >/= 8 hours ASA classification: IV Emergent: no Anesthetic plan: proceed Anesthesia type and monitoring: general GIVS and standard monitoring Results Review: All pre-operative results and documents have been reviewed as part of the pre-operative evaluation. Informed Consent: The patient's anesthetic plan and its attendant risks and benefits were discussed with the patient/family/POA. Questions were solicited and answers provided to the satisfaction of the patient/family/POA.
--- NOTE | 2024-02-14 09:27 | WPDGIPROGNO ---
Progress Note: A&P Assessment and Plan (1) Anemia: Qualifiers: Anemia type: unspecified type Qualified Code(s): D64.9 - Anemia, unspecified Code(s): D64.9 - Anemia, unspecified Status: Acute Plan The patient had an unremarkable EGD last Wednesday, except for mild gastritis. He is here for colonoscopy for the investigation of anemia and history of melena. Subjective Date/time seen: 02/14/24 09:27 Objective Data Vital Signs Vital Signs: Vital Signs - 24 hr 02/13/24 10:17 02/13/24 10:00 02/13/24 12:00 Temperature Pulse Rate 60 60 Pulse Rate [Monitor] Respiratory Rate Blood Pressure Pulse Oximetry 98 Oxygen Delivery Room Air 02/13/24 10:00 02/13/24 12:00 02/13/24 14:00 Temperature 97.8 F Pulse Rate 60 60 60 Pulse Rate [Monitor] Respiratory Rate 29 H 23 H Blood Pressure 127/79 159/92 H Pulse Oximetry 100 100 Oxygen Delivery 02/13/24 14:00 02/13/24 10:00 02/13/24 12:00 Temperature Pulse Rate 60 60 60 Pulse Rate [Monitor] Respiratory Rate 18 29 H 23 H Blood Pressure 101/64 Pulse Oximetry 100 Oxygen Delivery 02/13/24 14:00 02/13/24 12:00 02/13/24 16:00 Temperature Pulse Rate 60 60 64 Pulse Rate [Monitor] Respiratory Rate 16 23 H 32 H Blood Pressure Pulse Oximetry 100 97 Oxygen Delivery Room Air Room Air 02/13/24 16:00 02/13/24 18:00 02/13/24 18:00 Temperature 98 F Pulse Rate 64 67 67 Pulse Rate [Monitor] Respiratory Rate 32 H 24 H Blood Pressure 94/55 L 112/61 Pulse Oximetry 97 100 Oxygen Delivery 02/13/24 16:00 02/13/24 18:00 02/13/24 20:00 Temperature Pulse Rate 64 67 73 Pulse Rate [Monitor] Respiratory Rate 32 H 24 H Blood Pressure Pulse Oximetry Oxygen Delivery 02/13/24 20:00 02/13/24 22:00 02/13/24 22:00 Temperature 97.7 F Pulse Rate 72 76 76 Pulse Rate [Monitor] Respiratory Rate 26 H 20 Blood Pressure 131/85 126/82 Pulse Oximetry 100 100 Oxygen Delivery 02/14/24 00:00 02/14/24 00:00 02/14/24 00:00 Temperature 98.2 F Pulse Rate 78 78 Pulse Rate [Monitor] 78 Respiratory Rate 22 H Blood Pressure 118/82 Pulse Oximetry 100 Oxygen Delivery 02/14/24 01:44 02/14/24 01:46 02/14/24 04:00 Temperature Pulse Rate 86 79 75 Pulse Rate [Monitor] Respiratory Rate 31 H Blood Pressure 129/80 Pulse Oximetry 100 Oxygen Delivery 02/14/24 04:00 02/14/24 04:00 02/13/24 20:00 Temperature 97.9 F Pulse Rate 75 72 Pulse Rate [Monitor] 75 Respiratory Rate 22 H 26 H Blood Pressure 116/76 Pulse Oximetry 100 Oxygen Delivery 02/13/24 22:00 02/14/24 00:00 02/14/24 05:26 Temperature Pulse Rate 76 78 60 Pulse Rate [Monitor] Respiratory Rate 20 22 H 27 H Blood Pressure Pulse Oximetry Oxygen Delivery 02/14/24 06:00 02/14/24 08:16 02/14/24 08:00 Temperature 98.2 F Pulse Rate 72 76 Pulse Rate [Monitor] Respiratory Rate 33 H 23 H Blood Pressure 107/68 125/80 Pulse Oximetry 100 100 100 Oxygen Delivery Room Air 02/14/24 08:30 Temperature 97.7 F Pulse Rate 88 Pulse Rate [Monitor] Respiratory Rate 24 H Blood Pressure 117/74 Pulse Oximetry 100 Oxygen Delivery Room Air Intake/Output Intake/Output: Intake & Output 02/11/24 02/12/24 02/13/24 02/14/24 23:59 23:59 23:59 23:59 Intake Total 2546.6 1223.8 2917.5 602 Output Total 204 555 9305 2300 Balance 1796.6 323.8 7.5 -4646 Meds/Results Medications: Active Medications Generic Name Dose Route Start Last Admin Trade Name Freq PRN Reason Stop Dose Admin Chlordiazepoxide HCl 50 mg 02/11/24 00:00 02/14/24 05:02 Chlordiazepoxide (*Crx) 25 Mg Capsule PO 50 mg Q6H KEEGAN Administration Dextrose 12.5 gm 02/10/24 02:41 Dextrose 50% 25 Gm/50 Ml Syringe IV PUSH PRN PRN Hypoglycemia Protocol Folic Acid 1 mg 02/10/24 09:00 02/14/24 08:18 Folic Acid 1 Mg/0.2 Ml Inj IV PUSH 1 mg QAM KEEGAN Administration Glucagon 1 mg 02/10/24 02:41 Glucagon For Inj 1 Mg Vial IM PRN PRN Hypoglycemia Protocol Glucose 15 gm 02/10/24 02:41 Glucose Oral Gel 15 Gm Of Glucse In 37.5 Gm Tube PO PRN PRN Hypoglycemia Protocol Hydrochlorothiazide 25 mg 02/12/24 09:00 02/13/24 08:19 Hydrochlorothiazide 25 Mg Tablet PO 25 mg QAM KEEGAN Administration Piperacillin/Tazobactam/Dextrose 3.375 gm in 50 mls @ 100 mls/hr 02/10/24 04:00 02/14/24 04:29 Zosyn 3.375 Gm/Ns 50 Ml IVPB Infused Q6H KEEGAN Infusion Dextrose 1,000 mls @ 100 mls/hr 02/10/24 02:41 Dextrose 5% 1,000 Ml IVPB PRN PRN Hypoglycemia Protocol Potassium Chloride 40 meq/ 520 mls @ 130 mls/hr 02/14/24 07:48 02/14/24 08:18 Sodium Chloride IVPB 02/14/24 11:47 130 mls/hr ONCE ONE Administration Lactated Ringer's 1,000 mls @ 150 mls/hr 02/14/24 08:45 02/14/24 08:55 Lr - Lactated Ringers Iv IV CONT 150 mls/hr .Q6H40M KEEGAN Administration Lisinopril 40 mg 02/12/24 09:00 02/13/24 08:19 Lisinopril 20 Mg Tablet PO 40 mg QAM KEEGAN Administration Lorazepam 2 mg 02/09/24 20:51 02/12/24 07:28 Lorazepam Inj (*Crx) 2 Mg/Ml Vial IV PUSH 2 mg Q2H PRN Administration CIWA > 15 Pantoprazole Sodium 40 mg 02/10/24 21:00 02/14/24 08:18 Pantoprazole Sodium Iv 40 Mg Vial IV PUSH 40 mg Q12HR KEEGAN Administration Thiamine HCl 200 mg 02/10/24 09:00 02/14/24 08:18 Thiamine Hcl 200 Mg/2 Ml Vial IV PUSH 200 mg QAM KEEGAN Administration Radiology Results: ITS Impressions Chest X-Ray 02/09/24 20:58 IMPRESSION: 1. No acute cardiopulmonary disease. Abdomen/Pelvis CT 10/02/24 21:46 IMPRESSION: 1. Sigmoid diverticulitis. No perforation or abscess. 2. Cirrhosis of the liver with portal venous hypertension. Labs Labs: Laboratory Results - last 24 hr 02/13/24 02/14/24 02/14/24 14:43 04:23 08:54 WBC 13.5 H RBC 3.57 L Hgb 8.9 L Hct 30.1 L MCV 84.3 MCH 24.9 L MCHC 29.6 L RDW 23.2 H Plt Count 256 MPV 10.1 Immature Gran % (Auto) 0.7 H Neut % (Auto) 78.6 H Lymph % (Auto) 12.6 L [place] % (Auto) 5.2 Eos % (Auto) 2.5 Baso % (Auto) 0.4 Lymph # (Auto) 1.71 [place] # (Auto) 0.7 H Eos # (Auto) 0.3 Baso # (Auto) 0.1 Abs Immat Gran (auto) 0.09 H Absolute Neuts (auto) 10.6 H Absolute Nucleated RBC 0.000 Nucleated RBC % 0.0 Platelet Estimate Adequate Anisocytosis 1+ Schistocytes None seen Sodium 138 Potassium 3.3 L Chloride 107 Carbon Dioxide 23 Anion Gap 8 BUN < 2 L Creatinine 1.00 Estim Creat Clear Calc 75 Estimated GFR > 60 Glucose 119 H POC Capillary Glucose 107 H Calcium 8.5 Phosphorus 2.8 Magnesium 1.8 Total Bilirubin 0.7 AST 35 ALT 26 Alkaline Phosphatase 113 Total Protein 7.0 Albumin 3.2 L C. difficile (PCR) Negative
--- NOTE | 2024-02-14 09:44 | PCPTNOTE ---
The patient treatment was not able to be completed at this time due to patient out of room for colonoscopy. Will plan to continue treatment per plan of care.
--- NOTE | 2024-02-14 10:45 | PC.NURSE ---
Returned from GI Lab. Report received from JAIRO Carty.
--- NOTE | 2024-02-14 14:00 | PC.NURSE ---
Patient's father approached this RN while discharging another patient to personal vehicle at the hospital front entrance. Instructed father that it is not appropriate at this time to be discussing anything further and to contact patient or patient's directly for updates. Asad's level of orientation has been improving as the day has progressed and is answering appropriately with awareness of time. Patient's father followed this RN to the unit insisting on seeing his son as it is his legal right as his father Due to patient orientation being sound at this time, he was asked if he would like to see his father as he is here. He agreed to seeing his father. Visit concluded after approximately 30 minutes with no further incident. After the father left the room, this RN confirmed the patient's wishes that he would still like to see his father as his heart rate increased from 80s to 120s during his visit. He said yes. This RN instructed him to notify staff if he were to change his mind and we may discuss confidential/no visitors status this evening and asking father to leave if necessary. reporting manager and care coordination present for these discussions with patient and father. Claribel, patient's , updated and will be visiting this evening and apologized for the the situation.
--- NOTE | 2024-02-14 16:04 | P.PNIM_ITS ---
Progress Note: A&P Assessment and Plan (1) Alcohol withdrawal: Code(s): F10.939 - Alcohol use, unspecified with withdrawal, unspecified Status: Acute Assessment and Plan: Patient presented to the ED with nausea, vomiting, diarrhea, tremors, tachycardia, tachypnea. Has top drinking for the last 24 hours prior to admission. Drinks 10 shots of whiskey per day -on admission, patient did have tremors, tachycardia, diaphoretic, tachypneic, had an elevated CIWA score -patient was given Ativan, thiamine, folic acid Was started on Precedex infusion has been weaned off but had to be restarted again. off Precedex now. -continue Librium, folic acid and thiamine P.r.n. Ativan which usually in (2) Diverticulitis: Code(s): K57.92 - Diverticulitis of intestine, part unspecified, without perforation or abscess without bleeding Status: Acute Assessment and Plan: Patient presented with nausea, vomiting, diarrhea. Also left lower quadrant abdominal pain. 02/08: CT scan of the abdomen and pelvis showed sigmoid diverticulitis, no perforation no abscess. 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: Diabetes mellitus technician terminal and repeater insulin use: without technician terminal and repeater use Qualified Code(s): E11.65 - Type 2 diabetes mellitus with hyperglycemia Code(s): E11.65 - Type 2 diabetes mellitus with hyperglycemia Status: Acute Assessment and Plan: Patient has a history of diabetes -continue Accu-Cheks and sliding scale insulin (4) Tobacco abuse: Code(s): Z72.0 - Tobacco use Status: Acute (5) Iron deficiency anemia: Qualifiers: Iron deficiency anemia type: unspecified iron deficiency Qualified Code(s): D50.9 - Iron deficiency anemia, unspecified Code(s): D50.9 - Iron deficiency anemia, unspecified Status: Acute Assessment and Plan: Patient with anemia, hemoglobin 9.6 which is lower than is usual hemoglobin which is 11-12 g/dL -iron panel consistent with iron deficiency anemia, folic acid and vitamin B12 levels within normal limits -hold home aspirin -patient on SCDs no chemoprophylaxis due to anemia -will monitor H&H and if it continues to drop w GI consulted. Underwent EGD 02/11/2024: Gastritis -continue Protonix IV q.12 hours -will place patient on IV Venofer for 3 days Colonoscopy 02/14/2024: Cecal polyp diverticulosis without perforation or abscess without bleeding and second-degree hemorrhoids (6) Electrolyte abnormality: Code(s): E87.8 - Other disorders of electrolyte and fluid balance, not elsewhere classified Status: Acute Assessment and Plan: Significantly low magnesium on admission <0.2 -patient was given 3 g of magnesium in the ER Repeat and monitor and replace as needed (7) Abnormal liver enzymes: Code(s): R74.8 - Abnormal levels of other serum enzymes Status: Acute Assessment and Plan: Elevated liver enzymes, likely related to alcoholic abuse -CT scan of the abdomen pelvis showed cirrhosis with portal venous hypertension -continue to trend liver enzyme (8) Hyperlipidemia: Code(s): E78.5 - Hyperlipidemia, unspecified Status: Acute Assessment and Plan: Will hold statin for now due to elevated liver enzymes (9) Hypertension: Qualifiers: Hypertension type: essential hypertension Qualified Code(s): I10 - Essential (primary) hypertension Code(s): I10 - Essential (primary) hypertension Status: Acute Assessment and Plan: Patient takes lisinopril-hydrochlorothiazide 20-12.5 mg -2 tablets daily -currently blood pressure stable will hold home medications Plan DVT prophylaxis: SCDs, no chemoprophylaxis due to anemia Stress ulcer prophylaxis: Protonix IV q.12 hours Nutrition: Heart healthy diet Code Status: Full code Subjective Date/time seen: 02/14/24 16:04 Interval history: No overnight events. He has been off of Precedex drip. no nausea vomiting. No abdominal pain. Underwent colonoscopy today. Review of Systems Review of Systems: All systems reviewed & are unremarkable except as noted in HPI and below Exam Narrative: General: Patient is calm, pleasantly confused, in no acute distress HEENT:? Pupils are equal and reactive, sclera is clear, moist oral mucosa Neck:? Supple Respiratory:? Clear to auscultation bilaterally, no wheezing Cardiac:? Paced rhythm Tachycardic on telemetry sinus rhythm Abdomen:? Soft, nondistended, normoactive bowel sounds, nontender Extremities:? No edema, palpable pedal pulses Neuro:? Patient is awake, alert confused conversant Skin:? Warm and dry Psych:, cooperative Objective Data Vital Signs Vital Signs: Vital Signs - 24 hr 02/13/24 18:00 02/13/24 18:00 02/13/24 18:00 Temperature Pulse Rate 67 67 67 Pulse Rate [Monitor] Respiratory Rate 24 H 24 H Blood Pressure 112/61 Pulse Oximetry 100 Oxygen Delivery 02/13/24 20:00 02/13/24 20:00 02/13/24 22:00 Temperature 97.7 F Pulse Rate 73 72 76 Pulse Rate [Monitor] Respiratory Rate 26 H Blood Pressure 131/85 Pulse Oximetry 100 Oxygen Delivery 02/13/24 22:00 02/14/24 00:00 02/14/24 00:00 Temperature Pulse Rate 76 78 Pulse Rate [Monitor] 78 Respiratory Rate 20 Blood Pressure 126/82 Pulse Oximetry 100 Oxygen Delivery 02/14/24 00:00 02/14/24 01:44 02/14/24 01:46 Temperature 98.2 F Pulse Rate 78 86 79 Pulse Rate [Monitor] Respiratory Rate 22 H 31 H Blood Pressure 118/82 129/80 Pulse Oximetry 100 100 Oxygen Delivery 02/14/24 04:00 02/14/24 04:00 02/14/24 04:00 Temperature 97.9 F Pulse Rate 75 75 Pulse Rate [Monitor] 75 Respiratory Rate 22 H Blood Pressure 116/76 Pulse Oximetry 100 Oxygen Delivery 02/13/24 20:00 02/13/24 22:00 02/14/24 00:00 Temperature Pulse Rate 72 76 78 Pulse Rate [Monitor] Respiratory Rate 26 H 20 22 H Blood Pressure Pulse Oximetry Oxygen Delivery 02/14/24 05:26 02/14/24 06:00 02/14/24 08:16 Temperature Pulse Rate 60 72 Pulse Rate [Monitor] Respiratory Rate 27 H 33 H Blood Pressure 107/68 Pulse Oximetry 100 100 Oxygen Delivery Room Air 02/14/24 08:00 02/14/24 08:30 02/14/24 10:07 Temperature 98.2 F 97.7 F Pulse Rate 76 88 58 L Pulse Rate [Monitor] Respiratory Rate 23 H 24 H 19 Blood Pressure 125/80 117/74 125/71 Pulse Oximetry 100 100 99 Oxygen Delivery Room Air Room Air 02/14/24 08:00 02/14/24 09:57 02/14/24 10:17 Temperature Pulse Rate 71 72 77 Pulse Rate [Monitor] Respiratory Rate 19 23 H Blood Pressure 97/66 L 109/59 L Pulse Oximetry 100 100 Oxygen Delivery Room Air Room Air 02/14/24 08:00 02/14/24 08:00 02/14/24 12:00 Temperature Pulse Rate 107 H Pulse Rate [Monitor] 84 Respiratory Rate 23 H Blood Pressure 139/79 99/65 L Pulse Oximetry 98 Oxygen Delivery Room Air 02/14/24 12:00 02/14/24 12:00 02/14/24 14:00 Temperature Pulse Rate 127 H 128 H Pulse Rate [Monitor] Respiratory Rate Blood Pressure Pulse Oximetry Oxygen Delivery Room Air 02/14/24 14:00 Temperature 97.3 F L Pulse Rate 128 H Pulse Rate [Monitor] Respiratory Rate 22 H Blood Pressure 118/53 L Pulse Oximetry 99 Oxygen Delivery Intake/Output Intake/Output: Intake & Output 02/11/24 02/12/24 02/13/24 02/14/24 23:59 23:59 23:59 23:59 Intake Total 2546.6 1223.8 2917.5 1812.0 Output Total 483 316 8597 2300 Balance 1796.6 323.8 767.5 -488.0 Meds/Results Medications: Active Medications Generic Name Dose Route Start Last Admin Trade Name Freq PRN Reason Stop Dose Admin Chlordiazepoxide HCl 50 mg 02/11/24 00:00 02/14/24 11:58 Chlordiazepoxide (*Crx) 25 Mg Capsule PO 50 mg Q6H KEEGAN Administration Dextrose 12.5 gm 02/10/24 02:41 Dextrose 50% 25 Gm/50 Ml Syringe IV PUSH PRN PRN Hypoglycemia Protocol Folic Acid 1 mg 02/10/24 09:00 02/14/24 08:18 Folic Acid 1 Mg/0.2 Ml Inj IV PUSH 1 mg QAM KEEGAN Administration Glucagon 1 mg 02/10/24 02:41 Glucagon For Inj 1 Mg Vial IM PRN PRN Hypoglycemia Protocol Glucose 15 gm 02/10/24 02:41 Glucose Oral Gel 15 Gm Of Glucse In 37.5 Gm Tube PO PRN PRN Hypoglycemia Protocol Hydrochlorothiazide 25 mg 02/12/24 09:00 02/13/24 08:19 Hydrochlorothiazide 25 Mg Tablet PO 25 mg QAM KEEGAN Administration Piperacillin/Tazobactam/Dextrose 3.375 gm in 50 mls @ 100 mls/hr 02/10/24 04:00 02/14/24 11:02 Zosyn 3.375 Gm/Ns 50 Ml IVPB 02/16/24 23:59 Infused Q6H KEEGAN Infusion Dextrose 1,000 mls @ 100 mls/hr 02/10/24 02:41 Dextrose 5% 1,000 Ml IVPB PRN PRN Hypoglycemia Protocol Lisinopril 40 mg 02/12/24 09:00 02/13/24 08:19 Lisinopril 20 Mg Tablet PO 40 mg QAM KEEGAN Administration Lorazepam 2 mg 02/09/24 20:51 02/12/24 07:28 Lorazepam Inj (*Crx) 2 Mg/Ml Vial IV PUSH 2 mg Q2H PRN Administration CIWA > 15 Pantoprazole Sodium 40 mg 02/10/24 21:00 02/14/24 08:18 Pantoprazole Sodium Iv 40 Mg Vial IV PUSH 40 mg Q12HR KEEGAN Administration Thiamine HCl 200 mg 02/10/24 09:00 02/14/24 08:18 Thiamine Hcl 200 Mg/2 Ml Vial IV PUSH 200 mg QAM KEEGAN Administration Radiology Results: ITS Impressions Chest X-Ray 02/09/24 20:58 IMPRESSION: 1. No acute cardiopulmonary disease. Abdomen/Pelvis CT 02/09/24 21:46 IMPRESSION: 1. Sigmoid diverticulitis. No perforation or abscess. 2. Cirrhosis of the liver with portal venous hypertension. Labs Labs: Laboratory Results - last 24 hr 02/14/24 02/14/24 04:23 08:54 WBC 13.5 H RBC 3.57 L Hgb 8.9 L Hct 30.1 L MCV 84.3 MCH 24.9 L MCHC 29.6 L RDW 23.2 H Plt Count 256 MPV 10.1 Immature Gran % (Auto) 0.7 H Neut % (Auto) 78.6 H Lymph % (Auto) 12.6 L [place] % (Auto) 5.2 Eos % (Auto) 2.5 Baso % (Auto) 0.4 Lymph # (Auto) 1.71 [place] # (Auto) 0.7 H Eos # (Auto) 0.3 Baso # (Auto) 0.1 Abs Immat Gran (auto) 0.09 H Absolute Neuts (auto) 10.6 H Absolute Nucleated RBC 0.000 Nucleated RBC % 0.0 Platelet Estimate Adequate Anisocytosis 1+ Schistocytes None seen Sodium 138 Potassium 3.3 L Chloride 107 Carbon Dioxide 23 Anion Gap 8 BUN < 2 L Creatinine 1.00 Estim Creat Clear Calc 75 Estimated GFR > 60 Glucose 119 H POC Capillary Glucose 107 H Calcium 8.5 Phosphorus 2.8 Magnesium 1.8 Total Bilirubin 0.7 AST 35 ALT 26 Alkaline Phosphatase 113 Total Protein 7.0 Albumin 3.2 L
[2024-02-14 20:59] LABS: Glucose Point of Care 130 mg/dl (65-105)
[2024-02-15] VITALS (13 sets, daily range): BP systolic 96–128; BP diastolic 45–73; PULSE 71–93; RESP 18–24; TEMP 36.3–36.9; O2SAT 100
[2024-02-15] MEDS: PIPERACILLN/TAZ 3.375GM/NS50ML 3.375 GM/50 ML BAG IVPB ×2 (04:59→09:49)
[2024-02-15] MEDS: chlordiazePOXIDE (*CRX) 25 MG CAPSULE 50 MG PO ×3 (04:59→21:13)
[2024-02-15 05:35] LABS: Basophils Percent Auto 0.5 % (0.2-1.2); Eosinophils Absolute Auto 0.4 K/mm3 (0-0.3); Eosinophils Percent Auto 4.1 % (0-4.4); Hematocrit 26.9 % (42.0-52.0); Hemoglobin 7.9 g/dL (14.0-18.0); Immature Granulocyte Absolute 0.04 K/mm3 (0.00-0.031); Immature Granulocyte Percent A 0.5 % (0-0.5); Lymphocytes Absolute Auto 1.86 K/mm3 (0.9-3.2); Lymphocytes Percent Auto 21.1 % (18.3-44.2); Mean Corpuscular HGB Conc 29.4 g/dl (32-36); Mean Corpuscular Hemoglobin 25.2 pg (26-34); Mean Corpuscular Volume 85.9 fl (80-100); Mean Platelet Volume 10.7 fl (7.4-10.4); Monocytes Absolute Auto 0.6 K/mm3 (0.1-0.6); Monocytes Percent Auto 6.4 % (2.6-8.5); Neutrophils Absolute Auto 5.9 K/mm3 (1.3-6.7); Neutrophils Percent Auto 67.4 % (45.5-73.1); Platelet Count Result 251 k/mm3 (150-375); Red Blood Count 3.13 M/mm3 (4.6-6.20); Red Cell Distribution Width 23.8 % (11.5-14.5); White Blood Count 8.8 K/mm3 (4.5-10.0)
[2024-02-15 05:46] LABS: Alanine Aminotransferase 20 U/L (6-50); Alkaline Phosphatase 103 U/L (38-126); Anion Gap 10 mmol/L (4-12); Aspartate Amino Transferase 26 U/L (17-59); Bilirubin,Total 0.4 mg/dL (0.2-1.3); Blood Urea Nitrogen 3 mg/dL (9-20); Calcium 8.6 mg/dL (8.4-10.2); Carbon Dioxide 20 mmol/L (22-30); Chloride 111 mmol/L (98-107); Estimated CRCL calculation 75 ml/min; Estimated Glomerular Filt Rate > 60; Glucose 125 mg/dL (65-110); Magnesium 1.4 mg/dL (1.6-2.3); Potassium 3.2 mmol/L (3.4-5.0); Sodium 141 mmol/L (137-145)
[2024-02-15 06:22] LABS: Anisocytosis 1+; Hypochromasia 1+; Platelet Estimate Adequate (Adequate); Polychromasia 1+; Schistocytes None Seen
[2024-02-15 07:18] LABS: Glucose Point of Care 128 mg/dl (65-105)
[2024-02-15] MEDS: THIAMINE HCL 200 MG/2 ML VIAL IV PUSH (08:17)
[2024-02-15] MEDS: PANTOPRAZOLE SODIUM IV 40 MG VIAL IV PUSH (08:17)
[2024-02-15] MEDS: POTASSIUM CHLORIDE 20 MEQ ER TABLET 40 MEQ PO (09:49)
[2024-02-15] MEDS: MAGNESIUM SULF 2 GM/WATER 50ML 2 GM/50 ML BAG IVPB (09:49)
[2024-02-15] MEDS: FOLIC ACID 1 MG/0.2 ML INJ IV PUSH (09:49)
--- NOTE | 2024-02-15 10:27 | P.PNAN_ITS ---
Anes - Prog Note Post-Op Date/Time: 02/15/24 10:27 Cardiovascular status: other (anemia) Respiratory status: normal Airway patency: baseline Mental status: other (confusion, same level as yesterday prior to procedure) Post-Op hydration status: normal Vital Signs: Last Vital Signs Temp 36.4 C L 02/15/24 08:46 Pulse 79 02/15/24 09:38 Resp 24 H 02/15/24 08:46 BP 128/70 02/15/24 08:46 Pulse Ox 100 02/15/24 08:46 O2 Del Method Room Air 02/15/24 08:00 O2 Flow Rate 10 02/11/24 14:24 Pain Score (VAS): 0/10 I/O: Intake & Output 02/14/24 02/15/24 02/15/24 23:59 07:59 15:59 Intake Total 340 600 240 Output Total 450 Balance 340 150 240 Laboratory Tests 02/15/24 04:55 02/15/24 04:55 02/14/24 02/15/24 02/15/24 19:57 04:55 07:13 WBC 8.8 RBC 3.13 L Hgb 7.9 L Hct 26.9 L MCV 85.9 MCH 25.2 L MCHC 29.4 L RDW 23.8 H Plt Count 251 MPV 10.7 H Immature Gran % (Auto) 0.5 Neut % (Auto) 67.4 Lymph % (Auto) 21.1 [place] % (Auto) 6.4 Eos % (Auto) 4.1 Baso % (Auto) 0.5 Lymph # (Auto) 1.86 [place] # (Auto) 0.6 Eos # (Auto) 0.4 H Baso # (Auto) 0.0 Abs Immat Gran (auto) 0.04 H Absolute Neuts (auto) 5.9 Absolute Nucleated RBC 0.000 Nucleated RBC % 0.0 Platelet Estimate Adequate Polychromasia 1+ Hypochromasia 1+ Anisocytosis 1+ Schistocytes None seen Sodium 141 Potassium 3.2 L Chloride 111 H Carbon Dioxide 20 L Anion Gap 10 BUN 3 L Creatinine 1.00 Estim Creat Clear Calc 75 Estimated GFR > 60 Glucose 125 H POC Capillary Glucose 130 H 128 H Calcium 8.6 Magnesium 1.4 L Total Bilirubin 0.4 AST 26 ALT 20 Alkaline Phosphatase 103 Total Protein 7.0 Albumin 3.0 L Microbiology 02/09/24 22:10 Blood Blood Culture - Final 02/09/24 22:10 Blood Blood Culture - Final Post-procedural complaints: none Patient Feedback: Patient satisfied with anesthetic care.
[2024-02-15 12:17] LABS: Glucose Point of Care 149 mg/dl (65-105)
--- NOTE | 2024-02-15 14:04 | P.PNIM_ITS ---
Progress Note: A&P Assessment and Plan (1) Alcohol withdrawal: Code(s): F10.939 - Alcohol use, unspecified with withdrawal, unspecified Status: Acute Assessment and Plan: Patient presented to the ED with nausea, vomiting, diarrhea, tremors, tachycardia, tachypnea. Has top drinking for the last 24 hours prior to admission. Drinks 10 shots of whiskey per day -on admission, patient did have tremors, tachycardia, diaphoretic, tachypneic, had an elevated CIWA score -patient was given Ativan, thiamine, folic acid Was started on Precedex infusion has been weaned off but had to be restarted again. off Precedex now. -continue Librium, folic acid and thiamine P.r.n. Ativan CIWA score improving Will taper down Librium (2) Diverticulitis: Code(s): K57.92 - Diverticulitis of intestine, part unspecified, without perforation or abscess without bleeding Status: Acute Assessment and Plan: Patient presented with nausea, vomiting, diarrhea. Also left lower quadrant abdominal pain. 02/08: CT scan of the abdomen and pelvis showed sigmoid diverticulitis, no perforation no abscess. Cirrhosis of the liver with portal venous hypertension -02/08; blood cultures have been obtained and pending -started on Zosyn (02/08) switched to Augmentin for 3 more doses -pain control as needed -abdominal pain has improved (3) Type 2 diabetes mellitus with hyperglycemia: Qualifiers: Diabetes mellitus terminal superintendent insulin use: without terminal superintendent use Qualified Code(s): E11.65 - Type 2 diabetes mellitus with hyperglycemia Code(s): E11.65 - Type 2 diabetes mellitus with hyperglycemia Status: Acute Assessment and Plan: Patient has a history of diabetes -continue Accu-Cheks and sliding scale insulin (4) Tobacco abuse: Code(s): Z72.0 - Tobacco use Status: Acute (5) Iron deficiency anemia: Qualifiers: Iron deficiency anemia type: unspecified iron deficiency Qualified Code(s): D50.9 - Iron deficiency anemia, unspecified Code(s): D50.9 - Iron deficiency anemia, unspecified Status: Acute Assessment and Plan: Patient with anemia, hemoglobin 9.6 which is lower than is usual hemoglobin which is 11-12 g/dL -iron panel consistent with iron deficiency anemia, folic acid and vitamin B12 levels within normal limits -hold home aspirin -patient on SCDs no chemoprophylaxis due to anemia -will monitor H&H and if it continues to drop w GI consulted. Underwent EGD 02/11/2024: Gastritis -continue Protonix IV q.12 hours -will place patient on IV Venofer for 3 days Colonoscopy 02/14/2024: Cecal polyp diverticulosis without perforation or abscess without bleeding and second-degree hemorrhoids H&H remained stable (6) Electrolyte abnormality: Code(s): E87.8 - Other disorders of electrolyte and fluid balance, not elsewhere classified Status: Acute Assessment and Plan: Significantly low magnesium on admission <0.2 -patient was given 3 g of magnesium in the ER Repeat and monitor and replace as needed (7) Abnormal liver enzymes: Code(s): R74.8 - Abnormal levels of other serum enzymes Status: Acute Assessment and Plan: Elevated liver enzymes, likely related to alcoholic abuse -CT scan of the abdomen pelvis showed cirrhosis with portal venous hypertension -continue to trend liver enzyme (8) Hyperlipidemia: Code(s): E78.5 - Hyperlipidemia, unspecified Status: Acute Assessment and Plan: Will hold statin for now due to elevated liver enzymes (9) Hypertension: Qualifiers: Hypertension type: essential hypertension Qualified Code(s): I10 - Essential (primary) hypertension Code(s): I10 - Essential (primary) hypertension Status: Acute Assessment and Plan: Patient takes lisinopril-hydrochlorothiazide 20-12.5 mg -2 tablets daily -currently blood pressure stable will hold home medications Plan DVT prophylaxis: SCDs, no chemoprophylaxis due to anemia Stress ulcer prophylaxis: Protonix IV q.12 hours Nutrition: Heart healthy diet Code Status: Full code Disposition: Working with therapy. Need some rehabilitation unless improves in next day or 2. Which is anticipated. Re-evaluate PT in a.m.. DC if remains stable labs in a.m. Subjective Date/time seen: 02/15/24 14:04 Interval history: No overnight events. Working with therapy today. Feeling better. Denies any abdominal pain nausea vomiting shortness of breath or chest pain Review of Systems Review of Systems: All systems reviewed & are unremarkable except as noted in HPI and below Exam Narrative: General: Patient is calm, pleasantly confused, in no acute distress HEENT:? Pupils are equal and reactive, sclera is clear, moist oral mucosa Neck:? Supple Respiratory:? Clear to auscultation bilaterally, no wheezing Cardiac:? Paced rhythm Tachycardic on telemetry sinus rhythm Abdomen:? Soft, nondistended, normoactive bowel sounds, nontender Extremities:? No edema, palpable pedal pulses Neuro:? Patient is awake, alert confused conversant Skin:? Warm and dry Psych:, cooperative Objective Data Vital Signs Vital Signs: Vital Signs - 24 hr 02/14/24 16:00 02/14/24 17:00 02/14/24 16:00 Temperature 97.7 F 97.6 F Pulse Rate 113 H 108 H 117 H Pulse Rate [Monitor] Respiratory Rate 27 H 20 Blood Pressure 90/64 L 92/48 L Pulse Oximetry 98 100 Oxygen Delivery 02/14/24 16:00 02/14/24 18:00 02/14/24 18:00 Temperature Pulse Rate 114 H 109 H Pulse Rate [Monitor] Respiratory Rate Blood Pressure Pulse Oximetry Oxygen Delivery Room Air 02/14/24 20:11 02/14/24 20:00 02/14/24 22:00 Temperature 97.6 F Pulse Rate 92 87 86 Pulse Rate [Monitor] Respiratory Rate 20 Blood Pressure 107/64 Pulse Oximetry 100 Oxygen Delivery 02/14/24 20:00 02/14/24 23:41 02/14/24 23:53 Temperature 97.7 F Pulse Rate 75 Pulse Rate [Monitor] Respiratory Rate 20 Blood Pressure 106/60 Pulse Oximetry 100 Oxygen Delivery Room Air Room Air 02/15/24 00:00 02/15/24 02:00 02/15/24 04:00 Temperature Pulse Rate 80 85 Pulse Rate [Monitor] Respiratory Rate Blood Pressure Pulse Oximetry Oxygen Delivery Room Air 02/15/24 04:33 02/15/24 04:00 02/15/24 05:58 Temperature 97.7 F Pulse Rate 72 77 71 Pulse Rate [Monitor] Respiratory Rate 20 Blood Pressure 98/45 L Pulse Oximetry 100 Oxygen Delivery 02/15/24 08:00 02/15/24 08:46 02/15/24 08:00 Temperature 97.5 F L Pulse Rate 74 75 Pulse Rate [Monitor] 76 Respiratory Rate 24 H Blood Pressure 128/70 Pulse Oximetry 100 Oxygen Delivery 02/15/24 09:38 02/15/24 08:00 02/15/24 12:00 Temperature 98.1 F Pulse Rate 79 93 Pulse Rate [Monitor] Respiratory Rate 20 Blood Pressure 96/61 L Pulse Oximetry 100 100 Oxygen Delivery Room Air 02/15/24 12:00 Temperature Pulse Rate Pulse Rate [Monitor] 80 Respiratory Rate Blood Pressure Pulse Oximetry Oxygen Delivery Intake/Output Intake/Output: Intake & Output 02/12/24 02/13/24 02/14/24 02/15/24 23:59 23:59 23:59 23:59 Intake Total 1223.8 2917.5 2152.0 1130 Output Total 900 2150 2300 450 Balance 323.8 767.5 -148.0 680 Meds/Results Medications: Active Medications Generic Name Dose Route Start Last Admin Trade Name Freq PRN Reason Stop Dose Admin Amoxicillin/Clavulanate Potassium 1 tablet 02/15/24 19:00 Amoxicillin/Clavulanate K 875-125 Mg Tab PO 02/16/24 21:01 Q12HR KEEGAN Chlordiazepoxide HCl 50 mg 02/11/24 00:00 02/15/24 12:47 Chlordiazepoxide (*Crx) 25 Mg Capsule PO 50 mg Q6H KEEGAN Administration Dextrose 12.5 gm 02/10/24 02:41 Dextrose 50% 25 Gm/50 Ml Syringe IV PUSH PRN PRN Hypoglycemia Protocol Folic Acid 1 mg 02/10/24 09:00 02/15/24 09:49 Folic Acid 1 Mg/0.2 Ml Inj IV PUSH 1 mg QAM KEEGAN Administration Glucagon 1 mg 02/10/24 02:41 Glucagon For Inj 1 Mg Vial IM PRN PRN Hypoglycemia Protocol Glucose 15 gm 02/10/24 02:41 Glucose Oral Gel 15 Gm Of Glucse In 37.5 Gm Tube PO PRN PRN Hypoglycemia Protocol Hydrochlorothiazide 25 mg 02/12/24 09:00 02/13/24 08:19 Hydrochlorothiazide 25 Mg Tablet PO 25 mg QAM KEEGAN Administration Dextrose 1,000 mls @ 100 mls/hr 02/10/24 02:41 Dextrose 5% 1,000 Ml IVPB PRN PRN Hypoglycemia Protocol Insulin Aspart 4 - 8 units 02/15/24 08:00 02/15/24 12:47 Insulin Aspart (*Bkc) 100 Units/Ml SUB-Q Not Given TIDWM KEEGAN Protocol Insulin Aspart 2 - 4 units 02/14/24 21:00 02/14/24 20:01 Insulin Aspart (*Bkc) 100 Units/Ml SUB-Q Not Given HS [facility] Protocol Lisinopril 40 mg 02/12/24 09:00 02/13/24 08:19 Lisinopril 20 Mg Tablet PO 40 mg QAM KEEGAN Administration Lorazepam 2 mg 02/09/24 20:51 02/12/24 07:28 Lorazepam Inj (*Crx) 2 Mg/Ml Vial IV PUSH 2 mg Q2H PRN Administration CIWA > 15 Pantoprazole Sodium 40 mg 02/10/24 21:00 02/15/24 08:17 Pantoprazole Sodium Iv 40 Mg Vial IV PUSH 40 mg Q12HR KEEGAN Administration Thiamine HCl 200 mg 02/10/24 09:00 02/15/24 08:17 Thiamine Hcl 200 Mg/2 Ml Vial IV PUSH 200 mg QAM KEEGAN Administration Radiology Results: ITS Impressions Chest X-Ray 02/09/24 20:58 IMPRESSION: 1. No acute cardiopulmonary disease. Abdomen/Pelvis CT 02/09/24 21:46 IMPRESSION: 1. Sigmoid diverticulitis. No perforation or abscess. 2. Cirrhosis of the liver with portal venous hypertension. Labs Labs: Laboratory Results - last 24 hr 02/14/24 02/15/24 02/15/24 19:57 04:55 07:13 WBC 8.8 RBC 3.13 L Hgb 7.9 L Hct 26.9 L MCV 85.9 MCH 25.2 L MCHC 29.4 L RDW 23.8 H Plt Count 251 MPV 10.7 H Immature Gran % (Auto) 0.5 Neut % (Auto) 67.4 Lymph % (Auto) 21.1 [place] % (Auto) 6.4 Eos % (Auto) 4.1 Baso % (Auto) 0.5 Lymph # (Auto) 1.86 [place] # (Auto) 0.6 Eos # (Auto) 0.4 H Baso # (Auto) 0.0 Abs Immat Gran (auto) 0.04 H Absolute Neuts (auto) 5.9 Absolute Nucleated RBC 0.000 Nucleated RBC % 0.0 Platelet Estimate Adequate Polychromasia 1+ Hypochromasia 1+ Anisocytosis 1+ Schistocytes None seen Sodium 141 Potassium 3.2 L Chloride 111 H Carbon Dioxide 20 L Anion Gap 10 BUN 3 L Creatinine 1.00 Estim Creat Clear Calc 75 Estimated GFR > 60 Glucose 125 H POC Capillary Glucose 130 H 128 H Calcium 8.6 Magnesium 1.4 L Total Bilirubin 0.4 AST 26 ALT 20 Alkaline Phosphatase 103 Total Protein 7.0 Albumin 3.0 L 02/15/24 11:59 WBC RBC Hgb Hct MCV MCH MCHC RDW Plt Count MPV Immature Gran % (Auto) Neut % (Auto) Lymph % (Auto) [place] % (Auto) Eos % (Auto) Baso % (Auto) Lymph # (Auto) [place] # (Auto) Eos # (Auto) Baso # (Auto) Abs Immat Gran (auto) Absolute Neuts (auto) Absolute Nucleated RBC Nucleated RBC % Platelet Estimate Polychromasia Hypochromasia Anisocytosis Schistocytes Sodium Potassium Chloride Carbon Dioxide Anion Gap BUN Creatinine Estim Creat Clear Calc Estimated GFR Glucose POC Capillary Glucose 149 H Calcium Magnesium Total Bilirubin AST ALT Alkaline Phosphatase Total Protein Albumin
[2024-02-15 16:30] LABS: Glucose Point of Care 138 mg/dl (65-105)
--- NOTE | 2024-02-15 17:30 | PC.NURSE ---
This patient, Asad Jc, was received from IMU on 02/15/24 at 1730. Patient/family oriented to unit policies and routines
[2024-02-15] MEDS: AMOXICILLIN/CLAVULANATE K 875-125 MG TAB 1 TABLET PO (18:02)
[2024-02-15 20:44] LABS: Glucose Point of Care 161 mg/dl (65-105)
[2024-02-15] MEDS: PANTOPRAZOLE 40 MG TABLET PO (20:53)
[2024-02-16] MEDS: chlordiazePOXIDE (*CRX) 25 MG CAPSULE 50 MG PO (06:12)
[2024-02-16 06:23] LABS: Basophils Absolute Auto 0.1 K/mm3 (0.0-0.1); Basophils Percent Auto 0.8 % (0.2-1.2); Eosinophils Absolute Auto 0.4 K/mm3 (0-0.3); Eosinophils Percent Auto 5.2 % (0-4.4); Hematocrit 26.6 % (42.0-52.0); Hemoglobin 7.8 g/dL (14.0-18.0); Immature Granulocyte Absolute 0.04 K/mm3 (0.00-0.031); Immature Granulocyte Percent A 0.5 % (0-0.5); Lymphocytes Absolute Auto 1.52 K/mm3 (0.9-3.2); Lymphocytes Percent Auto 19.3 % (18.3-44.2); Mean Corpuscular HGB Conc 29.3 g/dl (32-36); Mean Corpuscular Hemoglobin 25.1 pg (26-34); Mean Corpuscular Volume 85.5 fl (80-100); Mean Platelet Volume 9.4 fl (7.4-10.4); Monocytes Absolute Auto 0.5 K/mm3 (0.1-0.6); Monocytes Percent Auto 5.7 % (2.6-8.5); Neutrophils Absolute Auto 5.4 K/mm3 (1.3-6.7); Neutrophils Percent Auto 68.5 % (45.5-73.1); Platelet Count Result 209 k/mm3 (150-375); Red Blood Count 3.11 M/mm3 (4.6-6.20); Red Cell Distribution Width 23.9 % (11.5-14.5); White Blood Count 7.9 K/mm3 (4.5-10.0)
[2024-02-16 06:31] LABS: Alanine Aminotransferase 17 U/L (6-50); Albumin Level 2.8 g/dL (3.5-5.1); Alkaline Phosphatase 89 U/L (38-126); Anion Gap 6 mmol/L (4-12); Aspartate Amino Transferase 29 U/L (17-59); Bilirubin,Total 0.3 mg/dL (0.2-1.3); Blood Urea Nitrogen 3 mg/dL (9-20); Calcium 8.4 mg/dL (8.4-10.2); Carbon Dioxide 23 mmol/L (22-30); Chloride 111 mmol/L (98-107); Estimated CRCL calculation 83 ml/min; Estimated Glomerular Filt Rate > 60; Glucose 122 mg/dL (65-110); Magnesium 1.3 mg/dL (1.6-2.3); Potassium 3.7 mmol/L (3.4-5.0); Sodium 140 mmol/L (137-145)
[2024-02-16 08:12] LABS: Glucose Point of Care 127 mg/dl (65-105)
[2024-02-16 08:27] LABS: Anisocytosis 1+; Hypochromasia 2+; Platelet Estimate Adequate (Adequate); Schistocytes None Seen
[2024-02-16 08:28] LABS: Microcytosis 1+ (NORMAL)
[2024-02-16 08:45] VITALS: BP 125/70
[2024-02-16] MEDS: MAGNESIUM SULF 2 GM/WATER 50ML 2 GM/50 ML BAG IVPB (08:45)
[2024-02-16] MEDS: AMOXICILLIN/CLAVULANATE K 875-125 MG TAB 1 TABLET PO (08:46)
[2024-02-16] MEDS: FOLIC ACID 1 MG TABLET PO (08:46)
[2024-02-16] MEDS: PANTOPRAZOLE 40 MG TABLET PO (08:46)
[2024-02-16] MEDS: THIAMINE HCL 100 MG TABLET PO (08:46)
[2024-02-16 12:10] LABS: Glucose Point of Care 127 mg/dl (65-105)
--- NOTE | 2024-02-16 12:12 | P.DS_ITS ---
DS: Admitting Diagnosis Discharge Date 02/16/24 Admitting Diagnosis Alcohol withdrawal DS: Discharge Diagnosis Discharge Diagnosis (1) Alcohol withdrawal: Code(s): F10.939 - Alcohol use, unspecified with withdrawal, unspecified Status: Acute (2) Diverticulitis: Code(s): K57.92 - Diverticulitis of intestine, part unspecified, without perforation or abscess without bleeding Status: Acute (3) Type 2 diabetes mellitus with hyperglycemia: Qualifiers: Diabetes mellitus detention insulin use: without long line teamster use Qualified Code(s): E11.65 - Type 2 diabetes mellitus with hyperglycemia Code(s): E11.65 - Type 2 diabetes mellitus with hyperglycemia Status: Acute (4) Tobacco abuse: Code(s): Z72.0 - Tobacco use Status: Acute (5) Iron deficiency anemia: Qualifiers: Iron deficiency anemia type: unspecified iron deficiency Qualified Code(s): D50.9 - Iron deficiency anemia, unspecified Code(s): D50.9 - Iron deficiency anemia, unspecified Status: Acute (6) Electrolyte abnormality: Code(s): E87.8 - Other disorders of electrolyte and fluid balance, not elsewhere classified Status: Acute (7) Abnormal liver enzymes: Code(s): R74.8 - Abnormal levels of other serum enzymes Status: Acute (8) Hyperlipidemia: Code(s): E78.5 - Hyperlipidemia, unspecified Status: Acute (9) Hypertension: Qualifiers: Hypertension type: essential hypertension Qualified Code(s): I10 - Essential (primary) hypertension Code(s): I10 - Essential (primary) hypertension Status: Acute DS: Summary Hospital Course Reason for hospitalization: 58yo male with hx for DM, HTN, HLD and alcoholism here for alcohol withdrawal. Please see H&P for details Hospital Course: Patient presented to the ED with nausea, vomiting, diarrhea, tremors, tachycardia, and tachypnea. His last alcoholic drink was 24 hours prior to ad mission. Drinks 10 shots of whiskey per day. He had an elevated CIWA score and was treated with Ativan, thiamine, folic acid. He was admitted to the ICU and was started on Precedex infusion. CIWA score improved and we were eventually able to wean off the Precedex. He was also on scheduled Librium and this as able to be weaned down as well. CT abdomen and pelvis (10/2) showed sigmoid diverticulitis but no perforation or abscess. Cirrhosis of the liver with portal venous hypertension noted. BCx negative. He was started on Zosyn (02/08) switched to Augmentin to complete a coarse. Patient with anemia with hemoglobin 9.6 which is lower than is usual hemoglobin which is 11-12 g/dL. Iron panel consistent with iron deficiency anemia. Folic acid and vitamin B12 levels within normal limits. Hgb dropped to the 7-8 range but there remained stable. GI was consulted and he underwent EGD 02/11/2024 which showed gastritis. H.pylori was negative. He was treated with Protonix IV q.12 hours. He also received IV Venofer for 3 days. CDiff was negative. Colonoscopy on 02/14/2024 showing cecal polyp, diverticulosis without perforation or abscess without bleeding and second-degree hemorrhoids. He did have significantly low magnesium on admission <0.2. This was replaced. He had elevated liver enzymes, likely related to alcoholic abuse. CT as above. LFTs improved. He was working with therapy walking with a walker with help but felt unsteady. His last dose of Ativan for breakthrough was 02/11. Skilled placement was arranged. He overall did well and was able to be discharged on 02/16/24. Status at Discharge Cognitive/behavioral status at discharge: stable Time Spent with Patient Time attestation: Total time spent providing and/or coordinating discharge services: 37 minutes Time spent: Greater than 30 minutes Exam Narrative: AF 98.4 125/70 83 18 100% ra Gen - NARD sitting at the side of the bed Chest - CTA bilaterally, nml RR CV - RRR S1/S2 with murmur USB Abd - Soft, protuberant, +BS Ext - No pedal edema Neuro - Alert and oriented x4. Psych - Nml mood and affect. no tremors Skin - Warm and dry DS: Data Data Completed and Pending Completed studies during hospitalization: Pending at discharge 02/14/24 09:53 Surgical [PTH] Routine Labs on day of discharge: Labs from last 24 hours 02/16/24 02/16/24 02/16/24 11:52 08:08 06:12 WBC 7.9 RBC 3.11 L Hgb 7.8 L Hct 26.6 L MCV 85.5 MCH 25.1 L MCHC 29.3 L RDW 23.9 H Plt Count 209 MPV 9.4 Immature Gran % (Auto) 0.5 Neut % (Auto) 68.5 Lymph % (Auto) 19.3 [place] % (Auto) 5.7 Eos % (Auto) 5.2 H Baso % (Auto) 0.8 Lymph # (Auto) 1.52 [place] # (Auto) 0.5 Eos # (Auto) 0.4 H Baso # (Auto) 0.1 Abs Immat Gran (auto) 0.04 H Absolute Neuts (auto) 5.4 Absolute Nucleated RBC 0.000 Nucleated RBC % 0.0 Platelet Estimate Adequate Hypochromasia 2+ Anisocytosis 1+ Microcytosis 1+ Schistocytes None seen Sodium 140 Potassium 3.7 Chloride 111 H Carbon Dioxide 23 Anion Gap 6 BUN 3 L Creatinine 0.90 Estim Creat Clear Calc 83 Estimated GFR > 60 Glucose 122 H POC Capillary Glucose 127 H 127 H Calcium 8.4 Magnesium 1.3 L Total Bilirubin 0.3 AST 29 ALT 17 Alkaline Phosphatase 89 Total Protein 6.0 L Albumin 2.8 L 02/15/24 02/15/24 02/15/24 19:41 16:04 11:59 WBC RBC Hgb Hct MCV MCH MCHC RDW Plt Count MPV Immature Gran % (Auto) Neut % (Auto) Lymph % (Auto) [place] % (Auto) Eos % (Auto) Baso % (Auto) Lymph # (Auto) [place] # (Auto) Eos # (Auto) Baso # (Auto) Abs Immat Gran (auto) Absolute Neuts (auto) Absolute Nucleated RBC Nucleated RBC % Platelet Estimate Hypochromasia Anisocytosis Microcytosis Schistocytes Sodium Potassium Chloride Carbon Dioxide Anion Gap BUN Creatinine Estim Creat Clear Calc Estimated GFR Glucose POC Capillary Glucose 161 H 138 H 149 H Calcium Magnesium Total Bilirubin AST ALT Alkaline Phosphatase Total Protein Albumin Discharge Plan Discharge Attending physician on discharge: Jc Theodore Consulting providers: Neelam Castañeda; John Ruiz Discharging Clinician: Jc Theodore Anticipated Discharge Date/Time: 02/16/24 12:28 Patient Disposition: Hospital Swing Bed Activity: as tolerated Diet: low fat Discharge Instructions: Transition to a high fiber diet over the next week. Check blood pressure 1 to 2 times a day. Record for the doctor's review. Take precautions to avoid falls. Rise slowly from a lying or sitting position. Pause before standing or walking. Contact the doctor if the patient has lightheadedness with standing or other worrisome symptoms. Avoid NSAIDs (ibuprofen, naproxen, Aleve). Tylenol is safe to take. Wean off Librium: 25mg Q8HR through 02/17 THEN 25mg Q12HR through 02/19 THEN 25mg QHS through 02/21 THEN stop Follow-up with the provider at the facility. Thank you for using [facility] for your health care needs. Patient Instructions: Antibiotic Form, Alcohol Withdrawal (GEN) Stand Alone Forms: General Discharge Information Follow-up/Referrals: Pierce Torres MD [Primary Care Provider] - Discharge Medications: New chlordiazepoxide HCl 25 mg Capsule 25 mg PO Q8HR Qty: 13 0RF Rx Instructions: 25mg Q8HR through 02/17 THEN 25mg Q12HR through 02/19 THEN 25mg QHS through 02/21 THEN stop folic acid 1 mg Tablet 1 mg PO DAILY Qty: 30 0RF thiamine HCl (vitamin B1) [Vitamin B-1] 100 mg Tablet 100 mg PO QAM Qty: 30 0RF amoxicillin-pot clavulanate 875-125 mg tablet 1 tablet PO Q12H Qty: 1 0RF Continued aspirin [Aspir-81] 81 mg Tablet,Delayed Release (Dr/Ec) 81 mg PO DAILY cyanocobalamin (vitamin B-12) [Vitamin B-12] 500 mcg Tablet 500 mcg PO DAILY Complete Multi 50+ 500-300-250 mcg Tablet 1 tablet PO DAILY ferrous gluconate 324 mg (37.5 mg iron) tablet 324 mg PO DAILY betamethasone dipropionate 0.05 % cream 1 applic TOPICAL HS PRN (Reason: FLAREUP) Rx Instructions: PSORIASIS FLARE UPS omeprazole 40 mg capsule,delayed release(DR/EC) 40 mg PO DAILY Held lisinopril-hydrochlorothiazide 20-12.5 mg Tablet 2 tablet PO DAILY Hold Instructions: HOLD - resume when okay with the provider Skyrizi 150 mg/mL pen injector 150 mg SUBCUT [id number] Hold Instructions: HOLD - resume when okay with the provider Patient Comments: NEXT INJECTION 08/11/2022 Rx Instructions: NEXT DOSE FEB 27 2024 Discontinued triamcinolone acetonide 0.1 % cream 1 applic TOPICAL DAILY PRN (Reason: FLAREUP) Rx Instructions: place on dry patches of PSORIASIS skin Date of admission: 02/10/24 09:25 Primary Care Provider: Pierce Torres Admitting Provider: Janny Harris Attending physician on admission: Janny Harris Condition: Improved Hospitalist MIPS Heart Failure (Exclusion) Patient has history of Heart Transplant or Left Ventricular Assistive Device?: No IF YES, STOP HERE Heart Failure (Qualifier) Patient has current or prior documentation of LVEF less than or equal to 40%, or mod/servere depressed LVSF?: No IF NO, STOP HERE
[2024-02-16 14:00] VITALS: BP 126/73; PULSE 93; RESP 16; TEMP 36.4; O2SAT 100
[2024-02-16] MEDS: chlordiazePOXIDE (*CRX) 25 MG CAPSULE PO (14:41)
[2024-02-16 17:20] LABS: Glucose Point of Care 139 mg/dl (65-105)
== END 2024-02-16 16:36 | disposition swing bed (61) | DRG 897 ==
LOC: ANHED 02-10 00:33 → ANHICU 02-10 02:46 → ANHIMU 02-14 16:50 → ANH2MED 02-15 17:38
PROVIDERS: Internal Medicine; Internal Medicine Gastroenterology; Admitting Provider Hospitalist; Emergency Provider Emergency Medicine; PCP Internal Medicine; Visit Provider Internal Medicine
PROC: 0DJ08ZZ Inspection of Upper Intestinal Tract, Via Natural or Artificial Opening Endoscopic (ICD-10-PCS; CPT 43235; principal; 2024-02-11 15:00)
PROC: 0DJD8ZZ Inspection of Lower Intestinal Tract, Via Natural or Artificial Opening Endoscopic (ICD-10-PCS; CPT 45378; principal; 2024-02-14 13:30)
DX: F10.139 Alcohol abuse with withdrawal, unspecified (principal); K57.32 Diverticulitis of large intestine without perforation or abscess without bleeding; K76.6 Portal hypertension; K92.0 Hematemesis; K92.1 Melena; D62 Acute posthemorrhagic anemia; K70.30 Alcoholic cirrhosis of liver without ascites; K29.60 Other gastritis without bleeding; K64.1 Second degree hemorrhoids; I25.10 Atherosclerotic heart disease of native coronary artery without angina pectoris; I10 Essential (primary) hypertension; D12.0 Benign neoplasm of cecum; D50.9 Iron deficiency anemia, unspecified; E87.6 Hypokalemia; E83.42 Hypomagnesemia; E88.09 Other disorders of plasma-protein metabolism, not elsewhere classified; E11.9 Type 2 diabetes mellitus without complications; E78.5 Hyperlipidemia, unspecified; F17.210 Nicotine dependence, cigarettes, uncomplicated; F41.9 Anxiety disorder, unspecified; I25.2 Old myocardial infarction; Z79.82 Long term (current) use of aspirin; Z95.0 Presence of cardiac pacemaker; Z95.5 Presence of coronary angioplasty implant and graft
CPT/HCPCS: 36415; 36600; 71045; 74177; 80048; 80053; 80307; 81001; 82010; 82607; 82746; 82805; 82948; 83540; 83550; 83605; 83690; 83735; 84100; 85014; 85018; 85025; 85610; 85730; 87040; 87081; 87493; 88305; 93005; 93306; 96361; 96365; 96366; 96367; 96375; 97110; 97116; 97161; 97165; 97530; 97535; 99285; A9270; J0171; J0613; J1100; J1644; J1756; J2003; J2060; J2371; J2405; J2470; J2543; J2704; J3411; J3475; J3480; J7030; J7040; J7042; J7120; Q9967

== ENCOUNTER 2024-02-16 17:24 | Inpatient (IN) | payer OTHER, SELFPAY ==
--- NOTE | ~2024-02-16 | XR_ITS ---
EXAMINATION: XR chest 1V portable DATE: 02/17/2024 09:56 INDICATION: Midsternal chest pain. TECHNIQUE: A single frontal view of the chest was obtained. COMPARISON: Chest single view 02/09/24 FINDINGS: There is no pneumonia, pleural effusion, or pneumothorax. The heart size is normal. There i s a left chest pacer leads in right antrum, right ventricle, and coronary sinus. IMPRESSION: 1. No acute cardiopulmonary disease. Reviewed, dictated and finalized at location A.
--- NOTE | 2024-02-16 17:25 | ADMGEN ---
This patient, Asad Jc, was admitted to 2nd Floor Room 209-1. Patient/family oriented to hospital policies and general routines including ID bracelet, bed and alarms, visiting hours, pain management, procedures, bathroom and other care routines, personal items, smoking policy, room service/diet, and visiting hours. Information on how to activate the Rapid Response Team has been discussed. Patient/Family are encouraged to report perceived risks to care and to ask questions if they do not understand what they are told or what they should do.
[2024-02-16 17:35] VITALS: PULSE 98; RESP 20; O2SAT 100
[2024-02-16 18:53] VITALS: BP 114/82; PULSE 98; RESP 20; TEMP 36.2; O2SAT 98
[2024-02-16 19:00] VITALS: BMI 26.4
[2024-02-16] MEDS: MELATONIN 5 MG TABLET PO (22:34)
[2024-02-16] MEDS: NICOTINE (*PBKC) 21 MG PATCH 1 PATCH TRANSDERM (22:34)
[2024-02-16] MEDS: chlordiazePOXIDE (*CRX) 25 MG CAPSULE PO (22:34)
[2024-02-16] MEDS: AMOXICILLIN/CLAVULANATE K 875-125 MG TAB 1 TABLET PO (22:34)
[2024-02-17] VITALS: BP 120/70; PULSE 77; RESP 20; TEMP 36.2; O2SAT 99
[2024-02-17 05:41] LABS: Glucose Point of Care 120 mg/dl (65-105)
[2024-02-17] MEDS: chlordiazePOXIDE (*CRX) 25 MG CAPSULE PO ×3 (06:18→21:13)
[2024-02-17 07:45] VITALS: BP 172/108; PULSE 85; RESP 18; TEMP 36.8; O2SAT 100
--- NOTE | 2024-02-17 07:45 | PC.NURSE ---
Pt called out stating he was having chest pain. Upon assessment, pt stated pain of 9/10 in chest for about 10 minutes. No radiation of pain. Pt breathing regular and unlabored. Vital signs taken. Cristine Lim NP notified. Pt to remain NPO until labs return.
--- NOTE | 2024-02-17 07:48 | ECG_ITS ---
Test Date: 2024-02-17 08:06:00 Measurements Intervals [place] Rate: 77 P: 74 DE: 138 QRS: -78 QRSD: 169 T: 100 QT: 461 QTc: 525 Interpretive Statements NORMAL SINUS RHYTHM WITH ATRIAL SENSING AND ELECTRONIC VENTRICULAR PACEMAKER ABNORMAL RHYTHM ECG Compared to ECG 02/09/2024 21:11:46 No significant changes Electronically Signed On 02-18-2024 12:41:29 CDT by London Matthews M.D.
[2024-02-17 08:05] LABS: Hematocrit 29.3 % (40.0-54.0); Hemoglobin 8.7 g/dL (14.0-18.0); Mean Corpuscular HGB Conc 29.7 g/dL (32-36); Mean Corpuscular Hemoglobin 24.9 pg (27.0-31.0); Mean Platelet Volume 9.5 fl (8.7-11.0); Platelet Count Result 224 K/mm3 (150-420); Red Blood Count 3.49 M/mm3 (4.70-6.10); Red Cell Distribution Width 24.5 % (11.6-14.4); White Blood Count 9.4 K/mm3 (4.8-10.8)
[2024-02-17] MEDS: ASPIRIN 81 MG CHEWABLE TABLET 324 MG PO (08:12)
[2024-02-17] MEDS: NITROGLYCERIN SL 0.4 MG TABLET SUBLINGUAL ×2 (08:13→08:29)
[2024-02-17 08:29] VITALS: BP 132/80; PULSE 78; RESP 13; O2SAT 97
[2024-02-17 08:38] LABS: Alanine Aminotransferase 21 U/L (16-63); Albumin Level 2.1 g/dL (3.4-5.0); Alkaline Phosphatase 105 U/L (46-116); Anion Gap 8 mmol/L (4-12); Aspartate Amino Transferase 23 U/L (15-37); Bilirubin,Total 0.4 mg/dL (0.00-1.00); Blood Urea Nitrogen 5 mg/dL (7-18); Calcium 8.8 mg/dL (8.5-10.1); Carbon Dioxide 27 mmol/L (21-32); Chloride 105 mmol/L (98-108); Estimated CRCL calculation 72 ml/min; Estimated Glomerular Filt Rate > 60; Glucose 128 mg/dL (70-99); Osmolality Calculated 289 mOsm/kg (285-295); Potassium 3.2 mmol/L (3.5-5.1); Sodium 140 mmol/L (136-145); Total Protein 6.6 g/dL (6.4-8.2)
[2024-02-17 08:38] LABS: Magnesium 1.4 mg/dL (1.8-2.4)
[2024-02-17 08:40] VITALS: BP 120/70; PULSE 88
[2024-02-17 08:54] LABS: Troponin I 6.9 ng/L (0.00-60.4)
--- NOTE | 2024-02-17 09:32 | PM.IMHP ---
H&P: HPI History of Present Illness Date/Time: 02/17/24 09:32 Chief Complaint: Deconditioned Narrative: Patient is a 58-year-old male who was transferred to [facility] bed for continued rehabilitation following admission to [facility] due to alcohol withdrawals. Patient had an extended hospital admission initially started in the ICU for alcohol withdrawals placed on Precedex infusion. Patient was found to also be anemic and was ruled out for GI bleed however it was found that patient alcoholic cirrhosis of the liver with portal hypertension. patient had also underwent a EGD showing gastritis and colonoscopy showing diverticulitis without perforation. patient has a past medical history of alcoholism, CAD, HLD, HTN, IA, pacemaker, diabetes, and iron deficiency anemia. patient had improved during his hospitalization and was weaned off Precedex and eventually transitioned to medical surgical unit he continued to work with therapy and was walking with a walker but still unsteady was determined patient would benefit from skilled placement and patient was discharged to [facility] swing bed for further rehabilitation. 02/17/2024 upon assessment of patient he had complaints pressure-like chest pain but denied any shortness of breath, nausea, radiation pain, or dizziness, at that time patient was found to have an elevated blood pressure but no diaphoresis, tachypnea, or acute distress and was reproducible. stat EKG showed unchanged from previous EKG and troponin was negative. I did administer 320 aspirin as well nitro SL which did give patient some relief and BP stabilized. patient with no further complaints of chest pain at this time. Review of Systems Review of Systems: slow to respond All systems reviewed & are unremarkable except as noted in HPI and below PMFSH Past Medical History Medical History Anemia Anxiety CAD (coronary artery disease) Colon cancer screening Hyperlipidemia Hypertension Iron deficiency anemia Myocardial infarction Pacemaker Plaque psoriasis Tobacco abuse Type 2 diabetes mellitus with hyperglycemia Surgical History Surgical History History of back surgery Hx of appendectomy Stented coronary artery Family History Family History Mother Diabetes mellitus Father Hypertension Sibling Hypertension Social History Social History Smoking packs per day: 1 Smoking cigarettes per day: 20.0 Years smoked: 40 Smoking pack-years: 40.00 Smoking status: Light tobacco smoker Tobacco type: cigarettes Second hand tobacco smoke exposure: No Alcohol intake: current Drinks per week: 50 Alcohol use details: BEERS Substance use: current Substance use type: marijuana Other substance usage details: Daily use Do You Feel Safe in your Home?: Yes Lack of Transportation: No Lack of Food: Never True Current Housing: I Do Not Have Housing Concerned About Future Housing: No Difficulty Paying Gas/Electric Bills: No Difficulty Paying for Meds: No Currently Unemployed: No Education: Associate Degree Difficulty w/ Childcare or Family Care: No Living arrangements: with family Gender identity (if verbalized by the patient): Male Spiritual care concerns: No Agree to blood products: Yes Meds Home Medications and Allergies Home Medications Medication Instructions Recorded Confirmed Type aspirin 81 mg tablet,delayed 81 mg PO DAILY 06/02/19 02/16/24 History release (Aspir-) lisinopril 20 2 tablet PO DAILY 06/02/19 02/16/24 History mg-hydrochlorothiazide 12.5 mg tablet betamethasone dipropionate 0.05 % 1 applic topical HS PRN FLAREUP 07/13/19 02/16/24 History topical cream cyanocobala
[2024-02-17] MEDS: NICOTINE (*PBKC) 21 MG PATCH 1 PATCH TRANSDERM (10:06)
[2024-02-17] MEDS: OPTI-GEN TAB 1 TABLET PO (10:07)
[2024-02-17] MEDS: MAGNESIUM OXIDE 400 MG TABLET PO ×2 (10:07→16:47)
[2024-02-17] MEDS: POTASSIUM CHLORIDE 20 MEQ ER TABLET 40 MEQ PO (10:07)
[2024-02-17] MEDS: FOLIC ACID 1 MG TABLET PO (10:08)
[2024-02-17] MEDS: CYANOCOBALAMIN 500 MCG TABLET PO (10:08)
[2024-02-17] MEDS: lisinopriL 20 MG TABLET 40 MG PO (10:08)
[2024-02-17] MEDS: FERROUS GLUCONATE 324 MG TABLET PO (10:08)
[2024-02-17] MEDS: hydroCHLOROthiazide 25 MG TABLET PO (10:08)
[2024-02-17] MEDS: PANTOPRAZOLE 40 MG TABLET PO ×2 (10:08→16:46)
[2024-02-17] MEDS: THIAMINE HCL 100 MG TABLET PO (10:09)
[2024-02-17 16:00] VITALS: BP 99/61; PULSE 91; RESP 17; TEMP 36.2; O2SAT 99
[2024-02-17] MEDS: MELATONIN 5 MG TABLET PO (21:13)
[2024-02-17 21:23] LABS: Glucose Point of Care 129 mg/dl (65-105)
[2024-02-18] VITALS: BP 90/57; PULSE 85; RESP 16; TEMP 36.4; O2SAT 97
[2024-02-18] MEDS: chlordiazePOXIDE (*CRX) 25 MG CAPSULE PO ×3 (06:28→22:10)
[2024-02-18 08:00] VITALS: BP 118/64; PULSE 87; RESP 18; TEMP 37.1; O2SAT 97
[2024-02-18 08:32] LABS: Anion Gap 8 mmol/L (4-12); Blood Urea Nitrogen 6 mg/dL (7-18); Calcium 9.2 mg/dL (8.5-10.1); Carbon Dioxide 26 mmol/L (21-32); Chloride 104 mmol/L (98-108); Estimated CRCL calculation 62 ml/min; Estimated Glomerular Filt Rate > 60; Glucose 127 mg/dL (70-99); Magnesium 1.2 mg/dL (1.8-2.4); Osmolality Calculated 285 mOsm/kg (285-295); Potassium 3.4 mmol/L (3.5-5.1); Sodium 138 mmol/L (136-145)
[2024-02-18] MEDS: THIAMINE HCL 100 MG TABLET PO (09:59)
[2024-02-18] MEDS: FOLIC ACID 1 MG TABLET PO (09:59)
[2024-02-18] MEDS: NICOTINE (*PBKC) 21 MG PATCH 1 PATCH TRANSDERM (09:59)
[2024-02-18] MEDS: PANTOPRAZOLE 40 MG TABLET PO ×2 (09:59→17:15)
[2024-02-18] MEDS: MAGNESIUM OXIDE 400 MG TABLET PO ×3 (09:59→17:15)
[2024-02-18] MEDS: FERROUS GLUCONATE 324 MG TABLET PO (09:59)
[2024-02-18] MEDS: ASPIRIN 81 MG ENTERIC TABLET PO (09:59)
[2024-02-18] MEDS: OPTI-GEN TAB 1 TABLET PO (09:59)
[2024-02-18] MEDS: CYANOCOBALAMIN 500 MCG TABLET PO (09:59)
--- NOTE | 2024-02-18 14:30 | P.PNCROSS_ITS ---
Event Note Event Note Event Note: Discontinued patient hydrochlorothiazide/Lisinopril and started low dose metop rolol.
[2024-02-18 16:00] VITALS: BP 103/61; PULSE 96; RESP 17; TEMP 36.3; O2SAT 93
[2024-02-18 22:10] VITALS: PULSE 74
[2024-02-18] MEDS: MELATONIN 5 MG TABLET PO (22:10)
[2024-02-18 22:12] LABS: Glucose Point of Care 111 mg/dl (65-105)
[2024-02-19] VITALS: BP 104/66; PULSE 74; RESP 16; TEMP 36.3; O2SAT 97
[2024-02-19 05:37] LABS: Anion Gap 7 mmol/L (4-12); Blood Urea Nitrogen 6 mg/dL (7-18); Carbon Dioxide 29 mmol/L (21-32); Chloride 103 mmol/L (98-108); Estimated CRCL calculation 61 ml/min; Estimated Glomerular Filt Rate 60; Glucose 124 mg/dL (70-99); Magnesium 1.1 mg/dL (1.8-2.4); Osmolality Calculated 286 mOsm/kg (285-295); Potassium 3.1 mmol/L (3.5-5.1); Sodium 139 mmol/L (136-145)
[2024-02-19 08:00] VITALS: BP 116/75; PULSE 73; RESP 16; TEMP 36.1; O2SAT 98
[2024-02-19] MEDS: NICOTINE (*PBKC) 21 MG PATCH 1 PATCH TRANSDERM (09:13)
[2024-02-19 09:14] VITALS: PULSE 73
[2024-02-19] MEDS: METOPROLOL TARTRATE 12.5 MG TABLET PO (09:14)
[2024-02-19] MEDS: FOLIC ACID 1 MG TABLET PO (09:14)
[2024-02-19] MEDS: OPTI-GEN TAB 1 TABLET PO (09:15)
[2024-02-19] MEDS: chlordiazePOXIDE (*CRX) 25 MG CAPSULE PO ×2 (09:15→20:20)
[2024-02-19] MEDS: MAGNESIUM OXIDE 400 MG TABLET PO ×2 (09:15→16:35)
[2024-02-19] MEDS: CYANOCOBALAMIN 500 MCG TABLET PO (09:16)
[2024-02-19] MEDS: FERROUS GLUCONATE 324 MG TABLET PO (09:16)
[2024-02-19] MEDS: THIAMINE HCL 100 MG TABLET PO (09:17)
[2024-02-19] MEDS: PANTOPRAZOLE 40 MG TABLET PO ×2 (09:17→16:35)
[2024-02-19] MEDS: ASPIRIN 81 MG ENTERIC TABLET PO (09:17)
[2024-02-19] MEDS: MAGNESIUM SULF 2 GM/WATER 50ML 2 GM/50 ML BAG IVPB (11:50)
[2024-02-19] MEDS: POTASSIUM CHLORIDE 20 MEQ ER TABLET 40 MEQ PO ×2 (11:50→16:34)
[2024-02-19 16:00] VITALS: BP 89/62; PULSE 81; RESP 16; TEMP 36.6; O2SAT 95
[2024-02-19 20:21] LABS: Glucose Point of Care 165 mg/dl (65-105)
[2024-02-19] MEDS: MELATONIN 5 MG TABLET PO (20:21)
[2024-02-19] MEDS: polyethylene glycoL 3350 17 GM POWD.PACK PO (20:21)
[2024-02-20] VITALS: BP 107/66; PULSE 90; RESP 16; TEMP 36.9; O2SAT 98
[2024-02-20 06:19] LABS: Anion Gap 8 mmol/L (4-12); Blood Urea Nitrogen 11 mg/dL (7-18); Calcium 8.7 mg/dL (8.5-10.1); Carbon Dioxide 27 mmol/L (21-32); Chloride 106 mmol/L (98-108); Estimated CRCL calculation 62 ml/min; Estimated Glomerular Filt Rate > 60; Glucose 113 mg/dL (70-99); Magnesium 1.4 mg/dL (1.8-2.4); Osmolality Calculated 292 mOsm/kg (285-295); Potassium 4.3 mmol/L (3.5-5.1); Sodium 141 mmol/L (136-145)
[2024-02-20 08:00] VITALS: BP 102/73; PULSE 83; RESP 18; TEMP 36.1; O2SAT 99
[2024-02-20] MEDS: POTASSIUM CHLORIDE 20 MEQ ER TABLET 40 MEQ PO ×2 (08:41→16:53)
[2024-02-20] MEDS: FERROUS GLUCONATE 324 MG TABLET PO (08:42)
[2024-02-20] MEDS: MAGNESIUM OXIDE 400 MG TABLET PO ×2 (08:42→16:54)
[2024-02-20] MEDS: FOLIC ACID 1 MG TABLET PO (08:43)
[2024-02-20] MEDS: PANTOPRAZOLE 40 MG TABLET PO ×2 (08:44→16:54)
[2024-02-20] MEDS: OPTI-GEN TAB 1 TABLET PO (08:44)
[2024-02-20] MEDS: ASPIRIN 81 MG ENTERIC TABLET PO (08:45)
[2024-02-20] MEDS: THIAMINE HCL 100 MG TABLET PO (08:45)
[2024-02-20] MEDS: CYANOCOBALAMIN 500 MCG TABLET PO (08:45)
[2024-02-20] MEDS: NICOTINE (*PBKC) 21 MG PATCH 1 PATCH TRANSDERM (08:46)
[2024-02-20] MEDS: chlordiazePOXIDE (*CRX) 25 MG CAPSULE PO ×2 (09:39→20:41)
[2024-02-20] MEDS: MAGNESIUM SULF 2 GM/WATER 50ML 2 GM/50 ML BAG IVPB (14:22)
[2024-02-20 16:00] VITALS: BP 100/65; PULSE 76; RESP 16; TEMP 36.4; O2SAT 98
[2024-02-20 20:41] VITALS: PULSE 93
[2024-02-20] MEDS: MELATONIN 5 MG TABLET PO (20:41)
[2024-02-20] MEDS: carvediloL 3.125 MG TABLET PO (20:41)
[2024-02-20 20:43] LABS: Glucose Point of Care 138 mg/dl (65-105)
[2024-02-21] VITALS: BP 102/68; PULSE 93; RESP 16; TEMP 36.8; O2SAT 98
[2024-02-21 05:55] LABS: Anion Gap 6 mmol/L (4-12); Blood Urea Nitrogen 10 mg/dL (7-18); Calcium 8.9 mg/dL (8.5-10.1); Carbon Dioxide 27 mmol/L (21-32); Chloride 105 mmol/L (98-108); Estimated CRCL calculation 65 ml/min; Estimated Glomerular Filt Rate > 60; Glucose 112 mg/dL (70-99); Magnesium 1.8 mg/dL (1.8-2.4); Osmolality Calculated 286 mOsm/kg (285-295); Potassium 4.7 mmol/L (3.5-5.1); Sodium 138 mmol/L (136-145)
[2024-02-21 08:00] VITALS: BP 95/66; PULSE 82; RESP 18; TEMP 36.1; O2SAT 99
[2024-02-21] MEDS: POTASSIUM CHLORIDE 20 MEQ ER TABLET 40 MEQ PO ×2 (08:00→17:29)
[2024-02-21] MEDS: OPTI-GEN TAB 1 TABLET PO (09:17)
[2024-02-21] MEDS: FOLIC ACID 1 MG TABLET PO (09:17)
[2024-02-21] MEDS: FERROUS GLUCONATE 324 MG TABLET PO (09:18)
[2024-02-21] MEDS: MAGNESIUM OXIDE 400 MG TABLET PO ×2 (09:18→17:29)
[2024-02-21] MEDS: ASPIRIN 81 MG ENTERIC TABLET PO (09:18)
[2024-02-21] MEDS: CYANOCOBALAMIN 500 MCG TABLET PO (09:19)
[2024-02-21] MEDS: MULTIVITAMINS THERAPEUTIC TAB (*BKC) 1 TABLET PO (09:19)
[2024-02-21] MEDS: PANTOPRAZOLE 40 MG TABLET PO ×2 (09:20→17:29)
[2024-02-21] MEDS: THIAMINE HCL 100 MG TABLET PO (09:20)
--- NOTE | 2024-02-21 10:57 | P.PNCROSS_ITS ---
Event Note Event Note Event Note: Patient doing well in good spirits states he has a counselor set up at the [facility] after discharge. his BP continues to run soft discontinue carvedilol altogether at this time however if he starts to become hypertension I will resume. magnesium and potassium stabilized.
[2024-02-21 16:00] VITALS: BP 108/71; PULSE 84; RESP 20; TEMP 36.4; O2SAT 99
[2024-02-21 20:00] VITALS: PULSE 84; RESP 20; O2SAT 99
[2024-02-21] MEDS: chlordiazePOXIDE (*CRX) 25 MG CAPSULE PO (20:20)
[2024-02-21] MEDS: MELATONIN 5 MG TABLET PO (20:20)
[2024-02-21 20:25] LABS: Glucose Point of Care 152 mg/dl (65-105)
[2024-02-22] VITALS: BP 102/57; PULSE 73; RESP 18; TEMP 36.4; O2SAT 99
[2024-02-22 08:00] VITALS: BP 104/78; PULSE 79; RESP 17; TEMP 36.1; O2SAT 98
[2024-02-22] MEDS: PANTOPRAZOLE 40 MG TABLET PO ×2 (09:38→17:03)
[2024-02-22] MEDS: POTASSIUM CHLORIDE 20 MEQ ER TABLET 40 MEQ PO ×2 (09:38→17:03)
[2024-02-22] MEDS: THIAMINE HCL 100 MG TABLET PO (09:38)
[2024-02-22] MEDS: MULTIVITAMINS THERAPEUTIC TAB (*BKC) 1 TABLET PO (09:38)
[2024-02-22] MEDS: OPTI-GEN TAB 1 TABLET PO (09:38)
[2024-02-22] MEDS: FERROUS GLUCONATE 324 MG TABLET PO (09:38)
[2024-02-22] MEDS: MAGNESIUM OXIDE 400 MG TABLET PO ×2 (09:38→17:03)
[2024-02-22] MEDS: FOLIC ACID 1 MG TABLET PO (09:38)
[2024-02-22] MEDS: CYANOCOBALAMIN 500 MCG TABLET PO (09:38)
[2024-02-22] MEDS: ASPIRIN 81 MG ENTERIC TABLET PO (09:38)
--- NOTE | 2024-02-22 14:50 | PM.EVENT ---
Event Note Event Note Event Note: Patient with new diabetes type last A1c 8.6 will start on 500mg Metformin XL and monitor BS will need follow-up a1c in 3 months
[2024-02-22 16:00] VITALS: BP 110/64; PULSE 80; RESP 17; TEMP 36.6; O2SAT 98
[2024-02-22] MEDS: chlordiazePOXIDE (*CRX) 25 MG CAPSULE PO (20:21)
[2024-02-22] MEDS: MELATONIN 5 MG TABLET PO (20:21)
[2024-02-22 20:27] LABS: Glucose Point of Care 119 mg/dl (65-105)
[2024-02-23] VITALS: BP 110/77; PULSE 86; RESP 18; TEMP 36.2; O2SAT 100
[2024-02-23 08:00] VITALS: BP 118/74; PULSE 98; RESP 18; TEMP 35.8; O2SAT 99
[2024-02-23 08:37] LABS: Anion Gap 8 mmol/L (4-12); Blood Urea Nitrogen 9 mg/dL (7-18); Calcium 9.6 mg/dL (8.5-10.1); Carbon Dioxide 28 mmol/L (21-32); Chloride 101 mmol/L (98-108); Estimated CRCL calculation 56 ml/min; Estimated Glomerular Filt Rate 54; Glucose 125 mg/dL (70-99); Osmolality Calculated 283 mOsm/kg (285-295); Potassium 4.5 mmol/L (3.5-5.1); Sodium 137 mmol/L (136-145)
[2024-02-23] MEDS: OPTI-GEN TAB 1 TABLET PO (09:17)
[2024-02-23] MEDS: THIAMINE HCL 100 MG TABLET PO (09:17)
[2024-02-23] MEDS: FOLIC ACID 1 MG TABLET PO (09:17)
[2024-02-23] MEDS: MAGNESIUM OXIDE 400 MG TABLET PO ×3 (09:17→17:07)
[2024-02-23] MEDS: PANTOPRAZOLE 40 MG TABLET PO ×2 (09:18→17:07)
[2024-02-23] MEDS: MULTIVITAMINS THERAPEUTIC TAB (*BKC) 1 TABLET PO (09:18)
[2024-02-23] MEDS: FERROUS GLUCONATE 324 MG TABLET PO (09:18)
[2024-02-23] MEDS: metFORMIN HCL XR 500 MG TAB.SR.24H PO (09:18)
[2024-02-23] MEDS: ASPIRIN 81 MG ENTERIC TABLET PO (09:18)
[2024-02-23] MEDS: TAMSULOSIN HCL 0.4 MG CAPSULE PO (09:18)
[2024-02-23] MEDS: CYANOCOBALAMIN 500 MCG TABLET PO (09:18)
[2024-02-23] MEDS: POTASSIUM CHLORIDE 20 MEQ ER TABLET 40 MEQ PO ×2 (09:18→17:07)
[2024-02-23 13:58] LABS: Magnesium 1.5 mg/dL (1.8-2.4)
[2024-02-23 16:00] VITALS: BP 103/65; PULSE 90; RESP 20; TEMP 36.2; O2SAT 98
--- NOTE | 2024-02-23 16:08 | P.PNIM_ITS ---
Progress Note: A&P Assessment and Plan (1) Alcohol withdrawal: Code(s): F10.939 - Alcohol use, unspecified with withdrawal, unspecified Status: Acute Assessment and Plan: * Thiamine, folic acid, and multi-vitamin * PPI daily * librium taper * Ativan PRN for seizure activity * CIWA daily * Monitor and replenish electrolytes as needed Librium has been tapered off. Resolved. (2) Physical deconditioning: Code(s): R53.81 - Other malaise Status: Acute Assessment and Plan: * Secondary to long hospital admission alcoholism * PT/OT * encourage activity (3) Hypomagnesemia: Code(s): E83.42 - Hypomagnesemia Status: Acute Assessment and Plan: * 1.4 POA * increase Mag oxide PO to b.i.d. Repeat labs today show magnesium 1.5. Will give an additional 400 mg of Mag-Ox now. (4) Hypokalemia: Code(s): E87.6 - Hypokalemia Status: Acute Assessment and Plan: * 3.2 POA * 40 meq PO Potassium is stable 4.5. (5) Tobacco abuse: Code(s): Z72.0 - Tobacco use Status: Acute Assessment and Plan: Smoking ? smoking cessation education ? nicotine patch daily ? remove at night (6) Iron deficiency anemia: Qualifiers: Iron deficiency anemia type: unspecified iron deficiency Qualified Code(s): D50.9 - Iron deficiency anemia, unspecified Code(s): D50.9 - Iron deficiency anemia, unspecified Status: Acute Assessment and Plan: * Chronic likely secondary to alcoholic cirrhosis * Hgb 8.7 stable * Resumed Iron supplement (7) Type 2 diabetes mellitus with hyperglycemia: Qualifiers: Diabetes mellitus group home insulin use: without intermediate school teacher use Qualified Code(s): E11.65 - Type 2 diabetes mellitus with hyperglycemia Code(s): E11.65 - Type 2 diabetes mellitus with hyperglycemia Status: Acute Assessment and Plan: * Accu-Cheks a.cLashay HS * sliding scale insulin * encourage lifestyle modifications and weight loss * Optimize Joel inhibitors and statins. * Watch for hypoglycemia/hypoglycemic protocol ordered (8) CAD (coronary artery disease): Qualifiers: Coronary Disease-Associated Artery/Lesion type: [place] artery [place] vs. transplanted heart: [place] heart Associated angina: without angina Qualified Code(s): I25.10 - Atherosclerotic heart disease of [place] coronary artery without angina pectoris Code(s): I25.10 - Atherosclerotic heart disease of [place] coronary artery without angina pectoris Status: Acute Assessment and Plan: * Previous stent 2016 * Resumed ASA (9) Chest pain: Qualifiers: Chest pain type: unspecified Qualified Code(s): R0
--- NOTE | 2024-02-23 16:08 | PM.IMPN ---
Progress Note: A&P Assessment and Plan (1) Alcohol withdrawal: Code(s): F10.939 - Alcohol use, unspecified with withdrawal, unspecified Status: Acute Assessment and Plan: Thiamine, folic acid, and multi-vitamin PPI daily librium taper Ativan PRN for seizure activity CIWA daily Monitor and replenish electrolytes as needed Librium has been tapered off. Resolved. (2) Physical deconditioning: Code(s): R53.81 - Other malaise Status: Acute Assessment and Plan: Secondary to long hospital admission alcoholism PT/OT encourage activity (3) Hypomagnesemia: Code(s): E83.42 - Hypomagnesemia Status: Acute Assessment and Plan: 1.4 POA increase Mag oxide PO to b.i.d. Repeat labs today show magnesium 1.5. Will give an additional 400 mg of Mag-Ox now. (4) Hypokalemia: Code(s): E87.6 - Hypokalemia Status: Acute Assessment and Plan: 3.2 POA 40 meq PO Potassium is stable 4.5. (5) Tobacco abuse: Code(s): Z72.0 - Tobacco use Status: Acute Assessment and Plan: Smoking ? smoking cessation education ? nicotine patch daily ? 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 HS sliding scale insulin encourage lifestyle modifications and weight loss Optimize Joel inhibitors and statins. Watch for hypoglycemia/hypoglycemic protocol ordered (8) CAD (coronary artery disease): Qualifiers: Coronary Disease-Associated Artery/Lesion type: [place] artery [place] vs. transplanted heart: [place] heart Associated angina: without angina Qualified Code(s): I25.10 - Atherosclerotic heart disease of [place] coronary artery without angina pectoris Code(s): I25.10 - Atherosclerotic heart disease of [place] coronary artery without angina pectoris Status: Acute Assessment and Plan: Previous stent 2016 Resumed ASA (9) Chest pain: Qualifiers: Chest pain type: unspecified Qualified Code(s): R07.9 - Chest pain, unspecified Code(s): R07.9 - Chest pain, unspecified Status: Acute Assessment and Plan: chest pain reproducible Troponin negative Relieved with Nitro EKG no change when compared to previous EKG with no St/T changes smoking cessation lifestyle modifications/heart healthy diet (10) Hypertension: Qualifiers: Hypertension type: essential hypertension Qualified Code(s): I10 - Essential (primary) hypertension Code(s): I10 - Essential (primary) hypertension Status: Acute Assessment and Plan: Stable on admission 1 episode HTN Resumed home medications of lisinopril and hydrochlorothiazide Patient had been having low blood pressure episodes and therefore his lisinopril and hydrochlorothiazide were put on hold. Blood pressures have stabilized. He is having lower extremity +1 pitting edema. Add [place] hose and will resume his the chlorothiazide. Plan Code status: Full code per patient Stress ulcer prophylaxis/Gastritis: Protonix 40 daily PT/OT notes: PT/OT Swing bed Disposition: patient was admitted to [facility] swing bed for continued PT/ OT and rehabilit
[2024-02-23] MEDS: LORazepam (*CRX) 0.5 MG TABLET PO (20:10)
[2024-02-23] MEDS: MELATONIN 5 MG TABLET PO (20:11)
[2024-02-24] VITALS: BP 108/93; PULSE 103; RESP 18; TEMP 36.9; O2SAT 99
--- NOTE | 2024-02-24 05:04 | PC.NURSE ---
Pt called to use the bathroom; Pt up to the bathroom with the walker and standby assist of one. Pt returned to the chair to watch TV.
--- NOTE | 2024-02-24 07:10 | PC.NURSE ---
Pt up and ambulating with PT in the [place] with the walker and gait belt.
[2024-02-24 07:55] LABS: Glucose Point of Care 142 mg/dl (65-105)
[2024-02-24 08:00] VITALS: BP 112/73; PULSE 95; RESP 18; TEMP 36.1; O2SAT 100
[2024-02-24] MEDS: PANTOPRAZOLE 40 MG TABLET PO ×2 (08:20→19:41)
[2024-02-24] MEDS: CYANOCOBALAMIN 500 MCG TABLET PO (08:20)
[2024-02-24] MEDS: FERROUS GLUCONATE 324 MG TABLET PO (08:20)
[2024-02-24] MEDS: ASPIRIN 81 MG ENTERIC TABLET PO (08:20)
[2024-02-24 08:21] LABS: Magnesium 1.2 mg/dL (1.8-2.4)
[2024-02-24] MEDS: TAMSULOSIN HCL 0.4 MG CAPSULE PO (08:21)
[2024-02-24] MEDS: MULTIVITAMINS THERAPEUTIC TAB (*BKC) 1 TABLET PO (08:21)
[2024-02-24] MEDS: THIAMINE HCL 100 MG TABLET PO (08:21)
[2024-02-24] MEDS: FOLIC ACID 1 MG TABLET PO (08:21)
[2024-02-24] MEDS: metFORMIN HCL XR 500 MG TAB.SR.24H PO (08:21)
[2024-02-24] MEDS: OPTI-GEN TAB 1 TABLET PO (08:21)
[2024-02-24] MEDS: POTASSIUM CHLORIDE 20 MEQ ER TABLET 40 MEQ PO ×2 (08:21→19:40)
[2024-02-24] MEDS: MAGNESIUM OXIDE 400 MG TABLET PO ×2 (08:22→19:41)
[2024-02-24] MEDS: MAGNESIUM SULF 4 GM/WATER100ML 4 GM/100 ML BAG IVPB (13:08)
[2024-02-24 16:00] VITALS: BP 118/77; PULSE 96; RESP 18; TEMP 36.1; O2SAT 99
[2024-02-24 17:04] LABS: Glucose Point of Care 132 mg/dl (65-105)
--- NOTE | 2024-02-24 17:42 | P.PNCROSS_ITS ---
Event Note Event Note Event Note: Patient will be discharge tomorrow I have kept him today for the IV Magnesium d ue to hypomagnesium. We will have labs drawn in the am with oral magnesium ordered for him as well. Had a long conversation with his significant other.
[2024-02-24 19:44] LABS: Glucose Point of Care 175 mg/dl (65-105)
[2024-02-24] MEDS: ACETAMINOPHEN 325 MG TABLET 650 MG PO (20:42)
[2024-02-24] MEDS: MELATONIN 5 MG TABLET PO (20:43)
[2024-02-25] VITALS: BP 107/73; PULSE 94; RESP 16; TEMP 36.8; O2SAT 98
[2024-02-25 05:59] LABS: Magnesium 2.1 mg/dL (1.8-2.4)
--- NOTE | 2024-02-25 07:05 | PC.NURSE ---
Patient did not use call light. Walked to the nurses station unassisted with walker. Educated patient on use of call light and waiting for nurse. Patient acknowledged education. Also states that he is leaving today, so what are you going to kick me out?
--- NOTE | 2024-02-25 07:44 | P.DS_ITS ---
DS: Admitting Diagnosis Discharge Date 02/24 Admitting Diagnosis weakness, rehab DS: Discharge Diagnosis Discharge Diagnosis (1) Alcohol withdrawal: Code(s): F10.939 - Alcohol use, unspecified with withdrawal, unspecified Status: Acute Assessment and Plan: * Thiamine, folic acid, and multi-vitamin * PPI daily * librium taper * Ativan PRN for seizure activity * CIWA daily * Monitor and replenish electrolytes as needed Librium has been tapered off. Resolved. (2) Physical deconditioning: Code(s): R53.81 - Other malaise Status: Acute Assessment and Plan: * Secondary to long hospital admission alcoholism * PT/OT * encourage activity (3) Hypomagnesemia: Code(s): E83.42 - Hypomagnesemia Status: Acute Assessment and Plan: * 1.4 POA * increase Mag oxide PO to b.i.d. Repeat labs today show magnesium 1.5. Will give an additional 400 mg of Mag-Ox now. Patient was receiving protonix 40 mg BID which was likely contributing to his hypomagnesemia. EGD and colonscopy recently showed gastritis. No formal recommendations from GI that say he needs PPI. He can continue daily PPI but does not need BID dosing. (4) Hypokalemia: Code(s): E87.6 - Hypokalemia Status: Acute Assessment and Plan: * 3.2 POA * 40 meq PO Potassium is stable 4.5. (5) Tobacco abuse: Code(s): Z72.0 - Tobacco use Status: Acute Assessment and Plan: Smoking ? smoking cessation education ? nicotine patch daily ? remove at night (6) Iron deficiency anemia: Qualifiers: Iron deficiency anemia type: unspecified iron deficiency Qualified Code(s): D50.9 - Iron deficiency anemia, unspecified Code(s): D50.9 - Iron deficiency anemia, unspecified Status: Acute Assessment and Plan: * Chronic likely secondary to alcoholic cirrhosis * Hgb 8.7 stable * Resumed Iron supplement (7) Type 2 diabetes mellitus with hyperglycemia: Qualifiers: Diabetes mellitus care home insulin use: without long term acute care registered nurse use Q ualified Code(s): E11.65 - Type 2 diabetes mellitus with hyperglycemia Code(s): E11.65 - Type 2 diabetes mellitus with hyperglycemia Status: Acute Assessment and Plan: * Accu-Cheks a.c. HS * sliding scale insulin * encourage lifestyle modifications and weight loss * Optimize Joel inhibitors and statins. * Watch for hypoglycemia/hypoglycemic protocol ordered (8) CAD (coronary artery disease): Qualifiers: Coronary Disease-Associated Artery/Lesion type: [place] artery [place] vs. transplanted heart: [place] heart Associated angina: without angina Qualified Code(s): I25.10 - Atherosclerotic heart disease of [place] coronary artery without angina pectoris Code(s): I25.10 - Atherosclerotic he
--- NOTE | 2024-02-25 07:44 | PM.DS ---
DS: Admitting Diagnosis Discharge Date 02/24 Admitting Diagnosis weakness, rehab DS: Discharge Diagnosis Discharge Diagnosis (1) Alcohol withdrawal: Code(s): F10.939 - Alcohol use, unspecified with withdrawal, unspecified Status: Acute Assessment and Plan: Thiamine, folic acid, and multi-vitamin PPI daily librium taper Ativan PRN for seizure activity CIWA daily Monitor and replenish electrolytes as needed Librium has been tapered off. Resolved. (2) Physical deconditioning: Code(s): R53.81 - Other malaise Status: Acute Assessment and Plan: Secondary to long hospital admission alcoholism PT/OT encourage activity (3) Hypomagnesemia: Code(s): E83.42 - Hypomagnesemia Status: Acute Assessment and Plan: 1.4 POA increase Mag oxide PO to b.i.d. Repeat labs today show magnesium 1.5. Will give an additional 400 mg of Mag-Ox now. Patient was receiving protonix 40 mg BID which was likely contributing to his hypomagnesemia. EGD and colonscopy recently showed gastritis. No formal recommendations from GI that say he needs PPI. He can continue daily PPI but does not need BID dosing. (4) Hypokalemia: Code(s): E87.6 - Hypokalemia Status: Acute Assessment and Plan: 3.2 POA 40 meq PO Potassium is stable 4.5. (5) Tobacco abuse: Code(s): Z72.0 - Tobacco use Status: Acute Assessment and Plan: Smoking ? smoking cessation education ? nicotine patch daily ? remove at night (6) Iron deficiency anemia: Qualifiers: Iron deficiency anemia type: unspecified iron deficiency Qualified Code(s): D50.9 - Iron deficiency anemia, unspecified Code(s): D50.9 - Iron deficiency anemia, unspecified Status: Acute Assessment and Plan: Chronic likely secondary to alcoholic cirrhosis Hgb 8.7 stable Resumed Iron supplement (7) Type 2 diabetes mellitus with hyperglycemia: Qualifiers: Diabetes mellitus custodial insulin use: without custodial use Qualified Code(s): E11.65 - Type 2 diabetes mellitus with hyperglycemia Code(s): E11.65 - Type 2 diabetes mellitus with hyperglycemia Status: Acute Assessment and Plan: Accu-Cheks a.c. HS sliding scale insulin encourage lifestyle modifications and weight loss Optimize Joel inhibitors and statins. Watch for hypoglycemia/hypoglycemic protocol ordered (8) CAD (coronary artery disease): Qualifiers: Coronary Disease-Associated Artery/Lesion type: [place] artery [place] vs. transplanted heart: [place] heart Associated angina: without angina Qualified Code(s): I25.10 - Atherosclerotic heart disease of [place] coronary artery without angina pectoris Code(s): I25.10 - Atherosclerotic heart disease of [place] coronary artery without angina pectoris Status: Acute Assessment and Plan: Previous stent 2016 Resumed ASA (9) Chest pain: Qualifiers: Chest pain type: unspecified Qualified Code(s): R07.9 - Chest pain, unspecified Code(s): R07.9 - Chest pain, unspecified Status: Acute Assessment and Plan: chest pain reproducible Troponin negative Relieved with Nitro EKG no change when compared to previous EKG with no St/T changes smoking cessation lifestyle modifications/heart healthy diet (10) Hypertension: Qualifiers: Hypertension type: essential hypertension Qualified Code(s): I10 - Essential (primary) hypertension Code(s): I10 - Essential (primary) hypertension Status: Acute Assessment and Plan: Stable on admission 1 episode HTN Resumed home medications of lisinopril and hydrochlorothiazide Patient had been having low blood pressure episodes and therefore his lisinopril and hydrochlorothiazide were put on hold. Blood pressures have stab
--- NOTE | 2024-02-25 07:47 | PC.NURSE ---
Patient non compliant with using call light for assistance. Patient up and walking on his own even after nurse reinforced that he is supposed to call for assistance. Patient also pulled his IV out of the site and broke the catheter off at the skin. Nurse able to remove the catheter of the IV intact and site is discontinued. Patient is being discharged today and is no longer following direction of nursing staff.
[2024-02-25 07:51] VITALS: BP 105/67; PULSE 87; RESP 18; TEMP 36.3; O2SAT 99
[2024-02-25] MEDS: POTASSIUM CHLORIDE 20 MEQ ER TABLET 40 MEQ PO (08:06)
[2024-02-25] MEDS: TAMSULOSIN HCL 0.4 MG CAPSULE PO (08:07)
[2024-02-25] MEDS: MAGNESIUM OXIDE 400 MG TABLET PO (08:07)
[2024-02-25 08:08] LABS: Potassium 4.8 mmol/L (3.5-5.1)
[2024-02-25] MEDS: CYANOCOBALAMIN 500 MCG TABLET PO (08:08)
[2024-02-25] MEDS: FERROUS GLUCONATE 324 MG TABLET PO (08:08)
[2024-02-25] MEDS: ASPIRIN 81 MG ENTERIC TABLET PO (08:09)
[2024-02-25] MEDS: MULTIVITAMINS THERAPEUTIC TAB (*BKC) 1 TABLET PO (08:09)
[2024-02-25] MEDS: FOLIC ACID 1 MG TABLET PO (08:09)
[2024-02-25] MEDS: metFORMIN HCL XR 500 MG TAB.SR.24H PO (08:10)
[2024-02-25] MEDS: THIAMINE HCL 100 MG TABLET PO (08:10)
[2024-02-25] MEDS: OPTI-GEN TAB 1 TABLET PO (08:17)
[2024-02-25] MEDS: hydroCHLOROthiazide 25 MG TABLET PO (08:33)
[2024-02-25 08:42] LABS: Hemoglobin A1C 5.6 % (<5.7)
--- NOTE | 2024-02-25 09:55 | PC.NURSE ---
Patient's called nurse's desk and stated that patient had called his daughter and told the daughter that he has to be picked up to go home by 1130. doesn't get off until noon. Crusher Tender assured that he does not have to be picked up by any certain time and that we are planning on discharging him after she is here in order to go over discharge instructions with us. Crusher Tender then spoke with patient and assured him that he does no need to be out by 1130 and that we are keeping him until his can be here to get discharge instructions.
--- NOTE | 2024-02-25 12:52 | PC.NURSE ---
Patient noted to be up without assistance in the hallway. Nurse reminded patient to call for assistance even though patient is being discharged today.
--- NOTE | 2024-02-25 14:20 | PC.NURSE ---
Patient left unit in w/c accompanied by patient's and nurse. Discharge instructions given to both patient and patient's and both voiced understanding. Personal items sent home with patient and patient left hospital grounds in privately owned vehicle.
--- NOTE | 2024-02-28 09:18 | PC.NURSE ---
Discharge call back made, doing well, no questions re dc instructions, checking sugars at home, heart rate doing ok, meds allok
== END 2024-02-25 14:20 | disposition home or self-care (01) | DRG 948 ==
PROVIDERS: Nurse Practitioner Family; Admitting Provider Internal Medicine; PCP Internal Medicine; Visit Provider Nurse Practitioner Acute Care
DX: R53.81 Other malaise (principal); F10.239 Alcohol dependence with withdrawal, unspecified; K76.6 Portal hypertension; K70.30 Alcoholic cirrhosis of liver without ascites; I25.10 Atherosclerotic heart disease of native coronary artery without angina pectoris; I10 Essential (primary) hypertension; E87.6 Hypokalemia; E78.5 Hyperlipidemia, unspecified; E83.42 Hypomagnesemia; E11.9 Type 2 diabetes mellitus without complications; D50.9 Iron deficiency anemia, unspecified; L40.0 Psoriasis vulgaris; R07.89 Other chest pain; F41.9 Anxiety disorder, unspecified; F17.210 Nicotine dependence, cigarettes, uncomplicated; I25.2 Old myocardial infarction; Z95.5 Presence of coronary angioplasty implant and graft; Z95.0 Presence of cardiac pacemaker; Z79.82 Long term (current) use of aspirin
CPT/HCPCS: 36415; 71045; 80048; 80053; 82948; 83036; 83735; 84132; 84484; 85027; 93005; 97110; 97112; 97161; 97166; 97530; 97535; A9270; J3475

== ENCOUNTER 2024-03-03 12:13 | Outpatient (CLI) | payer OTHER, SELFPAY ==
[2024-03-03 12:44] LABS: Basophils Absolute Auto 0.07 K/mm3 (0.00-0.10); Basophils Percent Auto 0.8 % (0.0-1.0); Eosinophils Absolute Auto 0.36 K/mm3 (0.02-0.50); Eosinophils Percent Auto 3.9 % (1.0-6.0); Hemoglobin 8.9 g/dL (14.0-18.0); Immature Granulocyte Absolute 0.04 K/mm3 (0.00-0.00); Immature Granulocyte Percent A 0.4 % (0.0-0.0); Lymphocytes Absolute Auto 1.79 K/mm3 (1.10-4.50); Lymphocytes Percent Auto 19.4 % (18.0-42.0); Mean Corpuscular HGB Conc 30.7 g/dL (32-36); Mean Corpuscular Hemoglobin 26.4 pg (27.0-31.0); Mean Corpuscular Volume 86.1 fL (78.0-102.0); Mean Platelet Volume 10.1 fl (8.7-11.0); Monocytes Percent Auto 5.4 % (2.0-11.0); Neutrophils Absolute Auto 6.45 K/mm3 (1.70-7.20); Neutrophils Percent Auto 70.1 % (50.0-70.0); Platelet Count Result 334 K/mm3 (150-420); Red Blood Count 3.37 M/mm3 (4.70-6.10); Red Cell Distribution Width 23.4 % (11.6-14.4); White Blood Count 9.2 K/mm3 (4.8-10.8)
[2024-03-03 12:47] LABS: Appearance Urine Clear (Clear); Bilirubin Urine 1+ (Negative); Blood Urine Negative (Negative); Glucose Urine UA Negative (Negative); Ketones Urine Trace (Negative); Leukocyte Esterase Ur Negative LEU/UL (Negative); Nitrate Urine Negative (Negative); Protein Urine Negative (Negative); Specific Grav Ur 1.015 (1.010-1.020)
[2024-03-03 13:28] LABS: Alanine Aminotransferase 20 U/L (16-63); Albumin Level 2.4 g/dL (3.4-5.0); Alkaline Phosphatase 127 U/L (46-116); Ammonia 19 umol/L (11-32); Anion Gap 8 mmol/L (4-12); Aspartate Amino Transferase 37 U/L (15-37); Bilirubin,Total 0.3 mg/dL (0.00-1.00); Blood Urea Nitrogen 7 mg/dL (7-18); Calcium 8.6 mg/dL (8.5-10.1); Carbon Dioxide 29 mmol/L (21-32); Chloride 100 mmol/L (98-108); Estimated Glomerular Filt Rate > 60; Glucose 109 mg/dL (70-99); Magnesium 1.1 mg/dL (1.8-2.4); Osmolality Calculated 283 mOsm/kg (285-295); Phosphorus 3.1 mg/dL (2.6-4.7); Potassium 3.4 mmol/L (3.5-5.1); Sodium 137 mmol/L (136-145); Total Protein 7.3 g/dL (6.4-8.2)
[2024-03-03 13:41] LABS: Add Urine Microscopic? YES; Color Urine Dark Brown (Yellow)
[2024-03-03 13:44] LABS: Bacteria Urine Trace /hpf; RBC Urine None seen /hpf (0-2); Squamous Epithelial Cell Urine Few /hpf (Few); WBC Urine None seen /hpf (0-3)
== END 2024-03-03 12:14 | disposition home or self-care (01) ==
LOC: CHSLAB 12:15
PROVIDERS: PCP Internal Medicine; Visit Provider Nurse Practitioner Acute Care
DX: F10.20 Alcohol dependence, uncomplicated (principal); G93.40 Encephalopathy, unspecified; G62.9 Polyneuropathy, unspecified
CPT/HCPCS: 36415; 80053; 81001; 82140; 83735; 83921; 84100; 85025

== ENCOUNTER 2024-03-30 09:00 | Outpatient (RCR) | payer OTHER, SELFPAY ==
--- NOTE | 2024-03-30 10:01 | OPREHPOC ---
Outpatient Therapy Plan of Care This is a Multidisciplinary Plan of Care that may contain components documented by all disciplines (PT, OT, and ST.) PT Problem 1 PT Problem #1 Knowledge Deficit PT Goal 1 Goal / Goal Update 1. independent and compliant with HEP Target Visit 6 PT Problem 2 PT Problem #2 Impaired Strength PT Goal 1 Goal / Goal Update 1. bilateral hip strength to display 4+/5 or better strength overall 2. bilateral knee strength to display 5/5 Target Visit 12 PT Problem 3 PT Problem #3 Impaired Balance PT Goal 1 Goal / Goal Update 1. 5x sit to stand to be completed in under 30 seconds 2. TUG to be completed in 25 seconds or less 3. tinetti to display a moderate fall risk or less Target Visit 12 PT Problem 4 PT Problem #4 Impaired Functional Mobil PT Goal 1 Goal / Goal Update 1. patient to ambulate 6 minute walk test with a pace of 1.5ft/sec or better 2. patient to take no standing rest breaks during 6 minute ambulation test 3. patient to progress to use of cane in the home for ambulation Target Visit 12
--- NOTE | 2024-03-30 10:01 | PTOPEVAL1 ---
Assessment and note entered by JT File, PT Evaluation Information Assessment Status Evaluation ICD-10 Condition Codes (PT) Difficulty Walking R26.2,R26.9,Weakness R53.1 Other ICD-10 Condition Codes ( R53.81 PT) Onset 03/02/24 Subjective Information patient reports he believes he has an ulcer. he reports he is going to a specialist in a few weeks to have this investigated. he reports physically he is getting around a little better, but is still shaky. he reports he has had poor appetite recently and a lot of digestive issues. he reports he has had one fall at home recently about 2-3 weeks ago getting out of the bathroom. he reports he uses a walker most of the time, but at times furniture walks in the home. Reported Pain Level Pain Score 7: Self Report Assessment PT Clinical Summary mr. hood is a 58 yo man who presents to skilled PT services for evaluation and treatment of generalized deconditioning and abnormal gait. he presents today with a high fall risk per the tinetti, 5x sit to stand, and TUG. he also displays weakness in the L hip and L knee, and deficits in gait mechanics/efficiency. he would benefit from continued skilled PT to address his objective/functional deficits and improve his functional activity performance/quality of life Plan of Care Interventions Gait Training,Neuro Re-education,Patient/Caregiver Educati,Therapeutic Activities,Therapeutic Exercise PT Services Indicated Yes Treatment Frequency and 3x weekly for 12 visits Duration These treatments will address the objective and functional deficits as defined above. The patient will be advanced safely and appropriately in order for the patient to progress towards his/her prior level of function. Additional exercises will be introduced and as well as a comprehensive home exercise program upon discharge, if needed, ?to ensure carryover of functional gains achieved in the clinic. This treatment plan has been reviewed and agreement upon by the patient.
== END 2024-03-30 10:00 | disposition home or self-care (01) ==
LOC: CHSPT 09:00
PROVIDERS: PCP Internal Medicine; Visit Provider Internal Medicine
DX: R53.81 Other malaise (principal); R26.2 Difficulty in walking, not elsewhere classified; R26.9 Unspecified abnormalities of gait and mobility; R53.1 Weakness
CPT/HCPCS: 97110; 97161

== ENCOUNTER 2024-04-14 06:05 | Outpatient (CLI) | payer OTHER, SELFPAY ==
--- NOTE | 2024-04-10 15:27 | SUR.PREOP ---
Dr. Osorio discussed the contraindications in regards to the Given's capsule study and patient's pacemaker and the risks and benefits of doing the study with the patient's . They agreed to proceed with the Given's capsule study.
--- NOTE | 2024-04-12 14:13 | PC.NURSE ---
Spoke with patient and confirmed that he had received his instructions for his [facility] capsule endoscopy, via email. He has no questions at this time.
[2024-04-14 06:55] VITALS: BP 131/88; PULSE 92; RESP 18; O2SAT 100
--- NOTE | 2024-04-14 07:12 | SUR.OPER ---
Patient brought to GI Lab. Instructions for patient undergoing Capsule Endoscopy reviewed with patient. Consent form signed. Sensor array applied to patient's abdomen and connected to recorded. Patient swallowed capsule with 12 ozs of water infused with Simethicone. Patient instructed they may have clear liquids at 0830 this AM and eat or drink at 1030 this AM. Patient instructed to return to GI Lab at 1500 this afternoon for removal of recording device and to call [phone] or to return to the hospital if any nausea and vomiting or abdominal pain is experienced.
--- NOTE | 2024-04-14 13:33 | SUR.PHASEII ---
Patient returned to the GI Lab at 1330 for recorder box removal. Patient voiced no complaints. States they have understanding of instructions. Patient left ambulatory.
--- NOTE | 2024-04-14 14:04 | SUR.PHASEII ---
At 1250 I received a call from patients Claribel stating the capsule is in the toilet. She informed me that the patient has been in the bathroom most of the morning and she can now see the pill cam in the toilet. The light on the transmitter device was still blinking blue- and the camera was still flashing. I instructed her to come to the hospital to return the recorder.
== END 2024-04-14 06:06 | disposition home or self-care (01) ==
LOC: ANHENDO 06:05
PROVIDERS: PCP Internal Medicine; Referring Provider Internal Medicine Gastroenterology; Visit Provider Internal Medicine Gastroenterology
PROC: 0DJ07ZZ Inspection of Upper Intestinal Tract, Via Natural or Artificial Opening (ICD-10-PCS; CPT 91110; principal; 2024-04-14 07:00)
DX: K74.60 Unspecified cirrhosis of liver (principal); D50.9 Iron deficiency anemia, unspecified
CPT/HCPCS: 91110

== ENCOUNTER 2024-06-16 15:19 | Outpatient (CLI) | payer OTHER, SELFPAY ==
--- OUTSIDE RECORDS SUMMARY | 2024-06-16 15:25 | XMS_ITS | Encounter Summary ---
Author Organization [facility] Address [facility] [place] [address] Care Team Providers Care Digital Hardware Design Engineer Name Role Phone Pierce Torres MD Primary Care Provider [phone] Sylvia Mancia MD Unavailable Encounter Details Date Type Department Care Team (Late st Contact Info) Description 08/31/2022 Pre-Procedure Call [facility] [place] [address] Sylvia Mancia MD [address] [place] [address] Social History Tobacco Use Types Packs/Day Years Used Date Smoking Tobacco: Never Assessed Sex and Gender Information Value Date Recorded Sex Assigned at Not on file Legal Sex Male 11:19 AM CDT Gender Identity Not on file Sexual Orientation Not on file documented as of this encounter Plan of Treatment Not on file documented as of this encounter Visit Diagnoses Not on filedocumented in this encounter Care Teams Digital Hardware Design Engineer Relationship Specialty Start Date End Date Pierce Torres MD [address] [place] [address] PCP - General INTERNAL MEDICINE 11/30/19 Sylvia Mancia MD [address] [place] [address] [place] Chief Of Pediatric Urology CARDIOVASCULAR DISEASE 08/10/22 documented as of this encounter
--- OUTSIDE RECORDS SUMMARY | 2024-06-16 15:25 | XMS_ITS | Clinical Summary ---
Author Organization [facility] Address [facility] [place] [address] Care Team Providers Care C D Stripper Name Role Phone Pierce Torres MD Primary Care Provider [phone] Sylvia Mancia MD Unavailable Allergies Active Allergy Reactions Criticality Noted Date Comments General Anesthesia Unknown 10/19/2022 Ohs-Edbe-Etsawwd-Caff Unknown 10/19/2022 Medications JARDIANCE 10 MG tablet Take 1 tablet (10 mg total) by mouth daily. 09/28/2022 Active lisinopril-hydr oCHLOROthiazide (ZESTORETIC) 20-12.5 MG tablet Take 2 tablets by mouth daily. 09/28/2022 Active omeprazole (PRILOSEC) 40 MG capsule Take 1 capsule (40 mg total) by mouth daily. 10/15/2022 Active SKYRIZI PEN 150 MG/ML Solution Auto-injector 08/10/2022 Activ e multi vitamin/mineral s (THERA-M ENHANCED) tablet Take 1 tablet by mouth daily. Active Cyanocobalamin (B-12) 50 MCG Tab Active aspirin EC (ECOTRIN) 81 MG tablet Take 1 tablet (81 mg total) by mouth daily. Active fish oil (OMEGA-3 FATTY ACID) 1000 MG Cap capsule Take 1 capsule (1,000 mg total) by mouth daily. Active rosuvastatin (CRESTOR) 20 MG tablet Take 1 tablet (20 mg total) by mouth nightly at bedtime. 30 tablet 11 10/19/2022 Active Active Problems No known active problems Family History Medical History Relation Comments Heart Attack Maternal Grandmother Relation Status Comments Maternal Grandmother Social History Tobacco Use Types Packs/Day Years Used Date Smoking Tobacco: Every Day Cigarettes 0.5 40 Tobacco Cessation:Ready to Q uit: Not Asked; Counseling Given: Not Answered Alcohol Use Standard Drinks/Week Comments Yes 30 (1 standard drink = 0.6 oz pu re alcohol) Sex and Gender Information Value Date Recorded Sex Assigned at Not on file Legal Sex Male 11:19 AM CDT Gender Identity Not on file Sexual Orientation Not on file 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 Not on file Not on yahir e Last Filed Vital Signs Vital Sign Reading Time Taken Comments Blood Pressure 132/88 10/19/2022 11:54 AM CDT Pulse 88 10/19/2022 11:54 AM CDT Temperature - - Respiratory Rate 18 10/19/2022 11:54 AM CDT Oxygen Saturation 98% 10/19/2022 11:54 AM CDT Inhaled Oxygen Concentration - - Weight 102.5 kg (226 lb) 10/19/2022 11:54 AM CDT Height 177.8 cm (5' 10 ) 10/19/2022 11:54 AM CDT Body Mass Index 32.43 10/19/2022 11:54 AM CDT Plan of Treatment Health Maintenance Due Date Last Done Comments Colorectal Cancer Screening Colonoscopy (10 Years) 1964 Annual Physical 09/20/1967 Pneumococcal Vaccine: Pediat rics (0 to 5 Years) and At-Risk Patients (6 to 64 Years) (1 of 2 - PCV) 1970 Hepatitis C 1982 DTaP, Tdap and Td Vaccines ( 1 - Tdap) 09/20/1983 Zoster Vaccines (1 of 2) 2014 COVID-19 Vaccine ( - 2023-2 5 season) 2024 Influenza Adult (#1) 2024 Meningococcal B Vaccine Aged Out No l onger eligible based on patient's age to complete this topic Meningococcal Vaccine Aged Out No john josé miguel eligible based on patient's age to complete this topic RSV Immunizations Under 20 Months Aged Out No longer eligible based on patient's age to complete this topic Insurance [id number] Care Teams C D Stripper Relationship Specialty Start Date End Date Pierce Torres MD [address] [place] [id number] PCP - General INTERNAL MEDICINE 11/30/19 Sylvia Mancia MD [address] [place] [address] [facility] Intake Technician CARDIOVASCULAR DISEASE 08/10/22
--- OUTSIDE RECORDS SUMMARY | 2024-06-16 15:25 | XMS_ITS | Referral Summary ---
Author Organization [facility] Address [address] [facility] [place] [address] Care Team Providers Care Animal Control Officer Name Role Phone Pierce Torres MD Primary Care Provider [phone] Source Comments [facility],non-owned Affiliates and Associated Physician Practices is amultiple site organization consisting of ambulatory clinics and hospital sitesin [place], [place] and [place]. This disclosure is being madepursuant to the Care Everywhere program and may not contain all information available regarding this patient. Last updated 18.[facility] [employer] Encounters Date Type Department Care Team Description 04/26/2024 Travel 04/26/2024 11:30 AM GUMMED TAPE PRESS OPERATOR Procedure visit [facility] [address] [phone] Jose Pitts MD Hepatic cirrhosis, unspecified hepatic cirrhosis type, unspecified whether ascites present (HCC) from Last 3 Months Social History Tobacco Use Types Packs/Day Years Used Date Smoking Tobacco: Never Assessed Sex and Gender Information Value Date Recorded Sex Assigned at Not on file Gender Identity Not on file Sexual Orientation Not on file Plan of Treatment Not on file Procedures Procedure Name Priority Date/Time Associated Diagnosis Comments RI LIVER ELASTOGRAPHY Routine 04/26/2024 12:17 PM GUMMED TAPE PRESS OPERATOR Hepatic cirrhosis, unspecified hepatic cirrhosis type, unspecified whether ascites present (HCC) from Last 3 Months Results * RI LIVER ELASTOGRAPHY (04/26/2024 12:17 PM GUMMED TAPE PRESS OPERATOR) Narrative Jose Harding MD - 04/26/2024 12:17 PM GUMMED TAPE PRESS OPERATOR Jose Harding MD 04/26/2024 6:45 PM Diagnosis: Hepatic cirrhosis, unspecified hepatic cirrhosis type, unspecified whether ascites present (HCC) Patient confirms NPO 3 hours prior to procedure. Procedure explained. Patient does have pacemaker. Per sabas Fernandez to proceed w/ fibroscan. Patient also agreeable to proceed w/ fibroscan. Date of Exam: 04/26/2024 Liver Stiffness: (LSM, kPa) median: 67.2 IQR/Median% (ideally < 30%): 10% CAP (controlled attenuation parameter): 218 Technical Difficulty: None Ordering Provider: Trent Sparks MD Fibroscan interpretation: I have personally reviewed the Fibroscan report and associated tracings. The calculated Liver Stiffness Measurement (LSM, kPa) indicates that: The probability of advanced liver fibrosis is: very high and the probability of complications of portal hypertension is also high (especially if the platelet count is below 150k per Baveno criteria). The loss of ultrasound signal, (controlled attenuation parameter, CAP [dB/m]), indicates that the probability of hepatic steatosis is: low. Jose Villanueva MD The following criteria are used to indicate the probability of advanced (stage 3-4) fibrosis: < 7.0 kPa: low 7.0-8.9 kPa: low to moderate 9.0-14.9 kPa: moderate 15-20 kPa: high > 20 kPa: very high Liver stiffness > 20 kPa is also associated with a high probability of complications of portal hypertension including varices and ascites. Liver stiffness > 50 kPa is associated with a high risk of variceal bleeding. These interpretations are based on the following published data: Jd PJ, Gita M, Mame M, et al. Accuracy of FibroScan controlled attenuation parameter and liver stiffness measurement in assessing steatosis and fibrosis in patients with nonalcoholic fatty liver disease. Gastroenterology 2019;156:3999-0214. Shawanda MS, Yg R, Van Marco ML, et al. Vibration-controlled transient elastography to assess fibrosis and steatosis in patients with nonalcoholic fatty liver disease. Clin Gastroenterol Hepatol 2019;17:156-163. Note that scores have been developed that incorporate the Fibroscan liver stiffness measurement from large cohorts of patients with liver biopsies to further refine the ability of Fibroscan to identify patients with MASH and advanced fibrosis. These include the FAST (Fibroscan-AST) score (Gayla, 2021) and the Agile3+ and Agile4 scores (Jona, 202). Gayla TA, Sb Lara ML, Halina M, Shiv A, et al. Validation of the accuracy of the FAST score for detecting patients with at-risk nonalcoholic steatohepatitis (CHO) in a [place] cohort and comparison to other non-invasive algorithms. PLoS ONE (2021) 17: [id number]. Jona AJ, Anjali J, Alma ZM, et al. Enhanced diagnosis of advanced fibrosis and cirrhosis in individuals with NAFLD using FibroScan-based Agile scores. J Hepatol (2022) 78: 247-259. Fibroscan LSM can also be used with laboratory parameters without formulas to assess prognosis. According to the Baveno-VII criteria (Mcneil, 202), Fibroscan LSM <=15 kPa plus a platelet count of >=086n922/L rules out clinically significant portal hypertension (sensitivity and negative predictive value >90%) in patients with compensated advanced chronic liver disease. de Manuel R, Ana J, Nas-Dexter G, Reroxanager T, Tosha C on behalf of the Baveno VII Faculty. Baveno VII--Renewing consensus in portal hypertension. J Hepatol (2021) 76: 959-974 Assessing the likelihood of advanced fibrosis in patients with intermediate liver stiffness measurement (LSM) by Fibroscan (e.g., 8-15 kPa) can be improved by also calculating the FIB-4 score (Bekayduke et al. Hepatology Communications 2019;3:1855-9910) or NAFLD Fibrosis score (Junior et al. Clinical Gastroenterology and Hepatology 2019;17:7955-0103 using routine clinical data. Note: 1. Fibroscan cannot reliably identify earlier stages of fibrosis (ie distinguish F0 from F1 and F2) and thus a histologic stage cannot be predicted from the Fibroscan reading. 2. Liver stiffness can be increased by factors other than fibrosis including passive congestion, infiltrative processes, active alcoholism, recent moderate alcohol consumption in the 2 weeks before the exam, biliary obstruction and marked inflammation. The interpretation of the Fibroscan result provided above may not have taken such clinical factors into account. Disease etiology also influences Fibroscan cutoff values for fibrosis stages and the following cutoffs have been proposed (Mckinley et al, Clin Gastro Hepatol 2015; 13:27-36): Cutoffs for Stage 3 and Stage 4 fibrosis respectively: Hepatitis B: >9 and >11.7 kPa Hepatitis C: >9.5 and >12.5 kPa HCV-HIV: >11 and >14 kPa Cholestatic liver diseases: >10 and >17.9 kPa MASLD/MASH: >10 and >14 kPa CAP estimates of steatosis: normal <200 dB/m mild 200 to 250 dB/m moderate 250-290 dB/m substantial > 290 dB/m (Note that Fibroscan is not a quantitative measure of liver fat.) These criteria are estimates and may change as additional supporting data becomes available. (This additional interpretive data was last updated 09/12/22.) [email or web address] Jose Harding MD PROCEDURE/ MINOR SURGICAL ORDERABLES from Last 3 Months Care Teams Animal Control Officer Relationship Specialty Start Date End Date Pierce Torres MD [address] [place] [address] PCP - General Internal Medicine 04/26/24
--- OUTSIDE RECORDS SUMMARY | 2024-06-16 15:25 | XMS_ITS | Patient Health Summary ---
Author Organization [facility] Address [address] [place] [address] Care Team Providers Care Chemistry Tutor Name Role Phone Pierce Torres MD Primary Care Provider [phone] Note from [facility],non-owned Affiliates and Associated Physician Practices is amultiple site organization consisting of ambulatory clinics and hospital sitesin [place], [place], [place] and [place]. This disclosure is being madepursuant to the Care Everywhere program and may not contain all information available regarding this patient. Last updated 18.[facility] Social History Tobacco Use Types Packs/Day Years Used Date Smoking Tobacco: Never Assessed Sex and Gender Information Value Date Recorded Sex Assigned at Not on file Gender Identity Not on file Sexual Orientation Not on file Procedures * IN LIVER ELASTOGRAPHY(Performed 04/26/2024) Performed for Hepatic cirrhosis, unspecified hepatic cirrhosis type, unspecified whether ascites present (HCC) Results * IN LIVER ELASTOGRAPHY (04/26/2024 12:17 PM PACKAGING COORDINATOR) Narrative Jose Harding MD - 04/26/2024 12:17 PM PACKAGING COORDINATOR Jose Harding MD 04/26/2024 6:45 PM Diagnosis: [...] patients with nonalcoholic fatty liver disease. Gastroenterology 2019;156:9407-8229. Shawanda MCNEAL, Yg R, Sb CHARLES, et al. Vibration-controlled transient elastography to assess [...] These include the FAST (Fibroscan-AST) score (Gayla, 2022) and the Agile3+ and Agile4 scores (Jona, 202). Gayla CASTILLO, Sb CHARLES, Halina Arreola, Shiv A, et al. Validation of the accuracy of the FAST score for detecting patients with at-risk nonalcoholic steatohepatitis (CHO) in a [place] cohort and comparison to other non-invasive algorithms. PLoS ONE (2021) 17: [id number]. Jona AJ, Anjali J, Alma ZM, et al. Enhanced diagnosis of advanced fibrosis and cirrhosis in individuals with NAFLD using FibroScan-based Agile scores. J Hepatol (2022) 78: 247-259. Fibroscan LSM can also be used with laboratory parameters without formulas to assess prognosis. According to the Baveno-VII criteria (Mcneil, 202), Fibroscan LSM <=15 kPa plus a platelet count of >=831t122/L rules out clinically significant portal hypertension (sensitivity and negative predictive value >90%) in patients with compensated advanced chronic liver disease. Mcneil R, Ana J, Nas-Dexter G, Naresh T, Tosha C on behalf of the Baveno VII Faculty. Baveno VII--Renewing consensus in portal hypertension. J Hepatol (2021) 76: 959-974 Assessing the likelihood of advanced fibrosis in patients with intermediate liver stiffness measurement (LSM) by Fibroscan (e.g., 8-15 kPa) can be improved by also calculating the FIB-4 score (Adriana et al. Hepatology Communications 2019;3:2898-6957) or NAFLD Fibrosis score (Junior et al. Clinical Gastroenterology and Hepatology 2019;17:1584-6904 using routine clinical data. Note: 1. Fibroscan [...] additional interpretive data was last updated 09/12/22.) [email or web address] Jose Harding MD PROCEDURE/ MINOR SURGICAL ORDERABLES Care Teams Chemistry Tutor Relationship Specialty Start Date End Date Pierce Torres MD [address] [place] [address] PCP - General Internal Medicine 04/26/24
--- OUTSIDE RECORDS SUMMARY | 2024-06-16 15:25 | XMS_ITS | Clinical Summary ---
Author Organization [facility] Address [address] [place] [address] Care Team Providers Care Vulcan Crewmember Name Role Phone Pierce Torres MD Primary Care Provider [phone] [facility],non-owned Affiliates and Associated Physician Practices is amultiple site organization consisting of ambulatory clinics and hospital sitesin [place], [place], [place] and [place]. This disclosure is being madepursuant to the Care Everywhere program and may not contain all information available regarding this patient. Last updated 18.[facility] [employer] Encounters Date Type Department Care Team Description 04/26/2024 11:30 AM TELEPHONY ENGINEER Procedure visit [facility] - [address] [phone] Jose Pitts MD Hepatic cirrhosis, unspecified hepatic cirrhosis type, unspecified whether ascites present (HCC) 04/26/2024 Travel from Last 3 Months Social History Tobacco Use Types Packs/Day Years Used Date Smoking Tobacco: Never Assessed Sex and Gender Information Value Date Recorded Sex Assigned at Not on file Gender Identity Not on file Sexual Orientation Not on file Plan of Treatment Health Maintenance Due Date Last Done Comments COLOGUARD (AGES 45-75) - COL ON CA SCREENING 1965 COLON MONITORING 1964 COLONOSCOPY - COLON CA SCREENING 1964 CT COLONOGRAPHY - COLON CA SCREENING 1965 Colorectal Cancer Screening 1964 FIT - COLON CA SCREENING 1964 FLEX SIG - COLON CA SCREENING 1964 LIPID TESTING 1964 HIV SCREENING 09/20/1979 HEPATITIS C SCREENING 09/15/1982 DTAP/TDAP/TD VACCINES (1 - Tdap) 09/20/1983 HEPATITIS B VACCINE (1 of 3 - 19+ 3-dose series) 09/20/1983 PNEUMOCOCCAL VACCINE 50+ (1 of 2 - PCV) 09/20/1983 PNEUMOCOCCAL VACCINE (1 of 2 - PCV) 09/20/1983 ZOSTER VACCINE (1 of 2) 2014 COVID-19 VACCINE (1 - 2023-2 5 season) 2024 INFLUENZA VACCINE (#1) 2024 DEPRESSION SCREENING 05/10/2024 HIB VACCINE Aged Out No longer eligi ble based on patient's age to complete this topic HPV VACCINE Aged Out No longer eligi ble based on patient's age to complete this topic MENINGOCOCCAL (Group B) VACCINE Aged Out No longer eligible based on patient's age to complete this topic MENINGOCOCCAL VACCINE Aged Out No john josé miguel eligible based on patient's age to complete this topic Procedures Procedure Name Priority Date/Time Associated Diagnosis Comments CO LIVER ELASTOGRAPHY Routine 04/26/2024 12:17 PM TELEPHONY ENGINEER Hepatic cirrhosis, unspecified hepatic cirrhosis type, unspecified whether ascites present (HCC) from Last 3 Months Results * CO LIVER ELASTOGRAPHY (04/26/2024 12:17 PM TELEPHONY ENGINEER) Narrative Jose Harding MD - 04/26/2024 12:17 PM TELEPHONY ENGINEER Jose Harding MD 04/26/2024 6:45 PM Diagnosis: [...] patients with nonalcoholic fatty liver disease. Gastroenterology 2019;156:4812-8488. Shawanda MS, Yg R, Van Natta ML, et al. Vibration-controlled transient elastography to [...] These include the FAST (Fibroscan-AST) score (Gayla, 202) and the Agile3+ and Agile4 scores (Jona, 202). Gayla TA, Van Natta ML, Halina M, Shiv A, et al. Validation of the accuracy of the FAST score for detecting patients with at-risk nonalcoholic steatohepatitis (CHO) in a [place] cohort and comparison to other non-invasive algorithms. PLoS ONE (2021) 17: [id number]. Jona SALAZAR, Anjali J, Alma MOLINA, et al. Enhanced diagnosis of advanced fibrosis and cirrhosis in individuals with NAFLD using FibroScan-based Agile scores. J Hepatol (2022) 78: 247-259. Fibroscan LSM can also be used with laboratory parameters without formulas to assess prognosis. According to the Baveno-VII criteria (Mcneil, 2022), Fibroscan LSM <=15 kPa plus a platelet count of >=826f593/L rules out clinically significant portal hypertension (sensitivity and negative predictive value >90%) in patients with compensated advanced chronic liver disease. Mcneil R, Ana J, Starr G, Naresh T, Tosha Palmer on behalf of the [facility] VII Faculty. Baveno VII--Renewing consensus in portal hypertension. J Hepatol (2021) 76: 959-974 Assessing the likelihood of advanced fibrosis in patients with intermediate liver stiffness measurement (LSM) by Fibroscan (e.g., 8-15 kPa) can be improved by also calculating the FIB-4 score (Gile et al. Hepatology Communications 2019;3:2227-9330) or NAFLD Fibrosis score (Junior et al. Clinical Gastroenterology and Hepatology 2019;17:6159-0232 using routine clinical data. Note: 1. Fibroscan [...] additional interpretive data was last updated 09/12/22.) [email or web address] Jose Harding MD PROCEDURE/ MINOR SURGICAL ORDERABLES from Last 3 Months Care Teams Vulcan Crewmember Relationship Specialty Start Date End Date Pierce Torres MD [address] [place] [address] PCP - General Internal Medicine 04/26/24
[2024-06-16 15:41] LABS: Hematocrit 27.6 % (40.0-54.0); Mean Corpuscular Hemoglobin 21.1 pg (27.0-31.0); Mean Corpuscular Volume 72.6 fL (78.0-102.0); Platelet Count Result 291 K/mm3 (150-420); Red Cell Distribution Width 18.5 % (11.6-14.4); White Blood Count 8.3 K/mm3 (4.8-10.8)
[2024-06-16 16:04] LABS: Alanine Aminotransferase 17 U/L (16-63); Anion Gap 10 mmol/L (4-12); Aspartate Amino Transferase 10 U/L (15-37); Bilirubin,Total 0.5 mg/dL (0.00-1.00); Calcium 8.6 mg/dL (8.5-10.1); Carbon Dioxide 29 mmol/L (21-32); Chloride 104 mmol/L (98-108); Estimated Glomerular Filt Rate > 60; Glucose 100 mg/dL (70-99); Potassium 3.6 mmol/L (3.5-5.1); Sodium 143 mmol/L (136-145); Total Protein 7.5 g/dL (6.4-8.2)
[2024-06-16 16:27] LABS: Alkaline Phosphatase 87 U/L (46-116); Blood Urea Nitrogen 11 mg/dL (7-18); Osmolality Calculated 295 mOsm/kg (285-295)
[2024-06-16 16:46] LABS: Magnesium 0.9 mg/dL (1.8-2.4)
== END 2024-06-16 15:20 | disposition home or self-care (01) ==
LOC: CHSLAB 15:22
PROVIDERS: PCP Internal Medicine; Visit Provider Internal Medicine
DX: K74.60 Unspecified cirrhosis of liver (principal)
CPT/HCPCS: 36415; 80053; 83735; 85027

== ENCOUNTER 2024-06-28 09:44 | Outpatient (CLI) | payer OTHER, SELFPAY ==
[2024-06-28 09:55] VITALS: BP 146/89; PULSE 71; RESP 18; TEMP 36.3; O2SAT 100
--- OUTSIDE RECORDS SUMMARY | 2024-06-28 09:58 | XMS_ITS | Patient Health Summary ---
Author Organization [facility] Address [address] [place] [address] Care Team Providers Care Opal Miner Name Role Phone Pierce Torres MD Primary Care Provider [phone] Note from [facility],non-owned Affiliates and Associated Physician Practices is amultiple site organization consisting of ambulatory clinics and hospital sitesin [place], [place], [place] and [place]. This disclosure is being madepursuant to the Care Everywhere program and may not contain all information available regarding this patient. Last updated 18.[facility] Social History Tobacco Use Types Packs/Day Years Used Date Smoking Tobacco: Never Assessed Sex and Gender Information Value Date Recorded Sex Assigned at Not on file Gender Identity Not on file Sexual Orientation Not on file Procedures * MT LIVER ELASTOGRAPHY(Performed 04/26/2024) Performed for Hepatic cirrhosis, unspecified hepatic cirrhosis type, unspecified whether ascites present (HCC) Results * MT LIVER ELASTOGRAPHY (04/26/2024 12:17 PM HOME THEATRE TECHNICIAN) Narrative Jose Harding MD - 04/26/2024 12:17 PM HOME THEATRE TECHNICIAN Jose Harding MD 04/26/2024 6:45 PM Diagnosis: [...] patients with nonalcoholic fatty liver disease. Gastroenterology 2019;156:2983-4783. Shawanda MCNEAL, Yg R, Sb CHARLES, et [...] at-risk nonalcoholic steatohepatitis (CHO) in a [place] cohort and comparison to other non-invasive algorithms. PLoS ONE (2021) 17: [id number]. Jona AJ, Anjali J, Alma ZM, et al. Enhanced diagnosis of advanced fibrosis and cirrhosis in individuals with NAFLD using FibroScan-based Agile scores. J Hepatol (2022) 78: 247-259. Fibroscan LSM can also be used with laboratory parameters without formulas to assess prognosis. According to the Baveno-VII criteria (Mcneil, 202), Fibroscan LSM <=15 kPa plus a platelet count of >=216m254/L rules out clinically significant portal hypertension (sensitivity [...] FIB-4 score (Adriana et al. Hepatology Communications 2019;3:7942-5879) or NAFLD Fibrosis score (Junior et al. Clinical Gastroenterology and Hepatology 2019;17:1720-1857 using routine clinical data. Note: 1. Fibroscan [...] additional interpretive data was last updated 09/12/22.) [email or web address] Jose Harding MD PROCEDURE/ MINOR SURGICAL ORDERABLES Care Teams Opal Miner Relationship Specialty Start Date End Date Pierce Torres MD [address] [place] [address] PCP - General Internal Medicine 04/26/24
--- OUTSIDE RECORDS SUMMARY | 2024-06-28 09:58 | XMS_ITS | Referral Summary ---
Author Organization [facility] Address [address] [facility] [place] [address] Care Team Providers Care Transportation Department Head Name Role Phone Pierce Torres MD Primary Care Provider [phone] Source Comments [facility],non-owned Affiliates and Associated Physician Practices is amultiple site organization consisting of ambulatory clinics and hospital sitesin [place] and [place]. This disclosure is being madepursuant to the Care Everywhere program and may not contain all information available regarding this patient. Last updated 18.[facility] [employer] Encounters Date Type Department Care Team Description 04/26/2024 Travel 04/26/2024 11:30 AM PARTICLE BOARD SUPERVISOR Procedure visit [facility] - [address] [address] Jose Pitts MD Hepatic cirrhosis, unspecified hepatic [...] Procedure Name Priority Date/Time Associated Diagnosis Comments MD LIVER ELASTOGRAPHY Routine 04/26/2024 12:17 PM PARTICLE BOARD SUPERVISOR Hepatic cirrhosis, unspecified hepatic cirrhosis type, unspecified whether ascites present (HCC) from Last 3 Months Results * MD LIVER ELASTOGRAPHY (04/26/2024 12:17 PM PARTICLE BOARD SUPERVISOR) Narrative Jose Harding MD - 04/26/2024 12:17 PM PARTICLE BOARD SUPERVISOR Jose Harding MD 04/26/2024 6:45 PM Diagnosis: [...] patients with nonalcoholic fatty liver disease. Gastroenterology 2019;156:6564-8927. Shawanda MS, Yg R, Van Marco ML, [...] at-risk nonalcoholic steatohepatitis (CHO) in a [place] cohort and comparison to other non-invasive algorithms. PLoS ONE (2021) 17: [id number]. Jona AJ, Anjali J, Alma ZM, et al. Enhanced diagnosis of advanced fibrosis and cirrhosis in individuals with NAFLD using FibroScan-based Agile scores. J Hepatol (2022) 78: 247-259. Fibroscan LSM can also be used with laboratory parameters without formulas to assess prognosis. According to the Baveno-VII criteria (Mcneil, 202), Fibroscan LSM <=15 kPa plus a platelet count of >=269o528/L rules out clinically significant portal hypertension (sensitivity [...] FIB-4 score (Bekayduke et al. Hepatology Communications 2019;3:0985-6211) or NAFLD Fibrosis score (Junior et al. Clinical Gastroenterology and Hepatology 2019;17:2046-8285 using routine clinical data. Note: 1. Fibroscan [...] additional interpretive data was last updated 09/12/22.) [email or web address] Jose Harding MD PROCEDURE/ MINOR SURGICAL ORDERABLES from Last 3 Months Care Teams Transportation Department Head Relationship Specialty Start Date End Date Pierce Torres MD [address] [place] [address] PCP - General Internal Medicine 04/26/24
--- OUTSIDE RECORDS SUMMARY | 2024-06-28 09:58 | XMS_ITS | Encounter Summary ---
Author Organization [facility] Address [facility] [place] [address] Care Team Providers Care Special Delivery Messenger Name Role Phone Pierce Torres MD Primary Care Provider [phone] Sylvia Mancia MD Unavailable Encounter Details Date Type Department Care Team (Late st Contact Info) Description 08/31/2022 Pre-Procedure Call [facility] [place] [address] Sylvia Mancia MD [address] [place], [place] [address] Social History Tobacco Use Types Packs/Day Years [...] on filedocumented in this encounter Care Teams Special Delivery Messenger Relationship Specialty Start Date End Date Pierce Torres MD [address] [place] [address] PCP - General INTERNAL MEDICINE 11/30/19 Sylvia Mancia MD [address] [place] [address] [place] Shirt Closer CARDIOVASCULAR DISEASE 08/10/22 documented as of this encounter
--- OUTSIDE RECORDS SUMMARY | 2024-06-28 09:58 | XMS_ITS | Clinical Summary ---
Author Organization [facility] Address [facility] [place] [address] Care Team Providers Care Teachers' Assistant Name Role Phone Pierce Torres MD Primary Care Provider [phone] Sylvia Mancia MD Unavailable Allergies Active Allergy Reactions Criticality Noted Date Comments General Anesthesia Unknown 10/19/2022 Iua-Dmqb-Nibraov-Caff Unknown 10/19/2022 Medications JARDIANCE 10 MG tablet [...] patient's age to complete this topic Insurance [id number] Care Teams Teachers' Assistant Relationship Specialty Start Date End Date Pierce Torres MD [address] [place] [id number] PCP - General INTERNAL MEDICINE 11/30/19 Sylvia Mancia MD [address] [place] [address] Corder Manager Advertising CARDIOVASCULAR DISEASE 08/10/22
--- OUTSIDE RECORDS SUMMARY | 2024-06-28 09:58 | XMS_ITS | Clinical Summary ---
Author Organization [facility] Address [address] [facility] [place] [address] Care Team Providers Care Director Index Name Role Phone Pierce Torres MD Primary Care Provider [phone] Source Comments [facility],non-owned Affiliates and Associated Physician Practices is amultiple site organization consisting of ambulatory clinics and hospital sitesin [place], [place], [place] and [place]. This disclosure is being madepursuant to the Care Everywhere program and may not contain all information available regarding this patient. Last updated 18.[facility] [employer] Encounters Date Type Department Care Team Description 04/26/2024 11:30 AM RN CARDIOVASCULAR Procedure visit [facility] - [address] [phone] Jose Pitts MD Hepatic cirrhosis, unspecified hepatic [...] Procedure Name Priority Date/Time Associated Diagnosis Comments MS LIVER ELASTOGRAPHY Routine 04/26/2024 12:17 PM RN CARDIOVASCULAR Hepatic cirrhosis, unspecified hepatic cirrhosis type, unspecified whether ascites present (HCC) from Last 3 Months Results * MS LIVER ELASTOGRAPHY (04/26/2024 12:17 PM RN CARDIOVASCULAR) Narrative Jose Harding MD - 04/26/2024 12:17 PM RN CARDIOVASCULAR Jose Harding MD 04/26/2024 6:45 PM Diagnosis: [...] patients with nonalcoholic fatty liver disease. Gastroenterology 2019;156:0521-9421. Shawanda MS, Yg R, Van Natta ML, [...] at-risk nonalcoholic steatohepatitis (CHO) in a [place] cohort and comparison to other non-invasive algorithms. PLoS ONE (2021) 17: [id number]. Jona SALAZAR, Anjali J, Alma MOLINA, et al. Enhanced diagnosis of advanced fibrosis and cirrhosis in individuals with NAFLD using FibroScan-based Agile scores. J Hepatol (2022) 78: 247-259. Fibroscan LSM can also be used with laboratory parameters without formulas to assess prognosis. According to the Baveno-VII criteria (Mcneil, 2022), Fibroscan LSM <=15 kPa plus a platelet count of >=439a861/L rules out clinically significant portal hypertension (sensitivity and negative predictive value >90%) in patients with compensated advanced chronic liver disease. Mcneil R, Ana J, Starr G, Naresh T, Tosha Palmer on behalf of the [facility] VII Faculty. Baveno VII--Renewing consensus in portal hypertension. J Hepatol (2021) 76: 959-974 Assessing the likelihood of advanced fibrosis in patients with intermediate liver stiffness measurement (LSM) by Fibroscan (e.g., 8-15 kPa) can be improved by also calculating the FIB-4 score (Gile et al. Hepatology Communications 2019;3:3332-3248) or NAFLD Fibrosis score (Junior et al. Clinical Gastroenterology and Hepatology 2019;17:2712-7978 using routine clinical data. Note: 1. Fibroscan [...] additional interpretive data was last updated 09/12/22.) [email or web address] Jose Harding MD PROCEDURE/ MINOR SURGICAL ORDERABLES from Last 3 Months Care Teams Director Index Relationship Specialty Start Date End Date Pierce Torres MD [address] [place] [address] PCP - General Internal Medicine 04/26/24
[2024-06-28 10:18] VITALS: BMI 27.1
[2024-06-28] MEDS: IRON SUCROSE COMPLEX 300 MG in SODIUM CHLORIDE 0.9% IV 250 ML 125 MG IVPB (10:26)
[2024-06-28 12:42] VITALS: BP 143/86; PULSE 76; RESP 16; O2SAT 99
--- NOTE | 2024-06-28 12:43 | PC.NURSE ---
Patient tolerated Venofer infusion well. SEE MAR/patient care notes.
== END 2024-06-28 09:45 | disposition home or self-care (01) ==
PROVIDERS: PCP Internal Medicine; Visit Provider Internal Medicine
DX: D50.9 Iron deficiency anemia, unspecified (principal)
CPT/HCPCS: 96365; 96366; J1756; J7050

== ENCOUNTER 2024-07-05 09:49 | Outpatient (CLI) | payer OTHER, SELFPAY ==
[2024-07-05 10:30] VITALS: BP 124/64; PULSE 72; RESP 18; TEMP 36.6; BMI 26.2
[2024-07-05] MEDS: IRON SUCROSE COMPLEX 300 MG in SODIUM CHLORIDE 0.9% IV 235 ML 125 MG IVPB (10:39)
--- OUTSIDE RECORDS SUMMARY | 2024-07-05 10:59 | XMS_ITS | Encounter Summary ---
Author Organization [facility] Address [facility] [place] [address] Care Team Providers Care Manager Transport Name Role Phone Pierce Torres MD Primary Care Provider [phone] Sylvia Mancia MD Unavailable Encounter Details Date Type Department Care Team (Late st Contact Info) Description 08/31/2022 Pre-Procedure Call [facility] [place] [address] Sylvia Mancia MD [address] [place], [place] [address] Social History Tobacco Use Types Packs/Day Years [...] on filedocumented in this encounter Care Teams Manager Transport Relationship Specialty Start Date End Date Pierce Torres MD [address] [place] [address] PCP - General INTERNAL MEDICINE 11/30/19 Sylvia Mancia MD [address] [place] [address] [place] Inspector Chief CARDIOVASCULAR DISEASE 08/10/22 documented as of this encounter
--- OUTSIDE RECORDS SUMMARY | 2024-07-05 10:59 | XMS_ITS | Clinical Summary ---
Author Organization [facility] Address [address] [facility] [place] [address] Care Team Providers Care Airfield Engineer Officer Name Role Phone Pierce Torres MD Primary Care Provider [phone] Source Comments [facility],non-owned Affiliates and Associated Physician Practices is amultiple site organization consisting of ambulatory clinics and hospital sitesin [place], [place], [place] and [place]. This disclosure is being madepursuant to the Care Everywhere program and may not contain all information available regarding this patient. Last updated 18.[facility] [employer] Encounters Date Type Department Care Team Description 04/26/2024 11:30 AM SEAFOOD PACKER Procedure visit [facility] - [address] [phone] Jose Pitts MD Hepatic cirrhosis, unspecified hepatic [...] Procedure Name Priority Date/Time Associated Diagnosis Comments [place] LIVER ELASTOGRAPHY Routine 04/26/2024 12:17 PM SEAFOOD PACKER Hepatic cirrhosis, unspecified hepatic cirrhosis type, unspecified whether ascites present (HCC) from Last 3 Months Results * [place] LIVER ELASTOGRAPHY (04/26/2024 12:17 PM SEAFOOD PACKER) Narrative Jose Harding MD - 04/26/2024 12:17 PM SEAFOOD PACKER Jose Harding MD 04/26/2024 6:45 PM Diagnosis: [...] patients with nonalcoholic fatty liver disease. Gastroenterology 2019;156:0412-5574. Shawanda MS, Yg R, Van Natta ML, [...] at-risk nonalcoholic steatohepatitis (CHO) in a [place] cohort and comparison to other non-invasive algorithms. PLoS ONE (2021) 17: a3841612. Jona SALAZAR, Anjali J, Alma MOLINA, et al. Enhanced diagnosis of advanced fibrosis and cirrhosis in individuals with NAFLD using FibroScan-based Agile scores. J Hepatol (2022) 78: 247-259. Fibroscan LSM can also be used with laboratory parameters without formulas to assess prognosis. According to the Baveno-VII criteria (Mcneil, 2022), Fibroscan LSM <=15 kPa plus a platelet count of >=218b342/L rules out clinically significant portal hypertension (sensitivity and negative predictive value >90%) in patients with compensated advanced chronic liver disease. Mcneil R, Ana J, Starr G, Naresh T, Tosha Palmer on behalf of the [facility] VII Faculty. Baveno VII--Renewing consensus in portal hypertension. J Hepatol (2021) 76: 959-974 Assessing the likelihood of advanced fibrosis in patients with intermediate liver stiffness measurement (LSM) by Fibroscan (e.g., 8-15 kPa) can be improved by also calculating the FIB-4 score (Gile et al. Hepatology Communications 2019;3:2412-4407) or NAFLD Fibrosis score (Junior et al. Clinical Gastroenterology and Hepatology 2019;17:3685-8488 using routine clinical data. Note: 1. Fibroscan [...] additional interpretive data was last updated 09/12/22.) [email or web address] Jose Harding MD PROCEDURE/ MINOR SURGICAL ORDERABLES from Last 3 Months Care Teams Airfield Engineer Officer Relationship Specialty Start Date End Date Pierce Torres MD [address] [place] [address] PCP - General Internal Medicine 04/26/24
--- OUTSIDE RECORDS SUMMARY | 2024-07-05 10:59 | XMS_ITS | Patient Health Summary ---
Author Organization [facility] Address [address] [facility] [place] [address] Care Team Providers Care Head Track Coach Name Role Phone Pierce Torres MD Primary Care Provider [phone] Note from [facility],non-owned Affiliates and Associated Physician Practices is amultiple site organization consisting of ambulatory clinics and hospital sitesin [place], [place], [place] and [place]. This disclosure is being madepursuant to the Care Everywhere program and may not contain all information available regarding this patient. Last updated 18.[facility] Social History Tobacco Use Types Packs/Day Years Used Date Smoking Tobacco: Never Assessed Sex and Gender Information Value Date Recorded Sex Assigned at Not on file Gender Identity Not on file Sexual Orientation Not on file Procedures * [place] LIVER ELASTOGRAPHY(Performed 04/26/2024) Performed for Hepatic cirrhosis, unspecified hepatic cirrhosis type, unspecified whether ascites present (HCC) Results * [place] LIVER ELASTOGRAPHY (04/26/2024 12:17 PM BARBER SHOP OPERATOR) Narrative Jose Harding MD - 04/26/2024 12:17 PM BARBER SHOP OPERATOR Jose Harding MD 04/26/2024 6:45 PM [...] patients with nonalcoholic fatty liver disease. Gastroenterology 2019;156:1610-3575. Shawanda MCNEAL, Yg R, Sb CHARLES, et [...] at-risk nonalcoholic steatohepatitis (CHO) in a [place] cohort and comparison to other non-invasive algorithms. PLoS ONE (2021) 17: e3841917. oJna AJ, Anjali J, Alma ZM, et al. Enhanced diagnosis of advanced fibrosis and cirrhosis in individuals with NAFLD using FibroScan-based Agile scores. J Hepatol (2022) 78: 247-259. Fibroscan LSM can also be used with laboratory parameters without formulas to assess prognosis. According to the Baveno-VII criteria (Mcneil, 202), Fibroscan LSM <=15 kPa plus a platelet count of >=845f449/L rules out clinically significant portal hypertension (sensitivity [...] FIB-4 score (Adriana et al. Hepatology Communications 2019;3:6787-2628) or NAFLD Fibrosis score (Junior et al. Clinical Gastroenterology and Hepatology 2019;17:9192-5054 using routine clinical data. Note: 1. Fibroscan [...] additional interpretive data was last updated 09/12/22.) [email or web address] Jose Harding MD PROCEDURE/ MINOR SURGICAL ORDERABLES Care Teams Head Track Coach Relationship Specialty Start Date End Date Pierce Torres MD [address] [place] [address] PCP - General Internal Medicine 04/26/24
--- OUTSIDE RECORDS SUMMARY | 2024-07-05 10:59 | XMS_ITS | Referral Summary ---
Author Organization [facility] Address [address] [facility] [place] [address] Care Team Providers Care Performance Manager Name Role Phone Pierce Torres MD Primary Care Provider [phone] Source Comments [facility],non-owned Affiliates and Associated Physician Practices is amultiple site organization consisting of ambulatory clinics and hospital sitesin [place], [place], [place] and [place]. This disclosure is being madepursuant to the Care Everywhere program and may not contain all information available regarding this patient. Last updated 18.[facility] [employer] Encounters Date Type Department Care Team Description 04/26/2024 Travel 04/26/2024 11:30 AM BRICKMASON APPRENTICE Procedure visit [facility] - [address] [address] Jose Pitts MD Hepatic cirrhosis, unspecified hepatic [...] Procedure Name Priority Date/Time Associated Diagnosis Comments [place] LIVER ELASTOGRAPHY Routine 04/26/2024 12:17 PM BRICKMASON APPRENTICE Hepatic cirrhosis, unspecified hepatic cirrhosis type, unspecified whether ascites present (HCC) from Last 3 Months Results * ME LIVER ELASTOGRAPHY (04/26/2024 12:17 PM BRICKMASON APPRENTICE) Narrative Jose Harding MD - 04/26/2024 12:17 PM BRICKMASON APPRENTICE Jose Harding MD 04/26/2024 6:45 PM Diagnosis: [...] probability of hepatic steatosis is: low. Jose Vilalnueva MD The following criteria are used to [...] patients with nonalcoholic fatty liver disease. Gastroenterology 2019;156:7402-0705. Shawanda MS, Yg R, Van Marco ML, [...] other non-invasive algorithms. PLoS ONE (2021) 17: [id number]. Jona AJ, Anjali J, Alma ZM, et al. Enhanced diagnosis of advanced fibrosis and cirrhosis in individuals with NAFLD using FibroScan-based Agile scores. J Hepatol (2022) 78: 247-259. Fibroscan LSM can also be used with laboratory parameters without formulas to assess prognosis. According to the Baveno-VII criteria (Mcneil, 202), Fibroscan LSM <=15 kPa plus a platelet count of >=536j694/L rules out clinically significant portal hypertension (sensitivity [...] FIB-4 score (Bekayduke et al. Hepatology Communications 2019;3:3592-7336) or NAFLD Fibrosis score (Junior et al. Clinical Gastroenterology and Hepatology 2019;17:4044-3253 using routine clinical data. Note: 1. Fibroscan [...] additional interpretive data was last updated 09/12/22.) [email or web address] Jose Harding MD PROCEDURE/ MINOR SURGICAL ORDERABLES from Last 3 Months Care Teams Performance Manager Relationship Specialty Start Date End Date Pierce Torres MD [address] [place] [address] PCP - General Internal Medicine 04/26/24
--- OUTSIDE RECORDS SUMMARY | 2024-07-05 10:59 | XMS_ITS | Clinical Summary ---
Author Organization [facility] Address [facility] [place] [address] Care Team Providers Care Cash Clerk Name Role Phone Pierce Torres MD Primary Care Provider [phone] Sylvia Mancia MD Unavailable Allergies Active Allergy Reactions Criticality Noted Date Comments General Anesthesia Unknown 10/19/2022 Dcj-Eeda-Zpgktid-Caff Unknown 10/19/2022 Medications JARDIANCE 10 MG tablet [...] patient's age to complete this topic Insurance [id number] Care Teams Cash Clerk Relationship Specialty Start Date End Date Pierce Torres MD [address] [place] [phone] PCP - General INTERNAL MEDICINE 11/30/19 Sylvia Mancia MD [address] [place] [address] [place] Regulatory Affairs Assistant CARDIOVASCULAR DISEASE 08/10/22
== END 2024-07-05 09:50 | disposition home or self-care (01) ==
PROVIDERS: PCP Internal Medicine; Visit Provider Internal Medicine
DX: D50.9 Iron deficiency anemia, unspecified (principal)
CPT/HCPCS: 96365; 96366; J1756; J7050

== ENCOUNTER 2024-09-12 09:47 | Outpatient (CLI) | payer OTHER, SELFPAY ==
[2024-09-12 10:22] LABS: Hematocrit 40.2 % (40.0-54.0); Hemoglobin 11.7 g/dL (14.0-18.0); Mean Corpuscular HGB Conc 29.1 g/dL (32-36); Mean Corpuscular Hemoglobin 22.2 pg (27.0-31.0); Mean Corpuscular Volume 76.4 fL (78.0-102.0); Mean Platelet Volume 10.1 fl (8.7-11.0); Platelet Count Result 257 K/mm3 (150-420); Red Blood Count 5.26 M/mm3 (4.70-6.10); Red Cell Distribution Width 16.6 % (11.6-14.4)
--- OUTSIDE RECORDS SUMMARY | 2024-09-12 10:31 | XMS_ITS | Encounter Summary ---
Author Organization [facility] Address [facility] [place] [address] Care Team Providers Care Medical Physics Teacher Name Role Phone Pierce Torres MD Primary Care Provider [phone] Sylvia Mancia MD Unavailable Ky Szymanski DO Unavailable Encounter Details Date Type Department Care Team (Late st Contact Info) Description 08/31/2022 Pre-Procedure Call [facility] [place] [address] Sylvia Mancia MD [address] [place] [id number] Social History Tobacco Use Types Packs/Day Years Used Date Smoking Tobacco: Never Assessed Sex and Gender Information Value Date Recorded Sex Assigned at Male 08/14/2024 12:09 PM CDT Legal Sex Male 11:19 AM CDT Gender Identity Not on file Sexual Orientation Not on file documented as of this encounter Plan of Treatment Upcoming Encounters Date Type Department Care Team (Late Contact Info) Description 11/13/2024 7:50 AM CDT Allied Health/Nurse Visit [facility], [address] [place], [place] [id number] London Yu MD [facility]. [address] [place], [place] [id number] documented as of this encounter Visit Diagnoses Not on filedocumented in this encounter Care Teams Medical Physics Teacher Relationship Specialty Start Date End Date Pierce Torres MD [address] [place] [address] PCP - General INTERNAL MEDICINE 11/30/19 Sylvia Mancia MD [address] [place] [address] Wheeler Process Analyst CARDIOVASCULAR DISEASE 08/10/22 Ky Szymanski DO [address] [place], [place] [id number] INTERNAL MEDICINE 07/31/24 documented as of this encounter
--- OUTSIDE RECORDS SUMMARY | 2024-09-12 10:31 | XMS_ITS | Clinical Summary ---
Author Organization [facility] Address [address] [place] [address] Care Team Providers Care Commercial Real Estate Assistant Name Role Phone Pierce Torres MD Primary Care Provider [phone] Source Comments [facility],non-owned Affiliates and Associated Physician Practices is amultiple site organization consisting of ambulatory clinics and hospital sitesin [place], [place], [place] and [place]. This disclosure is being madepursuant to the Care Everywhere program and may not contain all information available regarding this patient. Last updated 18.[facility] [employer] Social History Tobacco Use Types Packs/Day Years Used Date Smoking Tobacco: Never Assessed Sex and Gender Information Value Date Recorded Sex Assigned at Not on file Legal Sex Male 2:23 PM METAL TEMPLATE MAKER Gender Identity Not on file Sexual Orientation [...] 50+ (1 of 2 - PCV) 09/20/1983 ZOSTER VACCINE (1 of 2) 2014 COVID-19 VACCINE ( - 2023-2 5 season) 2024 DEPRESSION SCREENING 05/10/2024 INFLUENZA VACCINE (Season Ended) 2025 HIB VACCINE Aged Out No longer eligi ble based on patient's age to complete this topic HPV VACCINE Aged Out No longer eligi ble based on patient's age to complete this topic MENINGOCOCCAL (Group B) VACC INE SHARED DECISION-MAKING Aged Out No longer eligibl e based on patient's age to complete this topic MENINGOCOCCAL GROUPS A/C/Y/W VACCINE Aged Out No longer eligible b ased on patient's age to complete this topic Insurance [facility] [place] [id number] Care Teams Commercial Real Estate Assistant Relationship Specialty Start Date End Date Pierce Torres MD [address] [place] [address] PCP - General Internal Medicine 04/26/24
--- OUTSIDE RECORDS SUMMARY | 2024-09-12 10:31 | XMS_ITS | Clinical Summary ---
Author Organization [facility] Address [address] [place] [address] Care Team Providers Care Farm Product Purchaser Name Role Phone Pierce Torres MD Primary Care Provider [phone] Sylvia Mancia MD Unavailable Ky Szymanski DO Unavailable Allergies Active Allergy Reactions Criticality Noted Date Comments General Anesthesia Unknown 10/19/2022 Hydrocodone Nausea and Vomiting Low 07/20/2017 Morphine Vomiting Low 07/20/2017 Oxycodone Nausea and Vomiting Low 07/20/2017 Rpb-Txfq-Erfnfew-Caff Unknown 10/19/2022 Medications omeprazole (PRILOSEC) 40 MG capsule Take 1 capsule (40 mg total) by mouth daily. 10/16/19 23 Active SKYRIZI PEN 150 MG/ML Solution Auto-injector 08/11/19 23 Active multi vitamin/cop examiner als (THERA-M ENHANCED) tablet Take 1 tablet by mouth daily. Active Cyanocobalami n (B-12) 50 MCG Tab Active aspirin EC (ECOTRIN) 81 MG tablet Take 1 tablet (81 mg total) by mouth daily. Ac tive fish oil (OMEGA-3 FATTY ACID) 1000 MG Cap capsule Take 1 capsule (1,000 mg total) by mouth daily. Active carvedilol (COREG) 6.25 MG tablet TAKE 1 TABLET BY MOUTH EVERY 12 HOURS. MUST ADMINISTER WITH A MEAL/FOOD 07/11/19 25 Active tamsulosin (FLOMAX) 0.4 MG Cap TAKE 1 CAPSULE BY MOUTH ONCE DAILY 1/2 HOUR FOLLOWING THE SAME MEAL EACH DAY 07/11/19 25 Active spironolacton e (ALDACTONE) 100 MG tablet TAKE 1 TABLET BY MOUTH ONCE DAILY. PT TO STOP HYDROCHLOROTHIAZIDE 07/11/19 25 Active folic acid (FOLVITE) 1 MG tablet Take 1 tablet (1 mg total) by mouth daily. 07/11/19 25 Active ferrous gluconate (FERGON) 324 (38 FE) MG tablet Take 1 tablet (324 mg total) by mouth daily. 07/13/19 25 Active magnesium oxide (MAG-OX) 250 MG tablet Take 2 tablets (500 mg total) by mouth 4 (four) times daily. Activ e vitamin B-1 (THIAMINE) 50 MG tablet Take 2 tablets (100 mg total) by mouth daily. Ac tive Active Problems Problem Noted Date Diagnosed Date Sick sinus syndrome ([facility]) 08/15/2024 Overview (08/15/2024): [employer] Allure pacemaker implanted 08/14/2024 for SSS Cardiac pacemaker in situ 08/15/2024 Overview (08/15/2024): [facility] pacemaker implanted 08/14/2024 for SSS HTN (hypertension) ST elevation (STEMI) myocard ial infarction of unspecified site ([facility]) CAD (coronary artery disease) GERD (gastroesophageal reflux disease) Bradycardia AV heart block Encounters Date Type Department Care Team Description 09/07/2024 Telephone [facility]olyn silverman [address] [address] London Yu MD Information 08/28/2024 9:30 AM CDT Allied Health/Nurse Visit [facility], [address] [address] London Yu MD Pacemaker Check 08/28/2024 Travel 08/15/2024 1:20 PM CDT Allied Health/Nurse Visit [facility] herrera [address] [address] London Yu MD Remote Device Check (POD 1) 08/15/2024 Telephone [facility]wendolyn silverman [facility] [address] [place] [address] Melisa Ha MA Postop Followup 08/15/2024 Scan [facility], [address] [address] Scanned, Doc Pccl 08/14/2024 4:07 PM CDT Anesthesia Event [facility] [place] [address] Tima Echevarria MD 08/14/2024 12:12 PM CDT - 08/14/2024 5:40 PM CDT Hospital Encounter [facility] [place] [address] London Yu MD Discharge Disposition: Home or Self Care (Routine Discharge) 08/14/2024 Travel 08/03/2024 11:00 AM CDT Office Visit [facility] her[facility] [address] [address] London Yu MD Consult (Sja gen change); Sick Sinus Syndrome 08/03/2024 Travel 08/01/2024 Telephone [facility] [address] [address] Melisa Ha MA Information 07/31/2024 Orders Only [facility] [address] [place] [address] Tj Rivas MD 07/31/2024 Telephone [facility] [address] [address] Melisa Ha MA Information (Incoming Transfer Notice from Dr. London office) 06/29/2024 Scan [facility] [address] [address] Scanned, Doc Pccl from Last 3 Months Family History Medical History Relation Comments Hypertension Father Heart Attack Maternal Grandmother Diabetes Mother Relation Status Comments Father Maternal Grandmother Mother Social History Tobacco Use Types Packs/Day Years [...] Sign Reading Time Taken Comments Blood Pressure 112/73 08/14/2024 5:30 PM CDT Pulse 75 08/14/2024 5:30 PM CDT Temperature 36.4 C (97.5 F) 08/14/2024 1:31 PM CDT Respiratory Rate 15 08/14/2024 5:30 PM CDT Oxygen Saturation 97% 08/14/2024 5:30 PM CDT Inhaled Oxygen Concentration - - Weight 81.4 kg (179 lb 7.3 oz) 08/14/2024 1:31 P M CDT Height 177.8 cm (5' 10 ) 08/14/2024 1:31 PM CDT Body Mass Index 25.75 08/14/2024 1:31 PM CDT Plan of Treatment Upcoming Encounters Date Type Department Care Team (Late st Contact Info) Description 11/13/2024 7:50 AM CDT Allied Health/Nurse Visit [facility] on [facility], [address] [place] [address] London Yu MD [facility]. [address] [place] [address] Health Maintenance Due Date Last Done Comments ASCVD LDL 1965 ASCVD Statin 1965 Colorectal Cancer Screening Colonoscopy (10 Years) 1965 Annual Physical 09/20/1967 Hepatitis C 1982 DTaP, Tdap and Td Vaccines ( 1 - Tdap) 09/20/1983 Pneumococcal Vaccine: 50+ Ye ars (1 of 2 - PCV) 09/20/1983 Lung Cancer Screening 2014 Zoster Vaccines (1 of 2) 2014 COVID-19 Vaccine (1 - 2023-2 5 season) 2024 Meningococcal B Vaccine Aged Out No l onger eligible based on patient's age to complete this topic Meningococcal Vaccine Aged Out No john josé miguel eligible based on patient's age to complete this topic RSV Immunizations Under 20 Months Aged Out No longer eligible based on patient's age to complete this topic Medical Devices Implanted Type Area Color Specialist Device Identifier Shelf Expiration Date Model / Serial / Lot Ra Lead Implant-a- 01/17/2016 Implanted:Qt y: 1 on 01/17/[address] [employer] [facility] [employer] [id number]/46 / [id number] / Rv Lead Implant-[facility]- 01/17/2016 Implanted:Qt y: 1 on 01/17/[address] [facility] [employer] [facility] [employer] 2088TC/65 / [id number] / Lv Lead Implant-a- 01/17/2016 Implanted:Qt y: 1 on 01/17/[address] [employer] [facility] [employer] 1458QL/86 / [id number] / [facility]emaker-[facility]-08/14 Implanted:Qt y: 1 on 08/14/2024 by London Yu MD Pacemaker [facility] [facility] [employer] [id number] 11/06/2025 [id number] / [id number] / Explanted Type Area Color Specialist Device Identifier Shelf Expiration Date Model / Serial / Lot Pacemaker-[employer] Explanted:Qty: 1 on 08/14/2024 by London Yu MD Pacemaker Procedures Procedure Name Priority Date/Time Associated Diagnosis Comments XA PACEMAKER GENERATOR CHANGE Routine 08/14/2024 4:19 PM CDT Bradycardia AV heart block SSS (sick sinus syndrome) ([facility]) Pacemaker generator end of life PROTHROMBIN TIME, VENOUS STAT 08/14/2024 12:34 PM CDT Bradycardia AV heart block SSS (sick sinus syndrome) ([facility]) Pacemaker generator end of life CBC W/DIFF AUTOMATED STAT 08/14/2024 12:34 PM CDT Bradycardia AV heart block SSS (sick sinus syndrome) ([facility]) Pacemaker generator end of life BASIC METABOLIC PANEL STAT 08/14/2024 12:34 PM CDT Bradycardia AV heart block SSS (sick sinus syndrome) ([facility]) Pacemaker generator end of life ECG GENERIC (SCAN ORDER) Routine 06/29/2024 from Last 3 Months Results * XA PACEMAKER GENERATOR CHANGE (08/14/2024 4:19 PM CDT) Anatomical Region Laterality Modality Cardiac Chemical Recovery Operator Narrative 08/27/2024 11:29 PM CDT Table formatting from the original result was not included. [facility] CARDIAC CATHETERIZATION/EP LAB [phone] Pacemaker Replacement Patient's Name: Asad Jc Date of : 1965 Medical Record: #[id number] Account: #[id number] Physician: London Yu MD Date: 08/14/2024 Procedure: #[id number] Indication: Complete Heart Block History: 58-year-old male with complete heart block, status post STRAIN TECHNICIAN-P. Here for pacemaker generator change. Physical Exam: Vitals: Per nursing record. Abdominal: Normal HEENT: Carotid upstroke normal. Lungs: Clear to auscultation bilaterally. CV: PMI normal, S1/S2 normal. No murmurs noted. Extremities: No edema noted Vascular: No aortic/carotid/femoral bruits noted. Pulses: Femoral: 2+ DP: 2+ PT: 2+ Procedure: Sedation was provided by anesthesia services The patient's device was noted to be at its elective replacement interval. The device was implanted for complete heart block. Consent was obtained from the patient after a full explanation of the risks and benefits of the procedure. The patient was brought to the electrophysiology lab in the fasting state. The patient was prepped and draped in the usual sterile fashion. Local anesthesia was infiltrated at the site of the previous incision. Using a combination of a scalpel, electrocautery (with Peak Plasmablade), and blunt dissection, the generator was exposed. The leads were then disconnected from the generator and reconnected to the new pulse generator. Lead parameters were checked and noted to be stable and similar to the prior generator. The incision was then closed in three layers: a 2-0 Vicryl and 3-0 Vicryl for the subcutaneous tissues, and a running 4-0 Vicryl for the subcuticular layer. The skin was then sealed with steri-strips. The patient was transported to the holding area in stable condition. There were no immediate periprocedural complications. Summary: Successful pulse generator replacement. Recommendations: Incision check in two weeks. Parameters: Mode: DDD Lower rate limit: 60 Upper rate limit: 140 Mode switch rate: 70 Rate responsive: Off Paced/Sensed AV delay: 160/130 Device settings: RA RV LV Output 2.0 V Auto 1.0 V Auto 1.0 V Output pulse width 0.4 ms 0.4 ms 0.4 ms Measurements: RA RV LV Amplitude >5 mV Paced ----- Pacing impedance 460 ? 490 ? 410 ? Pacing threshold 0.5 V 1.0 V 1.0 V Pulse width 0.4 ms 0.4 ms 0.4 ms Color Specialist: [facility] Machine Presser Quadra Allure MP, Model #[id number] Device Serial #[id number] Lead RV Lead Model #2088TC - 65 cm RV Lead Serial # [id number] LV Lead Model #1458QL - 86 cm LV Lead Serial #[id number] Atrial Lead Model #1882TC - 46 cm Atrial Lead Serial #[id number] London Yu MD MH/vs Interpreted: 08/14/24 Transcribed: 08/15/24 us London Yu MD LANDFILL GAS TECHNICIAN Final Resul t * (ABNORMAL) PROTIME/INR, VENOUS (08/14/2024 12:34 PM CDT) PROTIME 13.2(H) 10.2 - 12.9 SEC 08/14/2024 1:48 PM CDT [facility] INR 1.2 08/14/2024 1:48 PM CDT [facility] Comment: Recommended INR Therapeutic Goals: 2.0-3.0 Routine Therapy 2.5-3.5 Mechanical Prosthetic Valves (High Risk) 08/14/2024 12:3 4 PM CDT us London Yu MD LABORATORY Final Resul t [facility] [address] [place] [address], [place] [phone] * (ABNORMAL) BASIC METABOLIC PANEL (08/14/2024 12:34 PM CDT) GLUCOSE 131(H) 70 - 99 MG/DL 08/14/2024 1:40 PM CDT [facility] BUN 17 7 - 18 MG/DL 08/14/2024 1:40 PM CDT [facility] CREATININE S/P/B 0.96 0.7 - 1.3 MG/DL 08/14/2024 1:40 PM CDT [facility] SODIUM S/P/B 135(L) 136 - 145 MMOL/L 08/14/2024 1:40 PM CDT [facility] POTASSIUM S/P/B 4.5 3.5 - 5.1 MMOL/L 08/14/2024 1:40 PM CDT [facility] CHLORIDE S/P/B 105 97 - 115 MMOL/L 08/14/2024 1:40 PM CDT [facility] CO2 27.1 21 - 32 MMOL/L 08/14/2024 1:40 PM CDT [facility] CALCIUM S/P/B 9.5 8.5 - 10.1 MG/DL 08/14/2024 1:40 PM CDT [facility] ANION GAP 2.9 2 - 10 MMOL/L 08/14/2024 1:40 PM CDT [facility] BUN CREATININE RATIO 17.7 6 - 26 08/14/2024 1:40 PM CDT [facility] GFR ESTIMATE >90 >90 ML/MIN/1.7 3 M2 08/14/2024 1:40 PM CDT [facility] Comment: NOTE: eGFR is not calculated for patients <18 years of age or gender unknown. This is an estimated GFR calculation using the new CKD EPI creatinine equation without race and so does not require a correction factor for race. This estimated GFR should not be used for calculating drug doses. 08/14/2024 12:3 4 PM CDT us London Yu MD LABORATORY Final Resul t [facility] [address] [place] [address], * (ABNORMAL) CBC W/DIFF AUTOMATED (08/14/2024 12:34 PM CDT) WBC 7.70 4.5 - 11.0 x10'3/uL 08/14/2024 1:21 PM CDT [facility] RBC 4.98 4.70 - 6.10 x10'6/uL 08/14/2024 1:21 PM CDT [facility] HGB 11.1(L) 14.0 - 18.0 G/DL 08/14/2024 1:21 PM CDT [facility] HCT 37.6(L) 43.0 - 54.0 % 08/14/2024 1:21 PM CDT [facility] MCV 75.5(L) 80.0 - 94.0 FL 08/14/2024 1:21 PM CDT [facility] MCH 22.3(L) 27.0 - 31.0 PG 08/14/2024 1:21 PM CDT [facility] MCHC 29.5(L) 32.0 - 36.0 G/DL 08/14/2024 1:21 PM CDT [facility] RDW 18.2(H) 11.5 - 14.5 % 08/14/2024 1:21 PM CDT [facility] PLT 270 130 - 400 x10'3/uL 08/14/2024 1:21 PM CDT [facility] MPV 10.4 9.3 - 12.2 FL 08/14/2024 1:21 PM CDT [facility] DIFFERENTIAL TYPE AUTOMATED DIFFERENTIAL 08/14/2024 1:21 PM CDT [facility] NEUTROPHILS % 55.0 % 08/14/2024 1:21 PM CDT [facility] LYMPHOCYTES % 23.9 % 08/14/2024 1:21 PM CDT [facility] MONOCYTES % 6.6 % 08/14/2024 1:21 PM CDT [facility] EOSINOPHILS 12.9 % 08/14/2024 1:21 PM CDT [facility] BASOPHILS 1.3 % 08/14/2024 1:21 PM CDT [facility] IMMATURE GRANS % 0.3 % 08/15/19 1:21 PM CDT [facility] ABS. NEUTROPHILS 4.24 1.80 - 7.70 x10'3/uL 08/14/2024 1:21 PM CDT [facility] ABS. LYMPHOCYTES 1.84 1.00 - 4.80 x10'3/uL 08/14/2024 1:21 PM CDT [facility] ABS. MONOCYTES 0.51 0.30 - 0.82 x10'3/uL 08/14/2024 1:21 PM CDT [facility] ABS. EOSINOPHILS 0.99(H) 0.04 - 0.54 x10'3/uL 08/14/2024 1:21 PM CDT [facility] ABS. BASOPHILS 0.10(H) 0.01 - 0.08 x10'3/uL 08/14/2024 1:21 PM CDT [facility] ABS. IMMATURE GRANULOCYTES 0.02 0.00 - 0.49 x10'3/uL 08/14/2024 1:21 PM CDT [facility] 08/14/2024 12:3 4 PM CDT us London Yu MD LABORATORY Final Resul t Performing Organization Address City/[facility]/ZIP Co de Phone Number [facility] [address] [place] [address], * ECG (06/29/2024) us Doc Pccl Scanned SCANNING Final Result Performing Organization Address City/[facility]/ZIP Co de Phone Number [facility] from Last [address] Insurance [facility] Advance Directives Documents on File Type Date Recorded Patient Automation/Controls Manager Expl anation Power of Assignment Manager 08/14/2024 12:14 PM POWER OF DRYWALL STRIPPER HELPER 2024 * Full Code (Latest Code Status on File) Date Activated Date Inactivated Comments 08/14/2024 4:25 PM 08/14/2024 7:56 PM Care Teams Farm Product Purchaser Relationship Specialty Start Date End Date Pierce Torres MD [address] [place] [address] PCP - General INTERNAL MEDICINE 11/30/19 Sylvia Mancia MD [address] [place] [address] [place] French Comber CARDIOVASCULAR DISEASE 08/10/22 Ky Szymanski DO [address] [facility] [address] [facility] [address] [place] [address] INTERNAL MEDICINE 07/31/24
[2024-09-12 11:18] LABS: Alanine Aminotransferase 19 U/L (16-63); Albumin Level 3.7 g/dL (3.4-5.0); Alkaline Phosphatase 98 U/L (46-116); Anion Gap 7 mmol/L (4-12); Aspartate Amino Transferase 11 U/L (15-37); Bilirubin,Total 0.3 mg/dL (0.00-1.00); Blood Urea Nitrogen 24 mg/dL (7-18); Calcium 9.8 mg/dL (8.5-10.1); Carbon Dioxide 29 mmol/L (21-32); Chloride 100 mmol/L (98-108); Estimated Glomerular Filt Rate 51; Ferritin 15 ng/mL (26-388); Glucose 190 mg/dL (70-99); Osmolality Calculated 291 mOsm/kg (285-295); Potassium 6.2 mmol/L (3.5-5.1); Sodium 136 mmol/L (136-145); Total Protein 7.6 g/dL (6.4-8.2)
== END 2024-09-12 09:48 | disposition home or self-care (01) ==
LOC: CHSLAB 09:49
PROVIDERS: PCP Internal Medicine; Visit Provider Internal Medicine
DX: D64.9 Anemia, unspecified (principal)
CPT/HCPCS: 36415; 80053; 82728; 85027

== ENCOUNTER 2025-01-10 09:45 | Outpatient (CLI) | payer OTHER, SELFPAY ==
--- NOTE | ~2025-01-10 | US_ITS ---
Examination: US abdomen complete Clinical History: K70.30 - Alcoholic cirrhosis of liver without ascites . Comparison: CT abdomen and pelvis 02/09/2024 Technique: Complete abdominal sonography Findings: Liver: Enlarged. Echogenic. Nodular contour. No intrahepatic biliary ductal dilatation. Normal hepatopedal flow main portal vein. No mass identified. Common duct: 6 mm. Gallbladder: Small mobile stones. No wall thickening. No pericholecystic fluid. Negative sonographic Plummer's sign per technologist report. A few tiny foci of adenomyomatosis suspected. Spleen: Enlarged. Pancreas: Unremarkable. Kidneys: Unremarkable. Aorta: No aneurysmal dilatation. Retrohepatic IVC: Unremarkable. IMPRESSION: 1. Cirrhosis. No discrete mass identified. 2. Nonacute findings as above. Reviewed, dictated and finalized at location R.
[2025-01-10 10:31] LABS: Alanine Aminotransferase 20 U/L (6-50); Albumin Level 4.5 g/dL (3.5-5.1); Alkaline Phosphatase 95 U/L (38-126); Aspartate Amino Transferase 23 U/L (17-59); Bilirubin,Total 0.5 mg/dL (0.2-1.3); Total Protein 7.9 g/dL (6.3-8.2)
--- OUTSIDE RECORDS SUMMARY | 2025-01-10 10:43 | XMS_ITS | Patient Health Record ---
Author Organization [facility] [place] Address [address] [place] [address] Care Team Providers Care Derrick Engineer Name Role Phone Alex Lynn Unavailable [phone] Reason For Referral No Information Medications Medication SIG (Take, Route, Frequency, Duration) Notes Start Date End Date Status Ferrous Gluconate 324 (38 Fe) MG Tablet Oral Active Pantoprazole Sodium 40 MG Tablet Delayed Release Oral Activ e Benzonatate 200 MG Capsule Oral Active Potassium Chloride ER 10 MEQ Tablet Extended Release Oral Active Azithromycin 250 MG Tablet Oral Active Ciclopirox 1 % Shampoo External Active SKYRIZI 150 MG/ML SUBCUTANEOUS PEN INJECTOR *Reorder from [employer] for eRx and Interaction Alerts* Active Betamethasone Dipropionate 0.05 % Ointment External Active Lisinopril-hydroCHLOROthi azide 20-12.5 MG Tablet Oral Acti ve ProAir HFA 108 (90 Base) MCG/ACT Aerosol Solution Inhalation Act omkar Doxycycline Monohydrate 100 MG Tablet Oral Active Rosuvastatin Calcium 10 MG Tablet Oral Active Carvedilol 25 MG Tablet Oral Active Ferrous Gluconate 324 (37.5 Fe) MG Tablet Oral Active DULoxetine HCl 30 MG Capsule Delayed Release Particles Oral Active Rosuvastatin Calcium 20 MG Tablet Oral Active Jardiance 10 MG Tablet Oral Active Omeprazole 40 MG Capsule Delayed Release Oral Active predniSONE 20 MG Tablet Oral Active methylPREDNISolone 4 MG Tablet Therapy Pack Oral Active Ondansetron HCl 8 MG Tablet Oral Active Social History Social History Additional Details Category Social Info Options Details Migrated Social History Migrated Social History Tobacco Years: Current every day smoker 07/12/2020 Plan Of Treatment No Information Insurance Providers Payer Name Payer Address Payer Phone Subscriber Number Group Number Insured Name Patient Relationship to Insured Coverage Start Date Coverage End Date [facility] [address] [place] [address] [phone] [id number] DESIREE ANTOINE Self - patient is the insured
== END 2025-01-10 09:46 | disposition home or self-care (01) ==
LOC: CHSIMG 09:48
PROVIDERS: PCP Internal Medicine; Visit Provider Internal Medicine Gastroenterology
DX: K70.30 Alcoholic cirrhosis of liver without ascites (principal)
CPT/HCPCS: 36415; 76700; 80076; 82105

== ENCOUNTER 2025-03-09 10:47 | Outpatient (CLI) | payer OTHER, SELFPAY ==
[2025-03-09 11:00] LABS: Hematocrit 42.8 % (40.0-54.0); Hemoglobin 13.2 g/dL (14.0-18.0); Immature Granulocyte Percent A 0.4 % (0.0-0.0); Lymphocytes Absolute Auto 2.31 K/mm3 (1.10-4.50); Mean Corpuscular HGB Conc 30.8 g/dL (32-36); Mean Corpuscular Hemoglobin 25.2 pg (27.0-31.0); Mean Corpuscular Volume 81.8 fL (78.0-102.0); Nucleated Red Blood Cells Absolute Auto 0.00 K/mm3 (0.00-0.00); Nucleated Red Blood Cells Perc 0.0 % (0-0.0); Platelet Count Result 184 K/mm3 (150-420); Red Blood Count 5.23 M/mm3 (4.70-6.10); White Blood Count 9.0 K/mm3 (4.8-10.8)
--- OUTSIDE RECORDS SUMMARY | 2025-03-09 11:12 | XMS_ITS | Clinical Summary ---
Author Organization [facility] Address [address] [place] [address] Care Team Providers Care Chili Maker Name Role Phone Pierce Torres MD Primary Care Provider [phone] Sylvia Mancia MD Unavailable Ky Szymanski DO Unavailable Allergies Active Allergy Reactions Criticality Noted Date Comments General Anesthesia Unknown 10/19/2022 Hydrocodone Nausea and Vomiting Low 07/20/2017 Morphine Vomiting Low 07/20/2017 Oxycodone Nausea and Vomiting Low 07/20/2017 Xwd-Ychk-Uvbnrtv-Caff Unknown 10/19/2022 Medications omeprazole (PRILOSEC) 40 MG capsule Take 1 capsule (40 mg total) by mouth daily. 10/16/19 23 Active SKYRIZI PEN 150 MG/ML Solution Auto-injector 08/11/19 23 Active multi vitamin/forensic medical examiner als (THERA-M ENHANCED) tablet Take 1 [...] Noted Date Diagnosed Date Sick sinus syndrome 08/15/2024 Overview (08/15/2024): [facility] pacemaker implanted 08/14/2024 for SSS Cardiac pacemaker in situ 08/15/2024 Overview (08/15/2024): [facility] pacemaker implanted 08/14/2024 for SSS HTN (hypertension) ST elevation (STEMI) myocard ial infarction of unspecified site CAD (coronary artery disease) GERD (gastroesophageal reflux disease) Bradycardia AV heart block Family History Medical History Relation Comments Hypertension [...] P M CDT Height 177.8 cm (5' 10) 08/14/2024 1:31 PM CDT Body Mass Index 25.75 08/14/2024 1:31 PM CDT Plan of Treatment Health Maintenance Due Date Last Done Comments ASCVD LDL 1965 ASCVD Statin 1965 Colorectal Cancer Screening Colonoscopy (10 Years) 1965 Annual Physical 09/20/1967 Hepatitis C 1982 DTaP, Tdap and Td Vaccines ( 1 - Tdap) 09/20/1983 Pneumococcal Vaccine: 50+ Ye ars (1 of 2 - PCV) 09/20/1983 Lung Cancer Screening 2014 Zoster Vaccines (1 of 2) 2014 RSV Immunization or 60+ Years (1 - Risk 60-74 years 1-dose series) 2024 COVID-19 Vaccine (1 - 2024-2 6 season) 2025 Influenza Adult (#1) 2025 01/20/2017 Hepatitis A Vaccines Aged Out No long er eligible based on patient's age to complete this topic Meningococcal B Vaccine Aged Out No l onger eligible based on patient's age to complete this topic Meningococcal Vaccine Aged Out No john josé miguel eligible based on patient's age to complete this topic RSV Immunizations Under 20 Months Aged Out No longer eligible based on patient's age to complete this topic Medical Devices Implanted Type Area Part Time Receptionist Device Identifier Shelf Expiration Date Model / Serial / Lot Ra Lead Implant-- 01/17/2016 Implanted:Qt y: 1 on 01/17/[address] [employer] - DIV [employer] 1882TC/46 / [id number] / Rv Lead Implant-01/17/2016 Implanted:Qt y: 1 on 01/17/[address] [employer] - DIV [employer] 8TC/65 / [id number] / Lv Lead Implant-01/17/2016 Implanted:Qt y: 1 on 01/17/[address] [employer] - [facility] [employer] 1458QL/86 / [id number] / Pacemaker-Sj a-Allure-08/14 Implanted:Qt y: 1 on 08/14/2024 by London Yu MD Pacemaker [facility] [employer] - [facility] [employer] [id number] 11/06/2025 [id number] / [id number] / Explanted Type Area Part Time Receptionist Device Identifier Shelf Expiration Date Model / Serial / Lot Pacemaker-[employer] Explanted:Qty: 1 on 08/14/2024 by London Yu MD Pacemaker Insurance [facility] Advance Directives Documents on File Type Date Recorded Patient Lighting Engineering Technician Expl anation Power of String Laster 08/14/2024 12:14 PM POWER OF ROTO MIXER OPERATOR 2024 * Full Code (Latest Code Status on File) Date Activated Date Inactivated Comments 08/14/2024 4:25 PM 08/14/2024 7:56 PM Care Teams Chili Maker Relationship Specialty Start Date End Date Pierce Torres MD [address] [place] [address] PCP - General INTERNAL MEDICINE 11/30/19 Sylvia Mancia MD [address] [place] [address] [place] Statistical Engineer CARDIOVASCULAR DISEASE 08/10/22 Ky zSymanski DO [address] [place] [address] INTERNAL MEDICINE 07/31/24
--- OUTSIDE RECORDS SUMMARY | 2025-03-09 11:12 | XMS_ITS | Encounter Summary ---
Author Organization [facility] Address [facility] [place] [address] Care Team Providers Care Wick And Base Assembler Name Role Phone Pierce Torres MD Primary Care Provider [phone] Sylvia Mancia MD Unavailable Ky Szymanski DO Unavailable Encounter Details Date Type Department Care Team (Late st Contact Info) Description 08/31/2022 Pre-Procedure Call [facility] [place] [address] Sylvia Mancia MD [address] [place], [place] [id number] Social History Tobacco Use Types Packs/Day Years [...] on filedocumented in this encounter Care Teams Wick And Base Assembler Relationship Specialty Start Date End Date Pierce Torres MD [address] [place] [id number] PCP - General INTERNAL MEDICINE 11/30/19 Sylvia Mancia MD [address] [place], [place] [id number] [place] [facility] Nurse CARDIOVASCULAR DISEASE 08/10/22 Ky Szymanski DO [address] [place] [address] INTERNAL MEDICINE 07/31/24 documented as of this encounter
--- OUTSIDE RECORDS SUMMARY | 2025-03-09 11:12 | XMS_ITS | Patient Health Record ---
Author Organization [facility] Address [address] [place] [address] Care Team Providers Care Flight Crew Ordnanceman Name Role Phone Alex Lynn Unavailable [phone] Reason For Referral No Information Medications Medication [...] 150 MG/ML SUBCUTANEOUS PEN INJECTOR *Reorder from [employer] for eRx and Interaction Alerts* Active Betamethasone [...] Insured Coverage Start Date Coverage End Date [facility] [address] [place] [address] [phone] [id number] DESIREE ANTOINE Self - patient is the insured
--- OUTSIDE RECORDS SUMMARY | 2025-03-09 11:12 | XMS_ITS | Clinical Summary ---
Author Organization [facility] Address [address] [place] [address] Care Team Providers Care Slitter And Rewinder Machine Operator Name Role Phone Pierce Torres MD Primary Care Provider [phone] Source Comments [facility],non-owned Affiliates and Associated Physician Practices is amultiple site organization consisting of ambulatory clinics and hospital sitesin [place], [place], [place] and [place]. This disclosure is being madepursuant to the Care Everywhere program and may not contain all information available regarding this patient. Last updated 18.[facility] [employer] Social History Tobacco Use Types Packs/Day Years Used Date Smoking Tobacco: Never Assessed Sex and Gender Information Value Date Recorded Sex Assigned at Not on file Legal Sex Male 2:23 PM UTILITIES OPERATOR Gender Identity Not on file Sexual Orientation [...] 09/15/1982 DTAP/TDAP/TD VACCINES (1 - Tdap) 09/20/1983 PNEUMOCOCCAL VACCINE 50+ (1 of 2 - PCV) 09/20/1983 ZOSTER VACCINE (1 of 2) 2014 DEPRESSION SCREENING 05/10/2024 HEPATITIS B VACCINE (1 of 3 - Risk 3-dose series) 2024 Respiratory Syncytial Virus (RSV) Vaccine Pt: or over 60 yrs (1 - Risk 60-74 years 1-dose series) 2024 COVID-19 VACCINE (2023-2 5 season) 2025 INFLUENZA VACCINE (#1) 2025 HIB VACCINE Aged Out No longer [...] patient's age to complete this topic Insurance Care Teams Slitter And Rewinder Machine Operator Relationship Specialty Start Date End Date Pierce Torres MD [address] [place] [address] PCP - General Internal Medicine 04/26/24
[2025-03-09 11:27] LABS: Alanine Aminotransferase 27 U/L (6-50); Albumin Level 4.7 g/dL (3.5-5.1); Alkaline Phosphatase 102 U/L (38-126); Anion Gap 12 mmol/L (4-12); Aspartate Amino Transferase 26 U/L (17-59); Bilirubin,Total 0.8 mg/dL (0.2-1.3); Blood Urea Nitrogen 14 mg/dL (9-20); Calcium 9.9 mg/dL (8.4-10.2); Carbon Dioxide 28 mmol/L (22-30); Chloride 101 mmol/L (98-107); Estimated Glomerular Filt Rate > 60; Glucose 265 mg/dL (65-110); Osmolality Calculated 301 mOsm/kg (285-295); Potassium 5.2 mmol/L (3.4-5.0); Sodium 141 mmol/L (137-145); Total Protein 7.9 g/dL (6.3-8.2)
== END 2025-03-09 10:48 | disposition home or self-care (01) ==
LOC: CHSLAB 10:49
PROVIDERS: Registered Nurse; PCP Internal Medicine
DX: L40.0 Psoriasis vulgaris (principal)
CPT/HCPCS: 36415; 80048; 80076; 85025; 86480